=== PATIENT | female | born 1975 | race Caucasian/White ===

== ENCOUNTER 2018-06-23 16:36 | Outpatient (REF) | payer MEDICAID, SELFPAY ==
[2018-06-23 19:35] LABS: *AMPHETAMINES SCREEN URINE Negative (Negative); *BARBITURATES SCREEN URINE Negative (Negative); *BENZODIAZEPINES SCREEN URINE Negative (Negative); Cannabinoids THC Negative (Negative); Cocaine Screen,Urine Negative (Negative); METHADONE URINE SCREEN Negative (Negative); OPIATES URINE SCREEN Negative (Negative)
[2018-06-23 19:59] LABS: Tricyclic Antidepressants Negative (Negative)
[2018-06-28 19:13] LABS: Buprenorphine 529.3 ng/mL; Norbuprenorphine 2528.6 ng/mL
== END 2018-06-23 16:56 ==
LOC: LBN 16:36
PROVIDERS: PCP Family Medicine; Visit Provider Nurse Practitioner
DX: Z34.91 Encounter for supervision of normal pregnancy, unspecified, first trimester (principal)
CPT/HCPCS: 80307; 87086

== ENCOUNTER 2018-07-12 08:44 | Outpatient (CLI) | payer MEDICAID, SELFPAY ==
--- NOTE | 2018-07-12 09:14 | DI.US_ITS ---
SYMPTOMS/DIAGNOSIS: 18-WEEK SCAN, Z34.90 OB ULTRASOUND: Many abnormalities cannot be diagnosed. A normal exam does not exclude a congenital anomaly. Radiology No. [id number] LMP: Exam Date: 07/12/18 [facility] 17 wks days on 06/06/18 EDC ([facility]) 11/14/18 Confirmed: HISTORY: ---- PREDICTED GESTATIONAL AGE NUMBER 22+1 weeks with a range of 21+1 weeks to 23+1 weeks. 1 Determined by_X__1ST US___LMP___HISTORY PLACENTA PRESENTATION Grade I Cephalic___ Anterior___Posterior_X__ Breech____ Right Left Transverse(head right___ Fundal___Low-lying___Previa___ Transverse(head left___ Varying__X____ BIOMETRY AMNIOTIC FLUID BPD: 51 mm 21+4 weeks Normal HC: 199 mm 22 weeks AC: 167 mm 21+5 weeks FL: 39 mm 22+5 weeks AMNIOTIC FLUID INDEX >26 WK CRL: mm weeks Cisterna Magna: 5 mm CI: 0.75 RUQ: LUQ Cerebellum: 2.3 cm EFW: 475 grams Percentile RLQ: LLQ Total: cms Composite AGE= 22 wks EDC by US: 11/15/18 BIOPHYSICAL PROFILE ANATOMY IDENTIFIED SCORE 0/2 Heart: 4-Chamber_X__Rate:BPM 155 LVOT:____X RVOT:__X Amniotic Fluid(>2cms)____ Stomach:___X____ Kidneys:__X Respirations (>30 secs) Bladder:____X____ Post. Fossa:__X Body Flex/Extension 3-vessel cord:__X Ventricles:___X Cord insertion:__X___ Lips:_X___ Extremity Flex/Extension Spinal morphology:__X Nose:_X___ Total Score= Palate:__X NS=not seen COMMENTS: OB ultrasound was performed utilizing limited protocol. The patient reportedly had recent incomplete anomaly screen at another institution. biometry today is estimated at 22 weeks with an EDC of 11/15/18. Placenta is posterior with no evidence of placenta previa. anomaly screen is within normal limits as per the attached checklist. There is a normal quantity of amniotic fluid.
[2018-07-12 11:13] LABS: Abs Immature Grans 0.04 k/cumm (0.0-0.09); Absolute Basophil Count 0.02 k/cumm (0.0-0.2); Absolute Monocyte Count 0.75 k/cumm (0.11-0.7); Absolute Neutrophil Count 6.41 k/cumm (1.2-6.7); Basophils % 0.2; HCT 32.6 % (36.0-46.0); HGB 10.7 g/dL (12.0-15.5); Immature Grans % 0.4; Lymphocytes % 25.5; Mean Corp. HGB Concentration 32.8 g/dL (32.0-36.0); Mean Corpuscular Hemoglobin 30.1 pg (27.0-33.0); Mean Corpuscular Volume 91.6 fL (80-95); Mean Platelet Volume 9.2 fL (8.0-11.0); Monocytes % 7.6; Neutrophils % 65.3; Platelet Count 299 x1000/uL (130-400); RBC 3.56 m/cumm (4.00-5.20); RBC Distribution Width 14.9 % (11.7-14.6); White Blood Cell Count 9.82 k/cumm (4.4-10.8)
[2018-07-13 10:31] LABS: HIV-1/2 Ag & Ab Screen Negative (NEGAT)
[2018-07-13 12:12] LABS: Hepatitis C Ab w Rflx HCV PCR Negative (NEGAT)
[2018-07-14 09:56] LABS: Hepatitis B Surface Ag Negative (NEGAT)
[2018-07-14 11:28] LABS: Rubella IgG Ab (UVM) Positive; Syphilis Serology (RPR) Negative (Negative); Varicella IgG Antibody Positive
== END 2018-07-12 09:04 ==
PROVIDERS: PCP Internal Medicine; Visit Provider Nurse Practitioner
DX: Z34.92 Encounter for supervision of normal pregnancy, unspecified, second trimester (principal); Z11.59 Encounter for screening for other viral diseases; Z11.4 Encounter for screening for human immunodeficiency virus [HIV]; Z01.84 Encounter for antibody response examination
CPT/HCPCS: 36415; 80055; 86787; 86803; 86850; 86900; 86901; 87340; 87389; 76805; 86592; 86762

== ENCOUNTER 2018-09-28 15:31 | Outpatient (REF) | payer MEDICAID, SELFPAY ==
[2018-09-28 17:01] LABS: *AMPHETAMINES SCREEN URINE Negative (Negative); *BARBITURATES SCREEN URINE Negative (Negative); *BENZODIAZEPINES SCREEN URINE Negative (Negative); Cannabinoids THC Negative (Negative); Cocaine Screen,Urine Negative (Negative); METHADONE URINE SCREEN Negative (Negative); OPIATES URINE SCREEN Negative (Negative)
[2018-09-28 17:07] LABS: Tricyclic Antidepressants Negative (Negative)
--- NOTE | 2018-09-29 07:56 | PDOC.ANES ---
Date of service: 09/28/18 Anesthesia Note Report Anesthesia Note: Consulted by OB for evaluation of patient for TOLAC with history of heroin/fentanyl abuse, and difficult IV access (IV remicade infusions in the past). Pt is very pleasant 43 yo with previous . She has been on buprenorphine since April and states she has been doing well. From an IV access standpoint she appears to have very good veins, however she states that she has lot of valves and people have had much difficulty in the past. Discussed pain control if she did go to section. Discussed epidural, TAPs blocks, EULOGIO blocks, etc. to aid in pain relief along with acetaminophen and ibuprophen. Discussed that additional conversations and a final plan would be preformed with whomever is on the day that she presents.
[2018-10-02 14:05] LABS: Chlamydia Result Negative; GC Result Negative; Specimen Description URINE
== END 2018-09-28 15:51 ==
LOC: LBN 15:31
PROVIDERS: Advanced Practice Midwife; PCP Internal Medicine; Visit Provider Advanced Practice Midwife
DX: Z34.93 Encounter for supervision of normal pregnancy, unspecified, third trimester (principal)
CPT/HCPCS: 80307; 87491; 87591

== ENCOUNTER 2018-10-12 00:18 | Outpatient (CLI) | payer MEDICAID, SELFPAY ==
--- NOTE | 2018-10-12 10:04 | DI.US_ITS ---
SYMPTOMS/DIAGNOSIS: MEDICATION EXPOSURE, SUPERVISION OF NORMAL -Z34.90 OBSTETRICAL ULTRASOUND: Many abnormalities cannot be diagnosed. A normal exam does not exclude a congenital anomaly. Radiology No. [id number] LMP: 02/08/18 Exam Date: 10/12/18 [facility] wks days on EDC ([facility]) Confirmed: HISTORY: PREDICTED GESTATIONAL AGE NUMBER 35+1 weeks with a range of 34+0 weeks to 36+1 weeks. 1 Determined by___1STUS___LMP___HISTORY PLACENTA PRESENTATION Grade II Cephalic_X__ Anterior___Posterior_X__ Breech____ Right Left Transverse(head right___ Fundal___Low-lying___Previa___ Transverse(head left___ Varying BIOMETRY AMNIOTIC FLUID BPD: 84 mm 33+5 weeks Normal HC: 313 mm 35 weeks AC: 313 mm 35+2 weeks FL: 66 mm 34+1 weeks AMNIOTIC FLUID INDEX >26 WK CRL: mm weeks Cisterna Magna: mm CI: 80 RUQ: 2.4 LUQ: 1.6 Cerebellum: cm EFW: 2509 grams Percentile: 37th RLQ: 2.4 LLQ: 1.2 Total: 7.6 cm Composite AGE= 34+4 wks EDC by US BIOPHYSICAL PROFILE ANATOMY IDENTIFIED SCORE 0/2 Heart: 4-Chamber___Rate:BPM 133 LVOT: RVOT: Amniotic Fluid(>2cms)____ Stomach: Kidneys: Respirations (>30 secs) Bladder: Post. Fossa: Body Flex/Extension 3 vessel cord: Ventricles: cord insertion: Lips:____ Extremity Flex/Extension spinal morphology: Nose: Total Score= Palate: NS=not seen COMMENTS: There is a single living intrauterine gestation. Estimated sonographic age is 34 weeks 4 days. The fetus is in the cephalic presentation. heart rate is 133 beats per minute. Estimated weight is 2509 g, which is the 37th percentile. Amniotic fluid index is 7.6 cm. Visually, amniotic fluid appears within normal limits. The placenta is posterior without evidence of previa. IMPRESSION: Single living intrauterine gestation. Estimated sonographic age is 34 weeks 4 days.
== END 2018-10-12 00:38 ==
PROVIDERS: PCP Internal Medicine; Visit Provider Advanced Practice Midwife
DX: Z34.93 Encounter for supervision of normal pregnancy, unspecified, third trimester (principal); O99.323 Drug use complicating pregnancy, third trimester
CPT/HCPCS: 76816

== ENCOUNTER 2018-11-08 16:18 | Outpatient (CLI) | payer MEDICAID, SELFPAY ==
[2018-11-08 16:56] LABS: HCT 33.8 % (36.0-46.0); HGB 11.4 g/dL (12.0-15.5); Mean Corp. HGB Concentration 33.7 g/dL (32.0-36.0); Mean Corpuscular Hemoglobin 31.2 pg (27.0-33.0); Mean Corpuscular Volume 92.6 fL (80-95); Mean Platelet Volume 10.1 fL (8.0-11.0); Platelet Count 213 x1000/uL (130-400); RBC 3.65 m/cumm (4.00-5.20); RBC Distribution Width 13.7 % (11.7-14.6); White Blood Cell Count 15.07 k/cumm (4.4-10.8)
== END 2018-11-08 16:38 ==
PROVIDERS: PCP Internal Medicine; Visit Provider Obstetrics & Gynecology Gynecology
DX: O34.219 Maternal care for unspecified type scar from previous cesarean delivery (principal); Z01.818 Encounter for other preprocedural examination
CPT/HCPCS: 36415; 85027; 86850; 86900; 86901

== ENCOUNTER 2018-11-09 09:00 | Inpatient (IN) | payer MEDICAID, SELFPAY ==
[2018-11-09 06:27] VITALS: BP 122/88; PULSE 90; RESP 16; TEMP 36.8; O2SAT 97
[2018-11-09 06:32] VITALS: BP 122/88; PULSE 90; RESP 16; TEMP 36.8; O2SAT 97
[2018-11-09] MEDS: Lactated Ringers 1,000 ML 125 ML IV ×2 (06:45→08:03)
[2018-11-09] MEDS: Sodium Citrate 30 ML CUP PO (07:31)
[2018-11-09] MEDS: Acetaminophen 325 MG TAB 650 MG PO ×2 (10:41→18:47)
--- NOTE | 2018-11-09 11:41 | PDOC.ANES ---
Date of service: 11/09/18 Time of Service: 11:41 Anesthesia Note Report Anesthesia Note: Called to see patient post for abdominal pain. Pt. did receive intrathecal narcotics in her spinal for procedure and tolerated procedure well. She is now posteroperatively crying, complaining of abdominal pain 10/10 and states she is unable to hold her baby due to pain. Upon exam, she states she is having both skin and visceral pain. She was offered bilateral TAP blocks for cutaneous discomfort but after being informed on the procedure, she declined this procedure. Although she has had intrathecal narcotics, she can receive additional analgesia at the discretion of her OB Provider who the RN is notifying.
[2018-11-09] MEDS: HYDROmorphone 2 MG/ML VIAL 1 MG IVP ×3 (12:02→19:49)
[2018-11-09] MEDS: Normal Saline Flush 10 ML SYR IV ×4 (12:04→19:49)
[2018-11-09] MEDS: Ketorolac 30 MG/ML VIAL IVP ×2 (14:20→19:48)
[2018-11-09] MEDS: Lactated Ringers 1,000 ML 120 ML IV (21:05)
[2018-11-10] MEDS: HYDROmorphone 2 MG/ML VIAL 1 MG IVP ×2 (00:17→04:11)
[2018-11-10] MEDS: Acetaminophen 325 MG TAB 650 MG PO ×5 (00:18→21:56)
[2018-11-10] MEDS: Ketorolac 30 MG/ML VIAL IVP (02:00)
[2018-11-10 07:04] LABS: HCT 29.5 % (36.0-46.0); HGB 9.8 g/dL (12.0-15.5); Mean Corp. HGB Concentration 33.2 g/dL (32.0-36.0); Mean Corpuscular Hemoglobin 31.5 pg (27.0-33.0); Mean Corpuscular Volume 94.9 fL (80-95); Mean Platelet Volume 9.8 fL (8.0-11.0); Platelet Count 193 x1000/uL (130-400); RBC 3.11 m/cumm (4.00-5.20); RBC Distribution Width 13.7 % (11.7-14.6); White Blood Cell Count 16.17 k/cumm (4.4-10.8)
[2018-11-10] MEDS: Ibuprofen 600 MG TAB PO ×3 (07:56→19:58)
[2018-11-10] MEDS: Normal Saline Flush 10 ML SYR IV (07:59)
[2018-11-10] MEDS: HYDROmorphone 2 MG TAB PO ×4 (09:32→21:56)
[2018-11-11] MEDS: HYDROmorphone 2 MG TAB PO ×6 (02:00→23:40)
[2018-11-11] MEDS: Acetaminophen 325 MG TAB 650 MG PO ×6 (02:00→23:40)
[2018-11-11] MEDS: Ibuprofen 600 MG TAB PO ×3 (06:10→18:27)
[2018-11-12] MEDS: Ibuprofen 600 MG TAB PO ×3 (01:55→16:58)
[2018-11-12] MEDS: HYDROmorphone 2 MG TAB PO ×5 (03:45→20:35)
[2018-11-12] MEDS: Acetaminophen 325 MG TAB 650 MG PO ×5 (03:45→20:35)
--- NOTE | 2018-11-12 11:34 | W.PM.OP ---
Date of service: 11/12/18 Time of Service: 11:34 Operative Note DATE OF PROCEDURE: 11/09/18 PRE-OP DIAGNOSIS: Scheduled for elective repeat delivery at term PROCEDURE: Low transverse repeat delivery SURGEON: Tatiana Avilez ANESTHESIA: spinal ESTIMATED BLOOD LOSS: 500 PATHOLOGY: none sent COMPLICATIONS: None Patient was transported to: floor Patient's condition: stable Indications: 23-year-old female who was counseled during her regarding trial labor and declined a attempt. She requested a repeat delivery and declined a tubal sterilization. Her initial delivery was for twins. Findings: Viable female in the vertex position weighing 6 pounds 14 ounces Apgars 8 at 1 minute 9 at 5 minutes light meconium staining of the amniotic fluid noted upon entry into the uterine cavity. Normal tubes ovaries and uterus. Her parents have named her Lincoln. Procedure Description: Patient was brought to the operating room and placed in the sitting position spinal anesthesia was administered without difficulty she was then placed in the dorsal supine position with a leftward tilt Lamar catheter was inserted to gravity drainage and she was prepped and draped in the usual sterile fashion. A timeout was performed antibiotic dosage of Ancef 2 g at the time of entry into the operating room was confirmed SCDs were in place. Pfannenstiel skin incision was made along the previous scar using a scalpel the underlying subcutaneous tissue was dissected using a Bovie electrocautery to the level of the rectus fascia. Rectus fascia was then nicked in the midline with a scalpel and the incision was extended laterally with curved Bond scissors. 2 koffi clamps were applied to the superior aspect of this incision and the rectus muscles were dissected off of the overlying rectus fascia using blunt technique and Bovie electrocautery. A similar technique was carried out on the inferior aspect of all the rectus fascia incision. Rectus muscles were in the midline and the peritoneum was entered bluntly and the peritoneal incision was then extended manually. A bladder blade was placed into the incision to retract the bladder away from the operative field. The bladder flap was created with Metzenbaum scissors and digital separation of the vesicouterine peritoneum. Bladder blade was then reinserted to retract the bladder away from the operative field. A scalpel was used to incise the lower uterine segment in a transverse fashion. Upon entry into the uterine cavity the was extended bluntly. The amniotic sac was broken with the above-noted findings and the head was grasped delivered through the incision followed by shoulders trunk and extremities with the assistance of fundal pressure. Infant's cord was doubly clamped and cut and she was he handed off to waiting pediatric team. The placenta was delivered intact with a combination of gentle cord traction and fundal massage. The uterus was then exteriorized cleared of all clots and debris and the uterine incision was reapproximated with a running locked suture of 0 Vicryl. A second imbricating suture of 0 Vicryl was used to achieve excellent hemostasis. The uterine incision was inspected and noted be hemostatic. The uterus was returned to the abdomen and the uterine incision once again reinspected and noted be hemostatic. The paracolic gutters were cleared of all clots and debris and the bladder flap and anterior abdominal wall were inspected and noted to be hemostatic. The peritoneum was closed with a running suture of 2-0 Vicryl. The rectus fascia was closed using 0 Vicryl extending from the lateral margins and overlapping in the midline subcutaneous tissue was reapproximated using a running suture of 2-0 Vicryl subcuticular closure of the skin incision was performed with 4-0 Vicryl. The skin was sealed with skin glue. The uterus was massaged for any remaining clots and debris's patient was transferred to the waiting hospital bed and transported to recovery area in stable condition all sponge lap needle counts correct x2.
[2018-11-13] MEDS: Acetaminophen 325 MG TAB 650 MG PO ×2 (02:15→06:25)
[2018-11-13] MEDS: HYDROmorphone 2 MG TAB PO ×2 (02:15→06:25)
[2018-11-13] MEDS: Ibuprofen 600 MG TAB PO (06:30)
--- NOTE | 2018-11-13 08:03 | W.PM.DS.N ---
Date of service: 11/13/18 Time of Service: 08:03 DS: Diagnosis Discharge Diagnosis (1) delivery delivered: Start date: 11/09/18 Status: Inactive Asessment and Plan: Patient declined bilateral tubal sterilization at the time of her delivery (2) Opiate dependence, continuous: Status: Chronic Asessment and Plan: Subutex administered 16 mg daily during her hospital stay (3) Depression: Status: Chronic Asessment and Plan: Stable. Discharge Plan Disposition Condition: Good Discharge Details Reason For Visit: REPEAT SECTION Admit Date/Time: 11/09/18 09:00 Admit Provider: Tatiana Avilez Attending Provider: Tatiana Avilez Primary Care Provider: Nas Kim Hospital Course Hospital Course: Patient was admitted the morning of surgery and underwent a elective repeat delivery without complications. Her daughter will call weight 6 pounds 14 ounces inspection of the abdomen and pelvis revealed normal anatomy. Time of discharge incision is clean dry and intact bilateral lower extremity edema treated with LUZ hose and extremity elevation and normal vital signs. She was successfully breast-feeding at the time of discharge she was discharged to banner status since her daughter remain for BETTY scoring until Tuesday. Recommended the patient remain inpatient until this morning to assist with pain control breast-feeding and care of the infant. She was discharged with prescription for Dilaudid 2 mg 1 every 6 hours for total of 10 tablets with no refills prescription for ibuprofen 600 mg every 6 hours. Patient will follow-up in approximately 1 week for inspection of the incision and to assess pain control and mood. Home Meds and New Rx's Prescriptions: No Action buprenorphine HCl 8 mg tablet, sublingual 16 mg SL DAILY RF: 0 Unisom (doxylamine) 25 mg tablet 25 mg PO HS RF: 0 ondansetron HCl [Zofran] 4 mg tablet 4 mg PO ONCE PRNRF: 0 prenat.vits,bibi,beb-ktsi-enkyb tablet 1 tab PO DAILY RF: 0 ferrous sulfate [Feosol] 325 mg (65 mg iron) tablet 325 mg PO DAILY RF: 0 ondansetron HCl [Zofran] 4 mg tablet 4 mg PO QID PRN (Reason: nausea and vomiting) Qty: 30 RF: 1 hydromorphone [Dilaudid] 2 mg tablet 2 mg PO Q6H MDD 4 PRN (Reason: pain) Qty: 10 RF: 0 calcium carbonate [Tums] 200 mg calcium (500 mg) Tablet,Chewable 200 mg PO BID PRNRF: 0 acetaminophen [Tylenol Extra Strength] 500 mg Tablet RF: 0 Discharge Instructions Stand Alone Forms: BC Instructions, BC Discharge Instruc Activity:: Activity as Tolerated Activity:: Activity as Tolerated Equipment/Supplies:: No Equipment Needed Diet:: As Tolerated Exam Const General: no acute distress Nutritional Appearance: average body habitus Orientation: alert, awake and oriented x3 Chest Breast inspection: normal inspection of the breasts (Rayray exam consistent with normal breast-feeding exam) Resp Effort & Inspection: normal respiratory effort Auscultation: clear to auscultation bilaterally Cardio Palpation: normal PMI Rate: regular rate Rhythm: regular rhythm Heart Sounds: S1 normal and S2 normal General: deferred Other: Pfannenstiel skin incisions clean dry intact skin glue present. Uterus 1 fingerbreadth below the umbilicus, firm, mobile, slightly tender Skin General skin exam: no rashes or lesions noted Extrem General: pedal edema bilaterally (Nonpitting-no knots or cords) Psych Mental Status: mental status grossly normal Speech and Movement: speech and movement normal Mood: congruent mood Affect: normal affect Attitude: cooperative Thought Process: normal Thought Content: normal Insight: insight good Judgment: judgment good Other: Bodies appropriate with incident. She expresses fatigue because of the resting demands cleansing of the infant removed from the room for patient to sleep. DS: Data Vitals/I&O Vitals and I&O: Vital Signs Temperature 98.2 F 11/09/18 06:32 Pulse 90 11/09/18 06:32 Pulse Rhythm Regular 11/09/18 06:32 Respiratory Rate 16 11/09/18 06:32 Blood Pressure 122/88 11/09/18 06:32 Pulse Oximetry 97 11/09/18 06:32 Oxygen Delivery Method Room Air 11/09/18 06:32 Oxygen Flow Rate 0 11/09/18 06:32 Pain Level 8 11/13/18 06:30 PFSH Medical History (Acute) History of tobacco abuse (Acute) Hx of herpes genitalis (Chronic) Arthralgia (Chronic ~08/1996) Crohn disease (Chronic) Depression (Chronic) Opiate dependence, continuous (Chronic) Rheumatoid arthritis (Chronic) delivery delivered (Resolved) Surgical History delivery delivered (Inactive) Family History Brother Crohn's colitis Social History Smoking/Tobacco Use Status: Former Tobacco Use Quit Date: 04/27/18 Alcohol Intake: never Substance use type: former substance user, heroin and painkillers Adopted: No Foster care: No Household members: significant other Number of Children: 3 Seatbelt use: always Helmet use: Yes 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 Together 7 years History History 2 Para 1 Hx # Term Pregnancies 1 Multiple births 1 Hx # Pregnancies 0 Ectopic pregnancies 0 AB induced 0 Hx Number of Living Children 2 AB spontaneous 0 Past Pregnancies Del. Date GA/Weeks # Outcome Route Wgt Sex Labor Lgth Anesthesia Location Prov Complic 08/22/96 Yes Successful 6 lb 5 oz other 08/22/96 Yes Successful 4 lb 5 oz Female 11/09/18 39 No Successful Female Tatiana Avilez Delivery Date: 11/09/18 On 11/13/18 @ 08:12 Tatiana Avilez Elective repeat delivery named [place] Delivery Date: 08/22/96 No notes to display Delivery Date: 08/22/96 No notes to display
== END 2018-11-13 10:28 | disposition home or self-care (01) | DRG 784 ==
LOC: PDS 09:11 → OBS 10:34
PROVIDERS: Admitting Provider Obstetrics & Gynecology Gynecology; PCP Internal Medicine; Visit Provider Obstetrics & Gynecology Gynecology
PROC: 10D00Z1 Extraction of Products of Conception, Low, Open Approach (ICD-10-PCS; CPT 59514; principal; 2018-11-09 07:30)
DX: O34.211 Maternal care for low transverse scar from previous cesarean delivery (principal); F11.20 Opioid dependence, uncomplicated; O99.324 Drug use complicating childbirth; O98.32 Other infections with a predominantly sexual mode of transmission complicating childbirth; Z37.0 Single live birth; O77.0 Labor and delivery complicated by meconium in amniotic fluid; Z3A.39 39 weeks gestation of pregnancy; A60.00 Herpesviral infection of urogenital system, unspecified; O75.89 Other specified complications of labor and delivery; R11.0 Nausea
CPT/HCPCS: 59514; 58720; 36415; 85027; NC; J0690; J1100; J1885; J2370; J2405; J3010; J3490

== ENCOUNTER 2022-07-05 16:52 | Outpatient (REF) | payer MEDICAID, SELFPAY ==
[2022-07-05 22:16] LABS: Abs Immature Grans 0.03 10^3/uL (0.0-0.06); Absolute Basophil Count 0.06 10^3/uL (0.0-0.2); Absolute Eosinophil Count 0.23 10^3/uL (0.0-0.7); Absolute Monocyte Count 0.56 10^3/uL (0.1-0.8); Basophils % 0.6; Eosinophils % 2.5; HCT 39.1 % (36.0-46.0); HGB 12.8 g/dL (11.2-15.7); Immature Grans % 0.3; Lymphocytes % 37.3; MCH 29.6 pg (27.0-33.0); MCHC 32.7 % (32.0-36.0); MCV 91 fL (80-95); Neutrophils % 53.3; Platelet Count 293 10^3/uL (130-400); RBC 4.32 10^6/uL (3.93-5.22); RDW 13.2 % (11.7-14.6); WBC 9.38 10^3/uL (4.4-10.8)
[2022-07-05 22:35] LABS: Hemoglobin A1C 5.5 % (<5.7)
[2022-07-05 22:45] LABS: ALT 34 U/L (14-59); AST 18 U/L (15-37); Albumin 3.7 g/dL (3.4-5.0); Alkaline Phosphatase 116 U/L (46-116); Anion Gap 5.9 mmol/L (3-11); BUN 12 mg/dL (7-18); Bilirubin, Total 0.2 mg/dL (0.2-1.0); CO2 29.1 mmol/L (21.0-32.0); CREATININE 0.9 mg/dL (0.55-1.02); Calcium 8.9 mg/dL (8.5-10.1); Calculated LDL 148 mg/dL (<100); Chloride 102 mmol/L (98-107); Cholesterol 247 mg/dL (<200); Estimated GFR 80.34 (mL/min/1.73m2); Glucose 85 mg/dL (74-106); HDL Cholesterol 28 mg/dL (40-60); Potassium 4.3 mmol/L (3.5-5.1); Sodium 137 mmol/L (136-145); TSH (W/Ref FT4) 2.55 uIU/mL (0.36-3.74); Total Protein 7.8 g/dL (6.4-8.2); Triglyceride 356 mg/dL (<150)
== END 2022-07-05 16:53 | disposition home or self-care (01) ==
LOC: NCHCN 16:52
PROVIDERS: PCP Internal Medicine; Visit Provider Nurse Practitioner Family
DX: E78.5 Hyperlipidemia, unspecified (principal); R79.89 Other specified abnormal findings of blood chemistry; Z00.00 Encounter for general adult medical examination without abnormal findings; Z13.228 Encounter for screening for other metabolic disorders
CPT/HCPCS: 80053; 80061; 83036; 84443; 85025

== ENCOUNTER 2022-10-26 11:03 | Outpatient (REF) | payer MEDICAID, SELFPAY ==
[2022-11-01 06:37] LABS: 2-OH-Ethyl-Flurazepam Negative ng/mL (Cutoff: 10); 7-NH-Clonazepam Negative ng/mL (Cutoff: 10); 7-NH-Flunitrazepam Negative ng/mL (Cutoff: 10); Alpha OH-Alprazolam Negative ng/mL (Cutoff: 10); Alpha-OH Midazolam Negative ng/mL (Cutoff: 10); Alpha-OH-Triazolam Negative ng/mL (Cutoff: 10); Alprazolam Negative ng/mL (Cutoff: 10); Benzodiazepines Interpretation Negative.; Chlordiazepoxide Negative ng/mL (Cutoff: 10); Clobazam Negative ng/mL (Cutoff: 10); Clonazepam Negative ng/mL (Cutoff: 10); Diazepam Negative ng/mL (Cutoff: 10); Flurazepam Negative ng/mL (Cutoff: 10); Lorazepam Negative ng/mL (Cutoff: 10); Midazolam Negative ng/mL (Cutoff: 10); N-Desmethylclobazam Negative ng/mL (Cutoff: 10); Prazepam Negative ng/mL (Cutoff: 10); Temazepam Negative ng/mL (Cutoff: 10); Triazolam Negative ng/mL (Cutoff: 10); Zolpidem Carboxylic acid Negative ng/mL (Cutoff: 10)
== END 2022-10-26 11:04 | disposition home or self-care (01) ==
LOC: NCHCN 11:03
PROVIDERS: PCP Internal Medicine; Visit Provider Nurse Practitioner Psychiatric/Mental Health
DX: F19.21 Other psychoactive substance dependence, in remission
CPT/HCPCS: 80346

== ENCOUNTER 2023-02-21 11:30 | Emergency (ER) | payer MEDICAID, SELFPAY ==
[2023-02-21 11:34] VITALS: BP 151/89; PULSE 126; RESP 12; TEMP 36.8; O2SAT 97
--- NOTE | 2023-02-21 12:21 | ED.GENADUL_ITS ---
Discharge Plan Disposition Patient Disposition: Home Condition: Stable Discharge Details Clinical Impression: Nausea vomiting and diarrhea, Hematuria Primary Care Provider: Nas Kim ED Provider: Lubna Chadwick Home Meds and New Rx's Prescriptions: New ondansetron 4 mg tablet,disintegrating 4 mg PO Q6H PRN (Reason: nausea and vomiting) Qty: 10 0RF Continued buprenorphine HCl 8 mg tablet, sublingual 16 mg SL DAILY Patient Comments: no longer taking 02/21/23 CT Unisom (doxylamine) 25 mg tablet 25 mg PO HS Patient Comments: no longer taking 02/21/23 CT prenat.vits,bibi,jnj-snxw-rxuql tablet 1 tab PO DAILY Patient Comments: no longer taking 02/21/23 CT ferrous sulfate [Feosol] 325 mg (65 mg iron) tablet 325 mg PO DAILY Patient Comments: no longer taking 02/21/23 CT ondansetron HCl [Zofran] 4 mg tablet 4 mg PO QID PRN (Reason: nausea and vomiting) Qty: 30 1RF Patient Comments: no longer taking 02/21/23 CT ibuprofen 600 mg tablet 600 mg PO QID PRN (Reason: pain) Qty: 60 1RF Patient Comments: no longer taking 02/21/23 CT misoprostol 100 mcg tablet 100 mcg PO QPCHS Qty: 24 0RF Patient Comments: no longer taking 02/21/23 CT Rx Instructions: place 8 tablets in the vagina every 12 hours for 3 doses. norethindrone (contraceptive) [Deblitane] 0.35 mg tablet 0.35 mg PO DAILY Qty: 84 5RF Patient Comments: no longer taking 02/21/23 CT Rx Instructions: Begin immediately nitrofurantoin macrocrystal 25 mg capsule 50 mg PO .COMPLEX Qty: 30 1RF Patient Comments: no longer taking 02/21/23 CT Rx Instructions: 50 mg orally after intercourse; must administer with a meal/food calcium carbonate [Tums] 200 mg calcium (500 mg) Tablet,Chewable 200 mg PO BID PRN Patient Comments: no longer taking 02/21/23 CT acetaminophen [Tylenol Extra Strength] 500 mg Tablet Patient Comments: no longer taking 02/21/23 CT clonazepam 1 mg Tablet 1 mg PO DAILY prazosin 5 mg Capsule 5 mg PO QHS mirtazapine [Remeron] 30 mg Tablet 50 mg PO DAILY methadone 5 mg/5 mL Syringe 215 mg PO DAILY vilazodone [Viibryd] 10 mg Tablet 10 mg PO DAILY Discharge Instructions Instructions: Acute Nausea and Vomiting (ED), Hematuria (ED) Additional Instructions: Your labs are reassuring here today. This may be a viral GI illness and should resolve in the next few days. Please continue to encourage hydration with frequent sips of fluids. Please avoid red liquids as this may be misconstrued for blood. You may advance diet as tolerated but please stick with easy to digest foods such as bananas, rice, applesauce, toast. Please follow-up with your primary care in 1 week for reevaluation. If you develop fever/chills, increased pain, inability to hydrate or other new/worsening symptom please seek care urgently once again. Medicine for your nausea has been sent to your pharmacy and may be used as directed if symptoms recur. It appears that your urinary tract infection has resolved. However, you did have some blood in your urine which may be residual from your infection in your recent menstrual cycle. Please follow-up with primary care. Referrals: Nas Kim [Primary Care Provider] - Medical Decision Making Patient is a pleasant 47-year-old female, brought in by her mom, with chief complaint of abdominal pain, nausea, vomiting and diarrhea. She reports that nausea and vomiting woke her around midnight. Had been feeling well yesterday. Denies any fevers or chills. States that she had 1 episode of diarrhea this morning. Estimates that she has vomited, all nonbloody, at least 20 times. No known sick contacts. Endorses some epigastric discomfort. No pain rating into the back. Patient was seen by primary care last week and treated for urinary tract infection with Bactrim. Is not currently endorsing any dysuria, increased frequency or urgency. no flank pain. patient denies status, states that she is not sexually active. Denies vaginal discharge. On exam, patient appears nontoxic. Resting comfortably. Is holding an emesis bag. We will treat her nausea. She is on methadone at a dose this morning so we will give Compazine and Benadryl until we know QT and then would consider Zofran. Abdomen is benign at this time but she indicates the upper abdomen particular the left side and epigastrium as area of increased discomfort. No CVA tenderness. Lungs are clear, normal cardiac exam. ECG has QTc 375, able to use zofran for continued nausea if needed. Primary concern at this time for viral gastroenteritis. Patient does have history of Crohn's but states that its been over 10 years since her last flair, does not feel like this is the same. Consider pancreatitis with patient denies any alcohol intake. No pain with palpation. Also considered gallbladder disorder but again, no pain at this time and this has not been linked to p.o. intake at all. She not having any CVA tenderness to suggest a pyelonephritis. Pain is fairly vague across the epigastric region so I do not see evidence to suggest nephrolithiasis at this time. She is not having consistent symptoms such as diverticulitis or appendicitis. Plan to obtain baseline labs and continue to reevaluate. Patient feeling significantly improved after antiemetics. Labs reviewed. Patient has no significant abnormalities on CBC, CMP. Alk phos is slightly elevated but this is been elevated for her in the past. Lipase within normal limits. Urine has moderate mount of blood but patient does state that she just finished her menses. Again, no CVA tenderness to suggest renal pathology. Negative for bacteria so believe that her UTI was successfully treated with the Bactrim she was prescribed by her primary care. She and I did discuss imaging and she would prefer to hold off at this time which I do feel is appropriate as I am not seeing evidence to suggest surgical pathology at this time. We will allow her to continue with her hydration and discharged home with mom. QTc 375, will give Zofran for the ODT option. All of her questions and cocnerns were addressed, she is in agreement with this plan. [facility] General Date/Time Provider Initiated Documentation: 02/21/23 12:21 . Limitations to Documentation: no limitations . Information obtained by: patient, family and RN notes reviewed . History of Present Illness 47 year old F presents to the emergency department with the chief complaint of nausea, vomiting, diarrhea, abdominal discomfort, described as severe (estimates 20 episodes of emesis today, no pain currently), Quality is described as aching, and is localized to the abdomen. Patient reports no radiation. Patient started experiencing this hour(s) (woke her at midnight) and it has been constant. No relieving factors improve symptom(s), No exacerbating factors reported . Patient notes no other symptoms.. Patient did receive the following treatments prior to arrival, none Related Data Home Medications Medication Instructions Recorded Confirmed doxylamine succinate 25 mg tablet 25 mg PO HS 06/23/18 11/22/18 (Unisom (doxylamine)) prenat.vits,bibi,dod-lsol-qvbxo 1 tab PO DAILY 06/23/18 11/22/18 buprenorphine HCl 8 mg sublingual 16 mg sublingual DAILY 08/07/18 11/22/18 tablet ferrous sulfate 325 mg (65 mg 325 mg PO DAILY 10/13/18 11/22/18 iron) tablet (Feosol) ondansetron HCl 4 mg tablet 4 mg PO QID PRN nausea and 10/26/18 11/22/18 (Zofran) vomiting #30 tabs calcium carbonate 200 mg calcium 200 mg PO BID PRN 11/06/18 11/22/18 (500 mg) chewable tablet (Tums) acetaminophen 500 mg tablet 11/09/18 11/22/18 (Tylenol Extra Strength) ibuprofen 600 mg tablet 600 mg PO QID PRN pain #60 tabs 11/13/18 11/22/18 misoprostol 100 mcg tablet 100 mcg PO QPCHS #24 tabs 03/07/20 norethindrone (contraceptive) 0.35 0.35 mg PO DAILY #84 tabs 08/26/20 mg tablet (Deblitane) nitrofurantoin macrocrystal 25 mg 50 mg PO .COMPLEX #30 caps 02/17/23 capsule clonazepam 1 mg tablet 1 mg PO DAILY 02/21/23 02/21/23 methadone 5 mg/5 mL oral syringe 215 mg PO DAILY 02/21/23 02/21/23 (FOR ORAL USE ONLY) mirtazapine 30 mg tablet (Remeron) 50 mg PO DAILY 02/21/23 02/21/23 ondansetron 4 mg disintegrating 4 mg PO Q6H PRN nausea and 02/21/23 tablet vomiting #10 tabs prazosin 5 mg capsule 5 mg PO QHS 02/21/23 02/21/23 vilazodone 10 mg tablet (Viibryd) 10 mg PO DAILY 02/21/23 02/21/23 Previous Rx's Medication Instructions Recorded ondansetron HCl 4 mg tablet 4 mg PO QID PRN nausea and 10/26/18 (Zofran) vomiting #30 tabs ibuprofen 600 mg tablet 600 mg PO QID PRN pain #60 tabs 11/13/18 misoprostol 100 mcg tablet 100 mcg PO QPCHS #24 tabs 03/07/20 norethindrone (contraceptive) 0.35 0.35 mg PO DAILY #84 tabs 08/26/20 mg tablet (Deblitane) nitrofurantoin macrocrystal 25 mg 50 mg PO .COMPLEX #30 caps 02/17/23 capsule ondansetron 4 mg disintegrating 4 mg PO Q6H PRN nausea and 02/21/23 tablet vomiting #10 tabs Allergies Allergy/AdvReac Type Severity Reaction Status Date / Time No Known Allergies Allergy Verified 02/21/23 11:42 General Stated Complaint: Abd Prob MEGHA: 3 Review of Systems Constitutional Constitutional: Reports as per HPI, Denies chills, Denies fever(s) and Denies headache(s) ENT Ears, Nose, Mouth, and Throat: Denies headache(s) Cardiovascular Cardiovascular: Reports as per HPI, Denies chest pain and Denies dyspnea Respiratory Respiratory: Reports as per HPI, Denies cough and Denies dyspnea Gastrointestinal Gastrointestinal: Reports as per HPI Genitourinary Genitourinary: Denies abnormal menses and Denies vaginal discharge Musculoskeletal Musculoskeletal: Reports as per HPI and Denies back pain Integumentary/Breasts Skin/Breast: Reports as per HPI and Denies rash Neurologic Neurologic: Reports as per HPI and Denies headache(s) PFSH All Active Problems (Updated 02/21/23 @ 13:26 by BRANDON Aguilar) Nausea vomiting and diarrhea (Acute) Hematuria (Acute) Postcoital urinary tract infection (Acute) Contraception (Acute) 08/2020. Declined LARC. Smokes tobacco. Rx for norethindrone 0.35 mg daily. History of tobacco abuse (Acute) Hx of herpes genitalis (Chronic) c/s report makes mention of vulvar herpes outbreak as being the cause of pt's c/s. Arthralgia (Chronic ~08/1996) related to remicaid treatment and crohn's Crohn disease (Chronic) Depression (Chronic) Opiate dependence, continuous (Chronic) Medical History (Updated 02/21/23 @ 13:26 by BRANDON Aguilar) delivery delivered Rheumatoid arthritis Family History (Updated 09/28/18 @ 10:13 by Katie Broussard CNM) Brother Crohn's colitis Social History (Updated 11/13/18 @ 08:11 by Tatiana Jarrell MD) Smoking/Tobacco Use Status: Former Tobacco Use Quit Date: 04/27/18 Smoking risk assessment performed?: Yes Alcohol Intake: never Substance use type: former substance user, heroin and painkillers Adopted: No Foster care: No Household members: significant other Number of Children: 3 Seatbelt use: always Helmet use: Yes 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 Together 7 years History History 2 Para 1 Hx # Term Pregnancies 1 Multiple births 1 Hx # Pregnancies 0 Ectopic pregnancies 0 AB induced 0 Hx Number of Living Children 2 AB spontaneous 0 Past Pregnancies Del. Date GA/Weeks # Preg Succ Route Wgt Sex Labor Lgth Anesth esia Location Prov [facility] 08/22/96 Yes 2863.302 g other 08/22/96 Yes 1956.117 g Female 11/09/18 39 No Female Tatiana Carrera 11/09/18 No 3118.448 g Female [facility] Tatiana Jarrell Delivery Date: 11/09/18 Last Updated by: Tatiana Jarrell M.D. Elective repeat delivery named [place] Exam Const General: cooperative, healthy appearing, comfortable, no acute distress and well developed Nutritional Appearance: average body habitus and well nourished Orientation: alert and awake [facility] Head: normal to inspection Mouth: moist mucous membranes Resp Effort & Inspection: normal respiratory effort, able to speak in complete sentences and no respiratory distress Auscultation: clear to auscultation bilaterally, no rales, no rhonchi and no wheezes Cardio Rate: tachycardic Rhythm: regular rhythm Heart Sounds: S1 normal and S2 normal GI Inspection: normal to inspection Palpation: soft, no hepatosplenomegaly, not firm, no guarding, no masses, not rigid and nontender Percussion: normal to percussion Auscultation: normal bowel sounds Back/Spine/Pelvis Back: no CVA tenderness Skin General skin exam: no rashes or lesions noted Trauma: no lacerations or abrasions Neuro General: patient alert and patient awake Cognition: normal cognition Speech: speech normal Gait: normal gait Psych Appearance: grossly normal and well kempt Mental Status: mental status grossly normal Speech and Movement: speech and movement normal Course Vital Signs Vital signs: Vital Signs Temperature 36.8 C 02/21/23 11:34 Pulse 126 H 02/21/23 11:34 Respiratory Rate 12 02/21/23 11:34 Blood Pressure 151/89 H 02/21/23 11:34 Pulse Oximetry 97 02/21/23 11:34 Temperature 36.8 C 02/21/23 11:34 Temperature Source Oral 02/21/23 11:34 Pulse 126 H 02/21/23 11:34 Respiratory Rate 12 02/21/23 11:34 Respiratory Effort Normal 02/21/23 11:38 Blood Pressure 151/89 H 02/21/23 11:34 Blood Pressure Position Sitting 02/21/23 11:34 Pulse Oximetry 97 02/21/23 11:34 Oxygen Delivery Method Room Air 02/21/23 11:34 Oxygen Flow Rate 0 02/21/23 11:34 Pain Level 3 02/21/23 11:34
--- NOTE | 2023-02-21 12:30 | RT.EKG_ITS ---
APPROVED REPORT Exam: Resting ECG Reason for Exam: methadone Patient Location: E HR:93 bpm ECG Measurements Heart Rate 93 AXIS IA 147 P 75 QRSd 87 QRS 45 QT 302 T 32 QTc 375 Conclusion Sinus rhythm...normal P axis, V-rate 60- 99
[2023-02-21 12:33] LABS: Abs Immature Grans 0.05 10^3/uL (0.0-0.06); Absolute Basophil Count 0.03 10^3/uL (0.0-0.2); Absolute Eosinophil Count 0.01 10^3/uL (0.0-0.7); Absolute Lymphocyte Count 1.57 10^3/uL (1.2-3.4); Absolute Monocyte Count 0.24 10^3/uL (0.1-0.8); Basophils % 0.3; Eosinophils % 0.1; HCT 38.8 % (36.0-46.0); HGB 13.1 g/dL (11.2-15.7); Immature Grans % 0.5; Lymphocytes % 14.3; MCH 28.9 pg (27.0-33.0); MCHC 33.8 % (32.0-36.0); MCV 86 fL (80-95); MPV 9.1 fL (8.0-11.0); Monocytes % 2.2; Neutrophils % 82.6; Platelet Count 344 10^3/uL (130-400); RBC 4.54 10^6/uL (3.93-5.22); RDW 13.4 % (11.7-14.6); RDW-SD 41.6 fL; WBC 10.95 10^3/uL (4.4-10.8)
[2023-02-21 12:34] LABS: Absolute Neutrophil Count 9.04 10^3/uL (1.2-6.7)
[2023-02-21] MEDS: Lactated Ringers 1,000 ML 1000 ML IV (12:46)
[2023-02-21] MEDS: diphenhydrAMINE 50 MG/ML VIAL 25 MG IVP (12:46)
[2023-02-21] MEDS: Prochlorperazine 10 MG/2 ML VIAL IVP (12:46)
[2023-02-21 12:49] LABS: ALT 45 U/L (14-59); AST 25 U/L (15-37); Albumin 4.4 g/dL (3.4-5.0); Alkaline Phosphatase 126 U/L (46-116); Anion Gap 12.2 mmol/L (3-11); BUN 16 mg/dL (7-18); Bilirubin, Total 0.3 mg/dL (0.2-1.0); CO2 22.8 mmol/L (21.0-32.0); Calcium 9.4 mg/dL (8.5-10.1); Chloride 102 mmol/L (98-107); Estimated GFR 70.36 (mL/min/1.73m2); Glucose 144 mg/dL (74-106); Lipase 23 U/L (16-77); Magnesium 1.8 mg/dL (1.8-2.4); Potassium 3.7 mmol/L (3.5-5.1); Sodium 137 mmol/L (136-145); Total Protein 8.9 g/dL (6.4-8.2)
[2023-02-21 12:55] LABS: Bilirubin Small (Negative); Blood Moderate (Negative); Clarity Clear (Clear); Glucose Negative (Negative); Ketones Negative (Negative); Leukocyte Esterase Negative (Negative); Nitrite Negative (Negative); Urobilinogen 0.2 mg/dL (Up to 0.2)
[2023-02-21 13:05] LABS: Bacteria Negative HPF (Negative); C & S Indicated? No; Crystals Negative HPF (Negative); Epithelial Cells Moderate HPF (Negative); Mucus Negative (Negative); RBC >50 HPF (0-2); WBC 0-2 HPF (0-5)
[2023-02-21 13:58] VITALS: PULSE 84
== END 2023-02-21 13:41 | disposition home or self-care (01) ==
PROVIDERS: Emergency Provider Physician Assistant; PCP Internal Medicine
DX: R10.11 Right upper quadrant pain; R10.12 Left upper quadrant pain; R11.10 Vomiting, unspecified; R51.9 Headache, unspecified; Z87.891 Personal history of nicotine dependence; Z79.891 Long term (current) use of opiate analgesic
CPT/HCPCS: 80053; 81025; 83690; 93005; 96365; 96375; 99284; 81003; 81015; 83735; 85025; 93010; J0780; J1200

== ENCOUNTER 2023-08-16 07:11 | Emergency (ER) | payer MEDICAID, SELFPAY ==
[2023-08-16] VITALS (11 sets, daily range): BP systolic 151; BP diastolic 94; PULSE 67–85; RESP 11–24; TEMP 36.7
--- NOTE | 2023-08-16 07:29 | ED.GENADUL_ITS ---
Discharge Plan Disposition Patient Disposition: Home Condition: Stable Discharge Details Clinical Impression: Acute dehydration, Vomiting, Hypokalemia Primary Care Provider: Unknown,Unknown ED Provider: Thomas Gutierrez Home Meds and New Rx's Prescriptions: New ondansetron 4 mg tablet,disintegrating 4 mg PO Q6H PRN (Reason: nausea and vomiting) Qty: 30 0RF No Action clonazepam 1 mg Tablet 1 mg PO DAILY prazosin 5 mg Capsule 5 mg PO QHS methadone 5 mg/5 mL Syringe 215 mg PO DAILY vilazodone [Viibryd] 10 mg Tablet 10 mg PO DAILY lamotrigine 25 mg tablet 25 mg PO DAILY zolpidem 5 mg tablet 5 mg PO HS Patient Comments: TAKE ONE TABLET BY MOUTH AT BEDTIME NEEDED Discharge Instructions Instructions: Dehydration (ED) Additional Instructions: Increase fluid intake. Try to drink liquids with electrolytes like Pedialyte or Gatorade return to the emergency department if you are not tolerating anything by mouth. Medical Decision Making Emergent evaluation of fatigue, vomiting. On examination, patient does have signs of clinical dehydration. Abdominal exam is benign. I doubt that this is a Crohn's flare. Initial differential includes dehydration, viral illness. Also consider withdrawal symptoms. Patient is on methadone and prescribed Ambien and clonazepam. She had recently filled both of these. Reported compliance with methadone treatment. Initial plan for fluid resuscitation, lab work. At this time I do not feel that imaging would be beneficial. Lab work reviewed. CBC without leukocytosis or anemia. Mild hypokalemia noted, repleted with IV medication. Patient resuscitated with 2 L of IV fluids. She was given an oral challenge in the emergency department which she tolerated. She has no signs of urine infection on urinalysis. I do not suspect pancreatitis or other acute intra-abdominal process. She is feeling better after fluids. At this time I feel she is stable for discharge home. I will send a prescription for Zofran for her to take. Guidance provided on oral hydration strategies. Return precautions advised. Medical Records Medical records reviewed: Yes I reviewed the patient's medical records. Lab Data Lab results reviewed: Yes I reviewed the patient's lab results. HPI General Date/Time Provider Initiated Documentation: 08/16/23 07:20 . Limitations to Documentation: no limitations . Information obtained by: patient . HPI Narrative: 48-year-old female with past medical history of Crohn's disease presents for evaluation of 2 weeks of not feeling well. Reports nausea, fatigue. She reports decreased oral intake and vomiting. She reports that the vomiting is increasing. No abdominal pain or diarrhea. Reports for the last 2 days she has been having urinary urgency and burning. No back pain. No fever. Reports that her 5-year-old daughter's been having some URI symptoms, but otherwise no sick contacts. Reports that she had been previously treated with Remicade for her Crohn's disease, but does not take medication currently. Never had abdominal surgery. Related Data Home Medications Medication Instructions Recorded Confirmed clonazepam 1 mg tablet 1 mg PO DAILY 02/21/23 08/16/23 methadone 5 mg/5 mL oral syringe 215 mg PO DAILY 02/21/23 08/16/23 (FOR ORAL USE ONLY) prazosin 5 mg capsule 5 mg PO QHS 02/21/23 08/16/23 vilazodone 10 mg tablet (Viibryd) 10 mg PO DAILY 02/21/23 08/16/23 lamotrigine 25 mg tablet 25 mg PO DAILY 08/16/23 08/16/23 ondansetron 4 mg disintegrating 4 mg PO Q6H PRN nausea and 08/16/23 tablet vomiting #30 tabs zolpidem 5 mg tablet 5 mg PO HS 08/16/23 08/16/23 Previous Rx's Medication Instructions Recorded ondansetron 4 mg disintegrating 4 mg PO Q6H PRN nausea and 08/16/23 tablet vomiting #30 tabs Allergies Allergy/AdvReac Type Severity Reaction Status Date / Time No Known Allergies Allergy Verified 08/16/23 07:18 General Stated Complaint: Nausea/Vomit/Diar MEGHA: 3 PFSH All Active Problems (Updated 08/16/23 @ 10:21 by Thomas Gutierrez MD) Hypokalemia (Acute) Vomiting (Acute) Acute dehydration (Acute) Postcoital urinary tract infection (Acute) Contraception (Acute) 08/2020. Declined LARC. Smokes tobacco. Rx for norethindrone 0.35 mg daily. History of tobacco abuse (Acute) Hx of herpes genitalis (Chronic) c/s report makes mention of vulvar herpes outbreak as being the cause of pt's c/s. Arthralgia (Chronic ~08/1996) related to remicaid treatment and crohn's Crohn disease (Chronic) Depression (Chronic) Opiate dependence, continuous (Chronic) Medical History Rheumatoid arthritis delivery delivered Family History Brother Crohn's colitis Social History Smoking/Tobacco Use Status: Former Tobacco Use Quit Date: 04/27/18 Smoking risk assessment performed?: Yes Alcohol Intake: never Substance use type: former substance user, heroin and painkillers Adopted: No Foster care: No Household members: significant other Housing: house Number of Children: 3 Seatbelt use: always Helmet use: Yes 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 Together 7 years History History 2 Para 1 Hx # Term Pregnancies 1 Multiple births 1 Hx # Pregnancies 0 Ectopic pregnancies 0 AB induced 0 Hx Number of Living Children 2 AB spontaneous 0 Past Pregnancies Del. Date GA/Weeks # Preg Succ Route Wgt Sex Labor Lgth Anesth esia Location Prov [facility] 08/22/96 Yes 2863.302 g other 08/22/96 Yes 1956.117 g Female 11/09/18 39 No Female Tatiana Carrera 11/09/[address] [facility] Tatiana Jarrell Delivery Date: 11/09/18 Last Updated by: Tatiana Jarrell M.D. Elective repeat delivery named [place] Exam Narrative Exam Narrative: Review of Systems: All systems reviewed & are unremarkable except as noted in HPI and below: CONSTITUTIONAL: Alert and oriented Well-developed, no acute distress HEENT: NCAT EYES: PERRL, no conjunctival injection MOUTH dry MM NECK: Symmetric, trachea midline, No thyromegaly CVS: RRR, No murmurs or gallops. Peripheral pulses 2+ and equal in all extremities Brisk capillary refill in all extremities. No peripheral edema RESP: Unlabored respiratory effort, Clear to auscultation bilaterally No wheezes rales or rhonchi GI: Soft, Nontender, Nondistended, No organomegaly, no CVAT MSK: Extremities with full range of motion, no deformity or TTP SKIN: Warm, Dry. No rashes or lesions. NEURO: No focal neurologic deficits. review assistant II-XII grossly intact Sensation grossly intact Normal strength throughout PSYCH: Appropriate mood and affect Course Vital Signs Vital signs: Vital Signs Temperature 36.7 C 08/16/23 07:14 Pulse 85 08/16/23 07:14 Respiratory Rate 16 08/16/23 07:14 Blood Pressure 151/94 H 08/16/23 07:14 Temperature 36.7 C 08/16/23 07:14 Temperature Source Temporal Artery Scan 08/16/23 07:14 Pulse 85 08/16/23 07:14 Respiratory Rate 16 08/16/23 07:14 Respiratory Effort Normal 08/16/23 07:18 Blood Pressure 151/94 H 08/16/23 07:14 Blood Pressure Position Sitting 08/16/23 07:14 Oxygen Delivery Method Room Air 08/16/23 07:14 Oxygen Flow Rate 0 08/16/23 07:14 Pain Level 0 08/16/23 07:14
[2023-08-16 07:41] LABS: Bilirubin Negative (Negative); Blood Small (Negative); Clarity Clear (Clear); Glucose Negative (Negative); Ketones 15 mg/dL (Negative); Leukocyte Esterase Negative (Negative); Nitrite Negative (Negative); Specific Gravity 1.015 (1.005-1.025); Urobilinogen 0.2 mg/dL (Up to 0.2)
[2023-08-16] MEDS: Normal Saline 1,000 ML 1000 ML IV ×2 (07:44→08:29)
[2023-08-16] MEDS: Ondansetron 4 MG/2 ML VIAL IVP (07:45)
[2023-08-16 07:49] LABS: Bacteria Rare HPF (Negative); Epithelial Cells Moderate HPF (Negative)
[2023-08-16 07:50] LABS: C & S Indicated? No/Sq. Contamination; Casts Negative LPF (Negative); Crystals Negative HPF (Negative); Mucus Negative (Negative)
[2023-08-16 07:53] LABS: Abs Immature Grans 0.02 10^3/uL (0.0-0.06); Absolute Basophil Count 0.03 10^3/uL (0.0-0.2); Absolute Eosinophil Count 0.03 10^3/uL (0.0-0.7); Absolute Monocyte Count 0.38 10^3/uL (0.1-0.8); Absolute Neutrophil Count 6.51 10^3/uL (1.2-6.7); Basophils % 0.3; Eosinophils % 0.3; HCT 35.4 % (36.0-46.0); Immature Grans % 0.2; Lymphocytes % 22.3; MCH 29.8 pg (27.0-33.0); MCHC 33.9 % (32.0-36.0); MCV 88 fL (80-95); MPV 8.6 fL (8.0-11.0); Monocytes % 4.2; Neutrophils % 72.7; Platelet Count 347 10^3/uL (130-400); RBC 4.03 10^6/uL (3.93-5.22); RDW 12.3 % (11.7-14.6); RDW-SD 39.8 fL; WBC 8.97 10^3/uL (4.4-10.8)
[2023-08-16 08:05] LABS: Lipase 14 U/L (16-77)
[2023-08-16 08:10] LABS: ALT 20 U/L (14-59); AST 11 U/L (15-37); Albumin 4.2 g/dL (3.4-5.0); Alkaline Phosphatase 96 U/L (46-116); BUN 8 mg/dL (7-18); Bilirubin, Total 0.3 mg/dL (0.2-1.0); CREATININE 1.1 mg/dL (0.55-1.02); Calcium 9.4 mg/dL (8.5-10.1); Chloride 99 mmol/L (98-107); Estimated GFR 62.37 (mL/min/1.73m2); Glucose 131 mg/dL (74-106); Sodium 137 mmol/L (136-145); Total Protein 8.5 g/dL (6.4-8.2)
[2023-08-16 08:12] LABS: Potassium 2.9 mmol/L (3.5-5.1)
[2023-08-16 08:14] LABS: COVID-19 PCR Negative (Negative); Influenza A PCR Negative (Negative); Influenza B PCR Negative (Negative); RSV PCR Negative (Negative)
[2023-08-16 08:15] LABS: Source Nasopharynx
[2023-08-16] MEDS: POTASSIUM CHLORIDE 10 MEQ/100 ML BAG 100 MEQ IVPB (08:29)
== END 2023-08-16 10:24 | disposition home or self-care (01) ==
PROVIDERS: Emergency Provider Emergency Medicine
DX: R11.10 Vomiting, unspecified (principal); R11.0 Nausea; E87.6 Hypokalemia; E86.0 Dehydration; K50.90 Crohn's disease, unspecified, without complications
CPT/HCPCS: 36415; 80053; 83690; 87637; 96361; 96365; 96366; 96375; 99284; 81003; 81015; 85025; 99283; J2405; J3480

== ENCOUNTER 2024-06-28 11:50 | Outpatient (CLI) | payer MEDICAID, SELFPAY ==
--- NOTE | 2024-06-28 | DI.RAD_ITS ---
Exam(s) XR CHEST 2V PA LATERAL EXAM: XR CHEST 2V PA LATERAL CLINICAL HISTORY: R05.3 Chronic cough TECHNIQUE: 2D digital imaging was performed of the chest. Two images were obtained. PA and lateral views were obtained. COMPARISON: No exams were available for comparison FINDINGS: MEDIASTINUM: Normal. HEART: Normal. PULMONARY VASCULATURE: Normal. LUNGS: There opacity seen in the right middle lobe left lower lobe and left lingula suspicious for pn eumonia. PLEURAL SPACE: No pleural effusion or pneumothorax. BONE:Within normal limits for the patient's age. OTHER FINDINGS:Normal. IMPRESSION: Findings suspicious for multifocal pneumonia. A follow-up examination to document resolution is keron mmended. DATA REPOSITORY: RADIATION DOSE DELIVERED:
== END 2024-06-28 12:10 ==
LOC: DI 11:50
PROVIDERS: Visit Provider Physician Assistant Medical
DX: R05.3 Chronic cough (principal); R91.8 Other nonspecific abnormal finding of lung field
CPT/HCPCS: 71046

== ENCOUNTER 2024-07-03 12:42 | Emergency (ER) | payer MEDICAID, SELFPAY ==
[2024-07-03 12:43] VITALS: BP 130/85; PULSE 83; RESP 18; TEMP 36.7; O2SAT 97
--- NOTE | 2024-07-03 13:10 | ED.GENADUL_ITS ---
Discharge Plan Disposition Patient Disposition: Home Condition: Stable Discharge Details Clinical Impression: CAP (community acquired pneumonia) Primary Care Provider: Unknown,Unknown ED Provider: Scott Albrecht Home Meds and New Rx's Prescriptions: New doxycycline hyclate 100 mg tablet 100 mg PO BID Qty: 14 0RF amoxicillin-pot clavulanate 875-125 mg tablet 1 tab PO BID Qty: 14 0RF prednisone 20 mg tablet 60 mg PO DAILY 4 Days Qty: 12 0RF Continued clonazepam 1 mg Tablet 1 mg PO DAILY methadone 5 mg/5 mL Syringe 215 mg PO DAILY vilazodone [Viibryd] 10 mg Tablet 10 mg PO DAILY lamotrigine 25 mg tablet 25 mg PO DAILY zolpidem 5 mg tablet 5 mg PO HS Patient Comments: TAKE ONE TABLET BY MOUTH AT BEDTIME NEEDED Discontinued prazosin 5 mg Capsule 5 mg PO QHS Discharge Instructions Additional Instructions: I am putting you on a stronger course of antibiotics. I am also placing you on prednisone which should help as well Follow-up with your primary care provider especially if you are not better within a week If you feel more ill, have worsening shortness of breath or new symptoms such as persistent vomiting return to the emergency department for reevaluation. HPI General Mode of arrival: ambulatory . Date/Time Provider Initiated Documentation: 07/03/24 12:47 . Limitations to Documentation: no limitations . Information obtained by: patient . History of Present Illness 48 year old F presents to the emergency department with the chief complaint of cough, dyspnea, described as moderate, Patient started experiencing this day(s) (7) and it has been constant. No relieving factors improve symptom(s), No exacerbating factors reported . Patient notes fever/chills and shortness of breath; denies chest pain. Related Data Home Medications ?Medication ?Instructions ?Recorded ?Confirmed clonazepam 1 mg tablet 1 mg PO DAILY 02/21/23 07/03/24 methadone 5 mg/5 mL oral syringe 215 mg PO DAILY 02/21/23 07/03/24 (FOR ORAL USE ONLY) vilazodone 10 mg tablet (Viibryd) 10 mg PO DAILY 02/21/23 07/03/24 lamotrigine 25 mg tablet 25 mg PO DAILY 08/16/23 07/03/24 zolpidem 5 mg tablet 5 mg PO HS 12/26/23 11/12/24 amoxicillin 875 mg-potassium 1 tab PO BID #14 tabs 07/03/24 clavulanate 125 mg tablet doxycycline hyclate 100 mg tablet 100 mg PO BID #14 tabs 07/03/24 prednisone 20 mg tablet 60 mg (3 x 20 mg) PO DAILY 4 days 07/03/24 #12 tabs Previous Rx's ?Medication ?Instructions ?Recorded amoxicillin 875 mg-potassium 1 tab PO BID #14 tabs 07/03/24 clavulanate 125 mg tablet doxycycline hyclate 100 mg tablet 100 mg PO BID #14 tabs 07/03/24 prednisone 20 mg tablet 60 mg (3 x 20 mg) PO DAILY 4 days 07/03/24 #12 tabs Allergies Allergy/AdvReac Type Severity Reaction Status Date / Time No Known Allergies Allergy Verified 07/03/24 12:50 General Stated Complaint: RespSymp MEGHA: 3 Review of Systems All systems reviewed & are unremarkable except as noted in HPI and below Constitutional Constitutional: Reports chills, Reports fever(s) and Denies weakness Eyes Eyes: Denies loss of vision ENT Ears, Nose, Mouth, and Throat: Denies change in voice Cardiovascular Cardiovascular: Denies chest pain and Denies dyspnea Respiratory Respiratory: Reports cough and Denies dyspnea Gastrointestinal Gastrointestinal: Denies abdominal pain, Denies nausea and Denies vomiting Musculoskeletal Musculoskeletal: Denies joint swelling Neurologic Neurologic: Denies loss of vision and Denies weakness Exam Const General: no acute distress Orientation: alert [facility] Head: normal to inspection Ears: external ears normal General nose exam: external nose normal Mouth: moist mucous membranes Eyes General: appearance normal, both eyes and all related structures Neck Neck: normal visual inspection Resp Auscultation: rhonchi Cardio Jugular venous pressure: no JVD Rate: regular rate Heart Sounds: no murmurs Skin General skin exam: no rashes or lesions noted Neuro General: patient alert and patient oriented x3 Extrem General: normal to inspection Psych Mental Status: mental status grossly normal Course Vital Signs Vital signs: Vital Signs Temperature 36.7 C 07/03/24 12:43 Pulse 83 07/03/24 12:43 Respiratory Rate 18 07/03/24 12:43 Blood Pressure 130/85 07/03/24 12:43 Pulse Oximetry 97 07/03/24 12:43 Temperature 36.7 C 07/03/24 12:43 Pulse 83 07/03/24 12:43 Respiratory Rate 18 07/03/24 12:43 Respiratory Effort Normal, Non-Labored 07/03/24 12:49 Blood Pressure 130/85 07/03/24 12:43 Pulse Oximetry 97 07/03/24 12:43 Oxygen Delivery Method Room Air 07/03/24 12:43 Oxygen Flow Rate 0 07/03/24 12:43 Pain Level 5 07/03/24 12:43 Lab/Test Results Lab/Test Results: 07/03/24 12:53 Blood Blood Culture - Pending 07/03/24 12:53 Blood Blood Culture - Pending Medical Decision Making 48-year-old female with a prior history of smoking, who comes in with continued shortness of breath and cough. She was put on amoxicillin last Tuesday by express care and took this for 5 days and despite this still has a cough and subjective fevers and chills so was referred here. She denies any chest pain, rashes, vomiting, IV drug use. She is speaking in full sentences, she does have wheezing at the apices bilaterally and rhonchi at the bases bilaterally. No JVD, no leg swelling, no calf tenderness. Her symptoms are consistent with a respiratory infection, if she did have community-acquired pneumonia amoxicillin is not broad enough to treat, will check CBC, CMP, procalcitonin and chest x-ray and treat her lung exam findings with DuoNeb and Solu-Medrol. Labs without significant emergent findings, x-ray shows minimal change in infiltrates bilaterally. She is feeling much better after DuoNeb and only has mild apical wheezing bilaterally now. Suspect she was undertreated with only having amoxicillin. Will start on Augmentin and doxycycline, given she is on methadone will avoid levofloxacin and azithromycin. She will follow-up with her PCP if not improving return Differential Diagnosis Differential Diagnosis: Bronchitis, COVID, pneumonia Imaging Data Radiologic Study: Attestation: I personally reviewed and interpreted this imaging study as follows: Imaging: X-Ray Radiologist's impression: minimal change in bilateral infiltrates Lab Data Lab results reviewed: Yes I reviewed the patient's lab results. Quality:SDOH Health Related Social Needs: No Data to Display PFSH All Active Problems (Updated 07/03/24 @ 14:35 by Scott Albrecht MD) CAP (community acquired pneumonia) (Acute) Postcoital urinary tract infection (Acute) Contraception (Acute) 08/2020. Declined LARC. Smokes tobacco. Rx for norethindrone 0.35 mg daily. History of tobacco abuse (Acute) Hx of herpes genitalis (Chronic) c/s report makes mention of vulvar herpes outbreak as being the cause of pt's c/s. Arthralgia (Chronic ~08/1996) related to remicaid treatment and crohn's Crohn disease (Chronic) Depression (Chronic) Opiate dependence, continuous (Chronic) Medical History Rheumatoid arthritis delivery delivered Family History Brother Crohn's colitis Social History Smoking/Tobacco Use Status: Former Tobacco Use Quit Date: 04/27/18 Smoking risk assessment performed?: Yes Alcohol Intake: never Substance use type: former substance user, heroin and painkillers Adopted: No Foster care: No Household members: significant other Housing: house Number of Children: 3 Seatbelt use: always Helmet use: Yes 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 Together 7 years History History 2 Para 1 Hx # Term Pregnancies 1 Multiple births 1 Hx # Pregnancies 0 Ectopic pregnancies 0 AB induced 0 Hx Number of Living Children 2 AB spontaneous 0 Past Pregnancies Del. Date GA/Weeks # Preg Succ Route Wgt Sex Labor Lgth Anesth esia Location [facility] 08/22/96 Yes 2863.302 g other 08/22/96 Yes 1956.117 g Female 11/09/18 39 No Female Tatiana Carrera 11/09/18 No 3118.448 g Female [facility] Tatiana Jarrell Delivery Date: 11/09/18 Last Updated by: Tatiana Jarrell M.D. Elective repeat delivery named Latanya
[2024-07-03 13:23] LABS: BE (Venous) 10 mmol/L (-2-3); HCO3 (Venous) 35 mmol/L (23-28); O2 Sat (Venous) 50 %; TCO2 (Venous) 33 mmol/L (24-29); pCO2 (Venous) 58 mmHg (41-51); pH (Venous) 7.39 (7.31-7.41); pO2 (Venous) 29 mmHg
--- NOTE | 2024-07-03 13:25 | DI.RAD_ITS ---
Exam(s) XR PORTABLE CHEST AP EXAM: XR PORTABLE CHEST AP CLINICAL HISTORY: cough TECHNIQUE: 2D digital imaging was performed. COMPARISON: CR XR CHEST 2V PA LATERAL from 06/28/2024 FINDINGS: LUNGS: Some improvement in previously noted infiltrates noted in the right middle lobe, left lower lo be and lingula. No new findings. No pleural abnormality seen. HEART: Normal size. AORTA: Normal diameter. BONES: Unremarkable for age. Soft tissues: Unremarkable. IMPRESSION: Mild interval improvement in bilateral pneumonia. DATA REPOSITORY: RADIATION DOSE DELIVERED:
[2024-07-03 13:39] LABS: HCT 36.2 % (36.0-46.0); HGB 11.6 g/dL (11.2-15.7); MCV 87 fL (80-95); MPV 8.1 fL (8.0-11.0); Platelet Count 408 10^3/uL (130-400); RBC 4.14 10^6/uL (3.93-5.22); RDW 13.3 % (11.7-14.6); RDW-SD 42.9 fL; WBC 8.81 10^3/uL (4.4-10.8)
[2024-07-03 13:46] LABS: ALT 53 U/L (14-59); AST 31 U/L (15-37); Albumin 2.9 g/dL (3.4-5.0); Alkaline Phosphatase 255 U/L (46-116); BUN 14 mg/dL (7-18); CREATININE 1.1 mg/dL (0.55-1.02); Calcium 9.7 mg/dL (8.5-10.1); Chloride 98 mmol/L (98-107); Estimated GFR 62.37 (mL/min/1.73m2); Glucose 102 mg/dL (74-106); Magnesium 1.9 mg/dL (1.8-2.4); Potassium 4.6 mmol/L (3.5-5.1); Sodium 139 mmol/L (136-145); Total Protein 8.3 g/dL (6.4-8.2)
[2024-07-03] MEDS: Albuterol/Ipratropium 3 ML UPD VIAL UPD (13:46)
[2024-07-03] MEDS: methylPREDNISolone SUCC 125 MG VIAL IVP (13:46)
[2024-07-03 13:56] VITALS: BP 130/85; PULSE 83; RESP 18; TEMP 36.7; O2SAT 97
[2024-07-03 14:01] LABS: COVID-19 PCR Negative (Negative); Influenza A PCR Negative (Negative); Influenza B PCR Negative (Negative); RSV PCR Negative (Negative); Source Nasopharynx
[2024-07-03 14:03] LABS: Procalcitonin < 0.10 ng/mL
[2024-07-03 14:14] LABS: Absolute Eosinophil Count 0.53 10^3/uL (0.0-0.7); Absolute Lymphocyte Count 2.47 10^3/uL (1.2-3.4); Absolute Monocyte Count 0.53 10^3/uL (0.1-0.8); Absolute Neutrophil Count 5.02 10^3/uL (1.2-6.7); Atypical Lymphocytes % 2 %; Bands % 3 %; Diff Comment Manual Differential; Metamyelocytes % 3; RBC Morphology Normal
[2024-07-03] MEDS: Amoxicillin 875/Clav. 125 TAB PO (14:49)
[2024-07-03] MEDS: Doxycycline Hyclate 100 MG CAP PO (14:49)
[2024-07-03 14:50] VITALS: BP 128/72; PULSE 75; RESP 18; TEMP 36.7; O2SAT 98
== END 2024-07-03 14:49 | disposition home or self-care (01) ==
PROVIDERS: Emergency Provider Emergency Medicine
DX: J18.9 Pneumonia, unspecified organism (principal)
CPT/HCPCS: 80053; 82805; 84145; 87040; 87637; 96374; 99284; 71045; 83735; 85025; J2919; J7620

== ENCOUNTER 2024-09-10 09:30 | Outpatient (CLI) | payer MEDICAID, SELFPAY ==
--- NOTE | 2024-09-10 09:30 | RT.EKG_ITS ---
APPROVED REPORT Exam: Resting ECG Reason for Exam: HIGH RISK MEDICATION Patient Location: O HR:95 bpm ECG Measurements Heart Rate 95 AXIS [place] 143 P 60 QRSd 84 QRS 49 QT 347 T 36 QTc 436 Conclusion Sinus rhythm...normal P axis, V-rate 50- 99 Baseline wander in lead(s) V5 Normal Electrocardiogram
== END 2024-09-10 09:31 | disposition home or self-care (01) ==
PROVIDERS: Visit Provider Family Medicine
DX: Z79.899 Other long term (current) drug therapy (principal)
CPT/HCPCS: 93005; 93010

== ENCOUNTER 2024-09-16 14:57 | Emergency (ER) | payer MEDICAID, SELFPAY ==
[2024-09-16 15:10] VITALS: BP 105/66; PULSE 68; RESP 20; TEMP 36.4; O2SAT 99
--- NOTE | 2024-09-16 15:30 | DI.CT_ITS ---
Exam(s) CT ABDOMEN PELVIS W EXAM: CT ABDOMEN PELVIS W CLINICAL HISTORY: abd pain, v.d. TECHNIQUE: Imaging Protocol: Axial computed tomography images with coronal and sagittal reformatted images were created and reviewed CONTRAST MATERIAL: Intravenous: Omnipaque-350 100cc Oral: None COMPARISON: No exams were available for comparison FINDINGS: VISUALIZED LUNG BASES: There is atelectasis in the lingular segment of the left lung base. No pleura l effusions evident. There are multiple partially included right-sided rib fractures. There is a E fracture of the lateral aspect of the right 9th rib. There are healing fractures of the 7th and 8th ribs partially included in the field of view. No left-sided rib fractures identified within the fiel d of view. ABDOMEN: There is no ascites. LIVER: There are no focal hepatic lesions evident. No liver laceration evident. No dilated intrahep atic ducts. GALLBLADDER/BILIARY: Mildly distended but no obvious acute gallbladder pathology. No obvious calculi . CBD is not dilated. PANCREAS: No evidence of pancreatic mass nor dilatation of the pancreatic duct. SPLEEN: Spleen is not enlarged. No obvious intrasplenic lesions. Splenic and portal veins are paten t. ADRENALS: There are no significant adrenal masses. KIDNEYS:No cysts evident. No solid renal masses. No calculi nor hydronephrosis.. No renal lacerati ons. ABDOMINAL AORTA: Abdominal aorta is not enlarged. LYMPH NODES:There is no retroperitoneal nor paraaortic adenopathy. ABDOMINAL WALL: There is a small fat only containing left paraumbilical hernia. No inguinal hernias evident. GI: There is no evidence of bowel obstruction, free air, nor abscess. PELVIS: GI: No evidence of appendicitis.No evidence of sigmoid diverticulitis. LYMPH NODES: There is no intrapelvic nor inguinal adenopathy. REPRODUCTIVE: Uterus is retroverted. No abnormal adnexal masses. No free fluid in the pelvis. URINARY BLADDER: No calculi nor obvious masses evident OSSEOUS: Right-sided rib fractures as described above. No vertebral fractures. Advanced disc space narrowing at L4-5 level noted. IMPRESSION: 1. There are partially included fractures of the right 7th, 8th, 9th ribs within the field of view of this abdominal study. Subacute appearing. No pleural effusions. No pneumothorax seen. 2. No acute findings in the abdomen and pelvis. Report discussed by phone with ER physician 09/16/2024 at 4:50 p.m. RADIATION DOSE DELIVERED: 328.24mGy.cm Total DLP DATA REPOSITORY: All CT scans at this facility are submitted to the National Radiology Data Registry (NRDR) Dose Index Registry (DIR) with the [employer] (ACR). RADIATION OPTIMIZATION: All CT scans at this facility use at least one of these dose optimization te chniques: automated exposure control; mA and/or kV adjustment per patient size (includes targeted exa ms where dose is matched to clinical indication); or iterative reconstruction.
[2024-09-16] MEDS: Ondansetron 4 MG/2 ML VIAL IVP (15:59)
[2024-09-16] MEDS: MORPHine 10 MG/ML VIAL 4 MG IVP (16:00)
[2024-09-16] MEDS: Lactated Ringers 1,000 ML 1000 ML IV (16:05)
[2024-09-16] MEDS: Omnipaque 350 MG/ML 100 ML BTL IJ (16:09)
[2024-09-16] MEDS: Normal Saline - Diluent 50 ML VIAL IJ (16:10)
[2024-09-16 16:11] LABS: Abs Immature Grans 0.06 10^3/uL (0.0-0.06); Absolute Basophil Count 0.05 10^3/uL (0.0-0.2); Absolute Eosinophil Count 0.03 10^3/uL (0.0-0.7); Absolute Lymphocyte Count 1.33 10^3/uL (1.2-3.4); Absolute Monocyte Count 0.37 10^3/uL (0.1-0.8); Basophils % 0.4 %; Eosinophils % 0.2 %; HCT 35.7 % (36.0-46.0); HGB 11.7 g/dL (11.2-15.7); Immature Grans % 0.5 %; Lymphocytes % 10.1 %; MCH 28.3 pg (27.0-33.0); MCHC 32.8 % (32.0-36.0); MCV 86 fL (80-95); MPV 8.7 fL (8.0-11.0); Monocytes % 2.8 %; Platelet Count 289 10^3/uL (130-400); RBC 4.14 10^6/uL (3.93-5.22); RDW 13.1 % (11.7-14.6); RDW-SD 40.7 fL; WBC 13.19 10^3/uL (4.4-10.8)
[2024-09-16 16:13] LABS: Absolute Neutrophil Count 11.34 10^3/uL (1.2-6.7)
[2024-09-16 16:27] LABS: ALT 30 U/L (14-59); AST 14 U/L (15-37); Albumin 3.8 g/dL (3.4-5.0); Alkaline Phosphatase 109 U/L (46-116); Anion Gap 5.3 mmol/L (3-11); BUN 9 mg/dL (7-18); Bilirubin, Total 0.29 mg/dL (0.2-1.0); CO2 30.7 mmol/L (21.0-32.0); Chloride 104 mmol/L (98-107); Estimated GFR 69.49 (mL/min/1.73m2); Glucose 118 mg/dL (74-106); Lipase 22 U/L (<78); Potassium 3.6 mmol/L (3.5-5.1); Sodium 140 mmol/L (136-145); Total Protein 7.7 g/dL (6.4-8.2)
[2024-09-16 16:37] LABS: Calcium 9.5 mg/dL (8.5-10.1)
[2024-09-16] MEDS: Droperidol 5 MG/2 ML VIAL IVP (16:45)
--- NOTE | 2024-09-16 17:24 | ED.GENADUL_ITS ---
Discharge Plan Disposition Patient Disposition: Home Discharge Details Clinical Impression: Abdominal pain, Vomiting and diarrhea Primary Care Provider: Unknown,Unknown ED Provider: Thomas Gutierrez Home Meds and New Rx's Prescriptions: No Action clonazepam 1 mg Tablet 1 mg PO DAILY methadone 5 mg/5 mL Syringe 215 mg PO DAILY vilazodone [Viibryd] 10 mg Tablet 10 mg PO DAILY lamotrigine 25 mg tablet 25 mg PO DAILY zolpidem 5 mg tablet 5 mg PO HS Patient Comments: TAKE ONE TABLET BY MOUTH AT BEDTIME NEEDED Discharge Instructions Instructions: Diarrhea, Adult ED, Nausea and Vomiting, Adult ED Additional Instructions: Your lab work and CT imaging do not reveal any acute abnormality. Your symptoms are likely secondary to a viral illness. You have been provided with nausea medication to take if symptoms persist. Otherwise maintain clear liquid diet and advance slowly as tolerated. Return to the emergency department if you are not tolerating anything by mouth HPI General Date/Time Provider Initiated Documentation: 09/16/24 15:20 . Limitations to Documentation: physical limitation . Information obtained by: patient . HPI Narrative: 49-year-old female with past medical history of Crohn's disease, opiate dependence on methadone presents for evaluation of acute onset abdominal pain, vomiting and diarrhea. She reports that symptoms have been ongoing all day. She reports multiple episodes of vomiting. She states that she is also having diarrhea. She reports generalized abdominal pain. No medications were attempted prior to arrival she has not been able to tolerate anything by mouth all day. No known sick contacts. Denies any fever. Related Data Home Medications ?Medication ?Instructions ?Recorded ?Confirmed clonazepam 1 mg tablet 1 mg PO DAILY 02/21/23 09/16/24 methadone 5 mg/5 mL oral syringe 215 mg PO DAILY 02/21/23 09/16/24 (FOR ORAL USE ONLY) vilazodone 10 mg tablet (Viibryd) 10 mg PO DAILY 02/21/23 09/16/24 lamotrigine 25 mg tablet 25 mg PO DAILY 08/16/23 09/16/24 zolpidem 5 mg tablet 5 mg PO HS 08/16/23 09/16/24 Allergies Allergy/AdvReac Type Severity Reaction Status Date / Time No Known Allergies Allergy Verified 09/16/24 15:08 General Stated Complaint: Abd Prob MEGHA: 3 Exam Narrative Exam Narrative: Review of Systems: All systems reviewed & are unremarkable except as noted in HPI and below Well-developed, appears uncomfortable Afebrile NCAT Dry mucous membranes unlabored respiratory effort, ctab Nondistended abdomen, generalized tenderness, no gaurding Course Vital Signs Vital signs: Vital Signs Temperature 36.4 C L 09/16/24 15:10 Pulse 68 09/16/24 15:10 Respiratory Rate 20 09/16/24 15:10 Blood Pressure 105/66 09/16/24 15:10 Pulse Oximetry 99 09/16/24 15:10 Temperature 36.4 C L 09/16/24 15:10 Temperature Source Oral 09/16/24 15:10 Pulse 68 09/16/24 15:10 Respiratory Rate 20 09/16/24 15:10 Blood Pressure 105/66 09/16/24 15:10 Pulse Oximetry 99 09/16/24 15:10 Pain Level 10 09/16/24 16:00 Lab/Test Results Lab/Test Results: Laboratory Tests Range/Units 09/16/24 16:00 WBC (4.4-10.8) 10^3/uL 13.19 H RBC (3.93-5.22) 10^6/uL 4.14 Hgb (11.2-15.7) g/dL 11.7 Hct (36.0-46.0) % 35.7 L MCV (80-95) fL 86 MCH (27.0-33.0) pg 28.3 MCHC (32.0-36.0) % 32.8 RDW (11.7-14.6) % 13.1 Plt Count (130-400) 10^3/uL 289 MPV (8.0-11.0) fL 8.7 Immature Gran % % 0.5 Neutrophils % % 86.0 Lymphocytes % % 10.1 Monocytes % % 2.8 Eosinophils % % 0.2 Basophils % % 0.4 Nucleated RBC % (0.0-0.3) % 0.0 Absolute Neutrophils (1.2-6.7) 10^3/uL 11.34 H Absolute Lymphocytes (1.2-3.4) 10^3/uL 1.33 Absolute Monocytes (0.1-0.8) 10^3/uL 0.37 Absolute Eosinophils (0.0-0.7) 10^3/uL 0.03 Absolute Basophils (0.0-0.2) 10^3/uL 0.05 Sodium (136-145) mmol/L 140 Potassium (3.5-5.1) mmol/L 3.6 Chloride (98-107) mmol/L 104 Carbon Dioxide (21.0-32.0) mmol/L 30.7 Anion Gap (3-11) mmol/L 5.3 BUN (7-18) mg/dL 9 Creatinine (0.55-1.02) mg/dL 1.0 Est GFR (CKD-EPI 2020) (mL/min/1.73m2) 69.49 Glucose (74-106) mg/dL 118 H Calcium (8.5-10.1) mg/dL 9.5 Total Bilirubin (0.2-1.0) mg/dL 0.29 AST (15-37) U/L 14 L ALT (14-59) U/L 30 Alkaline Phosphatase (46-116) U/L 109 Total Protein (6.4-8.2) g/dL 7.7 Albumin (3.4-5.0) g/dL 3.8 Lipase (<78) U/L 22 Medical Decision Making Emergent evaluation of acute abdominal tenderness associated with vomiting and diarrhea. Initial differential includes viral GI illness, electrolyte derangement, dehydration. Low suspicion for acute intra-abdominal infection or bowel obstruction, but given the severity of her symptoms, will get CT imaging to evaluate for these processes. Patient is demonstrating signs of clinical dehydration on examination and has had severe vomiting all day, I will give IV fluids, antiemetics and pain control. Lab work reviewed there is mild leukocytosis at 13, no electrolyte derangement. Liver and renal function within normal limits. I discussed the CT imaging with the radiologist reveals that there are some subacute rib fractures, but does not see any acute intra-abdominal etiology. Reports persistent pain, droperidol given. Symptoms improved and now patient is sitting up, drinking and tolerating p.o. Discharged with Phenergan and Zofran. return precautions advised. Quality:[facility] Health Related Social Needs: No Data to Display [facility] All Active Problems (Updated 09/16/24 @ 18:15 by Thomas Gutierrez MD) Vomiting and diarrhea (Acute) Abdominal pain (Acute) Postcoital urinary tract infection (Acute) Contraception (Acute) 08/2020. Declined LARC. Smokes tobacco. Rx for norethindrone 0.35 mg daily. History of tobacco abuse (Acute) Hx of herpes genitalis (Chronic) c/s report makes mention of vulvar herpes outbreak as being the cause of pt's c/s. Arthralgia (Chronic ~08/1996) related to remicaid treatment and crohn's Crohn disease (Chronic) Depression (Chronic) Opiate dependence, continuous (Chronic) Medical History Rheumatoid arthritis delivery delivered Family History Brother Crohn's colitis Social History Smoking/Tobacco Use Status: Former Tobacco Use Quit Date: 04/27/18 Smoking risk assessment performed?: Yes Alcohol Intake: never Substance use type: former substance user, heroin and painkillers Adopted: No Foster care: No Household members: significant other Housing: house Number of Children: 3 Seatbelt use: always Helmet use: Yes 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 Together 7 years History History 2 Para 1 Hx # Term Pregnancies 1 Multiple births 1 Hx # Pregnancies 0 Ectopic pregnancies 0 AB induced 0 Hx Number of Living Children 2 AB spontaneous 0 Past Pregnancies Del. Date GA/Weeks # Preg Succ Route Wgt Sex Labor Lgth Anesth esia Location [facility] 08/22/96 Yes 2863.302 g other 08/22/96 Yes 1956.117 g Female 11/09/18 39 No Female Tatiana Carrera 11/09/18 No 3118.448 g Female [facility] Tatiana Jarrell Delivery Date: 11/09/18 Last Updated by: Tatiana Jarrell M.D. Elective repeat delivery named Latanya
[2024-09-16] MEDS: Promethazine 25 MG TAB PO (18:14)
[2024-09-16] MEDS: Ondansetron O.D.T. 4 MG TABEF, 3 TABS/BTL PO (18:30)
== END 2024-09-16 18:31 | disposition home or self-care (01) ==
PROVIDERS: Emergency Provider Emergency Medicine
DX: R10.9 Unspecified abdominal pain (principal); R11.10 Vomiting, unspecified; R19.7 Diarrhea, unspecified; Z87.19 Personal history of other diseases of the digestive system
CPT/HCPCS: 36415; 80053; 83690; 96361; 96374; 96375; 99285; 74177; 85025; 99284; J1790; J2270; J2405; J3490

== ENCOUNTER 2025-02-03 07:36 | Observation (INO) | payer MEDICAID, SELFPAY ==
[2025-02-03] VITALS (44 sets, daily range): BP systolic 109–165; BP diastolic 51–105; PULSE 75–166; RESP 5–41; TEMP 36.8–37.1; O2SAT 92–100
--- NOTE | 2025-02-03 | DI.CT_ITS ---
Exam(s) CT ABDOMEN PELVIS WO/W EXAM: CT ABDOMEN PELVIS WO/W CLINICAL HISTORY: weight loss. TECHNIQUE: Imaging Protocol: Axial computed tomography images with coronal and sagittal reformatted images were created and reviewed CONTRAST MATERIAL: Intravenous: Omnipaque-350 100cc Oral: None COMPARISON: CT CT ABDOMEN PELVIS W from 09/16/2024 FINDINGS: VISUALIZED LUNG BASES: No nodules nor pleural effusions evident. Minimally increased subpleural markings both lung bases noted. The previously described multiple right-sided rib fractures involving the right 6th through 9th ribs, inclusive, have undergone healing. The entire right rib cage is not included in the field of view of this abdomen study. No left rib fractures identified. ABDOMEN: There is no ascites. LIVER: There are no focal hepatic lesions nor dilatation of intrahepatic ducts. Mild steatosis noted. GALLBLADDER/BILIARY: Gallbladder is moderately distended. There is no gallbladder wall edema. No gallstones seen in the gallbladder lumen. No pericholecystic fluid. The CBD diameter measures 10 mm. There are no radiopaque calculi evident in the lower CBD. No obvious mass in this region. PANCREAS: No evidence of obvious pancreatic mass nor dilatation of the pancreatic duct. No pancreatic calcifications. SPLEEN: Spleen is not enlarged. No obvious intrasplenic lesions. Splenic and portal veins are patent. ADRENALS: There are no significant adrenal masses. KIDNEYS:No cysts evident. No solid renal masses. No calculi nor hydronephrosis.. ABDOMINAL AORTA: Abdominal aorta is not enlarged. LYMPH NODES:There is no retroperitoneal nor paraaortic adenopathy. ABDOMINAL WALL: No evidence of significant anterior abdominal wall nor inguinal hernia. GI: There is no evidence of bowel obstruction, free air, nor abscess. PELVIS: GI: No evidence of appendicitis.There is no significant sigmoid diverticular disease. There is abundant fecal material in the rectum and rectosigmoid. The diameter of the rectum measures up to 7 cm. No obvious mass nor perirectal streaking nor adjacent lymphadenopathy. LYMPH NODES: There is no intrapelvic nor inguinal adenopathy. REPRODUCTIVE: Age-appropriate URINARY BLADDER: No calculi nor obvious masses evident OSSEOUS: No fractures and no significant osseous lesions. Chronic disc space narrowing at L4-5 level. No listhesis. IMPRESSION: 1. There is mild gallbladder distension and the CBD diameter measures 9-10 mm. There are no radiopaque calculi seen in the gallbladder nor within the CBD and there is no obvious mass nor lymphadenopathy in this region. Correlation with clinical history and blood work recommended. 2. Abundant fecal material in the rectum in the rectum is this stent the 7 cm consistent with element of fecal impaction. There is, however, no evidence of bowel obstruction. There is no significant diverticular disease. No evidence of appendicitis. 3. Almost completely healed right 6th through 9th rib fractures. These fractures were acute appearing on the CT scan of 09/16/2024. RADIATION DOSE DELIVERED: 848.4mGy.cm Total DLP DATA REPOSITORY: All CT scans at this facility are submitted to the National Radiology Data Registry (NRDR) Dose Index Registry (DIR) with the [employer] (ACR). RADIATION OPTIMIZATION: All CT scans at this facility use at least one of these dose optimization techniques: automated exposure control; mA and/or kV adjustment per patient size (includes targeted exams where dose is matched to clinical indication); or iterative reconstruction.
--- NOTE | 2025-02-03 07:30 | RT.EKG_ITS ---
APPROVED REPORT Exam: Resting ECG Reason for Exam: Chest Pain Patient Location: E HR:139 bpm ECG Measurements Heart Rate 139 AXIS [place] 127 P 88 QRSd 84 QRS 76 QT 277 T 49 QTc 421 Conclusion Sinus tachycardia...rate> 99 No Occlusion NC
--- NOTE | 2025-02-03 07:40 | W.ED.GENAD ---
Discharge Plan Disposition Patient Disposition: Admit to [facility] Discharge Details Clinical Impression: Myocardial injury, Hypomagnesemia, Acute hypokalemia, Acute lactic acidosis Admit Date/Time: 02/03/25 11:34 Admit Provider: Dannie Woodruff Attending Provider: Dannie Woodruff Primary Care Provider: Unknown,Unknown ED Provider: Joo Quintanilla General Date/Time Provider Initiated Documentation: 02/03/25 07:40. HPI Narrative: MDM This is an overall well-appearing tachycardic but normothermic 49-year-old female with nausea and vomiting for which patient will undergo laboratory assessment and treatment for nausea using droperidol. No pain out of proportion to suggest necrotizing soft tissue infection. Given nausea and female sex will send troponin to assess for myocardial injury. No right lower quadrant tenderness to suggest appendicitis. No diarrhea nor left lower quadrant tenderness diverticulitis. Patient did have a bowel movement yesterday so my suspicion is low for small bowel obstruction. Will obtain urinalysis to assess for UTI. No flank pain to suggest ureterolithiasis. Patient is not an alcoholic to suggest increased risk for withdrawal. She is neurologically intact so I am not suspicious for CVA. She is no longer on methadone and denies opiate use so I am not suspicious for withdrawal. 8:36 AM Elevated troponin. Patient lacks chest pain. Will treat with aspirin. Comprehensive metabolic panel showing no ALFREDO. No significant LFT elevation. Mild hyperglycemia mild anion gap normal bicarbonate??not consistent with DKA. Patient does appear to be dehydrated with mild hypernatremia and hypomagnesemic with serum magnesium of 1.5. Will send D-dimer to assess for PE. I was called into the patient's room. Her heart rate was in the 170s. It was narrow complex. She was breathing rapidly with her eyes clenched. She remained neurologically intact. Her heart rate subsequently down trended into the 120s. 9:24 AM I was concerned the patient may have been having a dystonic reaction to the droperidol so I treated her with 2 mg of midazolam. Tachycardia improved and her rates are now down into the 140s. She continues to be alert oriented. No headache to suggest meningitis. No tonic-clonic activity to suggest seizure. Given tachycardia and leukocytosis with 2 sets of cultures and treated empirically with ceftriaxone and vancomycin. In the event that patient had a tick bite I added doxycycline. She continues to be tremulous. Differential for new onset restlessness: Organic causes disorders, thyroid, PE. Dimer negative. Will add on TSH. My suspicion is low for [employer] infection given no fevers. Patient is not febrile to suggest NMS. Medication side effects. Could certainly have had extra paramedical side effects from droperidol. She reports that she has not taken her by vilazodone in several months making my suspicion low for serotonin syndrome. Medication withdrawal: She reports she has not taken her clonazepam in several months making my suspicion low for withdrawal. I ordered amatory markers which were reassuring against Crohn's disease flare and rheumatoid arthritis flareup. 10:30 AM Patient's heart rate improving down into the 120s. Her free T4 is slightly elevated at 158. CK pending. She is drinking some water. 11:07 AM Repeat basic metabolic panel with closing anion gap acidosis. Patient is tolerating p.o. fluids well before her IV fluids. Improving potassium. Normal reassuring CK. Repeat reassuring lactate. Urinalysis still pending. Patient was bladder scanned and had 195 cc according to patient's nurse Lali. Given that she is tolerating p.o. will defer further IV fluids. 11:26 AM I signed patient out to Dr. Woodruff at bedside who graciously agreed to accept the patient for hospitalization. Lactic acidosis resolved. She still is pending a urinalysis. HPI The patient presents to the emergency room for evaluation of vomiting, lightheadedness, numbness in hands, and back pain. She has been experiencing persistent vomiting for several weeks, accompanied by lightheadedness upon standing, visual disturbances such as seeing spots, and a sensation daniel to an electrical shock. These symptoms are new to her. She also reports numbness in her hands, severe skin itching, and an inability to retain food, leading to a prolonged period of not eating. Despite these symptoms, she has not experienced any fevers, dysuria, respiratory distress, or chest pain. She is not on any regular medications and does not consume alcohol or tobacco daily. She uses a nicotine vape and discontinued methadone use 2 months ago. She has abstained from opiates since then. She has a history of Crohn's disease but reports no recent diarrhea. Her last bowel movement was yesterday. She admits to being dehydrated and experiencing significant nausea. She has a past surgical history of 2 sections. She has had pains in her back and down her arms, which made her think she was having a heart attack. She almost called the ambulance last night. Exam General: Well-appearing in no acute distress speaking in complete sentences. Wearing sunglasses. Head: Normocephalic, atraumatic. Eye: Mildly dilated reactive pupils 4 to 3 mm. Extraocular eye movements intact. No conjunctival injection. No scleral icterus. Ear, nose, mouth, throat: Grossly normal inspection. Normal voice, handling secretions normally. Neck: Trachea midline. Cardiovascular: Well-perfused distal extremities. Regular rate and rhythm. Respiratory: Nonlabored respiration. Clear lungs bilaterally. Gastrointestinal: Nondistended abdomen. Soft. Nontender. Musculoskeletal: No edema. Moving all 4 extremities spontaneously. Skin: Normal for age and race, grossly normal temperature and turgor. No acute rash. Neurologic: Alert and appropriate, no apparent acute deficits. GCS 15. Cranial nerves II through XII intact grossly. Symmetrical. No dysdiadochokinesia. Patient does have bilateral lower extremity intermittent rhythmic twitching. No clonus. Related Data Home Medications ?Medication ?Instructions ?Recorded ?Confirmed Unknown [No Known Home Meds] 02/03/25 02/03/25 Allergies Allergy/AdvReac Type Severity Reaction Status Date / Time No Known Allergies Allergy Verified 02/03/25 07:44 General MEGHA: 3 Critical Care Time Critical Care Time Critical Care Time: Yes Total Critical Care Time: 45 Attestation: Tachycardia acute electrolyte abnormalities PFSH All Active Problems (Updated 02/03/25 @ 12:20 by DEV DOMINIQUE) Acute lactic acidosis (Acute) Acute hypokalemia (Acute) Hypomagnesemia (Acute) Myocardial injury (Acute) Postcoital urinary tract infection (Acute) Contraception (Acute) 08/2020. Declined LARC. Smokes tobacco. Rx for norethindrone 0.35 mg daily. History of tobacco abuse (Acute) Hx of herpes genitalis (Chronic) c/s report makes mention of vulvar herpes outbreak as being the cause of pt's c/s. Arthralgia (Chronic ~08/1996) related to remicaid treatment and crohn's Crohn disease (Chronic) Depression (Chronic) Opiate dependence, continuous (Chronic) Medical History Rheumatoid arthritis delivery delivered Family History Brother Crohn's colitis Social History Smoking/Tobacco Use Status: Former Tobacco Use Quit Date: 04/27/18 Smoking risk assessment performed?: Yes Alcohol Intake: never Drug use: Daily Substance use type: former substance user, marijuana, heroin and painkillers Adopted: No Foster care: No Household members: significant other Housing: house Number of Children: 3 Seatbelt use: always Helmet use: Yes Drive intox or ride w/intox locomotive driver: No Do you feel safe at home: Yes Do you feel safe in your relationship?: Yes Additional Social history: H-Dane. Together 7 years History History 2 Para 1 Hx # Term Pregnancies 1 Multiple births 1 Hx # Pregnancies 0 Ectopic pregnancies 0 AB induced 0 Hx Number of Living Children 2 AB spontaneous 0 Past Pregnancies Del. Date GA/Weeks # Preg Succ Route Wgt Sex Labor Lgth Anesthesia Location [facility] 08/22/96 Yes 2863.302 g other 08/22/96 Yes 1956.117 g Female 11/09/18 39 No Female Tatiana Jarrell 11/09/[address] [facility] Tatiana Jarrell Delivery Date: 11/09/18 Last Updated by: Tatiana Jarrell M.D. Elective repeat delivery named Latanya POCUS Exam (ED) Limited Cardiac Exam DATE OF EXAM: 02/03/25 TIME OF EXAM: 09:10 PROVIDER THAT PERFORMED THE STUDY: Joo Quintanilla IS THIS A REPEAT EXAM DURING THIS ENCOUNTER: no REASON FOR EXAM: ID VISUALIZED STRUCTURES: Four Chambers, Left ventricle and LVOT VIEW OBTAINED: Apical 4-Chamber, Parasternal long-axis and Subxiphoid PERTINENT FINDINGS/IMPRESSION: No pericardial effusion and No RV dilation DIFFERENTIAL DIAGNOSES: Aortic outflow track less than 4 cm, RV less than LV, no significant pericardial effusion. Difficult to assess LV function given tachycardia. Exam complete
[2025-02-03 08:07] LABS: Abs Immature Grans 0.05 10^3/uL (0.0-0.06); Absolute Neutrophil Count 11.52 10^3/uL (1.2-6.7); Basophils % 0.1 %; HCT 36.7 % (36.0-46.0); Immature Grans % 0.3 %; Lymphocytes % 16.3 %; MCH 27.2 pg (27.0-33.0); MCHC 32.7 % (32.0-36.0); MCV 83 fL (80-95); MPV 9.2 fL (8.0-11.0); Monocytes % 3.3 %; Platelet Count 529 10^3/uL (130-400); RBC 4.41 10^6/uL (3.93-5.22); RDW-SD 39.1 fL
[2025-02-03 08:08] LABS: Absolute Basophil Count 0.01 10^3/uL (0.0-0.2); Absolute Lymphocyte Count 2.35 10^3/uL (1.2-3.4); Absolute Monocyte Count 0.48 10^3/uL (0.1-0.8)
[2025-02-03] MEDS: Droperidol 5 MG/2 ML VIAL 1.25 MG IVP (08:10)
[2025-02-03] MEDS: Normal Saline 1,000 ML 1000 ML IV ×2 (08:10→09:12)
[2025-02-03 08:26] LABS: ALT 50 U/L (14-59); AST 18 U/L (15-37); Albumin 3.9 g/dL (3.4-5.0); Alkaline Phosphatase 168 U/L (46-116); Anion Gap 16.6 mmol/L (3-11); BUN 14 mg/dL (7-18); Bilirubin, Total 0.4 mg/dL (0.2-1.0); CO2 27.4 mmol/L (21.0-32.0); CREATININE 1.3 mg/dL (0.55-1.02); Calcium 9.8 mg/dL (8.5-10.1); Chloride 103 mmol/L (98-107); Estimated GFR 50.72 (mL/min/1.73m2); Glucose 140 mg/dL (74-106); HCG Qual (Serum) Negative; Magnesium 1.5 mg/dL (1.8-2.4); Potassium 3.1 mmol/L (3.5-5.1); Sodium 147 mmol/L (136-145); Total Protein 8.5 g/dL (6.4-8.2)
[2025-02-03 08:30] LABS: Troponin I 89 ng/L (<or=51)
--- NOTE | 2025-02-03 08:45 | RT.EKG_ITS ---
APPROVED REPORT Exam: Resting ECG Reason for Exam: tachy Patient Location: E HR:171 bpm ECG Measurements Heart Rate 171 AXIS OR 113 P 65 QRSd 95 QRS -9 QT 352 T 72 QTc 593 Conclusion Sinus tachycardia...rate> 99 Prolonged QT interval...QTc >510mS No Occlusion [place]
[2025-02-03] MEDS: Aspirin 81 MG CHEW 324 MG CH (08:48)
[2025-02-03] MEDS: MAGNESIUM SULFATE 2 GM/50 ML BAG IVINF (08:48)
[2025-02-03] MEDS: POTASSIUM CHLORIDE 10 MEQ/100 ML BAG 100 MEQ IV_INF (08:48)
--- NOTE | 2025-02-03 09:00 | DI.RAD_ITS ---
Exam(s) XR PORTABLE CHEST AP EXAM: XR PORTABLE CHEST AP CLINICAL HISTORY: Tachycardia. TECHNIQUE: 2D digital imaging was performed. COMPARISON: CR XR PORTABLE CHEST AP from 07/03/2024 FINDINGS: Single AP portable view. Heart size is upper normal. The mediastinum is not widened. Lungs are clear. No infiltrates nor obvious pleural effusions. Previously present left lower lobe infiltrate which was evident on chest x-ray of June 2024 is no longer seen. IMPRESSION: No acute pulmonary findings on this single AP portable view of the chest. DATA REPOSITORY: RADIATION DOSE DELIVERED:
[2025-02-03] MEDS: Midazolam 2 MG/2 ML VIAL IVP (09:04)
[2025-02-03 09:09] LABS: D-Dimer 318 ng/mlFEU (<500)
[2025-02-03 09:12] LABS: Troponin I 80 ng/L (<or=51)
[2025-02-03 09:14] LABS: BE (Venous) -1 mmol/L (-2-3); HCO3 (Venous) 23 mmol/L (23-28); O2 Sat (Venous) 96 %; TCO2 (Venous) 21 mmol/L (24-29); pCO2 (Venous) 33 mmHg (41-51); pH (Venous) 7.46 (7.31-7.41); pO2 (Venous) 76 mmHg
[2025-02-03 09:17] LABS: Lactate 3.8 mmol/L (<or=2.0)
[2025-02-03] MEDS: Doxycycline Hyclate 100 MG CAP PO (09:24)
--- NOTE | 2025-02-03 09:27 | DI.VRAD_ITS ---
PROCEDURE INFORMATION: Exam: XR Chest Exam date and time: 02/03/2025 9:24 AM Age: 49 years old Clinical indication: Other: Tachycardia TECHNIQUE: Imaging protocol: Radiologic exam of the chest. Views: 1 view. COMPARISON: CR XR PORTABLE CHEST AP 07/03/2024 1:24 PM FINDINGS: Lungs: Unremarkable. No consolidation. Pleural spaces: Unremarkable. No pleural effusion. No pneumothorax. Heart/Mediastinum: Unremarkable. No cardiomegaly. Bones/joints: Unremarkable. IMPRESSION: No acute findings. Dictated and Authenticated by: Ger Guadalupe MD. Orderin Dwight Ge MD
[2025-02-03] MEDS: cefTRIAXone 2 GM/50 ML BAG IVPB (09:28)
[2025-02-03] MEDS: VANCOMYCIN/WATER (PEG) 1.25 GM/250 ML BAG IV (09:28)
[2025-02-03] MEDS: Midazolam 2 MG/2 ML VIAL 1 MG IVP (09:41)
[2025-02-03 09:42] LABS: Lab Add On Test DONE
[2025-02-03 09:42] LABS: Lab Add On Test DONE
[2025-02-03 09:45] LABS: Lab Add On Test DONE
[2025-02-03 09:45] LABS: Lab Add On Test DONE
[2025-02-03 09:50] LABS: ESR 17 mm/hr (0-20)
[2025-02-03 09:59] LABS: C-Reactive Protein 0.64 mg/dL (<or=0.5)
[2025-02-03 10:01] LABS: PHOSPHORUS 3.3 mg/dL (2.6-4.7)
[2025-02-03 10:02] LABS: COVID-19 PCR Negative (Negative); Influenza A PCR Negative (Negative); Influenza B PCR Negative (Negative); RSV PCR Negative (Negative)
[2025-02-03] MEDS: Midazolam 2 MG/2 ML VIAL 3 MG IVP (10:02)
[2025-02-03 10:11] LABS: TSH (W/Ref FT4) 0.23 uIU/mL (0.36-3.74)
[2025-02-03 10:25] LABS: Lab Add On Test DONE
[2025-02-03 10:27] LABS: Source Nasopharynx
[2025-02-03 10:27] LABS: FREE T4 1.58 ng/dL (0.76-1.46)
[2025-02-03 10:38] LABS: Creatine Kinase 96 U/L (26-192)
[2025-02-03 10:56] LABS: Lactate 1.7 mmol/L (<or=2.0)
[2025-02-03 10:59] LABS: Anion Gap 11.8 mmol/L (3-11); BUN 13 mg/dL (7-18); CO2 25.2 mmol/L (21.0-32.0); CREATININE 1.1 mg/dL (0.55-1.02); Calcium 8.2 mg/dL (8.5-10.1); Chloride 109 mmol/L (98-107); Estimated GFR 61.98 (mL/min/1.73m2); Glucose 131 mg/dL (74-106); Potassium 3.4 mmol/L (3.5-5.1); Sodium 146 mmol/L (136-145)
[2025-02-03 11:10] LABS: Troponin I 112 ng/L (<or=51)
[2025-02-03] MEDS: Normal Saline - Diluent 50 ML VIAL IJ (11:58)
[2025-02-03] MEDS: Omnipaque 350 MG/ML 100 ML BTL IJ (11:59)
--- NOTE | 2025-02-03 12:07 | DI.VRAD_ITS ---
PROCEDURE INFORMATION: Exam: CT Abdomen And Pelvis Without And With Contrast Exam date and time: 02/03/2025 11:44 AM Age: 49 years old Clinical indication: Other: Weight loss TECHNIQUE: Imaging protocol: Computed tomography of the abdomen and pelvis without and with contrast. Radiation optimization: All CT scans at this facility use at least one of these dose optimization techniques: automated exposure control; mA and/or kV adjustment per patient size (includes targeted exams where dose is matched to clinical indication); or iterative reconstruction. Contrast material: OMNI 350; Contrast volume: 100 ml; Contrast route: INTRAVENOUS (IV); COMPARISON: CT ABDOMEN PELVIS W 09/16/2024 4:10 PM FINDINGS: Liver: Normal. No mass. Gallbladder and biliary ducts: Gallbladder is unremarkable. The common duct is prominent. It measures 14 millimeters. If biliary obstruction is suspected clinically, recommend further evaluation.. Pancreas: Normal. No ductal dilation. Spleen: Normal. No splenomegaly. Adrenal glands: Normal. No mass. Kidneys and ureters: Normal. No hydronephrosis. Stomach and bowel: The rectum is distended 6 cm with fecal material consistent with fecal impaction . No obstruction. No mucosal thickening Appendix: Normal appendix Intraperitoneal space: Unremarkable. No free air. No significant fluid collection. Vasculature: Unremarkable. No abdominal aortic aneurysm. Lymph nodes: Unremarkable. No enlarged lymph nodes. Urinary bladder: Unremarkable as visualized. Reproductive: Unremarkable as visualized. Bones/joints: Unremarkable. No acute fracture. Soft tissues: Unremarkable. IMPRESSION: The common duct is prominent. It measures 14 millimeters. If biliary obstruction is suspected clinically, recommend further evaluation.. Dictated and Authenticated by: Ger Guadalupe MD. Orderin Ranjan Pandey MD
--- NOTE | 2025-02-03 12:16 | W.PC.ACHO ---
Registration Status: REG ER Primary Language: Preferred Language: Slovenian ED Information & Data Chief Complaint GenMedical 02/03/25 07:50 Chief Complaint GenMedical 02/03/25 07:39 Triage Note Patient complaining of 02/03/25 07:39 vomiting, can't feel her hands, heart going fast then slow, and eyes are flashing Medical / Surgical History (Last Reviewed 09/16/24 @ 17:25 by Thomas Gutierrez MD) Rheumatoid arthritis delivery delivered Most Recent Vital Signs Temperature 37.1 C 02/03/25 07:44 Temperature Source Oral 02/03/25 07:44 Pulse 108 H 02/03/25 12:10 Pulse 108 H 02/03/25 12:10 Respiratory Rate 16 02/03/25 12:10 Respiratory Effort Normal, Non-Labored 02/03/25 07:47 Respiratory Depth Normal 02/03/25 07:47 Respiratory Pattern Normal 02/03/25 07:47 Blood Pressure 129/51 L 02/03/25 12:09 Blood Pressure Mean 76 02/03/25 12:09 Blood Pressure Position Supine 02/03/25 07:44 Pulse Oximetry 95 02/03/25 12:10 Oxygen Delivery Method Room Air 02/03/25 07:44 Oxygen Flow Rate 0 02/03/25 07:44 Allergies No Known Allergies Allergy (Verified 02/03/25 07:44) Precautions Isolation Standard precaution 02/03/25 07:50 Active Medications Generic Name Dose Route Start Last Admin Trade Name Freq PRN Reason Stop Dose Admin Iohexol 100 ml 02/03/25 12:00 02/03/25 11:59 Omnipaque 350 Mg/Ml 100 Ml Btl IJ 03/05/25 23:59 100 ml DIRECTED DEVON Administration Sodium Chloride 50 ml 02/03/25 12:00 02/03/25 11:58 Normal Saline - Diluent 50 Ml Vial IJ 50 ml .FOR DI USE DEVON Administration IV IV Catheter Type [Left Peripheral IV Antecubital] IV Catheter Type [Right Saline Lock Antecubital] IV Catheter Gauge [Left 20 Antecubital] IV Catheter Gauge [Right 18 Antecubital] Diet Orders Category Date Time Status Regular/Normal [DIET] Nutrition 02/03/25 Lunch Active Diagnostics 02/03/25 02/03/25 02/03/25 Range/Units 10:52 10:43 10:10 WBC (4.4-10.8) 10^3/uL RBC (3.93-5.22) 10^6/uL Hgb (11.2-15.7) g/dL Hct (36.0-46.0) % MCV (80-95) fL MCH (27.0-33.0) pg MCHC (32.0-36.0) % RDW (11.7-14.6) % Plt Count (130-400) 10^3/uL MPV (8.0-11.0) fL Immature Gran % % Neutrophils % % Lymphocytes % % Monocytes % % Eosinophils % % Basophils % % Nucleated RBC % (0.0-0.3) % Absolute Neutrophils (1.2-6.7) 10^3/uL Absolute Lymphocytes (1.2-3.4) 10^3/uL Absolute Monocytes (0.1-0.8) 10^3/uL Absolute Eosinophils (0.0-0.7) 10^3/uL Absolute Basophils (0.0-0.2) 10^3/uL ESR (0-20) mm/hr D-Dimer (<500) ng/mlFEU VBG pH (7.31-7.41) VBG pCO2 (41-51) mmHg VBG pO2 mmHg VBG HCO3 (23-28) mmol/L VBG Total CO2 (24-29) mmol/L VBG O2 Saturation % VBG Base Excess (-2-3) mmol/L VBG Lactate 1.7 (<or=2.0) mmol/L Sodium 146 H (136-145) mmol/L Potassium 3.4 L (3.5-5.1) mmol/L Chloride 109 H (98-107) mmol/L Carbon Dioxide 25.2 (21.0-32.0) mmol/L Anion Gap 11.8 H (3-11) mmol/L BUN 13 (7-18) mg/dL Creatinine 1.1 H (0.55-1.02) mg/dL Est GFR (CKD-EPI 2020) 61.98 (mL/min/1.73m2) Glucose 131 H (74-106) mg/dL Calcium 8.2 L (8.5-10.1) mg/dL Phosphorus (2.6-4.7) mg/dL Magnesium (1.8-2.4) mg/dL Total Bilirubin (0.2-1.0) mg/dL AST (15-37) U/L ALT (14-59) U/L Alkaline Phosphatase (46-116) U/L Creatine Kinase (26-192) U/L Troponin I 112 H* (<or=51) ng/L C-Reactive Protein (<or=0.5) mg/dL Total Protein (6.4-8.2) g/dL Albumin (3.4-5.0) g/dL TSH (0.36-3.74) uIU/mL Free T4 (0.76-1.46) ng/dL Serum HCG, Qual B. divergens/MO-1 PCR Babesia duncani (PCR) Babesia microti DNA PCR Lyme Disease Antibody COVID-19 Source SARS-CoV-2 (PCR) (Negative) E.chaffeensis DNA (PCR) E.ewingii/canis DNA PCR E.muris eauclairensis (PCR) Influenza Type A (PCR) (Negative) Influenza Type B (PCR) (Negative) RSV (PCR) (Negative) A. phagocytophilum (PCR) Blood B. miyamotoi (PCR) Add-On Test Request DONE 02/03/25 02/03/25 02/03/25 Range/Units 09:30 09:21 09:20 WBC (4.4-10.8) 10^3/uL RBC (3.93-5.22) 10^6/uL Hgb (11.2-15.7) g/dL Hct (36.0-46.0) % MCV (80-95) fL MCH (27.0-33.0) pg MCHC (32.0-36.0) % RDW (11.7-14.6) % Plt Count (130-400) 10^3/uL MPV (8.0-11.0) fL Immature Gran % % Neutrophils % % Lymphocytes % % Monocytes % % Eosinophils % % Basophils % % Nucleated RBC % (0.0-0.3) % Absolute Neutrophils (1.2-6.7) 10^3/uL Absolute Lymphocytes (1.2-3.4) 10^3/uL Absolute Monocytes (0.1-0.8) 10^3/uL Absolute Eosinophils (0.0-0.7) 10^3/uL Absolute Basophils (0.0-0.2) 10^3/uL ESR (0-20) mm/hr D-Dimer (<500) ng/mlFEU VBG pH (7.31-7.41) VBG pCO2 (41-51) mmHg VBG pO2 mmHg VBG HCO3 (23-28) mmol/L VBG Total CO2 (24-29) mmol/L VBG O2 Saturation % VBG Base Excess (-2-3) mmol/L VBG Lactate (<or=2.0) mmol/L Sodium (136-145) mmol/L Potassium (3.5-5.1) mmol/L Chloride (98-107) mmol/L Carbon Dioxide (21.0-32.0) mmol/L Anion Gap (3-11) mmol/L BUN (7-18) mg/dL Creatinine (0.55-1.02) mg/dL Est GFR (CKD-EPI 2020) (mL/min/1.73m2) Glucose (74-106) mg/dL Calcium (8.5-10.1) mg/dL Phosphorus (2.6-4.7) mg/dL Magnesium (1.8-2.4) mg/dL Total Bilirubin (0.2-1.0) mg/dL AST (15-37) U/L ALT (14-59) U/L Alkaline Phosphatase (46-116) U/L Creatine Kinase (26-192) U/L Troponin I (<or=51) ng/L C-Reactive Protein (<or=0.5) mg/dL Total Protein (6.4-8.2) g/dL Albumin (3.4-5.0) g/dL TSH (0.36-3.74) uIU/mL Free T4 (0.76-1.46) ng/dL Serum HCG, Qual B. divergens/MO-1 PCR Babesia duncani (PCR) Babesia microti DNA PCR Lyme Disease Antibody COVID-19 Source Nasopharynx SARS-CoV-2 (PCR) Negative (Negative) E.chaffeensis DNA (PCR) E.ewingii/canis DNA PCR E.muris eauclairensis (PCR) Influenza Type A (PCR) Negative (Negative) Influenza Type B (PCR) Negative (Negative) RSV (PCR) Negative (Negative) A. phagocytophilum (PCR) Blood B. miyamotoi (PCR) Add-On Test Request DONE DONE 02/03/25 02/03/25 02/03/25 Range/Units 09:13 09:08 08:47 WBC (4.4-10.8) 10^3/uL RBC (3.93-5.22) 10^6/uL Hgb (11.2-15.7) g/dL Hct (36.0-46.0) % MCV (80-95) fL MCH (27.0-33.0) pg MCHC (32.0-36.0) % RDW (11.7-14.6) % Plt Count (130-400) 10^3/uL MPV (8.0-11.0) fL Immature Gran % % Neutrophils % % Lymphocytes % % Monocytes % % Eosinophils % % Basophils % % Nucleated RBC % (0.0-0.3) % Absolute Neutrophils (1.2-6.7) 10^3/uL Absolute Lymphocytes (1.2-3.4) 10^3/uL Absolute Monocytes (0.1-0.8) 10^3/uL Absolute Eosinophils (0.0-0.7) 10^3/uL Absolute Basophils (0.0-0.2) 10^3/uL ESR (0-20) mm/hr D-Dimer (<500) ng/mlFEU VBG pH 7.46 H (7.31-7.41) VBG pCO2 33 L (41-51) mmHg VBG pO2 76 mmHg VBG HCO3 23 (23-28) mmol/L VBG Total CO2 21 L (24-29) mmol/L VBG O2 Saturation 96 % VBG Base Excess -1 (-2-3) mmol/L VBG Lactate 3.8 H* (<or=2.0) mmol/L Sodium (136-145) mmol/L Potassium (3.5-5.1) mmol/L Chloride (98-107) mmol/L Carbon Dioxide (21.0-32.0) mmol/L Anion Gap (3-11) mmol/L BUN (7-18) mg/dL Creatinine (0.55-1.02) mg/dL Est GFR (CKD-EPI 2020) (mL/min/1.73m2) Glucose (74-106) mg/dL Calcium (8.5-10.1) mg/dL Phosphorus 3.3 (2.6-4.7) mg/dL Magnesium (1.8-2.4) mg/dL Total Bilirubin (0.2-1.0) mg/dL AST (15-37) U/L ALT (14-59) U/L Alkaline Phosphatase (46-116) U/L Creatine Kinase 96 (26-192) U/L Troponin I (<or=51) ng/L C-Reactive Protein (<or=0.5) mg/dL Total Protein (6.4-8.2) g/dL Albumin (3.4-5.0) g/dL TSH (0.36-3.74) uIU/mL Free T4 (0.76-1.46) ng/dL Serum HCG, Qual B. divergens/MO-1 PCR Babesia duncani (PCR) Babesia microti DNA PCR Lyme Disease Antibody COVID-19 Source SARS-CoV-2 (PCR) (Negative) E.chaffeensis DNA (PCR) E.ewingii/canis DNA PCR E.muris eauclairensis (PCR) Influenza Type A (PCR) (Negative) Influenza Type B (PCR) (Negative) RSV (PCR) (Negative) A. phagocytophilum (PCR) Blood B. miyamotoi (PCR) Add-On Test Request DONE 02/03/25 02/03/25 Range/Units 08:42 07:42 WBC 14.40 H (4.4-10.8) 10^3/uL RBC 4.41 (3.93-5.22) 10^6/uL Hgb 12.0 (11.2-15.7) g/dL Hct 36.7 (36.0-46.0) % MCV 83 (80-95) fL MCH 27.2 (27.0-33.0) pg MCHC 32.7 (32.0-36.0) % RDW 13.0 (11.7-14.6) % Plt Count 529 H (130-400) 10^3/uL MPV 9.2 (8.0-11.0) fL Immature Gran % 0.3 % Neutrophils % 80.0 % Lymphocytes % 16.3 % Monocytes % 3.3 % Eosinophils % 0.0 % Basophils % 0.1 % Nucleated RBC % 0.0 (0.0-0.3) % Absolute Neutrophils 11.52 H (1.2-6.7) 10^3/uL Absolute Lymphocytes 2.35 (1.2-3.4) 10^3/uL Absolute Monocytes 0.48 (0.1-0.8) 10^3/uL Absolute Eosinophils 0.00 (0.0-0.7) 10^3/uL Absolute Basophils 0.01 (0.0-0.2) 10^3/uL ESR 17 (0-20) mm/hr D-Dimer 318 (<500) ng/mlFEU VBG pH (7.31-7.41) VBG pCO2 (41-51) mmHg VBG pO2 mmHg VBG HCO3 (23-28) mmol/L VBG Total CO2 (24-29) mmol/L VBG O2 Saturation % VBG Base Excess (-2-3) mmol/L VBG Lactate (<or=2.0) mmol/L Sodium 147 H (136-145) mmol/L Potassium 3.1 L (3.5-5.1) mmol/L Chloride 103 (98-107) mmol/L Carbon Dioxide 27.4 (21.0-32.0) mmol/L Anion Gap 16.6 H (3-11) mmol/L BUN 14 (7-18) mg/dL Creatinine 1.3 H (0.55-1.02) mg/dL Est GFR (CKD-EPI 2020) 50.72 (mL/min/1.73m2) Glucose 140 H (74-106) mg/dL Calcium 9.8 (8.5-10.1) mg/dL Phosphorus (2.6-4.7) mg/dL Magnesium 1.5 L (1.8-2.4) mg/dL Total Bilirubin 0.4 (0.2-1.0) mg/dL AST 18 (15-37) U/L ALT 50 (14-59) U/L Alkaline Phosphatase 168 H (46-116) U/L Creatine Kinase (26-192) U/L Troponin I 80 H* 89 H* (<or=51) ng/L C-Reactive Protein 0.64 H (<or=0.5) mg/dL Total Protein 8.5 H (6.4-8.2) g/dL Albumin 3.9 (3.4-5.0) g/dL TSH 0.23 L (0.36-3.74) uIU/mL Free T4 1.58 H (0.76-1.46) ng/dL Serum HCG, Qual Negative B. divergens/MO-1 PCR Pending Babesia duncani (PCR) Pending Babesia microti DNA PCR Pending Lyme Disease Antibody Pending COVID-19 Source SARS-CoV-2 (PCR) (Negative) E.chaffeensis DNA (PCR) Pending E.ewingii/canis DNA PCR Pending E.muris eauclairensis (PCR) Pending Influenza Type A (PCR) (Negative) Influenza Type B (PCR) (Negative) RSV (PCR) (Negative) A. phagocytophilum (PCR) Pending Blood B. miyamotoi (PCR) Pending Add-On Test Request DONE 02/03/25 09:25 Blood Culture - Pending Blood 02/03/25 09:25 Blood Culture - Pending Blood Intake and Output - 24 Hour Total 02/03/25 07:36 thru 02/03/25 11:15 Intake Total 2460 Balance 2460 Weight 67 kg Intake: IV 2460 Falls Risk Assessment History of Falls No History 02/03/25 07:52 Contributing Factors No Factors 02/03/25 07:52 Ambulatory Aids Independent 02/03/25 07:52 Tubes/Lines None 02/03/25 07:52 Gait Evaluation No gait disturbance 02/03/25 07:52 Cognition No cognitive impairment 02/03/25 07:52 Fall Total Score 0 02/03/25 07:52 Level of Risk Standard/Low Risk 02/03/25 07:52 Problems (Last Reviewed 09/16/24 @ 17:25 by Thomas Gutierrez MD) Acute lactic acidosis (Acute) Acute hypokalemia (Acute) Hypomagnesemia (Acute) Myocardial injury (Acute) v v v v v v v v v Sending and/or Receiving Nurses: Please use comment section below to note any information pertinent to the patient hand-off not included above. Information / Comments: report recieved pt going to room 212. Report received from: MARKELL Lyn @ [phone]
[2025-02-03] MEDS: Enoxaparin 40 MG/0.4 ML SYR SC (12:46)
[2025-02-03] MEDS: Normal Saline 1,000 ML 100 ML IV ×2 (12:47→22:16)
[2025-02-03] MEDS: Normal Saline Flush 10 ML SYR ×2 (12:55→19:42)
--- NOTE | 2025-02-03 14:18 | W.PM.HP.N ---
Date of service: 02/03/25 Time of Service: 14:18 Assessment and Plan Assessment and plan (1) Myocardial injury: Status: Acute Assessment and plan: troponin at 89/80/112. No chest pain. Will order ekg as I do not see one (2) Hypomagnesemia: Status: Acute Assessment and plan: resolved (3) Acute hypokalemia: Status: Acute Assessment and plan: resolved (4) Acute lactic acidosis: Status: Acute Assessment and plan: was at 3.8, now at 1.7 without intervention besides ifv (5) Nausea & vomiting: Status: Acute Assessment and plan: cw antiemetic (6) Weight loss: Status: Acute Assessment and plan: In reviewing old data, her weight seems fairly stable 02/03/25 67 09/16/24 68 07/03/25 72 08/16/25 63 02/21/25 75 Regardless, the pt does compain of weight loss/nausea/vomiting/night sweats/anorexia. Will order tumor markers and ct abd/pelvis. It is imperative that the pt follows up with recommended age appropriate screening exams History of Present Illness History of Present Illness Chief Complaint: n/v Narrative: This is a 49-year-old female complains of 3 weeks of worsening nausea and vomiting came into the ED for further evaluation and treatment. Patient was treated with droperidol for her nausea and after the initiation of this medication patient did have some possible dystonic reaction with elevations in her heart rate as well as respiratory rate as well as some fasciculations. Considering the patient's reaction as well as her nausea and vomiting we are asked admit her for further evaluation and treatment. Upon my discussion with the patient, she states that she has had 3 weeks of worsening appetite as well as a 20 pound weight loss and night sweats. Patient is not up-to-date in regards to her breast cancer screening or Pap smears. Patient does have Crohn's disease and does get regular colonoscopies. Patient states that she no longer takes any of her home medications. Review of Systems All systems reviewed & are unremarkable except as noted in HPI and below PFSH All Active Problems (Updated 02/03/25 @ 14:26 by Dannie Woodruff MD) Weight loss (Acute) Nausea & vomiting (Acute) Acute lactic acidosis (Acute) Acute hypokalemia (Acute) Hypomagnesemia (Acute) Myocardial injury (Acute) Postcoital urinary tract infection (Acute) Contraception (Acute) 08/2020. Declined LARC. Smokes tobacco. Rx for norethindrone 0.35 mg daily. History of tobacco abuse (Acute) Hx of herpes genitalis (Chronic) c/s report makes mention of vulvar herpes outbreak as being the cause of pt's c/s. Arthralgia (Chronic ~08/1996) related to remicaid treatment and crohn's Crohn disease (Chronic) Depression (Chronic) Opiate dependence, continuous (Chronic) Medical History Rheumatoid arthritis delivery delivered Family History Brother Crohn's colitis Social History Smoking/Tobacco Use Status: Former Tobacco Use Quit Date: 04/27/18 Smoking risk assessment performed?: Yes Alcohol Intake: never Drug use: Daily Substance use type: former substance user, marijuana, heroin and painkillers Adopted: No Foster care: No Household members: significant other Housing: house Number of Children: 3 Seatbelt use: always Helmet use: Yes Drive intox or ride w/intox industrial truck driver: No Do you feel safe at home: Yes Do you feel safe in your relationship?: Yes Additional Social history: H-Dane. Together 7 years History History 2 Para 1 Hx # Term Pregnancies 1 Multiple births 1 Hx # Pregnancies 0 Ectopic pregnancies 0 AB induced 0 Hx Number of Living Children 2 AB spontaneous 0 Past Pregnancies Del. Date GA/Weeks # Preg Succ Route Wgt Sex Labor Lgth Anesthesia Location [facility] 08/22/96 Yes 2863.302 g other 08/22/96 Yes 1956.117 g Female 11/09/18 39 No Female Tatiana Jarrell 11/09/18 No 3118.448 g Female [facility] Taitana Jarrell Delivery Date: 11/09/18 Last Updated by: Tatiana Jarrell M.D. Elective repeat delivery named [place] Meds Allergies and Home Medications Allergies Allergy/AdvReac Type Severity Reaction Status Date / Time No Known Allergies Allergy Verified 02/03/25 07:44 Home Medications ?Medication ?Instructions ?Recorded ?Confirmed ?Type Unknown [No Known Home Meds] 02/03/25 02/03/25 History Exam Narrative Exam Narrative: heent-ncat mmm eomi perrla neck-no lad no jvd cv-rrr no mrg lungs-ctab abd-sntndbsa no hepato or splenomegaly ext-no cce bilat [id number] intact as tested psych-aaox3 nad Results Labs 02/03/25 07:42 02/03/25 10:43 Labs: Laboratory Results - last 24 hr 02/03/25 02/03/25 02/03/25 07:42 08:42 08:47 WBC 14.40 H RBC 4.41 Hgb 12.0 Hct 36.7 MCV 83 MCH 27.2 MCHC 32.7 RDW 13.0 Plt Count 529 H MPV 9.2 Immature Gran % 0.3 Neutrophils % 80.0 Lymphocytes % 16.3 Monocytes % 3.3 Eosinophils % 0.0 Basophils % 0.1 Nucleated RBC % 0.0 Absolute Neutrophils 11.52 H Absolute Lymphocytes 2.35 Absolute Monocytes 0.48 Absolute Eosinophils 0.00 Absolute Basophils 0.01 ESR 17 D-Dimer 318 VBG pH VBG pCO2 VBG pO2 VBG HCO3 VBG Total CO2 VBG O2 Saturation VBG Base Excess VBG Lactate Sodium 147 H Potassium 3.1 L Chloride 103 Carbon Dioxide 27.4 Anion Gap 16.6 H BUN 14 Creatinine 1.3 H Est GFR (CKD-EPI 2020) 50.72 Glucose 140 H Calcium 9.8 Phosphorus Magnesium 1.5 L Total Bilirubin 0.4 AST 18 ALT 50 Alkaline Phosphatase 168 H Creatine Kinase 96 Troponin I 89 H* 80 H* C-Reactive Protein 0.64 H Total Protein 8.5 H Albumin 3.9 TSH 0.23 L Free T4 1.58 H Serum HCG, Qual Negative COVID-19 Source SARS-CoV-2 (PCR) Influenza Type A (PCR) Influenza Type B (PCR) RSV (PCR) Add-On Test Request DONE 02/03/25 02/03/25 02/03/25 09:08 09:13 09:20 WBC RBC Hgb Hct MCV MCH MCHC RDW Plt Count MPV Immature Gran % Neutrophils % Lymphocytes % Monocytes % Eosinophils % Basophils % Nucleated RBC % Absolute Neutrophils Absolute Lymphocytes Absolute Monocytes Absolute Eosinophils Absolute Basophils ESR D-Dimer VBG pH 7.46 H VBG pCO2 33 L VBG pO2 76 VBG HCO3 23 VBG Total CO2 21 L VBG O2 Saturation 96 VBG Base Excess -1 VBG Lactate 3.8 H* Sodium Potassium Chloride Carbon Dioxide Anion Gap BUN Creatinine Est GFR (CKD-EPI 2020) Glucose Calcium Phosphorus 3.3 Magnesium Total Bilirubin AST ALT Alkaline Phosphatase Creatine Kinase Troponin I C-Reactive Protein Total Protein Albumin TSH Free T4 Serum HCG, Qual COVID-19 Source SARS-CoV-2 (PCR) Influenza Type A (PCR) Influenza Type B (PCR) RSV (PCR) Add-On Test Request DONE DONE 02/03/25 02/03/25 02/03/25 09:21 09:30 10:10 WBC RBC Hgb Hct MCV MCH MCHC RDW Plt Count MPV Immature Gran % Neutrophils % Lymphocytes % Monocytes % Eosinophils % Basophils % Nucleated RBC % Absolute Neutrophils Absolute Lymphocytes Absolute Monocytes Absolute Eosinophils Absolute Basophils ESR D-Dimer VBG pH VBG pCO2 VBG pO2 VBG HCO3 VBG Total CO2 VBG O2 Saturation VBG Base Excess VBG Lactate Sodium Potassium Chloride Carbon Dioxide Anion Gap BUN Creatinine Est GFR (CKD-EPI 2020) Glucose Calcium Phosphorus Magnesium Total Bilirubin AST ALT Alkaline Phosphatase Creatine Kinase Troponin I C-Reactive Protein Total Protein Albumin TSH Free T4 Serum HCG, Qual COVID-19 Source Nasopharynx SARS-CoV-2 (PCR) Negative Influenza Type A (PCR) Negative Influenza Type B (PCR) Negative RSV (PCR) Negative Add-On Test Request DONE DONE 02/03/25 02/03/25 10:43 10:52 WBC RBC Hgb Hct MCV MCH MCHC RDW Plt Count MPV Immature Gran % Neutrophils % Lymphocytes % Monocytes % Eosinophils % Basophils % Nucleated RBC % Absolute Neutrophils Absolute Lymphocytes Absolute Monocytes Absolute Eosinophils Absolute Basophils ESR D-Dimer VBG pH VBG pCO2 VBG pO2 VBG HCO3 VBG Total CO2 VBG O2 Saturation VBG Base Excess VBG Lactate 1.7 Sodium 146 H Potassium 3.4 L Chloride 109 H Carbon Dioxide 25.2 Anion Gap 11.8 H BUN 13 Creatinine 1.1 H Est GFR (CKD-EPI 2020) 61.98 Glucose 131 H Calcium 8.2 L Phosphorus Magnesium Total Bilirubin AST ALT Alkaline Phosphatase Creatine Kinase Troponin I 112 H* C-Reactive Protein Total Protein Albumin TSH Free T4 Serum HCG, Qual COVID-19 Source SARS-CoV-2 (PCR) Influenza Type A (PCR) Influenza Type B (PCR) RSV (PCR) Add-On Test Request Last Vital Signs Temp 36.9 C 02/03/25 12:27 Pulse 97 H 02/03/25 12:27 Resp 14 02/03/25 12:27 BP 114/72 02/03/25 12:27 Pulse Ox 98 02/03/25 12:27 Time Spent Time spent with Patient: <40 minutes Time was spent: preparing to see the patient(eg.review tests), obtaining and/or reviewing separately otained hiistory, ordering medications,tests, procedures, referring, communicating with other health foster care social worker, indepentently interpreting results, counseling the patient and care coordination
[2025-02-03 17:05] LABS: Bilirubin Negative (Negative); Blood Moderate (Negative); Clarity Clear (Clear); Glucose Negative (Negative); Ketones 40 mg/dL (Negative); Leukocyte Esterase Negative (Negative); Nitrite Negative (Negative); Urobilinogen 0.2 mg/dL (Up to 0.2)
[2025-02-03 17:07] LABS: Bacteria Negative HPF (Negative); C & S Indicated? No; Casts Negative LPF (Negative); Crystals Negative HPF (Negative); Epithelial Cells Negative HPF (Negative); Mucus Negative (Negative); WBC Negative HPF (0-5)
[2025-02-03 17:14] LABS: *AMPHETAMINES SCREEN URINE Negative (Negative); *BARBITURATES SCREEN URINE Negative (Negative); *BENZODIAZEPINES SCREEN URINE Positive (Negative); Cannabinoids THC Positive (Negative); Cocaine Screen,Urine Negative (Negative); METHADONE URINE SCREEN Positive (Negative); OPIATES URINE SCREEN Negative (Negative)
[2025-02-03 17:17] LABS: Tricyclic Antidepressants Negative (Negative)
[2025-02-03] MEDS: Ondansetron 4 MG/2 ML VIAL IVP (19:41)
[2025-02-03] MEDS: Mylanta Suspension 30 ML CUP PO (20:36)
[2025-02-03] MEDS: LORazepam 20 MG/10 ML VIAL IVP (20:53)
[2025-02-03] MEDS: Prochlorperazine 10 MG/2 ML VIAL IVP (22:16)
[2025-02-03] MEDS: Normal Saline Flush 10 ML SYR IVP (22:17)
[2025-02-04] VITALS (7 sets, daily range): BP systolic 125–158; BP diastolic 62–108; PULSE 83–111; RESP 16–19; TEMP 36.5–37.4; O2SAT 93–100
--- NOTE | 2025-02-04 | DI.US_ITS ---
Exam(s) US ABDOMEN EXAM: US ABDOMEN CLINICAL HISTORY: enlarged CBD TECHNIQUE: Ultrasound abdomen performed using standard protocol. COMPARISON: CT CT ABDOMEN PELVIS W from 09/16/[address] ABDOMEN PELVIS WO/W from 02/03/2025 FINDINGS: LIVER: Normal size and echogenicity. No focal liver lesions are seen. GALLBLADDER: Gallbladder sludge is present. No evidence of cholelithiasis. No evidence of wall thickening. No pericholecystic fluid identified. CAO'S SIGN: Negative. BILIARY SYSTEM: Common bile duct measures 11 millimeters, dilated. No common duct stone is visible. No intrahepatic biliary ductal dilation. KIDNEYS: Kidneys are symmetric in size. No evidence of renal calculi. No evidence of hydronephrosis. No renal mass or cyst identified. PANCREAS: Normal where visualized. Body and tail not well visualized due to overlying bowel SPLEEN: Not enlarged. ABDOMINAL AORTA AND IVC: Visualized portions normal caliber. Limited visualization. ASCITES: None seen. IMPRESSION: Gallbladder sludge. No evidence of gallbladder wall thickening. Dilated common bile duct to 11 millimeters. No common duct stone is visible. DATA REPOSITORY:
[2025-02-04] MEDS: Normal Saline Flush 10 ML SYR IVP ×5 (03:47→13:42)
[2025-02-04] MEDS: Prochlorperazine 10 MG/2 ML VIAL IVP ×3 (03:47→13:42)
[2025-02-04] MEDS: Ondansetron 4 MG/2 ML VIAL IVP (05:28)
--- NOTE | 2025-02-04 08:15 | RT.EKG_ITS ---
APPROVED REPORT Exam: Resting ECG Reason for Exam: elevated troponins Patient Location: I HR:112 bpm ECG Measurements Heart Rate 112 AXIS SD 159 P 70 QRSd 108 QRS 25 QT 329 T 9 QTc 449 Conclusion Sinus tachycardia...rate> 99 Normal Electrocardiogram
[2025-02-04] MEDS: LORazepam 20 MG/10 ML VIAL IVP ×2 (08:22→22:15)
[2025-02-04] MEDS: Normal Saline 1,000 ML 100 ML IV ×2 (08:43→22:16)
--- NOTE | 2025-02-04 09:36 | PDOC.CMIN ---
Date of service: 02/04/25 Time of Service: 14:30 Care Management Initial Assmt Initial Assessment Reason for Hospitalization: Weight Loss Functional Status/Living Situation Patient Presentation: Shania was reclined in the chair, when CM arrived. She presented to the ED with nausea and vomiting. Patient appeared drowsy during the interactions, with intermittent eye fluttering and difficulty to maintain eye contact. This typewriter repairer had to repeat the patient's name to awaken/prompt engagement. Per RN, Shania is not forthcoming with information. RN states, the patient denies substance abuse, however, a urine drug screen was preformed and indicated otherwise by showing positive for Methadone, Benzodiazepines, and TCH. Pt denies having any prescribed home medications, to this typewriter repairer. Shania states, she is living in a single family home on [address], with her 6 yr old daughter and the child's father. Patient denies affiliation with [employer]. Shania is independant at baseline, including driving; She states, she drove herself to the ED. CM will continue to follow and access futher. 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) Instrumental Activities of Daily Living (ADLs): Independent Medications Medication Management: No Issues/Barriers identified Physical Functioning/Mobility Assistive Device: no Advance Directives Advance Directives: Do you have an Advance Directive: N 10/16/18, 09:10 AD On File at [facility]: N 10/16/18, 09:10 Date Asked 02/03/25 02/03/25, 07:44 AD Date Reviewed COLST On File at [facility] COLST Date Scanned Code Status Resuscitation Status Full Code Portal Pt does not currently have a portal and education provided: Yes Insurance Coverage/Financial Issues Insurance: Medicaid of [place] - [id number] Care Team Visit Care Team Role Provider Type Unknown Unknown Primary Care Provider STAFF PHYSICIAN Willa James Other Providers [employer] CHECKERS AND CASHIERS SUPERVISOR Gladis Jesus Other Providers [employer] CHECK[employer] C[employer] SUPERVISOR Josephine Foss Other Providers [employer] CHECK[employer] CASHIERS SUPERVISOR Kaye Pittman RN Other Providers [employer] CHECK[employer] CASHIERS SUPERVISOR Brea Woodruff Other Providers [employer] CHECK[employer] CASHIERS SUPERVISOR Joo Quintanilla MD Emergency Provider [facility] STAFF PHYSICIAN Dannie Woodruff MD Admit Provider [facility] STAFF PHYSICIAN Attending Provider Discharge Potential Discharge Needs: PCP F/U Appt Anticipated Barriers to Discharge: Medical Status Patient/Family Education Needs: Review discharge instructions, discuss Ask Me Three Transportation: Private vehicle Plan: Anticipate, Shania will be discharged home, once medically ready. She will follow up with her community providers and discharge plan of care. Shania will transport via private vehicle by family. Social Determinants of Health Screening Social Determinants of health last assessed in clinic: 02/04/25 Will the Patient Participate in the Screening?: Yes Do you worry about having a steady place to live?: no Problems where you live: no known problems In the past 12 months, have you had to go without electric, gas, oil or water in your home?: no 1. Within the past 12 months, we worried whether our food would run out before we got money to buy more.: Never true 2. Within the past 12 months, the food we bought just didn't last and we didn't have money to get more.: Never true Has lack of transportation kept you from medical appointments or from doing things needed for daily living?: no Has anyone in your life made you feel unsafe or unsupported?: yes How often does anyone, including family and friends, physically hurt you?: Never How often does anyone, including family and friends, insult or talk down to you?: Never How often does anyone, including family and friends, threaten you with harm?: Never How often does anyone, including family and friends, scream or curse at you?: Never HRSN Safety total score: 4 How hard is it for you to pay for the very basics like food, housing, medical care, and heating? Would you say it is:: Not hard at all Do you want help finding or keeping work or a job?: I do not need or want help If for any reason you need help with day-to-day activities such as bathing, preparing meals, shopping, managing finances, etc., do you get the help you need?: I don?t need any help How often do you feel lonely or isolated from those around you?: Never Do you speak a language other than Estonian at home?: No Does the patient want assistance with any of the above?: No PFSH All Active Problems (Updated 02/03/25 @ 14:26 by Dannie Woodruff MD) Weight loss (Acute) Nausea & vomiting (Acute) Acute lactic acidosis (Acute) Acute hypokalemia (Acute) Hypomagnesemia (Acute) Myocardial injury (Acute) Postcoital urinary tract infection (Acute) Contraception (Acute) 08/2020. Declined LARC. Smokes tobacco. Rx for norethindrone 0.35 mg daily. History of tobacco abuse (Acute) Hx of herpes genitalis (Chronic) c/s report makes mention of vulvar herpes outbreak as being the cause of pt's c/s. Arthralgia (Chronic ~08/1996) related to remicaid treatment and crohn's Crohn disease (Chronic) Depression (Chronic) Opiate dependence, continuous (Chronic) Medical History Rheumatoid arthritis delivery delivered Family History Brother Crohn's colitis Social History Smoking/Tobacco Use Status: Former Tobacco Use Quit Date: 04/27/18 Smoking risk assessment performed?: Yes Alcohol Intake: never Drug use: Daily Substance use type: former substance user, marijuana, heroin and painkillers Adopted: No Foster care: No Household members: significant other Housing: house Number of Children: 3 Seatbelt use: always Helmet use: Yes Drive intox or ride w/intox log truck driver: No Do you feel safe at home: Yes Do you feel safe in your relationship?: Yes Additional Social history: H-Dane. Together 7 years History History 2 Para 1 Hx # Term Pregnancies 1 Multiple births 1 Hx # Pregnancies 0 Ectopic pregnancies 0 AB induced 0 Hx Number of Living Children 2 AB spontaneous 0 Past Pregnancies Del. Date GA/Weeks # Preg Succ Route Wgt Sex Labor Lgth Anesthesia Location Prov Complic 08/22/96 Yes 2863.302 g other 08/22/96 Yes 1956.117 g Female 11/09/18 39 No Female Tatiana Jarrell 11/09/18 No 3118.448 g Female [facility] Tatiana Jarrell Delivery Date: 11/09/18 Last Updated by: Tatiana Jarrell M.D. Elective repeat delivery named [place] Readmission Within the Past 30 Days Yes or No: No
--- NOTE | 2025-02-04 11:21 | W.NUTRFU ---
Date of service: 02/04/25 Nutrition Note NOTE: 49yo female being treated for low mag/potassium, lactic acidosis, nausea/vomiting weight history shows about 7kg wt loss since 2019 but relatively stable over the last 6 months. Current BMI 23.0 is wnl. Does have a hx of Crohn's. Total protein lab high yesterday (8.5) and albumin wnl (3.9) - could be more dehydration than low protein status - recommend prealbumin and transferrin labs for better indicator protein status.
[2025-02-04] MEDS: Enoxaparin 40 MG/0.4 ML SYR SC (12:14)
--- NOTE | 2025-02-04 12:44 | PGE_ITS ---
Date of Service Date of service: 02/04/25 Time of Service: 12:45 Assessment and Plan Assessment and plan (1) Myocardial injury: Status: Acute Assessment and plan: troponin at 89/80/112. No chest pain. Will order ekg as I do not see one 02/04/25 asymptomatic, will recheck in am (2) Hypomagnesemia: Status: Acute Assessment and plan: resolved (3) Acute hypokalemia: Status: Acute Assessment and plan: resolved (4) Acute lactic acidosis: Status: Acute Assessment and plan: was at 3.8, now at 1.7 without intervention besides ifv (5) Nausea & vomiting: Status: Acute Assessment and plan: cw antiemetic (6) Weight loss: Status: Acute Assessment and plan: In reviewing old data, her weight seems fairly stable 02/03/25 67 09/16/24 68 07/03/25 72 08/16/25 63 02/21/25 75 Regardless, the pt does compain of weight loss/nausea/vomiting/night sweats/anorexia. Will order tumor markers and ct abd/pelvis. It is imperative that the pt follows up with recommended age appropriate screening exams Subjective Subjective Interval history since last seen: Pt seen and examined in her room this am. POC d/w pt as well as with bedside nu rse during MDR. Pt does complain of insomnia Exam Narrative Exam Narrative: heent-ncat mmm eomi perrla (enlarged pupils bilat) neck-no lad no jvd cv-rrr no mrg lungs-ctab abd-sntndbsa no hepato or splenomegaly ext-no cce bilat [id number] intact as tested psych-aaox3 nad Objective Last Vital Signs Temp 36.5 C 02/04/25 11:26 Pulse 111 H 02/04/25 11:26 Resp 17 02/04/25 11:26 BP 137/82 02/04/25 11:26 Pulse Ox 95 02/04/25 11:26 Laboratory Results - last 24 hr 02/03/25 16:42 Urine Color Yellow Urine Clarity Clear Urine pH 6.0 Ur Specific [place] 1.010 Urine Protein 30 H Urine Ketones 40 H Urine Blood Moderate H Urine Nitrite Negative Urine Bilirubin Negative Urine Urobilinogen 0.2 Ur Leukocyte Esterase Negative Urine RBC 10-20 H Urine WBC Negative Ur Epithelial Cells Negative Urine Crystals Negative Urine Bacteria Negative Urine Casts Negative Urine Mucus Negative Ur Culture Indicated? No Urine Glucose Negative Urine Opiates Screen Negative Urine Methadone Screen Positive A Ur Barbiturates Screen Negative Ur Tricyclics Screen Negative Ur Amphetamines Screen Negative U Benzodiazepines Scrn Positive A Urine Cocaine Screen Negative Ur THC Screen Positive A Time Spent with Patient Time Spent with Patient: 25-34 minutes Time was spent: preparing to see the patient(eg.review tests), obtaining and/or reviewing separately otained hiistory, ordering medications,tests, procedures, referring, communicating with other health wound care physician, indepentently interpreting results, counseling the patient and care coordination
[2025-02-04] MEDS: Docusate Sodium 100 MG CAP PO (16:19)
[2025-02-04] MEDS: diphenhydrAMINE 25 MG CAP PO (17:02)
[2025-02-04 18:23] LABS: AFP Tumor Marker 7.9 ng/mL (<8.1)
[2025-02-04 18:51] LABS: CA 19-9 5 U/mL (<35)
[2025-02-05] MEDS: Prochlorperazine 10 MG/2 ML VIAL IVP (01:43)
[2025-02-05] MEDS: Normal Saline Flush 10 ML SYR IVP (01:43)
[2025-02-05 03:10] VITALS: BP 125/65; PULSE 116; RESP 24; TEMP 38.4; O2SAT 97
[2025-02-05 03:23] VITALS: TEMP 38
[2025-02-05] MEDS: Acetaminophen 325 MG TAB PO (03:23)
[2025-02-05 05:51] VITALS: TEMP 37.2
[2025-02-05 07:16] VITALS: BP 129/88; PULSE 84; RESP 12; TEMP 36.4; O2SAT 95
[2025-02-05] MEDS: Normal Saline 1,000 ML 100 ML IV (08:41)
[2025-02-05] MEDS: LORazepam 20 MG/10 ML VIAL IVP (08:42)
[2025-02-05] MEDS: Ondansetron 4 MG/2 ML VIAL IVP (08:42)
[2025-02-05 10:29] LABS: Lyme Ab w Rflx to Lyme Confirm Negative (Negative)
--- NOTE | 2025-02-05 12:16 | DSE_ITS ---
Date of service: 02/05/25 Time of Service: 12:17 DS: Diagnosis Discharge Diagnosis (1) Myocardial injury: Status: Acute (2) Hypomagnesemia: Status: Acute (3) Acute hypokalemia: Status: Acute (4) Acute lactic acidosis: Status: Acute (5) Nausea & vomiting: Status: Acute (6) Weight loss: Status: Acute Discharge Plan Disposition Patient Disposition: Home Condition: Improving Discharge Details Reason For Visit: Weight loss Admit Date/Time: 02/03/25 11:34 Admit Provider: Dannie Woodruff Attending Provider: Dannie Woodruff Primary Care Provider: Unknown,Unknown Hospital Course Hospital Course: Patient was admitted for the below mentioned reasons. While she was here multiple tumor markers were ordered and are still pending. The reason these were ordered was because the patient endorsed significant weight loss as well as night sweats, anorexia, intermittent pain as well as nausea and vomiting. The pain was abdominal pain. On the after the patient had a CT of the abdomen and pelvis as well as an ultrasound which was fairly benign recommended discharge to which she readily agreed. I did discuss with the the patient the possibility of acalculous cholecystitis which will need to be evaluated with a HIDA scan. Patient elected going home and do this as an outpatient if needed. Patient will be discharged good condition. While she was here she did have mild elevations in her troponin but her EKG was within normal limits and she was asymptomatic. I did ask to repeat her troponins on the but she refused further lab draws. History of Present Illness History of Present Illness Chief Complaint: n/v Narrative: This is a 49-year-old female complains of 3 weeks of worsening nausea and vomiting came into the ED for further evaluation and treatment. Patient was treated with droperidol for her nausea and after the initiation of this medication patient did have some possible dystonic reaction with elevations in her heart rate as well as respiratory rate as well as some fasciculations. Considering the patient's reaction as well as her nausea and vomiting we are asked admit her for further evaluation and treatment. Upon my discussion with the patient, she states that she has had 3 weeks of worsening appetite as well as a 20 pound weight loss and night sweats. Patient is not up-to-date in regards to her breast cancer screening or Pap smears. Patient does have Crohn's disease and does get regular colonoscopies. Patient states that she no longer takes any of her home medications. Assessment and Plan Assessment and plan (1) Myocardial injury: Status: Acute Assessment and plan: troponin at 89/80/112. No chest pain. Will order ekg as I do not see one (2) Hypomagnesemia: Status: Acute Assessment and plan: resolved (3) Acute hypokalemia: Status: Acute Assessment and plan: resolved (4) Acute lactic acidosis: Status: Acute Assessment and plan: was at 3.8, now at 1.7 without intervention besides ifv (5) Nausea & vomiting: Status: Acute Assessment and plan: cw antiemetic (6) Weight loss: Status: Acute Assessment and plan: In reviewing old data, her weight seems fairly stable 02/03/25 67 09/16/24 68 07/03/25 72 08/16/25 63 02/21/25 75 Regardless, the pt does compain of weight loss/nausea/vomiting/night sweats/anorexia. Will order tumor markers and ct abd/pelvis. It is imperative that the pt follows up with recommended age appropriate screening exams CT ABD 02/03/25 IMPRESSION: 1. There is mild gallbladder distension and the CBD diameter measures 9-10 mm. There are no radiopaque calculi seen in the gallbladder nor within the CBD and there is no obvious mass nor lymphadenopathy in this region. Correlation with clinical history and blood work recommended. 2. Abundant fecal material in the rectum in the rectum is this stent the 7 cm consistent with element of fecal impaction. There is, however, no evidence of bowel obstruction. There is no significant diverticular disease. No evidence of appendicitis. 3. Almost completely healed right 6th through 9th rib fractures. These fractures were acute appearing on the CT scan of 09/16/2024. Abd USN 02/04/25 IMPRESSION: Gallbladder sludge. No evidence of gallbladder wall thickening. Dilated common bile duct to 11 millimeters. No common duct stone is visible. Recommendations for Follow Up Recommended tests to be ordered by follow up provider: follow up on multiple tumor markers (afp,ca125,ca19-9,ag15-3,tick panel, lyme ab) Home Meds and New Rx's Prescriptions: No Action No Known Home Meds Discharge Instructions Referrals: Unknown,Unknown [Primary Care Provider, Unknown] Referral Note: PLEASE ARRANGE FOR A PCP PRIOR TO DC OR GIVE PT PROPER REFERRAL INFO Activity:: Activity as Tolerated Equipment/Supplies:: No Equipment Needed Diet:: As Tolerated Discharge Orders Discharge Orders: Discharge Order (Routine); Ordered 02/05/25 Ordered By: Dannie Woodruff DS: Summary Time Spent with Patient providing and/or coordinating discharge services: Greater than 30 minutes Status at Discharge Functional status at discharge: independent ambulation Overall status at discharge: patient is progressing back to baseline Mental Status: mental status grossly normal Speech and Movement: speech and movement normal Mood: congruent mood Affect: normal affect Exam Narrative Exam Narrative: heent-ncat mmm eomi perrla (enlarged pupils bilat) neck-no lad no jvd cv-rrr no mrg lungs-ctab abd-sntndbsa no hepato or splenomegaly ext-no cce bilat [id number] intact as tested [id number] nad Psych Mental Status: mental status grossly normal Speech and Movement: speech and movement normal Mood: congruent mood Affect: normal affect DS: Data Vitals/I&O Vitals and I&O: Vital Signs Temperature 36.4 C L 02/05/25 07:16 Temperature Source Tympanic 02/05/25 07:16 Pulse 84 02/05/25 07:16 Pulse Rhythm Regular 02/03/25 12:29 Pulse 108 H 02/03/25 12:10 Respiratory Rate 12 02/05/25 07:16 Respiratory Effort Normal 02/03/25 12:29 Respiratory Depth Normal 02/03/25 12:29 Respiratory Pattern Normal 02/03/25 12:29 Blood Pressure 129/88 02/05/25 07:16 Blood Pressure Mean 101 02/05/25 07:16 Blood Pressure Position Supine 02/03/25 07:44 Pulse Oximetry 95 02/05/25 07:16 Oxygen Delivery Method Room Air 02/05/25 07:16 Oxygen Flow Rate 0 02/05/25 07:16 Pain Level 0 02/05/25 07:16 Comment pt asleep 02/03/25 23:37 Intake & Output 02/04/25 02/05/25 02/05/25 23:59 11:59 23:59 Intake Total 1300 / 7720 3000 / 3000 Output Total 1300 / 1300 Balance 1300 / 7720 1700 / 1700 Weight 68.946 kg Intake: IV 1000 / 7000 3000 / 3000 Oral 300 / 720 Output: Urine 1300 / 1300 Other: Urine Color Yellow Yellow Urine Appearance Clear Clear Urine Odor Normal Strong Comment Pt voids ind. in toilet. Data Completed and Pending Labs on day of discharge: Labs from last 24 hours 02/05/25 02/04/25 02/03/25 05:35 06:50 07:42 WBC Pending RBC Pending Hgb Pending Hct Pending MCV Pending MCH Pending MCHC Pending RDW Pending Plt Count Pending MPV Pending Immature Gran % Pending Neutrophils % Pending Lymphocytes % Pending Monocytes % Pending Eosinophils % Pending Basophils % Pending Absolute Neutrophils Pending Absolute Lymphocytes Pending Absolute Monocytes Pending Absolute Eosinophils Pending Absolute Basophils Pending Sodium Pending Potassium Pending Chloride Pending Carbon Dioxide Pending Anion Gap Pending BUN Pending Creatinine Pending Est GFR (CKD-EPI 2020) Pending Glucose Pending Calcium Pending Total Bilirubin Pending AST Pending ALT Pending Alkaline Phosphatase Pending Troponin I Pending Total Protein Pending Albumin Pending Tumor Marker AFP 7.9 CA 19-9 Antigen 5 Lyme Disease Antibody Negative Preliminary micro results at discharge 02/03/25 09:25 Blood Blood Culture - Preliminary NO GROWTH 48 HOURS 02/03/25 09:25 Blood Blood Culture - Preliminary NO GROWTH 48 HOURS PFSH All Active Problems (Updated 02/05/25 @ 11:57 by Dannie Woodruff MD) Weight loss (Acute) Nausea & vomiting (Acute) Acute lactic acidosis (Acute) Acute hypokalemia (Acute) Hypomagnesemia (Acute) Myocardial injury (Acute) Postcoital urinary tract infection (Acute) Contraception (Acute) 08/2020. Declined LARC. Smokes tobacco. Rx for norethindrone 0.35 mg daily. History of tobacco abuse (Acute) Hx of herpes genitalis (Chronic) c/s report makes mention of vulvar herpes outbreak as being the cause of pt's c/s. Arthralgia (Chronic ~08/1996) related to remicaid treatment and crohn's Crohn disease (Chronic) Depression (Chronic) Opiate dependence, continuous (Chronic) Medical History Rheumatoid arthritis delivery delivered Family History Brother Crohn's colitis Social History Smoking/Tobacco Use Status: Former Tobacco Use Quit Date: 04/27/18 Smoking risk assessment performed?: Yes Alcohol Intake: never Drug use: Daily Substance use type: former substance user, marijuana, heroin and painkillers Adopted: No Foster care: No Household members: significant other Housing: house Number of Children: 3 Seatbelt use: always Helmet use: Yes Drive intox or ride w/intox utility worker driver: No Do you feel safe at home: Yes Do you feel safe in your relationship?: Yes Additional Social history: H-Dane. Together 7 years History History 2 Para 1 Hx # Term Pregnancies 1 Multiple births 1 Hx # Pregnancies 0 Ectopic pregnancies 0 AB induced 0 Hx Number of Living Children 2 AB spontaneous 0 Past Pregnancies Del. Date GA/Weeks # Preg Succ Route Wgt Sex Labor Lgth Anesth esia Location [facility] 08/22/96 Yes 2863.302 g other 08/22/96 Yes 1956.117 g Female 11/09/18 39 No Female Tatiana Carrera 11/09/18 No 3118.448 g Female [facility] Tatiana Jarrell Delivery Date: 11/09/18 Last Updated by: Tatiana Jarrell M.D. Elective repeat delivery named [place] Time Spent with Patient Time Spent with Patient: 45-69 minutes Time was spent: preparing to see the patient(eg.review tests), obtaining and/or reviewing separately otained hiistory, ordering medications,tests, procedures, referring, communicating with other health respiratory care instructor, indepentently interpreting results, counseling the patient and care coordination
--- NOTE | 2025-02-05 15:24 | PDOC.CMPRO ---
Date of service: 02/05/25 Time of Service: 15:24 Care Management Progress Note Progress Note Text Progress Note Text: Shania presented to the ED yesterday morning with c/o n/v, night sweats, anorexia and significant weight loss. She was discharged today after having an ultrasound which was fairly benign. She refused further lab draws today. She was discharged with a referral to a new PCP - Dr. Marvin at [facility]. It is recommended that she have f/u for tumor marker labs that were drawn. Shania was discharged home prior to CM meeting with her today. Discharge Potential Discharge Needs: PCP F/U Appt (referred to [facility] (original referral was sent to [facility].)) Anticipated Barriers to Discharge: None Identified Patient/Family Education Needs: Review discharge instructions, discuss Ask Me Three Transportation: Private vehicle Plan: Shania was discharged earlier today with no new services. She was encouraged to establish with a PCP. Social Determinants of Health Screening Social Determinants of health last assessed in clinic: 02/05/25 Will the Patient Participate in the Screening?: Yes Do you worry about having a steady place to live?: no Problems where you live: no known problems In the past 12 months, have you had to go without electric, gas, oil or water in your home?: no 1. Within the past 12 months, we worried whether our food would run out before we got money to buy more.: Don't know/refused 2. Within the past 12 months, the food we bought just didn't last and we didn't have money to get more.: Don't know/refused Has lack of transportation kept you from medical appointments or from doing things needed for daily living?: no Has anyone in your life made you feel unsafe or unsupported?: yes How often does anyone, including family and friends, physically hurt you?: Never How often does anyone, including family and friends, insult or talk down to you?: Never How often does anyone, including family and friends, threaten you with harm?: Never How often does anyone, including family and friends, scream or curse at you?: Never HRSN Safety total score: 4 How hard is it for you to pay for the very basics like food, housing, medical care, and heating? Would you say it is:: Not hard at all Do you want help finding or keeping work or a job?: I do not need or want help If for any reason you need help with day-to-day activities such as bathing, preparing meals, shopping, managing finances, etc., do you get the help you need?: I don?t need any help How often do you feel lonely or isolated from those around you?: Never Do you speak a language other than [place] at home?: No Does the patient want assistance with any of the above?: No
[2025-02-05 17:45] LABS: CA 125 8 U/mL (<30)
[2025-02-05 20:37] LABS: Cancer Ag 15-3 12 U/mL (<30)
[2025-02-07 09:18] LABS: Anaplasma phagocytophilum Negative (Negative); B. miyamotoi PCR Negative (Negative); Babesia divergens/MO-1 Negative (Negative); Babesia duncani Negative (Negative); Babesia microti Negative (Negative); Ehrlichia chaffeensis Negative (Negative); Ehrlichia ewingii/canis Negative (Negative); Ehrlichia muris eauclairensis Negative (Negative)
== END 2025-02-05 12:45 | disposition home or self-care (01) ==
LOC: ER 11:27 → MS 12:19
PROVIDERS: Admitting Provider Hospitalist; Emergency Provider Emergency Medicine; Responsible Provider Hospitalist; Visit Provider Hospitalist
DX: R11.2 Nausea with vomiting, unspecified (principal); I5A Non-ischemic myocardial injury (non-traumatic); E87.6 Hypokalemia; E83.42 Hypomagnesemia; R00.0 Tachycardia, unspecified; R94.31 Abnormal electrocardiogram [ECG] [EKG]; E87.21 Acute metabolic acidosis; R63.4 Abnormal weight loss; Z68.23 Body mass index [BMI] 23.0-23.9, adult; R61 Generalized hyperhidrosis; R63.0 Anorexia; K50.90 Crohn's disease, unspecified, without complications; F11.20 Opioid dependence, uncomplicated; Z79.620 Long term (current) use of immunosuppressive biologic; G47.00 Insomnia, unspecified; R10.9 Unspecified abdominal pain
CPT/HCPCS: 00123; 36415; 80048; 80053; 80307; 82550; 82805; 85652; 86300; 86304; 87040; 87637; 87798; 93005; 93308; 96365; 96366; 96367; 96372; 96375; 96376; 99291; J1650; 71045; 74178; 76700; 81003; 81015; 82105; 83605; 83735; 84100; 84439; 84443; 84484; 84703; 85025; 85379; 86140; 86301; 86618; 93010; 99222; 99232; 99239; G0378; J0696; J0780; J1790; J2060; J2250; J2405; J3372; J3475; J3480; J3490

== ENCOUNTER 2025-03-19 17:51 | Inpatient (IN) | payer MEDICAID, SELFPAY ==
[2025-03-19] VITALS (40 sets, daily range): BP systolic 81–113; BP diastolic 35–63; PULSE 66–91; RESP 10–19; TEMP 36.2; O2SAT 61–100; BMI 22.7
--- NOTE | 2025-03-19 18:15 | RT.EKG_ITS ---
APPROVED REPORT Exam: Resting ECG Reason for Exam: Hypotension, leg swelling Patient Location: E HR:73 bpm ECG Measurements Heart Rate 73 AXIS CA 140 P 57 QRSd 91 QRS 40 QT 411 T 30 QTc 455 Conclusion Sinus rhythm...normal P axis, V-rate 60- 99 Sinus Rhythm. When compared to prior 02/04/25 decreased heart rate is noted. WD
--- NOTE | 2025-03-19 18:29 | ED.GENADUL_ITS ---
Discharge Plan Disposition Patient Disposition: Admit to [facility] Condition: Serious Discharge Details Clinical Impression: Perforated bowel, ALFREDO (acute kidney injury) Attending Provider: Robinson Ruiz Primary Care Provider: Unknown,Unknown ED Provider: Aarti Mckeon General Mode of arrival: wheelchair . Date/Time Provider Initiated Documentation: 03/19/25 17:56 . Limitations to Documentation: no limitations . Information obtained by: patient, RN notes reviewed and old records reviewed . HPI Narrative: 49-year-old female presents to the ER chief complaint of abdominal pain which is worsening since Tuesday, nausea vomiting diarrhea, peritoneal type symptoms and pallor. She is also hypotensive. Blood pressure initially was 81/47. She was recently admitted on February 04 for similar symptoms. Related Data Home Medications ?Medication ?Instructions ?Recorded ?Confirmed Unknown [No Known Home Meds] 02/03/25 0 03/19/25 Allergies Allergy/AdvReac Type Severity Reaction Status Date / Time No Known Allergies Allergy Verified 03/19/25 18:03 General Stated Complaint: Abd Prob MEGHA: 3 Review of Systems All systems reviewed & are unremarkable except as noted in HPI and below Constitutional Constitutional: Reports as per HPI, Reports excessive sweating, Reports fatigue, Reports lethargy, Reports malaise and Reports poor appetite Cardiovascular Cardiovascular: Reports leg edema Gastrointestinal Gastrointestinal: Reports abdominal pain, Reports bloating, Reports change in stool character, Reports diarrhea, Reports nausea and Reports vomiting Endocrine Endocrine: Reports excessive sweating and Reports fatigue Exam Narrative Exam Narrative: Constitutional: Alert and oriented x3. Appears stated age. Normal body habitus. Appears pale, acutely ill. Head: Normocephalic, no trauma. Eyes: Pupils PERRL, Red reflex noted, EOM's intact. Eyelids symmetrical without lesions, discharge, or swelling. ENT: Bilateral TM's WNL, External ear normal to inspection, no mastoid TTP, swelling, or erythema, Nasal turbinates WNL, no nasal discharge. Normal dentition, Posterior pharynx WNL, no exudate. Chest: RRR, Normal S1, S2, distal pulses intact. Resp: Lungs clear to auscultation bilaterally, no wheezes, rales, or rhonchi. Abdomen: Guarded, bloated, acutely tender with palpation all 4 quadrants, absent bowel sounds. Positive guarding. Musculoskeletal: Normal gait, Moves all 4 extremities without difficulty. Skin: No suspicious rashes or lesions. Capillary refill less than 2 sec. Pallor Neurologic: Cranial nerves II-XII intact. Alert and oriented x 3. Motor: No deficits noted. Sensory: Intact bilaterally all 4 extremities. Hematologic/Lymphatic: No ecchymosis, no lymphadenopathy. Course Vital Signs Vital signs: Vital Signs Temperature 36.2 C L 03/19/25 17:57 Pulse 72 03/19/25 17:57 Respiratory Rate 15 03/19/25 17:57 Blood Pressure 81/47 L 03/19/25 17:57 Pulse Oximetry 98 03/19/25 17:57 Temperature 36.2 C L 03/19/25 18:02 Temperature Source Oral 03/19/25 18:02 Pulse 72 03/19/25 18:02 Respiratory Rate 15 03/19/25 18:02 Blood Pressure 81/47 L 03/19/25 18:02 Blood Pressure Position Sitting 03/19/25 18:02 Pulse Oximetry 98 03/19/25 18:02 Oxygen Delivery Method Room Air 03/19/25 18:02 Oxygen Flow Rate 0 03/19/25 18:02 Pain Level 10 03/19/25 18:02 Lab/Test Results Lab/Test Results: 03/19/25 18:22 Blood Blood Culture - Pending 03/19/25 18:22 Blood Blood Culture - Pending Medical Decision Making 49-year-old female presents to the ER chief complaint of abdominal pain which is worsening since Tuesday, nausea vomiting diarrhea, peritoneal type symptoms and pallor. She is also hypotensive. Blood pressure initially was 81/47. Workup ordered including CBC CMP EKG serial troponins lipase lactate blood cultures x 2 L of normal saline, [address] abdomen pelvis 193: On patient reevaluation she is still hypotensive after approximately 700 cc of normal saline, she has received 4 mg of Zofran, blood pressure is 81/43, fentanyl 50 mcg IV ordered, another liter of LR, I did add on a chest CT due to some right lower leg swelling which is new. X-ray called and notified of the change. Critical lab values of BUN 96 creatinine 4.5 GFR is 11, acute kidney injury, white blood cell count 17.28 hemoglobin 9.5 hematocrit 28.2 absolute neutrophils 15.47, sodium is 130 potassium 3.4 chloride is 90, anion gap 14.7 AST elevated at 63, total bilirubin is 0.4 ALT and alk phos within normal limits, proBNP [place] 3605 lipase is 12. Albumin is 2.8. I do anticipate admission for ALFREDO. CT result pending, will contact hospitalist. Spoke with Dr. Hogue with night hospitalist who is here at bedside for patient evaluation. She recommends an additional liter of fluid, repeat BMP for ALFREDO and Lamar placement. Will consult with general surgery Dr. Robinson Ruiz. 2031: Dr. Ruiz with Gen Surg contacted via webex, BP improved to 91/47 at this time. Patient is refusing Lamar catheter at this time, she is also taking sips of water which I told her to maintain n.p.o. status until the CT result, she will try to give us a urine sample via commode or bedpan, she reports that she last urinated prior to arrival around 5 PM. 2106: Critical result discussed with [facility] radiologist there is free air in patient's left side and free fluid. Distended cecum 7 note 8 cm approximately concern for perforated colon. Discussed findings with general surgeon on-call Dr. Ruiz who will come in to evaluate patient. He recommends possible central line and Zosyn IV piggyback. Type and screen added onto patient's labs, will order a second IV and Zosyn ordered. patient informed of CT results and need for Surgery consult, stressed NPO status. Dr Hogue aware of CT results and verbalized understanding. Dr. Cao is here at bedside for patient evaluation her blood pressure has impro chari to 113/63. MAP of 79. She remains nontachycardic O2 sat 99% on room air. Respirations 14. Medical Records Medical records reviewed: Yes I reviewed the patient's medical records. Imaging Data Radiologic Study: Imaging: CT Scan Radiologist's impression: IMPRESSION: 1. Free air in the left upper quadrant and left abdomen, cause not discretely demonstrated but possibly from the left colon given the degree of u pstream colonic distention with fecal material. Clinical correlation recommended. Small amount of free fluid in the left abdomen and pelvis. 2. Prominent retained fecal material distending the cecum, ascending colon, and transverse colon with moderate retained fecal material throughout the descending colon suspicious for constipation although the downstream colon is relatively well evacuated. Apparent mural thickening through the collapsed, well evacuated segments of the distal descending and sigmoid colon probably representing an artifactual appearance created by underdistention although colitis could mimic this appearance. Clinical correlation is recommended. 3. Prominent gallbladder distention. Dilatation of the proximal common bile duct measuring 11 mm at the hepatic hilum with gradual tapering of the distal common bile duct towards the pancreatic head. Although the appearance is nonspecific, clinical correlation is recommended to exclude acute cholecystitis and/or biliary obstruction. If clinically warranted, this appearance could be best further evaluated by MRCP. No calcified gallstones are seen. Thank you for allowing us to participate in the care of your patient. Dictated and Authenticated by: Huseyin Garcia MD Lab Data Lab results reviewed: Yes I reviewed the patient's lab results. Labs: 03/19/25 18:39 Blood Blood Culture - Pending 03/19/25 19:01 Blood Blood Culture - Pending Laboratory Tests Range/Units 03/19/25 03/19/25 03/19/25 18:39 20:14 21:07 WBC (4.4-10.8) 10^3/uL 17.28 H RBC (3.93-5.22) 10^6/uL 3.40 L Hgb (11.2-15.7) g/dL 9.5 L Hct (36.0-46.0) % 28.2 L MCV (80-95) fL 83 MCH (27.0-33.0) pg 27.9 MCHC (32.0-36.0) % 33.7 RDW (11.7-14.6) % 13.9 Plt Count (130-400) 10^3/uL 212 MPV (8.0-11.0) fL 9.5 Immature Gran % % 0.5 Neutrophils % % 89.5 Lymphocytes % % 6.5 Monocytes % % 2.4 Eosinophils % % 0.8 Basophils % % 0.3 Nucleated RBC % (0.0-0.3) % 0.0 Absolute Neutrophils (1.2-6.7) 10^3/uL 15.47 H Absolute Lymphocytes (1.2-3.4) 10^3/uL 1.12 L Absolute Monocytes (0.1-0.8) 10^3/uL 0.41 Absolute Eosinophils (0.0-0.7) 10^3/uL 0.14 Absolute Basophils (0.0-0.2) 10^3/uL 0.05 PT (9.1-11.1) sec 12.5 H INR (0.9-1.1) 1.3 H APTT (20.6-30.2) sec 37.2 H VBG Lactate (<or=2.0) mmol/L 1.1 Sodium (136-145) mmol/L 130 L 130 L Potassium (3.5-5.1) mmol/L 3.4 L 3.7 Chloride (98-107) mmol/L 90 L 94 L Carbon Dioxide (21.0-32.0) mmol/L 25.3 22.5 Anion Gap (3-11) mmol/L 14.7 H 13.5 H BUN (7-18) mg/dL 96 H* 92 H* Creatinine (0.55-1.02) mg/dL 4.5 H* 3.9 H* Est GFR (CKD-EPI 2020) (mL/min/1.73m2) 11.43 13.57 Glucose (74-106) mg/dL 111 H 97 Calcium (8.5-10.1) mg/dL 8.5 7.6 L Magnesium (1.8-2.4) mg/dL 2.1 Total Bilirubin (0.2-1.0) mg/dL 0.4 AST (15-37) U/L 63 H ALT (14-59) U/L 51 Alkaline Phosphatase (46-116) U/L 80 Troponin I (<or=51) ng/L 10 9 9 NT-Pro-B Natriuret Pep (<300) pg/mL 3605 H Total Protein (6.4-8.2) g/dL 7.5 Albumin (3.4-5.0) g/dL 2.8 L Lipase (<78) U/L 12 Critical Care Time Critical Care Time Critical Care Time: Yes Total Critical Care Time: 65 Attestation: I spent greater than 35 minutes addressing this patient's acute life threatening illness. This time was spent engaged in actions directly related to the patient's care. Failure to initiate these interventions would have likely resulted in clinically significant or life threatening deterioration in the patients condition. PFSH All Active Problems (Updated 03/19/25 @ 22:12 by Aarti Mckeon NP) ALFREDO (acute kidney injury) (Acute) Perforated bowel (Acute) Peritonitis (Acute) Weight loss (Acute) Postcoital urinary tract infection (Acute) Contraception (Acute) 08/2020. Declined LARC. Smokes tobacco. Rx for norethindrone 0.35 mg daily. History of tobacco abuse (Acute) Hx of herpes genitalis (Chronic) c/s report makes mention of vulvar herpes outbreak as being the cause of pt's c/s. Arthralgia (Chronic ~08/1996) related to remicaid treatment and crohn's Crohn disease (Chronic) Depression (Chronic) Opiate dependence, continuous (Chronic) Medical History Rheumatoid arthritis delivery delivered Family History Brother Crohn's colitis Social History Smoking/Tobacco Use Status: Former Tobacco Use Quit Date: 04/27/18 Smoking risk assessment performed?: Yes Alcohol Intake: never Drug use: Daily Substance use type: former substance user, marijuana, heroin and painkillers Adopted: No Foster care: No Household members: significant other Housing: house Number of Children: 3 Seatbelt use: always Helmet use: Yes Drive intox or ride w/intox recycle driver: No Do you feel safe at home: Yes Do you feel safe in your relationship?: Yes Additional Social history: H-Dane. Together 7 years History History 2 Para 1 Hx # Term Pregnancies 1 Multiple births 1 Hx # Pregnancies 0 Ectopic pregnancies 0 AB induced 0 Hx Number of Living Children 2 AB spontaneous 0 Past Pregnancies Del. Date GA/Weeks # Preg Succ Route Wgt Sex Labor Lgth Anesth esia Location [facility] 08/22/96 Yes 2863.302 g other 08/22/96 Yes 1956.117 g Female 11/09/18 39 No Female Tatiana Carrera 11/09/18 No 3118.448 g Female [facility] Tatiana Jarrell Delivery Date: 11/09/18 Last Updated by: Tatiana Jarrell M.D. Elective repeat delivery named Latanya
[2025-03-19 18:59] LABS: Abs Immature Grans 0.09 10^3/uL (0.0-0.06); HCT 28.2 % (36.0-46.0); HGB 9.5 g/dL (11.2-15.7); Immature Grans % 0.5 %; MCH 27.9 pg (27.0-33.0); MCHC 33.7 % (32.0-36.0); MCV 83 fL (80-95); MPV 9.5 fL (8.0-11.0); Platelet Count 212 10^3/uL (130-400); RBC 3.40 10^6/uL (3.93-5.22); RDW 13.9 % (11.7-14.6); RDW-SD 42.6 fL; WBC 17.28 10^3/uL (4.4-10.8)
[2025-03-19] MEDS: Normal Saline 1,000 ML 1000 ML IV (19:31)
[2025-03-19] MEDS: Ondansetron 4 MG/2 ML VIAL IVP (19:32)
--- NOTE | 2025-03-19 19:34 | DI.CT_ITS ---
Exam(s) CT CHEST PE ABD PELVIS W EXAM: CT CHEST PE ABD PELVIS W CLINICAL HISTORY: Leg swelling, Abd pain, NVD. TECHNIQUE: Imaging Protocol: Axial computed tomography images with coronal and sagittal reformatted images were created and reviewed. Computer aided detection (CAD) was utilized. CONTRAST MATERIAL: Intravenous: Omnipaque 350 Contrast volume:75 mL Oral: no COMPARISON: CT CT ABDOMEN PELVIS W from 09/16/[address] ABDOMEN PELVIS WO/W from 02/03/2025 FINDINGS: CHEST: Pulmonary parenchyma: Expiratory dependent changes. No consolidation. No dominant measurable mass. Tracheobronchial tree: No bronchiectasis. No mucous plugging.No bronchial wall thickening. Pleura: No effusion or pneumothorax. Mediastinum: Within normal limits. Pulmonary arteries: No visible emboli. Cardiovascular: No pericardial effusion. Thoracic aorta non-dilated. Bones: Unremarkable for age. No lytic or blastic lesions. No compression fractures. Old right rib fractures. Soft tissues: Unremarkable. ABDOMEN and PELVIS: Liver: Normal density. No suspicious mass. Gallbladder and biliary tract: Gallbladder is distended however there is no wall thickening. Similar appearance to prior. No evidence of stones or wall thickening. Stable dilatation of the common bile duct. Pancreas: Normal density, no abnormal calcifications or inflammatory process. Spleen: Normal. Kidneys: Normal size, contour and axis. No radiodense stones. No obstructive uropathy. No suspicious masses seen. Adrenal glands: No masses seen. Aorta: Abdominal portion non-dilated. Lymph nodes: Within normal limits. Soft tissues: Unremarkable. Bladder: Unremarkable. Bowel: Large quantity of stool noted from the cecum through descending colon. Small amount of stool in the sigmoid and rectum. There is a question of some wall thickening of the lower descending colon. No visible diverticular disease. Peritoneal cavity: Free air is noted anteriorly in the left upper abdomen is well as near the splenic flexure of the colon. There is a small amount fluid seen anteriorly in the left lateral mesentery, lateral to the descending colon. Exact site of perforation is not identified. Small amount fluid in the low pelvis.. Bones: Severe degenerative changes at L4-5 and L5-S1. Reproductive organs: Retroflexed uterus. IMPRESSION: Free air in the left upper quadrant. There is a large quantity of fecal material from the cecum through mid descending colon. Question wall thickening of the lower descending colon versus under distension. Distended gallbladder and biliary dilatation. Not significantly changed from previous exam. The preliminary [facility] report was reviewed. RADIATION DOSE DELIVERED: 330.58mGy.cm Total DLP DATA REPOSITORY: All CT scans at this facility are submitted to the National Radiology Data Registry (NRDR) Dose Index Registry (DIR) with the [employer] (A[employer]). RADIATION OPTIMIZATION: All CT scans at this facility use at least one of these dose optimization techniques: automated exposure control; mA and/or kV adjustment per patient size (includes targeted exams where dose is matched to clinical indication); or iterative reconstruction.
[2025-03-19] MEDS: Omnipaque 350 MG/ML 100 ML BTL IJ (19:36)
[2025-03-19] MEDS: Normal Saline Flush 10 ML SYR IVP (19:37)
[2025-03-19] MEDS: Normal Saline - Diluent 50 ML VIAL IJ (19:37)
[2025-03-19 19:46] LABS: ALT 51 U/L (14-59); AST 63 U/L (15-37); Albumin 2.8 g/dL (3.4-5.0); Alkaline Phosphatase 80 U/L (46-116); Anion Gap 14.7 mmol/L (3-11); Bilirubin, Total 0.4 mg/dL (0.2-1.0); CO2 25.3 mmol/L (21.0-32.0); Calcium 8.5 mg/dL (8.5-10.1); Chloride 90 mmol/L (98-107); Estimated GFR 11.43 (mL/min/1.73m2); Glucose 111 mg/dL (74-106); Lipase 12 U/L (<78); Magnesium 2.1 mg/dL (1.8-2.4); NT-proBNP 3605 pg/mL (<300); Potassium 3.4 mmol/L (3.5-5.1); Sodium 130 mmol/L (136-145); Total Protein 7.5 g/dL (6.4-8.2); Troponin I 10 ng/L (<or=51)
[2025-03-19 19:48] LABS: BUN 96 mg/dL (7-18)
[2025-03-19] MEDS: fentaNYL 100 MCG/2 ML VIAL 50 MCG IVP (20:05)
[2025-03-19] MEDS: Lactated Ringers 1,000 ML 200 ML IV (20:05)
[2025-03-19 20:38] LABS: INR 1.3 (0.9-1.1); PTT Activated 37.2 sec (20.6-30.2); Prothrombin Time 12.5 sec (9.1-11.1)
[2025-03-19 20:47] LABS: Troponin I 9 ng/L (<or=51)
--- NOTE | 2025-03-19 21:09 | DI.[facility]_ITS ---
Addendum created by Huseyin Garcia MD on 03/19/2025 9:08:56 PM EDT: This case was discussed personally with KOKI HOUSTON at 9:08 PM EDT on 03/19/2025. Initial report created on 03/19/2025 9:07:27 PM EDT: PROCEDURE INFORMATION: Exam: CTA Chest With Contrast Exam date and time: 03/19/2025 7:39 PM Age: 49 years old Clinical indication: Nausea and vomiting; Abdominal pain; Generalized; Other: Leg swelling, abd pain; Prior surgery; Surgery date: 6+ months; Surgery type: 2 c-sections TECHNIQUE: Imaging protocol: Computed tomographic angiography of the chest with contrast. Exam focused on the arteries. 3D rendering (Not supervised by radiologist): MIP and/or 3D reconstructed images were created by the technologist. Radiation optimization: All CT scans at this facility use at least one of these dose optimization techniques: automated exposure control; mA and/or kV adjustment per patient size (includes targeted exams where dose is matched to clinical indication); or iterative reconstruction. Contrast material: OMNIPAQUE 350; Contrast volume: 75 ml; Contrast route: INTRAVENOUS (IV); COMPARISON: CR XR PORTABLE CHEST AP 02/03/2025 9:24 AM FINDINGS: Pulmonary arteries: No pulmonary embolism identified. Aorta: No thoracic aortic aneurysm or dissection. Thyroid: Thyroid gland partially excluded from view but grossly unremarkable through its visualized portion. Lungs: Mild platelike and dependent atelectasis. No pulmonary consolidation. Pleural spaces: No pleural effusion or pneumothorax. Heart: Normal-sized heart. Pericardial fluid in the superior pericardial recesses. Lymph nodes: No pathologically enlarged mediastinal or hilar lymph nodes. Bones/joints: No acute fracture seen among the bones of the chest. Old right-sided rib fractures. Soft tissues: No gross soft tissue mass or fluid collection seen in the chest wall. IMPRESSION: No active disease is seen in the chest. PROCEDURE INFORMATION: Exam: CT Abdomen And Pelvis With Contrast Exam date and time: 03/19/2025 7:39 PM Age: 49 years old Clinical indication: Nausea and vomiting; Abdominal pain; Generalized; Other: Leg swelling, abd pain; Prior surgery; Surgery date: 6+ months; Surgery type: 2 c-sections TECHNIQUE: Imaging protocol: Computed tomography of the abdomen and pelvis with contrast. Radiation optimization: All CT scans at this facility use at least one of these dose optimization techniques: automated exposure control; mA and/or kV adjustment per patient size (includes targeted exams where dose is matched to clinical indication); or iterative reconstruction. Contrast material: OMNIPAQUE 350; Contrast volume: 75 ml; Contrast route: INTRAVENOUS (IV); COMPARISON: CT ABDOMEN PELVIS WO/W 02/03/2025 11:44 AM FINDINGS: Liver: Normal appearing liver. Gallbladder and biliary ducts: Prominent gallbladder distention. No calcified gallstones. Common bile duct dilated to 11 mm near the hepatic hilum with tapered decreasing caliber progressing towards the pancreatic head. Pancreas: Normal appearing pancreas. Spleen: Normal appearing spleen. Adrenal glands: Normal appearing adrenal glands. Kidneys and ureters: Normal appearing kidneys. No hydronephrosis. Ureters obscured. Stomach and bowel: Stomach partially distended with fluid. No small bowel dilatation to suggest obstruction. Prominent retained fecal material distending the cecum, ascending colon, and transverse colon. Moderate retained fecal material in the proximal descending colon. Downstream colon relatively well evacuated. Apparent mural thickening through the collapsed portions of the distal descending and sigmoid colon. Artifact of incomplete distention suspected. Colitis not excluded. No focal acute diverticulitis. Appendix: Appendix partially obscured but normal in caliber and appearance through its visualized portion. Intraperitoneal space: Small amount of free fluid, most concentrated in the pelvis and in the left abdomen. Extraluminal gas tracking along the left anterolateral and lateral abdominal wall with scattered foci of extraluminal gas in the left abdomen and left upper quadrant, images 27-64 of series 24. Vasculature: Normal caliber abdominal aorta. Lymph nodes: No pathologically enlarged mesenteric, retroperitoneal, or pelvic sidewall lymph nodes. Urinary bladder: Urinary bladder partially collapsed but grossly unremarkable, as seen. Reproductive: Normal-sized retroverted uterus. Ovaries partially obscured but normal in size. Bones/joints: No acute fracture seen among the bones of the abdomen or pelvis. Prominent discogenic degeneration with loss of disc height, posterior osteophytic ridging, and prominent bilateral facet arthrosis with moderate narrowing of the right neural foramen, partial flattening of the right L4 nerve root, and mild narrowing of the left neural foramen. L5-S1: Vacuum disc deformity. Broad-based posterior disc bulge with posterior osteophytic ridging, severe bilateral facet arthrosis, and severe bilateral foraminal narrowing with deformity of the L5 nerve roots bilaterally. Soft tissues: Diastasis recti. No significant ventral or inguinal hernia. IMPRESSION: 1. Free air in the left upper quadrant and left abdomen, cause not discretely demonstrated but possibly from the left colon given the degree of upstream colonic distention with fecal material. Clinical correlation recommended. Small amount of free fluid in the left abdomen and pelvis. 2. Prominent retained fecal material distending the cecum, ascending colon, and transverse colon with moderate retained fecal material throughout the descending colon suspicious for constipation although the downstream colon is relatively well evacuated. Apparent mural thickening through the collapsed, well evacuated segments of the distal descending and sigmoid colon probably representing an artifactual appearance created by underdistention although colitis could mimic this appearance. Clinical correlation is recommended. 3. Prominent gallbladder distention. Dilatation of the proximal common bile duct measuring 11 mm at the hepatic hilum with gradual tapering of the distal common bile duct towards the pancreatic head. Although the appearance is nonspecific, clinical correlation is recommended to exclude acute cholecystitis and/or biliary obstruction. If clinically warranted, this appearance could be best further evaluated by MRCP. No calcified gallstones are seen. Dictated and Authenticated by: Husyein Garcia MD. Orderin Linda Broussard MD
[2025-03-19] MEDS: PIPERACILLIN/TAZO 3.375 GM in Normal Saline 50 ML IVPB (21:16)
[2025-03-19 21:31] LABS: Anion Gap 13.5 mmol/L (3-11); CO2 22.5 mmol/L (21.0-32.0); Calcium 7.6 mg/dL (8.5-10.1); Chloride 94 mmol/L (98-107); Estimated GFR 13.57 (mL/min/1.73m2); Glucose 97 mg/dL (74-106); Potassium 3.7 mmol/L (3.5-5.1); Sodium 130 mmol/L (136-145)
[2025-03-19 21:36] LABS: BUN 92 mg/dL (7-18)
[2025-03-19 21:37] LABS: Troponin I 9 ng/L (<or=51)
--- NOTE | 2025-03-19 21:50 | HPE_ITS ---
Date of service: 03/19/25 Time of Service: 21:50 Assessment and Plan Assessment and plan (1) Peritonitis: Status: Acute Assessment and plan: Shania has septic shock secondary to peritonitis from perforated viscera. Based on the CT scan I suspect the colon is perforated but certainly small intestine is possible as well. Given her exam and physiology I think lapatomyry with washout and source control is the safest option here, despite her critical condition. This will likely result in some type of bowel resection and likely colostomy or ileostomy. History of Present Illness History of Present Illness Chief Complaint: peritonitis with septic shock N arrative: Shania is 49 years old. She was diagnosed with Crohn's disease just about 10 years ago after suffering from abdominal pain. She was treated with Remicade for many years, and had remission of most of her symptoms. She lost her health insurance, and subsequently had to stop using Remicade as she could not afford it. Most recently, she has undergone no medical treatment for her Crohn's disease. Approximately 2 days ago she noticed acute onset of abdominal pain mostly in the left upper quadrant. She described it as sharp, and it started radiating towards the mid abdomen. Pain became more intense over the past 24 hours, and then was associated with nausea and vomiting so she came to the emergency department. On arrival here, she was hypotensive. She had a leukocytosis of 17,000, and underwent a CAT scan of the abdomen and pelvis that demonstrated free intraperitoneal air, mostly centralized around the splenic flexure. She has evidence of acute kidney injury with an elevated serum creatinine level and an anion gap metabolic acidosis. She has got a mild hyponatremia of 130, and elevated BNP. Review of Systems Constitutional Constitutional: Reports fatigue, Denies fever(s), Reports weakness and Reports weight loss Eyes Eyes: Reports system reviewed and no additional complaints, except as documented ENT Ears, Nose, Mouth, and Throat: Reports system reviewed and no additional complaints, except as documented Cardiovascular Cardiovascular: Denies chest pain and Denies dyspnea Respiratory Respiratory: Denies dyspnea Gastrointestinal Gastrointestinal: Reports abdominal pain, Reports nausea and Reports vomiting Genitourinary Genitourinary: Reports system reviewed and no additional complaints, except as documented Musculoskeletal Musculoskeletal: Reports back pain Neurologic Neurologic: Reports weakness Psychiatric Psychiatric: Reports anxiety Endocrine Endocrine: Reports fatigue Hematologic/Lymphatic Hematologic/Lymphatic: Denies easy bleeding and Denies easy bruising PFSH All Active Problems (Updated 03/19/25 @ 21:51 by Robinson Ruiz MD) Peritonitis (Acute) Weight loss (Acute) Postcoital urinary tract infection (Acute) Contraception (Acute) 08/2020. Declined LARC. Smokes tobacco. Rx for norethindrone 0.35 mg daily. History of tobacco abuse (Acute) Hx of herpes genitalis (Chronic) c/s report makes mention of vulvar herpes outbreak as being the cause of pt's c/s. Arthralgia (Chronic ~08/1996) related to remicaid treatment and crohn's Crohn disease (Chronic) Depression (Chronic) Opiate dependence, continuous (Chronic) Medical History Rheumatoid arthritis delivery delivered Family History Brother Crohn's colitis Social History Smoking/Tobacco Use Status: Former Tobacco Use Quit Date: 04/27/18 Smoking risk assessment performed?: Yes Alcohol Intake: never Drug use: Daily Substance use type: former substance user, marijuana, heroin and painkillers Adopted: No Foster care: No Household members: significant other Housing: house Number of Children: 3 Seatbelt use: always Helmet use: Yes Drive intox or ride w/intox otr company truck driver: No Do you feel safe at home: Yes Do you feel safe in your relationship?: Yes Additional Social history: H-Dane. Together 7 years History History 2 2 Para 1 Hx # Term Pregnancies 1 Multiple births 1 Hx # Pregnancies 0 Ectopic pregnancies 0 AB induced 0 Hx Number of Living Children 2 AB spontaneous 0 Past Pregnancies Del. Date GA/Weeks # Preg Succ Route Wgt Sex Labor Lgth Anesth esia Location Prov Complic 08/22/96 Yes 6 lb 5 oz other 08/22/96 Yes 4 lb 5 oz Female 11/09/18 39 No Female Tatiana Carrera 11/09/18 No 6 lb 14 oz Female [facility] Tatiana Jarrell Delivery Date: 11/09/18 Last Updated by: Tatiana Jarrell M.D. Elective repeat delivery named [place] Meds Allergies and Home Medications Allergies Allergy/AdvReac Type Severity Reaction Status Date / Time No Known Allergies Allergy Verified 03/19/25 18:03 Home Medications ?Medication ?Instructions ?Recorded ?Confirmed ?Type Unknown [No Known Home Meds] 02/03/25 0 03/19/25 History Exam Const General: cooperative and ill appearing Orientation: alert, awake and oriented x3 HENMT Head: normal to inspection Eyes General: appearance normal, both eyes and all related structures Neck Neck: normal visual inspection, full ROM and no lymphadenopathy Resp Auscultation: clear to auscultation bilaterally Cardio Rate: regular rate Rhythm: regular rhythm Heart Sounds: S1 normal and S2 normal GI Inspection: distended Palpation: firm, guarding, rigid and tender Other: She has peritonitis on exam Results Imaging Abdomen CT scan report/results: report reviewed and image reviewed CT scan - pelvis: report reviewed and image reviewed Labs 03/19/25 18:39 03/19/25 21:07 Labs: Laboratory Results - last 24 hr 03/19/25 03/19/25 03/19/25 18:39 20:14 21:07 WBC 17.28 H RBC 3.40 L Hgb 9.5 L Hct 28.2 L MCV 83 MCH 27.9 MCHC 33.7 RDW 13.9 Plt Count 212 MPV 9.5 Immature Gran % 0.5 Neutrophils % 89.5 Lymphocytes % 6.5 Monocytes % 2.4 Eosinophils % 0.8 Basophils % 0.3 Nucleated RBC % 0.0 Absolute Neutrophils 15.47 H Absolute Lymphocytes 1.12 L Absolute Monocytes 0.41 Absolute Eosinophils 0.14 Absolute Basophils 0.05 PT 12.5 H INR 1.3 H APTT 37.2 H VBG Lactate 1.1 Sodium 130 L 130 L Potassium 3.4 L 3.7 Chloride 90 L 94 L Carbon Dioxide 25.3 22.5 Anion Gap 14.7 H 13.5 H BUN 96 H* 92 H* Creatinine 4.5 H* 3.9 H* Est GFR (CKD-EPI 2020) 11.43 13.57 Glucose 111 H 97 Calcium 8.5 7.6 L Magnesium 2.1 Total Bilirubin 0.4 AST 63 H ALT 51 Alkaline Phosphatase 80 Troponin I 10 9 9 NT-Pro-B Natriuret Pep 3605 H Total Protein 7.5 Albumin 2.8 L Lipase 12 Last Vital Signs Temp 97.2 F L 03/19/25 18:02 Pulse 72 03/19/25 20:41 Resp 17 03/19/25 20:41 BP 95/49 L 03/19/25 20:41 Pulse Ox 100 03/19/25 20:41 Time Spent Time spent with Patient: 55-74 minutes Time was spent: preparing to see the patient(eg.review tests), obtaining and/or reviewing separately otained hiistory, referring, communicating with other health rn managed care, indepentently interpreting results, counseling the patient and care coordination
[2025-03-19] MEDS: Normal Saline 1,000 ML 30 ML IV (22:38)
--- NOTE | 2025-03-19 22:38 | ANES.PREOP_ITS ---
General Info Date of Service Date Performed: 03/19/25 Height: 5 ft 7 in Weight: 65.771 kg Body Mass Index (BMI): 22.7 Surgical Procedure: Operation Date: 03/19/25 22:00 Proposed Procedure Side Surgeon p Exploratory Laparotomy Robinson Ruiz MD Meds Allergies and Home Medications Allergies Allergy/AdvReac Type Severity Reaction Status Date / Time No Known Allergies Allergy Verified 03/19/25 18:03 Home Medication ?Medication ?Instructions ?Recorded Unknown [No Known Home Meds] 02/03/25 Current Visit Medications: Current Medications Generic Name Dose Route Start Last Admin Trade Name Freq PRN Reason Stop Dose Admin IV Miscellaneous Supplies 1 each 03/19/25 18:30 Iv Access-Emergency Dept IV DIRECTED DEVON Iohexol 100 ml 03/19/25 19:45 03/19/25 19:36 Omnipaque 350 Mg/Ml 100 Ml Btl IJ 04/18/25 23:59 75 ml DIRECTED DEVON Administration Sodium Chloride 0 ml 03/19/25 18:17 03/19/25 19:37 Normal Saline Flush 10 Ml Syr IVP 10 ml PRN PRN Administration Sodium Chloride 0 ml 03/19/25 20:00 Normal Saline Flush 10 Ml Syr IVP BID DEVON Sodium Chloride 0 ml 03/19/25 18:17 Normal Saline 10 Ml Vial IJ DIRECTED PRN Sodium Chloride 50 ml 03/19/25 19:45 03/19/25 19:37 Normal Saline - Diluent 50 Ml Vial IJ 50 ml .FOR DI USE DEVON Administration Sodium Chloride 0 ml 03/19/25 21:17 Normal Saline Flush 10 Ml Syr IVP PRN PRN PFSH Active Problems Active Problems: Problem Status Onset Code ALFREDO (acute kidney injury) Acute N17.9 Perforated bowel Acute K63.1 Peritonitis Acute K65.9 Weight loss Acute R63.4 Postcoital urinary tract infection Acute N39.0 Contraception Acute Z30.9 Resolved Z34.90 History of tobacco abuse Acute Z87.891 Hx of herpes genitalis Chronic Z86.19 Arthralgia Chronic ~08/1996 M25.50 Crohn disease Chronic K50.90 Depression Chronic F32.9 Opiate dependence, continuous Chronic F11.20 Medical History Medical History Rheumatoid arthritis delivery delivered Tobacco Smoking/Tobacco Use Status: Former Tobacco Use Alcohol Alcohol Intake: never Substance Use Substance use: Daily Substance use type: former substance user, marijuana, heroin and painkillers Prental History History 2 2 Para 1 Hx # Term Pregnancies 1 Multiple births 1 Hx # Pregnancies 0 Ectopic pregnancies 0 AB induced 0 Hx Number of Living Children 2 AB spontaneous 0 Past Pregnancies Del. Date GA/Weeks # Preg Succ Route Wgt Sex Labor Lgth Anesth esia Location Prov [facility] 08/22/96 Yes 2863.302 g other 08/22/96 Yes 1956.117 g Female 11/09/18 39 No Female Tatiana Carrera 11/09/18 No 3118.448 g Female [facility] Tatiana Jarrell Delivery Date: 11/09/18 Last Updated by: Tatiana Jarrell M.D. Elective repeat delivery named Latanya Vital Signs and Lab Results Vital Signs Most Recent Vital Signs in EMR: Most Recent Vital Signs Temp Pulse Resp BP Pulse Ox 36.2 C L 79 19 104/61 100 03/19/25 18:02 03/19/25 21:41 03/19/25 21:50 03/19/25 21:41 03/19/25 21:41 Lab Results 03/19/25 18:39 03/19/25 21:07 Blood Type / Crossmatch: 2 Antibody Screen NEGATIVE Today Complete Blood Count: 2 WBC, (4.4-10.8) 17.28 10^3/uL H Today, 18:39 RBC, (3.93-5.22) 3.40 10^6/uL L Today, 18:39 Hgb, (11.2-15.7) 9.5 g/dL L Today, 18:39 Hct, (36.0-46.0) 28.2 % L Today, 18:39 Plt Count, (130-400) 212 10^3/uL Today, 18:39 VBG Lactate, (<or=2.0) 1.1 mmol/L Today, 18:39 Complete Metabolic Panel: 2 Sodium, (136-145) 130 mmol/L L Today, 21:07 Potassium, (3.5-5.1) 3.7 mmol/L Today, 21:07 Chloride, (98-107) 94 mmol/L L Today, 21:07 Carbon Dioxide, (21.0-32.0) 22.5 mmol/L Today, 21:07 BUN, (7-18) 92 mg/dL H* Today, 21:07 Creatinine, (0.55-1.02) 3.9 mg/dL H* Today, 21:07 Est GFR (CKD-EPI 2020), (mL/min/1.73m2) 13.57 Today, 21:07 Magnesium, (1.8-2.4) 2.1 mg/dL Today, 18:39 Calcium, (8.5-10.1) 7.6 mg/dL L Today, 21:07 Albumin, (3.4-5.0) 2.8 g/dL L Today, 18:39 Glucose, (74-106) 97 mg/dL Today, 21:07 Liver Function Panel: 2 ALT, (14-59) 51 U/L Today, 18:39 AST, (15-37) 63 U/L H Today, 18:39 Coagulation Panel: 2 INR, (0.9-1.1) 1.3 H Today, 18:39 PT, (9.1-11.1) 12.5 sec H Today, 18:39 APTT, (20.6-30.2) 37.2 sec H Today, 18:39 Cardiac Panel: 2 Troponin I, (<or=51) 9 ng/L Today NT-Pro-B Natriuret Pep, (<300) 3605 pg/mL H Today Pancreas Panel: 2 Lipase, (<78) 12 U/L Today, 18:39 Imaging and Studies Imaging and Studies Study information below may be from another EMR and interpreted by another provider. Please see original notes in EMR for more complete details. EKG Summary: 03/19/25: Exam: Resting ECG Reason for Exam: Hypotension, leg swelling Patient Location: E HR:73 bpm ECG Measurements Heart Rate 73 AXIS HI 140 P 57 QRSd 91 QRS 40 QT 411 T30 QTc 455 Conclusion Sinus rhythm...normal P axis, V-rate 60- 99 Sinus Rhythm. When compared to prior 02/04/25 decreased heart rate is noted. WD Anesthesia Assessment and Plan Anesthesia History Personal History: No History of Anesthesia Complications Family History: No Family History of Anesthesia Complications Exercise Tolerance Exercise Tolerance: Metabolic Equivalents>4 Pertinent Negatives Pertinent Negatives: No Symptoms of GERD, No Major Cardiovascular Symptoms or Complaints and No Major Pulmonary Symptoms or Complaints Cardiac & Pulmonary Exam Cardiac Exam: Normal S1/S2 Heart Sounds Pulmonary Exam: Clear Bilateral Breath Sounds Implantable Cardiac Device Does patient have a Pacemaker or an ICD?: No Airway Exam Known Difficult Airway: No Mallampati Class: 2 Mouth Opening: Normal (> 3cm) Thyromental Distance: Greater than 3 cm Facial Hair: Full [place]ck Range of Motion: Full ROM Neck Circumference: Normal Teeth Condition: Normal Dentition ASA Classification ASA Score: ASA 4 Emergency Case?: Yes NPO Status NPO Status: NPO Clears >2 hours, Solids >8 hours Status Status: Negative HCG Anesthesia Plan Resuscitation Status: Full Code Anesthesia Technique: General Anesthesia Airway Planned: Endotracheal Tube (RSI) Pain Management: Epidural Monitors Used: Standard Monitors
[2025-03-19] MEDS: Bupivacaine 0.25% Pres-Free 30 ML VIAL (23:33)
[2025-03-19] MEDS: Bupivacaine LIPOSOME/PF 133 MG/10 ML VIAL IJ (23:34)
[2025-03-20] VITALS (121 sets, daily range): BP systolic 132–153; BP diastolic 53–94; PULSE 104–158; RESP 14–31; TEMP 36.7–38.2; O2SAT 89–98; BMI 22.6
--- NOTE | 2025-03-20 00:15 | BOWEL_PTH ---
PATIENT: Shania Walker LOC: ICU U#:[id number] AGE/SX: 49/F ROOM: ICU.222 RE03/20/[address]: Robinson Ruiz MD : 1975 BED: A DIS: 03/25/2025 SPEC #: [id number] RECD: 03/20/25 12:51 STATUS: SOUElo REQ #: [id number] ALESHIA: 03/20/25 00:[address]: Robinson Riuz DEPT: Surgical Specimen RECD BY: Peggy Perez ENTERED: 03/20/25 12:53 SP TYPE: Bowel OTHR DR: Junior Hogue Unknown,Unknown Tissues: 1 - BIOPSY BOWEL Procedures: IMMUNOPEROXIDASE STAIN GROSS AND MICRO LEVEL 5 Comments: [id number]
--- NOTE | 2025-03-20 00:37 | W.ANESNEU ---
Epidural/Spinal Catheter Date Performed: 03/20/25 Procedure Start: 22:46 Procedure Stop: 23:00 Requesting Provider: Robinson Ruiz Procedure Location: Operating Room Reason Performed: Postoperative Analgesia Standard Monitors Applied: ECG, Blood Pressure, SpO2 and See EMR for corresponding vital signs Patient Position: Sitting Sedation Given (Indicate Dose Given): Versed IV Dose:: 2mg and Fentanyl IV Dose:: 100mcg Patient Mental Status: Awake Sterility: Hand Hygiene, Surgical Cap, Surgical Mask, Sterile Gloves, Sterile Drape/Sheet and Chlorhexidine Procedure Location: L2-L3 Interspace Epidural Needle: Tuohy 18 Gauge Needle Length: 4 Inch Needle Approach: Midline Epidural Procedure: Skin Prepped, Sterile Drape Placed, 1% Lidocaine to skin and subcutaneous tissue with 25G needle, Tuohy Needle placed, Bone Contacted despite needle repositioning (Changed from interspace L3/L4 to L2/L3), DINAH to Saline Used, Epidural Catheter Placed, Negative Heme and Negative CSF Flow Catheter Placed?: Catheter Placed Test Dose (Indicate Dose Given): 3ml 1.5% Lidocaine with 1:200K Epinephrine Given Loss of Resistance Depth (cm): 7 Catheter depth at skin (cm): 14 Dressing: Sorbaview Dressing Placed and Dressing reinforced with Tape Epidural Provider Bolus (Indicate Dose Given): None Given (See Anesthesia Intraop Record) Additives (Indicate Dose Given ): None Infusion Medication: No Infusion Started Block Level: N/A Paresthesia: Left Paresthesia Duration: Transient Ultrasound: Not Used Number of Attempts (See previous attempts in note section): 2 Procedure Tolerated: No Complications Procedure Outcome: Successful Procedure Comment:: Will use intraop. and assess in ICU Performed By: Lisa Valdez
--- NOTE | 2025-03-20 01:39 | W.PM.OP ---
Operative Note Operative Note PRE-OP DIAGNOSIS: Septic shock with peritonitis POST-OP DIAGNOSIS: same Perforated descending colon PROCEDURE: Exploratory laparotomy, segmental colon resection with creation of end colostomy SURGEON: Robinson Ruiz BULK TANK CAR UNLOADER: Dee Dee Karimi ANESTHESIA TYPE: Local By Surgeon, General LMA/ETT and Epidural Refer to Anesthesia Record ESTIMATED BLOOD LOSS: 150 PATHOLOGY: other (Descending colon) COMPLICATIONS: None Patient was transported to: PACU Patient's condition: critical Indications: Shania is a 49-year-old woman with septic shock secondary to peritonitis. Findings: Perforated descending colon, with purulent feculent peritonitis Procedure Description: Remove Shania back into the operating room, and she was assisted onto the OR table. Next she was helped to a seated position for insertion of an epidural catheter. Once the catheter was placed, she was assisted to the supine position. Great care was taken to ensure that she was padded and supported appropriately. Next, general endotracheal anesthesia was initiated. A Lamar urinary catheter was inserted using standard aseptic technique. I then prepped and draped the anterior abdominal wall. I anesthetized the midline using local anesthetic with Exparel. I made a midline longitudinal incision, and dissected down to the subcutaneous fat. The fascia was dissected along the length of the incision, then opened along the length of the incision. The underlying peritoneum was grasped with hemostats, and sharply divided. The peritoneum was then opened along the length of the incision. The falciform ligament was divided, and I began with gentle exploration of the peritoneal cavity. In the left side, slightly lower down there was adhesions of the greater omentum up to the anterior abdominal wall. These were divided with finger fracture. This delivered to me into several pockets of pus. Specimens were obtained for Gram stain and culture. Some of the greater omentum was then mobilized along the descending colon, once this was complete, I could retracted cephalad. This exposed a hole in the descending colon just proximal to the sigmoid segment, which was thickened, and I suspect a bit strictured. Everything proximal to this was filled with hard stool, and there was a large piece of hard formed stool at the perforation site. The pathophysiology appeared most consistent with stercoral colitis. The small bowel was all gently liberated, and delivered to the right hemiabdomen. There were some interloop abscesses that were all freed up. The perforation site was gently packed off, and I turned my attention to mobilization of the splenic flexure. I was able to easily identify the midportion of the transverse colon. The greater omentum was divided off the anterior wall, and again retracted cephalad. Gastrocolic ligament was divided, and the mesentery of the transverse colon was followed towards the left upper quadrant. A LigaSure device was used to divide some adhesions and attachments. The white line of Toldt was then dissected antegrade towards the descending colon. Great care was taken to elevate the descending mesocolon from the posterior retroperitoneum. Once this dissection was complete down to the perforation site, I created a small mesenteric defect just distal to the perforation. I divided the bowel with a single fire of a REJI stapler. This left a long rectosigmoid stump. The ends were marked with Prolene sutures. The mesentery of the descending colon was then divided with sequential fires of the LigaSure device up towards the mobilized hepatic flexure. Once a sufficient portion was delivered for resection of the perforation site and maturation of the colostomy, in an effort to minimize postoperative complications from the remaining stool in the colon, I milked as much stool antegrade out the perforation site is possible. This was done in a controlled fashion, the stool was evacuated into a surgical specimen bucket. The transverse and ascending colon's are densely packed with rockhard stool. Once the majority of this was evacuated, identified a suitable portion of the remaining colon that could be matured as a colostomy. The bowel was divided at this site with another fire of the REJI stapler, and the perforation site was passed off as a pathologic specimen. This was labeled descending colon. Next, I irrigated the peritoneal cavity. Gowns and gloves were changed. Given the extensive peritoneal contamination, and Shania sepsis, I did feel implantation of a drain would be most suitable. Therefore, around surgical drain was delivered through the right lower quadrant down along the pelvis, and up to the left paracolic gutter. Again, the abdomen and pelvis were irrigated. Next I performed bilateral tap blocks with an open technique using Exparel local anesthetic. The surgical field was once again examined. There was no evidence of any bleeding from the surgical site. I then turned my attention to the anterior abdominal wall. Lateral to the rectus sheath on the left side, I made a circular incision at the skin, and dissected down to the fascia with electrocautery. The fascia was incised in a cruciate fashion with the cautery, and the muscles were gently . A Anmoore device was placed through the abdominal wall, and the surgical staple line on the descending colon was grasped. It was gently delivered through the anterior abdominal wall. Great care was taken to ensure that it was not at all twisted. It appeared well-perfused. This was left in the colostomy site, and I turned my attention back to closure of the laparotomy incision. The fascia was reapproximated with running 2-0 PDS suture. 1 was started at the top of the incision, the other at the bottom, and these were tied in the middle. The skin and subcutaneous tissues were irrigated, and the skin was closed with surgical stapler. The incision was then isolated, and I turned my attention to maturation of the colostomy. The end stump of the colon was excised with electrocautery, and this was sutured to the dermis with interrupted Vicryl stitches. The colostomy was pink, patent, and appeared well-perfused and under no tension. Teressa negative pressure wound dressing was then applied to the midline incision according to the clinical trials manager's instructions. Shania was then extubated, transferred to the recovery unit prior to moving up to the intensive care unit. Date of Procedure: 03/20/25
[2025-03-20] MEDS: DEXTROSE 5%-LACTATED RINGERS 1,000 ML 100 ML IV (02:15)
[2025-03-20] MEDS: Normal Saline 500 ML 30 ML IV (02:32)
[2025-03-20] MEDS: HYDROmorphone 2 MG/ML SYR 1 MG IVP ×2 (02:34→04:06)
[2025-03-20] MEDS: ACETAMINOPHEN 1,000 MG/100 ML BAG 400 MG IVPB ×2 (02:35→12:06)
--- NOTE | 2025-03-20 02:54 | W.PM.HP.N ---
Date of service: 03/19/25 Time of Service: 21:00 History of Present Illness History of Present Illness Chief Complaint: abdominal pain Narrative: Shania Walker is a 49 year old woman presenting March 19 with severe abdominal pain worsening over several days, along with lower leg swelling that had been painful the previous night. She had been hospitalized February 03- for abdominal pain with concern for malignancy due to B symptoms, with nonspecific imaging suggestive of possible developing cholecystitis. She was not able to see a PCP as advised for followup. She reports that her abdominal pain did not go away, but was tolerable until about a week ago. She had epigastric pain which descended with time till it was mostly suprapubic. She was nauseated and vomited with dry heaves for most of the last 2 days. She felt that she was constipated before the onset of her other symptoms. Patient later reported that she uses fentanyl for pain, multiple times per day. She has Crohn disease and was on infliximab until 7 years ago; at that time she no longer had health insurance and stopped going to the doctor. At this time she has been taking no prescription meds for years. PMH includes Crohn disease, fentanyl abuse In the ED she was hypotensive 81/47 with some improvement after IV fluids. CTA chest/abdomen/pelvis was performed out of concern for PE. Leukocytosis 17.28. Anemia with hgb 9.5. INR elevated 1.3. Creatinine elevated 4.5 against normal baseline. Hyponatremia 130, hypokalemia 3.4. High anion gap acidosis with AG 14.7. Elevated AST 63. Elevated BNP 3605. Proteinuria 100, hematuria. Urine drug screen delayed, positive for opiates and benzos. PFSH All Active Problems (Updated 03/19/25 @ 22:12 by Aarti Mckeon NP) ALFREDO (acute kidney injury) (Acute) Perforated bowel (Acute) Peritonitis (Acute) Weight loss (Acute) Postcoital urinary tract infection (Acute) Contraception (Acute) 08/2020. Declined LARC. Smokes tobacco. Rx for norethindrone 0.35 mg daily. History of tobacco abuse (Acute) Hx of herpes genitalis (Chronic) c/s report makes mention of vulvar herpes outbreak as being the cause of pt's c/s. Arthralgia (Chronic ~08/1996) related to remicaid treatment and crohn's Crohn disease (Chronic) Depression (Chronic) Opiate dependence, continuous (Chronic) Medical History Rheumatoid arthritis delivery delivered Family History Brother Crohn's colitis Social History Smoking/Tobacco Use Status: Former Tobacco Use Quit Date: 04/27/18 Smoking risk assessment performed?: Yes Alcohol Intake: never Drug use: Daily Substance use type: former substance user, marijuana, heroin and painkillers Adopted: No Foster care: No Household members: significant other Housing: house Number of Children: 3 Seatbelt use: always Helmet use: Yes Drive intox or ride w/intox lifter/driver: No Do you feel safe at home: Yes Do you feel safe in your relationship?: Yes Additional Social history: H-Dane. Together 7 years History History 2 Para 1 Hx # Term Pregnancies 1 Multiple births 1 Hx # Pregnancies 0 Ectopic pregnancies 0 AB induced 0 Hx Number of Living Children 2 AB spontaneous 0 Past Pregnancies Del. Date GA/Weeks # Preg Succ Route Wgt Sex Labor Lgth Anesthesia Location Prov Complic 08/22/96 Yes 2863.302 g other 08/22/96 Yes 1956.117 g Female 11/09/18 39 No Female Tatiana Jarrell 11/09/18 No 3118.448 g Female [facility] Tatiana Jarrell Delivery Date: 11/09/18 Last Updated by: Tatiana Jarrell M.D. Elective repeat delivery named [place] Meds Allergies and Home Medications Allergies Allergy/AdvReac Type Severity Reaction Status Date / Time No Known Allergies Allergy Verified 03/19/25 18:03 Home Medications ?Medication ?Instructions ?Recorded ?Confirmed ?Type Unknown [No Known Home Meds] 02/03/25 03/19/25 History Results Labs 03/19/25 18:39 03/20/25 04:36 Labs: Laboratory Results - last 24 hr 03/19/25 03/19/25 03/19/25 18:39 20:14 21:07 WBC 17.28 H RBC 3.40 L Hgb 9.5 L Hct 28.2 L MCV 83 MCH 27.9 MCHC 33.7 RDW 13.9 Plt Count 212 MPV 9.5 Immature Gran % 0.5 Neutrophils % 89.5 Lymphocytes % 6.5 Monocytes % 2.4 Eosinophils % 0.8 Basophils % 0.3 Nucleated RBC % 0.0 Absolute Neutrophils 15.47 H Absolute Lymphocytes 1.12 L Absolute Monocytes 0.41 Absolute Eosinophils 0.14 Absolute Basophils 0.05 PT 12.5 H INR 1.3 H APTT 37.2 H VBG Lactate 1.1 Sodium 130 L 130 L Potassium 3.4 L 3.7 Chloride 90 L 94 L Carbon Dioxide 25.3 22.5 Anion Gap 14.7 H 13.5 H BUN 96 H* 92 H* Creatinine 4.5 H* 3.9 H* Est GFR (CKD-EPI 2020) 11.43 13.57 Glucose 111 H 97 Calcium 8.5 7.6 L Magnesium 2.1 Total Bilirubin 0.4 AST 63 H ALT 51 Alkaline Phosphatase 80 Troponin I 10 9 9 NT-Pro-B Natriuret Pep 3605 H Total Protein 7.5 Albumin 2.8 L Lipase 12 ABO/Rh Antibody Screen 03/19/25 21:37 WBC RBC Hgb Hct MCV MCH MCHC RDW Plt Count MPV Immature Gran % Neutrophils % Lymphocytes % Monocytes % Eosinophils % Basophils % Nucleated RBC % Absolute Neutrophils Absolute Lymphocytes Absolute Monocytes Absolute Eosinophils Absolute Basophils PT INR APTT VBG Lactate Sodium Potassium Chloride Carbon Dioxide Anion Gap BUN Creatinine Est GFR (CKD-EPI 2020) Glucose Calcium Magnesium Total Bilirubin AST ALT Alkaline Phosphatase Troponin I NT-Pro-B Natriuret Pep Total Protein Albumin Lipase ABO/Rh O Positive Antibody Screen NEGATIVE Last Vital Signs Temp 36.7 C 03/20/25 02:31 Pulse 110 H 03/20/25 02:40 Resp 22 03/20/25 02:40 BP 137/86 03/20/25 02:31 Pulse Ox 96 03/20/25 02:40
[2025-03-20] MEDS: LORazepam 20 MG/10 ML VIAL IV (03:11)
[2025-03-20] MEDS: FentaNYL/ROPIvacaine 2 mcg/ml and 0.1% 200 ML CADD Cassette EP (03:17)
[2025-03-20] MEDS: fentaNYL 100 MCG/2 ML VIAL 50 MCG IVP ×2 (04:31→05:10)
[2025-03-20] MEDS: PIPERACILLIN/TAZO 3.375 GM in Normal Saline 50 ML IVPB ×2 (04:46→10:43)
[2025-03-20 04:52] LABS: Abs Immature Grans 0.07 10^3/uL (0.0-0.06); HCT 28.5 % (36.0-46.0); HGB 9.6 g/dL (11.2-15.7); MCH 27.7 pg (27.0-33.0); MCHC 33.7 % (32.0-36.0); MCV 82 fL (80-95); MPV 9.3 fL (8.0-11.0); Platelet Count 253 10^3/uL (130-400); RBC 3.46 10^6/uL (3.93-5.22); RDW 13.9 % (11.7-14.6); RDW-SD 41.7 fL; WBC 12.68 10^3/uL (4.4-10.8)
[2025-03-20] MEDS: Prochlorperazine 10 MG/2 ML VIAL IVP ×3 (05:09→18:30)
[2025-03-20 05:16] LABS: ALT 39 U/L (14-59); AST 42 U/L (15-37); Albumin 2.1 g/dL (3.4-5.0); Alkaline Phosphatase 68 U/L (46-116); Anion Gap 17.1 mmol/L (3-11); BUN 79 mg/dL (7-18); Bilirubin, Total 0.5 mg/dL (0.2-1.0); CO2 18.9 mmol/L (21.0-32.0); Calcium 7.6 mg/dL (8.5-10.1); Chloride 97 mmol/L (98-107); Estimated GFR 17.21 (mL/min/1.73m2); Glucose 144 mg/dL (74-106); Potassium 3.4 mmol/L (3.5-5.1); Sodium 133 mmol/L (136-145); Total Protein 6.0 g/dL (6.4-8.2)
[2025-03-20 05:21] LABS: Glucose Negative (Negative)
[2025-03-20 05:29] LABS: Cannabinoids THC Negative (Negative); METHADONE URINE SCREEN Negative (Negative)
[2025-03-20] MEDS: HYDROmorphone 2 MG/ML SYR IVP (05:33)
[2025-03-20] MEDS: LORazepam 20 MG/10 ML VIAL IVP ×4 (05:57→22:59)
[2025-03-20 06:01] LABS: C & S Indicated? No; WBC 0-2 HPF (0-5)
[2025-03-20 06:48] LABS: RBC Morphology Normal
[2025-03-20] MEDS: fentaNYL 100 MCG/2 ML VIAL IVP (07:19)
--- NOTE | 2025-03-20 07:20 | MCONE_ITS ---
Date of service: 03/19/25 Time of Service: 21:00 Assessment and Plan Assessment and plan (1) Perforated bowel: Status: Acute Assessment and plan: S/p laparotomy late March [address] Postoperative care in ICU She has epidural with hydromorphone SAILMAKER which appears to be poorly functioning Pain control with fentanyl pushes (note she is likely in fentanyl withdrawal) PRN benzodiazepines VTE chemoprophylaxis: heparin 5k q12 (2) Fentanyl dependence: Status: Acute Assessment and plan: Urine drug screen delayed due to poor urine output UDS positive benzodiazepine likely due to dosing after admission UDS positive for opiates (no fentanyl screen) (3) ALFREDO (acute kidney injury): Status: Acute Assessment and plan: Normal renal function at baseline Patient reports she urinated prior to arrival CTA scan done before BMP resulted, contrast likely a factor Creatinine 4.5 on first BMP Urine output reported in OR Creatinine improving to 3.2 on 3rd BMP Renal dosing of medications, avoid additional contrast (4) Crohn disease: Status: Chronic Assessment and plan: No treatment for approximately 7 years Outpatient followup after recovery from partial colectomy History of Present Illness History of Present Illness Chief Complaint: abdominal pain Narrative: Shania Walker is a 49 year old woman presenting March 19 with severe abdominal pain worsening over several days, along with lower leg swelling that had been painful the previous night. She had been hospitalized February 03- for abdominal pain with concern for malignancy due to B symptoms, with nonspecific imaging suggestive of possible developing cholecystitis. She was not able to see a PCP as advised for followup. She reports that her abdominal pain did not go away, but was tolerable until about a week ago. She had epigastric pain which descended with time till it was mostly suprapubic. She was nauseated and vomited with dry heaves for most of the last 2 days. She felt that she was constipated before the onset of her other symptoms. Patient later reported that she uses fentanyl for pain, multiple times per day. She has Crohn disease and was on infliximab until 7 years ago; at that time she no longer had health insurance and stopped going to the doctor. At this time she has been taking no prescription meds for years. PMH includes Crohn disease, fentanyl abuse In the ED she was hypotensive 81/47 with some improvement after IV fluids. CTA chest/abdomen/pelvis was performed out of concern for PE. Leukocytosis 17.28. Anemia with hgb 9.5. INR elevated 1.3. Creatinine elevated 4.5 against normal baseline. Hyponatremia 130, hypokalemia 3.4. High anion gap acidosis with AG 14.7. Elevated AST 63. Elevated BNP 3605. Proteinuria 100, hematuria. Urine drug screen delayed, positive for opiates and benzos. PFSH All Active Problems (Updated 03/20/25 @ 07:24 by Junior Hogue MD) Fentanyl dependence (Acute) ALFREDO (acute kidney injury) (Acute) Perforated bowel (Acute) Peritonitis (Acute) Weight loss (Acute) Postcoital urinary tract infection (Acute) Contraception (Acute) 08/2020. Declined LARC. Smokes tobacco. Rx for norethindrone 0.35 mg daily. History of tobacco abuse (Acute) Hx of herpes genitalis (Chronic) c/s report makes mention of vulvar herpes outbreak as being the cause of pt's c/s. Arthralgia (Chronic ~08/1996) related to remicaid treatment and crohn's Crohn disease (Chronic) Depression (Chronic) Opiate dependence, continuous (Chronic) Medical History Rheumatoid arthritis delivery delivered Family History Brother Crohn's colitis Social History Smoking/Tobacco Use Status: Former Tobacco Use Quit Date: 04/27/18 Smoking risk assessment performed?: Yes Alcohol Intake: never Drug use: Daily Substance use type: former substance user, marijuana, heroin and painkillers Adopted: No Foster care: No Household members: significant other Housing: house Number of Children: 3 Seatbelt use: always Helmet use: Yes Drive intox or ride w/intox milk pickup driver: No Do you feel safe at home: Yes Do you feel safe in your relationship?: Yes Additional Social history: H-Dane. Together 7 years History History 2 2 Para 1 Hx # Term Pregnancies 1 Multiple births 1 Hx # Pregnancies 0 Ectopic pregnancies 0 AB induced 0 Hx Number of Living Children 2 AB spontaneous 0 Past Pregnancies Del. Date GA/Weeks # Preg Succ Route Wgt Sex Labor Lgth Anesth esia Location [facility] 08/22/96 Yes 2863.302 g other 08/22/96 Yes 1956.117 g Female 11/09/18 39 No Female Tatiana Bettye Carrera 11/09/18 No 3118.448 g Female [facility] Tatiana Jarrell Delivery Date: 11/09/18 Last Updated by: Tataina Jarrell M.D. Elective repeat delivery named [place] Exam Narrative Exam Narrative: General: This is a pleasant woman in moderate distress due to abdominal pain HEENT: Normocephalic, atraumatic CV: RRR Resp: CTAB Abd: slightly firm, diffusely tender, severe pain RLQ MSK: 1+ pitting edema BLE Neuro: Awake, alert, no focal deficits Results Last Vital Signs Temp 38.2 C H 03/20/25 05:00 Pulse 148 H 03/20/25 05:20 Resp 20 03/20/25 05:20 BP 142/81 H 03/20/25 05:00 Pulse Ox 93 03/20/25 05:20 Labs 03/20/25 04:36 03/20/25 04:36 Labs: Laboratory Results - last 24 hr 03/19/25 03/19/25 03/19/25 18:39 20:14 21:07 WBC 17.28 H RBC 3.40 L Hgb 9.5 L Hct 28.2 L MCV 83 MCH 27.9 MCHC 33.7 RDW 13.9 Plt Count 212 MPV 9.5 Immature Gran % 0.5 Neutrophils % 89.5 Band Neutrophils % Lymphocytes % 6.5 Monocytes % 2.4 Eosinophils % 0.8 Basophils % 0.3 Nucleated RBC % 0.0 Absolute Neutrophils 15.47 H Absolute Lymphocytes 1.12 L Absolute Monocytes 0.41 Absolute Eosinophils 0.14 Absolute Basophils 0.05 RBC Morphology PT 12.5 H INR 1.3 H APTT 37.2 H VBG Lactate 1.1 Sodium 130 L 130 L Potassium 3.4 L 3.7 Chloride 90 L 94 L Carbon Dioxide 25.3 22.5 Anion Gap 14.7 H 13.5 H BUN 96 H* 92 H* Creatinine 4.5 H* 3.9 H* Est GFR (CKD-EPI 2020) 11.43 13.57 Glucose 111 H 97 Calcium 8.5 7.6 L Magnesium 2.1 Total Bilirubin 0.4 AST 63 H ALT 51 Alkaline Phosphatase 80 Troponin I 10 9 9 NT-Pro-B Natriuret Pep 3605 H Total Protein 7.5 Albumin 2.8 L Lipase 12 Urine Color Urine Clarity Urine pH Ur Specific [place] Urine Protein Urine Ketones Urine Blood Urine Nitrite Urine Bilirubin Urine Urobilinogen Ur Leukocyte Esterase Urine RBC Urine WBC Ur Epithelial Cells Urine Crystals Urine Bacteria Urine Casts Urine Mucus Ur Culture Indicated? Urine Glucose Urine Opiates Screen Urine Methadone Screen Ur Barbiturates Screen Ur Tricyclics Screen Ur Amphetamines Screen U Benzodiazepines Scrn Urine Cocaine Screen Ur THC Screen ABO/Rh Antibody Screen 03/19/25 03/20/25 03/20/25 21:37 03:45 04:36 WBC 12.68 H RBC 3.46 L Hgb 9.6 L Hct 28.5 L MCV 82 MCH 27.7 MCHC 33.7 RDW 13.9 Plt Count 253 MPV 9.3 Immature Gran % See Differential Neutrophils % 80.0 Band Neutrophils % 8 Lymphocytes % 9.0 Monocytes % 3.0 Eosinophils % 0.0 Basophils % 0.0 Nucleated RBC % 0.0 Absolute Neutrophils 11.16 H Absolute Lymphocytes 1.14 L Absolute Monocytes 0.38 Absolute Eosinophils 0.00 Absolute Basophils 0.00 RBC Morphology Normal PT INR APTT VBG Lactate Sodium 133 L Potassium 3.4 L Chloride 97 L Carbon Dioxide 18.9 L Anion Gap 17.1 H BUN 79 H Creatinine 3.2 H Est GFR (CKD-EPI 2020) 17.21 Glucose 144 H Calcium 7.6 L Magnesium Total Bilirubin 0.5 AST 42 H ALT 39 Alkaline Phosphatase 68 Troponin I NT-Pro-B Natriuret Pep Total Protein 6.0 L Albumin 2.1 L Lipase Urine Color Yellow Urine Clarity Clear Urine pH 5.5 Ur Specific [place] 1.015 Urine Protein 100 H Urine Ketones 15 H Urine Blood Large H Urine Nitrite Negative Urine Bilirubin Negative Urine Urobilinogen 0.2 Ur Leukocyte Esterase Negative Urine RBC 10-20 H Urine WBC 0-2 Ur Epithelial Cells Few Urine Crystals Negative Urine Bacteria Few Urine Casts Negative Urine Mucus Negative Ur Culture Indicated? No Urine Glucose Negative Urine Opiates Screen Positive A Urine Methadone Screen Negative Ur Barbiturates Screen Negative Ur Tricyclics Screen Negative Ur Amphetamines Screen Negative U Benzodiazepines Scrn Positive A Urine Cocaine Screen Negative Ur THC Screen Negative ABO/Rh O Positive Antibody Screen NEGATIVE
--- NOTE | 2025-03-20 08:59 | W.ANESNEU ---
Epidural/Spinal Cath. Removal Date Performed: 03/20/25 Procedure Time: 08:45 Catheter Removal Type: Epidural Catheter Procedure Location: Obstetrics Patient Position: Left Lateral Decubitus Catheter Removal Procedure: Dressing Removed, Catheter Removed without Resistance and Catheter Tip Intact Paresthesia: None Procedure Tolerated: No Complications Procedure Outcome: Successful Performed By: Scott Lancaster
[2025-03-20] MEDS: fentaNYL 1,000 MCG in Normal Saline 80 ML 4.933 MCG IV_INF (10:04)
--- NOTE | 2025-03-20 10:21 | PDOC.CMIN ---
Date of service: 03/20/25 Time of Service: 11:34 Care Management Initial Assmt Initial Assessment Reason for Hospitalization: Peritonitis Functional Status/Living Situation Patient Presentation: Shania was lying in bed and appeared uncomfortable paired with continuous moaning when CM met with her. She was accompanied by her mother Annelise. She presented to the ED with a chief complaint of abdominal pain which is worsening since Tuesday, nausea vomiting diarrhea. Per Annelise, she was brought in by her partner. Shania underwent segmental colon resection with creation of end colostomy early this morning. RN aware of Shania's level of pain; Shania is currently on Fentanyl/Ropivacaine and Ketamine for pain. Shania continues to live in a single family home on [address], with her 6 yr old daughter and the child's father. Shania is independent at baseline, including driving. Annelise requested to meet with CM, separately. Annelise states that Shania uses illicit drugs chronically. Annelise states she has concerns regarding Shania's home situation and has offered for Shania to live with her. Shania is seen by Josephine Turner Psychiatric Nurse Practitioner and has begun to establish PCP with Hali Rueda MD. CM will offer community resources to Shania when the patient is experiencing less pain. CM will continue to follow and access futher. Town of Residence: [place] Resides with: Parent (Mother) Significant Other/Family: Local (Shania has a 6 year old daughter ([place]) and 28 y/old twins - one local one in [place]) Natural Supports: Mother, Josephine Yue Employment Status: Unemployed Instrumental Activities of Daily Living (ADLs): Independent Medications Medication Management: No Issues/Barriers identified Advance Directives Advance Directives: Do you have an Advance Directive: N 10/16/18, 09:10 AD On File at [facility]: N 10/16/18, 09:10 Date Asked 03/19/25 03/19/25, 17:52 AD Date Reviewed COLST On File at [facility] COLST Date Scanned Code Status Resuscitation Status Full Code Portal Pt does not currently have a portal and education provided: Yes Insurance Coverage/Financial Issues Insurance: Medicaid of [place] - [id number] Care Team Visit Care Team Role Provider Type Joo Troncoso MD [facility] STAFF PHYSICIAN Unknown Unknown Primary Care Provider STAFF PHYSICIAN Aarti Mckeon NP Emergency Provider NURSE PRACTITIONER Robinson Ruiz MD Attending Provider [facility] STAFF PHYSICIAN Other Providers Junior Hogue MD Admit Provider [facility] STAFF PHYSICIAN Discharge Potential Discharge Needs: PCP F/U Appt and Surgical F/U Appt Anticipated Barriers to Discharge: Medical Status Patient/Family Education Needs: Review discharge instructions, discuss Ask Me Three Transportation: Private vehicle Plan: Anticipate, Shania will be discharged home, once medically ready. Shania has begun establishing care with PCP Dr. Rueda. She should follow up with this PCP, surgical team and plan of care. Shania will transport via private vehicle by family. CM will continue to follow. Social Determinants of Health Screening Will the Patient Participate in the Screening?: Declined to provide Do you worry about having a steady place to live?: no PFSH All Active Problems (Updated 03/20/25 @ 07:24 by Junior Hogue MD) Fentanyl dependence (Acute) ALFREDO (acute kidney injury) (Acute) Perforated bowel (Acute) Peritonitis (Acute) Weight loss (Acute) Postcoital urinary tract infection (Acute) Contraception (Acute) 08/2020. Declined LARC. Smokes tobacco. Rx for norethindrone 0.35 mg daily. History of tobacco abuse (Acute) Hx of herpes genitalis (Chronic) c/s report makes mention of vulvar herpes outbreak as being the cause of pt's c/s. Arthralgia (Chronic ~08/1996) related to remicaid treatment and crohn's Crohn disease (Chronic) Depression (Chronic) Opiate dependence, continuous (Chronic) Medical History Rheumatoid arthritis delivery delivered Family History Brother Crohn's colitis Social History Smoking/Tobacco Use Status: Former Tobacco Use Quit Date: 04/27/18 Smoking risk assessment performed?: Yes Alcohol Intake: never Drug use: Daily Substance use type: former substance user, marijuana, heroin and painkillers Adopted: No Foster care: No Household members: significant other Housing: house Number of Children: 3 Seatbelt use: always Helmet use: Yes Drive intox or ride w/intox compactor driver: No Do you feel safe at home: Yes Do you feel safe in your relationship?: Yes Additional Social history: H-Dane. Together 7 years History History 2 Para 1 Hx # Term Pregnancies 1 Multiple births 1 Hx # Pregnancies 0 Ectopic pregnancies 0 AB induced 0 Hx Number of Living Children 2 AB spontaneous 0 Past Pregnancies Del. Date GA/Weeks # Preg Succ Route Wgt Sex Labor Lgth Anesthesia Location Prov Complic 08/22/96 Yes 2863.302 g other 08/22/96 Yes 1956.117 g Female 11/09/18 39 No Female Tatiana Jarrell 11/09/[address] [facility] Tatiana Jarrell Delivery Date: 11/09/18 Last Updated by: Tatiana Jarrell M.D. Elective repeat delivery named [place] Readmission Within the Past 30 Days Yes or No: No
[2025-03-20] MEDS: Heparin 5,000 UNITS/ML VIAL 5000 UNITS SC ×2 (10:38→19:45)
[2025-03-20] MEDS: Ketamine 50 MG/5 ML SYRINGE 13 MG IVP (10:39)
--- NOTE | 2025-03-20 10:54 | ANES.CON_ITS ---
General Date of Service Date of Service: 03/20/25 Reason for Consult Requesting Provider: Joo Troncoso How Consult Conducted:: Chart Review Reason for Consult:: In-Patient (ICU) Ketamine protocol for pain. Consult Recommendation after Review:: Ketamine infusion for pain management. Height: 5 ft 7 in Weight: 65.7 kg Body Mass Index (BMI): 22.6 Meds Allergies and Home Medications Allergies Allergy/AdvReac Type Severity Reaction Status Date / Time No Known Allergies Allergy Verified 03/19/25 18:03 Home Medication ?Medication ?Instructions ?Recorded Unknown [No Known Home Meds] 02/03/25 Current Visit Medications: Current Medications Generic Name Dose Route Start Last Admin Trade Name Freq PRN Reason Stop Dose Admin Ephedrine Sulfate 5 mg 03/20/25 00:52 Ephedrine 50 Mg/Ml Vial IVP 04/19/25 00:51 DIRECTED PRN Fentanyl 100 mcg 03/20/25 05:09 03/20/25 07:19 Fentanyl 100 Mcg/2 Ml Vial IVP 100 mcg Q2H PRN PRN Administration Fentanyl/Ropivacaine 200 ml 03/20/25 01:00 03/20/25 03:17 Fentanyl/Ropivacaine 2 Mcg/Ml And 0.1% 200 Ml Cadd Cassette EP 04/19/25 00:59 200 ml On Hold: 03/20/25 04:30 DIRECTED DEVON Administration Glycopyrrolate 0.1 mg 03/20/25 08:42 Glycopyrrolate 0.2 Mg/1 Ml Vial IVP DIRECTED PRN Heparin Sodium (Porcine) 5,000 units 03/20/25 07:30 03/20/25 10:38 Heparin 5,000 Units/Ml Vial SC 5,000 units Q12H DEVON Administration Naloxone HCl 2 mg/ Sodium 500 mls @ 8.221 mls/hr 03/20/25 00:52 Chloride IV 04/19/25 00:51 INFUSION PRN pruritis 0.5 MCG/KG/HR Dextrose/Lactated Ringer's 1,000 mls @ 150 mls/hr 03/20/25 01:15 03/20/25 02:15 Dextrose 5%-Lr IV 04/19/25 01:14 100 mls/hr INFUSION DEVON Administration Piperacillin Sod/Tazobactam 50 mls @ 100 mls/hr 03/20/25 04:00 03/20/25 10:43 Sod 3.375 gm/ Sodium Chloride IVPB 100 mls/hr Q6H DEVON Administration Acetaminophen 1,000 mg in 100 mls @ 400 mls/hr 03/20/25 02:17 03/20/25 03:07 Ofirmev IVPB Infused Q6H PRN PRN Infusion Sodium Chloride 500 mls @ 0 mls/hr 03/20/25 02:31 03/20/25 02:32 Saline 500ml Bag IV 30 mls/hr PRN PRN Administration As Directed Fentanyl 1,000 mcg/ Sodium 100 mls @ 328.855 mls/hr 03/20/25 10:00 03/20/25 10:04 Chloride IV_INF 0.75 mcg/kg/hr INFUSION DEVON 4.933 mls/hr Protocol Administration 50 MCG/KG/HR Ketamine HCl 200 mg/ Sodium 100 mls @ 6.577 mls/hr 03/20/25 08:45 03/20/25 10:25 Chloride IV INF 0.2 mg/kg/hr INFUSION DEVON 6.577 mls/hr Protocol Administration 0.2 MG/KG/HR Lorazepam 1 mg 03/20/25 08:35 Lorazepam 20 Mg/10 Ml Vial IVP Q2H PRN PRN Midazolam HCl 1 mg 03/20/25 08:42 Midazolam 2 Mg/2 Ml Vial IVP DIRECTED PRN Naloxone HCl 0 mg 03/20/25 00:52 Naloxone 0.4 Mg/Ml Vial IVP 04/19/25 00:51 DIRECTED PRN Ondansetron HCl 4 mg 03/20/25 08:42 Ondansetron 4 Mg/2 Ml Vial IVP Q4H PRN PRN Polyethylene Glycol 17 gm 03/20/25 02:11 Polyethylene Glycol 3350 17 Gm Packet PO BID PRN PRN Sodium Chloride 500 ml 03/20/25 02:30 Normal Saline 500 Ml Bag IV DIRECTED PRN PFSH Active Problems Active Problems: Problem Status Onset Code Fentanyl dependence Acute F11.20 ALFREDO (acute kidney injury) Acute N17.9 Perforated bowel Acute K63.1 Peritonitis Acute K65.9 Weight loss Acute R63.4 Postcoital urinary tract infection Acute N39.0 Contraception Acute Z30.9 Resolved Z34.90 History of tobacco abuse Acute Z87.891 Hx of herpes genitalis Chronic Z86.19 Arthralgia Chronic ~08/1996 M25.50 Crohn disease Chronic K50.90 Depression Chronic F32.9 Opiate dependence, continuous Chronic F11.20 Medical History Medical History Rheumatoid arthritis delivery delivered Tobacco Smoking/Tobacco Use Status: Former Tobacco Use Alcohol Alcohol Intake: never Substance Use Substance use: Daily Substance use type: former substance user, marijuana, heroin and painkillers Prental History History 2 2 Para 1 Hx # Term Pregnancies 1 Multiple births 1 Hx # Pregnancies 0 Ectopic pregnancies 0 AB induced 0 Hx Number of Living Children 2 AB spontaneous 0 Past Pregnancies Del. Date GA/Weeks # Preg Succ Route Wgt Sex Labor Lgth Anesth esia Location [facility] 08/22/96 Yes 2863.302 g other 08/22/96 Yes 1956.117 g Female 11/09/18 39 No Female Tatiana Carrera 11/09/18 No 3118.448 g Female [facility] Tatiana Jarrell Delivery Date: 11/09/18 Last Updated by: Tatiana Jarrell M.D. Elective repeat delivery named Latanya Vital Signs & Lab Results Vital Signs Most Recent Vital Signs: Most Recent Vital Signs Temp Pulse Resp BP Pulse Ox 37.5 C 144 H 22 153/94 H 94 03/20/25 07:15 03/20/25 08:01 03/20/25 08:01 03/20/25 08:01 03/20/25 08:01 Point of Care Results Nursing Point of Care Results: 2 Finger Stick Blood Glucose, (70 - 120) 175 H T noreen, 07:22 Lab Results 03/20/25 04:36 03/20/25 04:36 Blood Type / Crossmatch: 2 Antibody Screen NEGATIVE 03/19/25 Complete Blood Count: 2 WBC, (4.4-10.8) 12.68 10^3/uL H Today, 04:36 RBC, (3.93-5.22) 3.46 10^6/uL L Today, 04:36 Hgb, (11.2-15.7) 9.6 g/dL L Today, 04:36 Hct, (36.0-46.0) 28.5 % L Today, 04:36 Plt Count, (130-400) 253 10^3/uL Today, 04:36 VBG Lactate, (<or=2.0) 1.1 mmol/L 03/19/25, 18:39 Complete Metabolic Panel: 2 Sodium, (136-145) 133 mmol/L L Today, 04:36 Potassium, (3.5-5.1) 3.4 mmol/L L Today, 04:36 Chloride, (98-107) 97 mmol/L L Today, 04:36 Carbon Dioxide, (21.0-32.0) 18.9 mmol/L L Today, 04:36 BUN, (7-18) 79 mg/dL H Today, 04:36 Creatinine, (0.55-1.02) 3.2 mg/dL H Today, 04:36 Est GFR (CKD-EPI 2020), (mL/min/1.73m2) 17.21 Today, 04:36 Magnesium, (1.8-2.4) 2.1 mg/dL 03/19/25, 18:39 Calcium, (8.5-10.1) 7.6 mg/dL L Today, 04:36 Albumin, (3.4-5.0) 2.1 g/dL L Today, 04:36 Glucose, (74-106) 144 mg/dL H Today, 04:36 Liver Function Panel: 2 ALT, (14-59) 39 U/L Today, 04:36 AST, (15-37) 42 U/L H Today, 04:36 Coagulation Panel: 2 INR, (0.9-1.1) 1.3 H 03/19/25, 18:39 PT, (9.1-11.1) 12.5 sec H 03/19/25, 18:39 APTT, (20.6-30.2) 37.2 sec H 03/19/25, 18:39 Cardiac Panel: 2 Troponin I, (<or=51) 9 ng/L 03/19/25 NT-Pro-B Natriuret Pep, (<300) 3605 pg/mL H 03/19/25 Pancreas Panel: 2 Lipase, (<78) 12 U/L 03/19/25, 18:39 Toxicology Panel: 2 Ur Amphetamines Screen, (Negative) Negative Today , 03:45 U Benzodiazepines Scrn, (Negative) Positive A Today , 03:45 Ur Barbiturates Screen, (Negative) Negative Today , 03:45 Urine Cocaine Screen, (Negative) Negative Today, 03:45 Urine Methadone Screen, (Negative) Negative Today , 03:45 Urine Opiates Screen, (Negative) Positive A Today, 03:45 Ur Tricyclics Screen, (Negative) Negative Today, 03:45 Ur THC Screen, (Negative) Negative Today, 03:45 Imaging and Studies Imaging and Studies EKG Summary: 03/19/25: Exam: Resting ECG Reason for Exam: Hypotension, leg swelling Patient Location: E HR:73 bpm ECG Measurements Heart Rate 73 AXIS TN 140 P 57 QRSd 91 QRS 40 QT 411 T30 QTc 455 Conclusion Sinus rhythm...normal P axis, V-rate 60- 99 Sinus Rhythm. When compared to prior 02/04/25 decreased heart rate is noted. WD Anesthesia Assessment and Plan Anesthesia History Personal History: No History of Anesthesia Complications Family History: No Family History of Anesthesia Complications Exercise Tolerance Exercise Tolerance: Metabolic Equivalents>4 Pertinent Negatives Pertinent Negatives: No Symptoms of GERD Cardiac & Pulmonary Exam Cardiac Exam: Normal S1/S2 Heart Sounds Pulmonary Exam: Clear Bilateral Breath Sounds Does patient have a Pacemaker or an ICD?: No Airway Exam Known Difficult Airway: No Mallampati Class: 2 Mouth Opening: Normal (> 3cm) Thyromental Distance: Greater than 3 cm Neck Range of Motion: Full ROM Neck Circumference: Normal Teeth Condition: Normal Dentition ASA Classification ASA Score: ASA 3 Emergency Case?: No NPO Status NPO Status: NPO Clears >2 hours, Solids >8 hours Status Status: Not Relevant due to Medical History Anesthesia Plan Resuscitation Status: Full Code Airway Planned: Natural Airway Pain Management: Other Monitors Used: Standard Monitors Preoperative Comments:: Assisted PIE [employer]UST MIXERdirect support staff member in establishing IV Ketamine infusion for pain management. Bolus = 13mg and infusion started at 0.2mg/kg/hr. Pt is post surgical (this AM) without effective pain control from Epidural (removed). Pt has history of chronic opioid abuse disorder. Eloy Lancaster CRNA
[2025-03-20] MEDS: Midazolam 2 MG/2 ML VIAL 1 MG IVP (11:05)
[2025-03-20] MEDS: Normal Saline Flush 10 ML SYR (11:59)
[2025-03-20] MEDS: Ondansetron 4 MG/2 ML VIAL IVP ×2 (12:06→20:22)
[2025-03-20] MEDS: Glycopyrrolate 0.2 MG/1 ML VIAL 0.1 MG IVP (12:06)
[2025-03-20] MEDS: DEXTROSE 5%-LACTATED RINGERS 1,000 ML 150 ML IV ×2 (12:30→19:20)
--- NOTE | 2025-03-20 13:04 | PHA.REVIEW2 ---
Pharmacy Admission Review Admission Clinical Review Admission Pharmacy Review: Fentanyl dependence (Acute) ALFREDO (acute kidney injury) (Acute) Perforated bowel (Acute) Peritonitis (Acute) No Known Allergies Allergy (Verified 03/19/25 18:03) Resuscitation Status Full Code Height 5 ft 7 in Weight 65.7 kg Pharmacy Admission Review Renal Dosing Renal Dosing: BUN 79 mg/dL (7-18) H 03/20/25 04:36 Creatinine 3.2 mg/dL (0.55-1.02) H 03/20/25 04:36 Medications needing adjustments: Intervened (CrCl 22.1 mL/min, BUN decreased from 92 and SCr decreased from 3.9) List of meds needing interventions: Changed Zosyn from 3.375mg to 2.25mg q6h Anticoagulation Anticoagulation: Hgb 9.6 g/dL (11.2-15.7) L 03/20/25 04:36 Hct 28.5 % (36.0-46.0) L 03/20/25 04:36 Plt Count 253 10^3/uL (130-400) 03/20/25 04:36 INR 1.3 (0.9-1.1) H 03/19/25 18:39 Creatinine 3.2 mg/dL (0.55-1.02) H 03/20/25 04:36 DVT Prophylaxis: Reviewed Medications: Heparin (q12h) Opiate Usage Evaluate Pain Scale/Pains Meds: Reviewed (fentanyl infusion @ 2mcg/kg/hr, fentanyl 100mcg IVP q2h PRN - 150mcg/24hrs) Scheduled Bowel Reg ordered if on Opiates?: Yes (Miralax BID) Relevant Labs Relevant Labs: Sodium 133 mmol/L (136-145) L 03/20/25 04:36 Potassium 3.4 mmol/L (3.5-5.1) L 03/20/25 04:36 Chloride 97 mmol/L (98-107) L 03/20/25 04:36 Magnesium 2.1 mg/dL (1.8-2.4) 03/19/25 18:39 Electrolytes, C-Reactive P, ESR: Reviewed Cardiac Review Cardiac Review: Troponin I 9 ng/L (<or=51) 03/19/25 21:07 NT-Pro-B Natriuret Pep 3605 pg/mL (<300) H 03/19/25 18:39 Blood Pressure : Heart Rate 147/89 : 138 1100 Blood Pressure : Heart Rate 142/85 : 136 1031 Blood Pressure : Heart Rate 153/88 : 143 1000 Blood Pressure : Heart Rate 149/85 : 146 0931 Blood Pressure : Heart Rate 141/86 : 141 0901 Blood Pressure : Heart Rate 153/91 : 149 0830 Blood Pressure : Heart Rate 153/94 : 144 0801 Blood Pressure : Heart Rate 151/87 : 149 0731 Blood Pressure : Heart Rate 150/89 : 147 0700 Blood Pressure : Heart Rate 152/87 : 146 0631 Blood Pressure : Heart Rate 149/83 : 152 0601 BP, HR, EF%: Reviewed QTc Review QTc: Reviewed (455 from 03/19/25) IV to PO Switch IV Medications: Reviewed (NPO) Home Meds Home Med List reviewed: Reviewed Relevent Home Meds Not ordered & why?: No known home meds Current Meds Current Medication Order Review: Intervened Comments: Added IV admission access Ketamine infusion @ 0.5mcg/kg/hr Pharmacy Antibiotic Review Relevant Labs: WBC 12.68 10^3/uL (4.4-10.8) H 03/20/25 04:36 Temperature 37.5 C Temperature 37.6 C Temperature 38.2 C Temperature 37.6 C Temperature 37.3 C Temperature 36.7 C Temperature 36.7 C Pharmacy Antibiotic Activity: C/S review and Renal function adjustment (Zosyn decreased) Comments: Patient is on Zosyn, day 1, for peritonitis and septic shock. WBC decreased from 17.28 and blood/surgical cultures pending.
--- NOTE | 2025-03-20 14:07 | W.ANESPOSTOP ---
Postoperative Evaluation Date, Time and Location Date Performed: 03/20/25 Time Performed: 08:00 Patient Location: Intensive Care Unit Vital Signs Most Recent Imported Vital Signs: Most Recent Vital Signs Temp Pulse Resp BP Pulse Ox 37.5 C 137 H 21 147/89 H 95 03/20/25 07:15 03/20/25 11:01 03/20/25 11:01 03/20/25 11:00 03/20/25 11:01 Pain Score Most Recent Pain Score: Most Recent Pain Score Pain Level 10 03/20/25 07:19 Assessment Mental Status: Awake but Confused Airway and Respiratory Function: Patent airway with normal (patient baseline) respiratory exam Cardiovascular Function: Hemodynamically Stable Hydration Status: Adequately Hydrated Nausea & Vomiting: No Nausea or Vomiting Pain: Pain is Moderate or Severe (Epidural in place. Question effectiveness for pain control.) Postoperative Pain Management: Pain being addressed with medication and Ongoing pain, patient will be managed as an inpatient Peripheral Nerve Block: Patient did not receive a nerve block
[2025-03-20 14:59] LABS: Anion Gap 12.3 mmol/L (3-11); BUN 62 mg/dL (7-18); CO2 23.7 mmol/L (21.0-32.0); Calcium 8.0 mg/dL (8.5-10.1); Chloride 102 mmol/L (98-107); Estimated GFR 23.14 (mL/min/1.73m2); Glucose 215 mg/dL (74-106); Potassium 3.2 mmol/L (3.5-5.1); Sodium 138 mmol/L (136-145)
[2025-03-20] MEDS: PIPERACILLIN/TAZO 2.25 GM in Normal Saline 50 ML IVPB ×2 (16:00→21:55)
--- NOTE | 2025-03-20 16:16 | PGE_ITS ---
Date of Service Date of service: 03/20/25 Time of Service: 16:16 Assessment and Plan Assessment and plan (1) Perforated bowel: Status: Acute Assessment and plan: S/p laparotomy/ostomy placement night of March 19 Postoperative care in ICU On IV pip/tazo, continue on this given she presented looking septic with peritonitis See below re: pain control and OUD She remains tachycardic since surgery, will give additional fluid bolus to see if responsive vs pain or withdrawal, likely multifactorial. BP stable. WBC decreasing Surgery is primary, managing post-operative care. (2) ALFREDO (acute kidney injury): Status: Acute Assessment and plan: Normal renal function at baseline CTA scan done before BMP resulted, contrast likely a factor Creatinine 4.5 on presention, she is making adequate urine and creatinine trending down. Renal dosing of medications, follow (3) Opiate dependence, continuous: Status: Chronic Assessment and plan: using fentanyl daily per report. Our UDS isn't useful in this setting, would need specific send out, but won't exchange specialist Given daily use, continue fentanyl drip, but added ketamine for additional non- opioid anesthesia. Once pain controlled, offer methadone vs buprenorphine for detention treatment of OUD. If she prefers the latter I would use ultra low dose protocol with cross titration while giving opioid agonist. also address issues of mood, contraception prior to discharge. (4) Crohn disease: Status: Chronic Assessment and plan: No treatment for approximately 7 years Unclear if this was cause of perforation, await pathology. Outpatient followup after recovery from partial colectomy (5) DVT prophylaxis: Status: Acute Assessment and plan: on heparin q 12 with renal failure, transition to LMWH once improved, for less shots (6) Hypokalemia: Status: Inactive Assessment and plan: supplement IV, conservatively given ALFREDO. Follow. (7) Anemia: Status: Chronic Assessment and plan: In setting of acute illness, surgery. Was normal in January,so likely acute blood loss get iron/tibc with labs to see if supplement would benefit. (8) Elevated AST (SGOT): Status: Acute Assessment and plan: In setting of acute illness. INR also slightly elevated, follow both to assess liver function. Plts okay suggesting no cirrhosis, though albumin low. Given OUD, get repeat hepatitis B/C/HIV with labs Subjective Subjective Patient reports: no flatus and shortness of breath; denies bowel movement or vomiting Interval history since last seen: Events: Partial colectomy with colostomy overnight Patient in severe pain, evident this morning that epidural not effective, removed per anesthesia Alvarado Patient reports using fentanyl daily. Started on fentanyl drip, Ketamine drip added after d/w anesthesia She is still in a lot of pain, mostly in abdomen. some nausea. feels anxious. no chest pain, though heart is fast. Exam Narrative Exam Narrative: General: Alert, slightly diaphoretic, uncomfortable HEENT: pupils wide (~5mm) bilaterally. CV: tachycardic, regular. no murmur Resp: CTAB anterior/laterally. mildly tachypneic, no rales Abd: minimal BS, slightly firm, diffusely tender, incision with dressing intact, ostomy wiht empty bag, stoma pink MSK: 1+ pitting edema BLE Objective Last Vital Signs Temp 37.6 C H 03/20/25 15:20 Pulse 135 H 03/20/25 15:16 Resp 22 03/20/25 15:16 BP 143/84 H 03/20/25 15:16 Pulse Ox 97 03/20/25 15:16 Laboratory Results - last 24 hr 03/19/25 03/19/25 03/19/25 18:39 20:14 21:07 WBC 17.28 H RBC 3.40 L Hgb 9.5 L Hct 28.2 L MCV 83 MCH 27.9 MCHC 33.7 RDW 13.9 Plt Count 212 MPV 9.5 Immature Gran % 0.5 Neutrophils % 89.5 Band Neutrophils % Lymphocytes % 6.5 Monocytes % 2.4 Eosinophils % 0.8 Basophils % 0.3 Nucleated RBC % 0.0 Absolute Neutrophils 15.47 H Absolute Lymphocytes 1.12 L Absolute Monocytes 0.41 Absolute Eosinophils 0.14 Absolute Basophils 0.05 RBC Morphology PT 12.5 H INR 1.3 H APTT 37.2 H VBG Lactate 1.1 Sodium 130 L 130 L Potassium 3.4 L 3.7 Chloride 90 L 94 L Carbon Dioxide 25.3 22.5 Anion Gap 14.7 H 13.5 H BUN 96 H* 92 H* Creatinine 4.5 H* 3.9 H* Est GFR (CKD-EPI 2020) 11.43 13.57 Glucose 111 H 97 Calcium 8.5 7.6 L Magnesium 2.1 Total Bilirubin 0.4 AST 63 H ALT 51 Alkaline Phosphatase 80 Troponin I 10 9 9 NT-Pro-B Natriuret Pep 3605 H Total Protein 7.5 Albumin 2.8 L Lipase 12 Urine Color Urine Clarity Urine pH Ur Specific [place] Urine Protein Urine Ketones Urine Blood Urine Nitrite Urine Bilirubin Urine Urobilinogen Ur Leukocyte Esterase Urine RBC Urine WBC Ur Epithelial Cells Urine Crystals Urine Bacteria Urine Casts Urine Mucus Ur Culture Indicated? Urine Glucose Urine Opiates Screen Urine Methadone Screen Ur Barbiturates Screen Ur Tricyclics Screen Ur Amphetamines Screen U Benzodiazepines Scrn Urine Cocaine Screen Ur THC Screen ABO/Rh Antibody Screen 03/19/25 03/20/25 03/20/25 21:37 03:45 04:36 WBC 12.68 H RBC 3.46 L Hgb 9.6 L Hct 28.5 L MCV 82 MCH 27.7 MCHC 33.7 RDW 13.9 Plt Count 253 MPV 9.3 Immature Gran % See Differential Neutrophils % 80.0 Band Neutrophils % 8 Lymphocytes % 9.0 Monocytes % 3.0 Eosinophils % 0.0 Basophils % 0.0 Nucleated RBC % 0.0 Absolute Neutrophils 11.16 H Absolute Lymphocytes 1.14 L Absolute Monocytes 0.38 Absolute Eosinophils 0.00 Absolute Basophils 0.00 RBC Morphology Normal PT INR APTT VBG Lactate Sodium 133 L Potassium 3.4 L Chloride 97 L Carbon Dioxide 18.9 L Anion Gap 17.1 H BUN 79 H Creatinine 3.2 H Est GFR (CKD-EPI 2020) 17.21 Glucose 144 H Calcium 7.6 L Magnesium Total Bilirubin 0.5 AST 42 H ALT 39 Alkaline Phosphatase 68 Troponin I NT-Pro-B Natriuret Pep Total Protein 6.0 L Albumin 2.1 L Lipase Urine Color Yellow Urine Clarity Clear Urine pH 5.5 Ur Specific [place] 1.015 Urine Protein 100 H Urine Ketones 15 H Urine Blood Large H Urine Nitrite Negative Urine Bilirubin Negative Urine Urobilinogen 0.2 Ur Leukocyte Esterase Negative Urine RBC 10-20 H Urine WBC 0-2 Ur Epithelial Cells Few Urine Crystals Negative Urine Bacteria Few Urine Casts Negative Urine Mucus Negative Ur Culture Indicated? No Urine Glucose Negative Urine Opiates Screen Positive A Urine Methadone Screen Negative Ur Barbiturates Screen Negative Ur Tricyclics Screen Negative Ur Amphetamines Screen Negative U Benzodiazepines Scrn Positive A Urine Cocaine Screen Negative Ur THC Screen Negative ABO/Rh O Positive Antibody Screen NEGATIVE 03/20/25 14:30 WBC RBC Hgb Hct MCV MCH MCHC RDW Plt Count MPV Immature Gran % Neutrophils % Band Neutrophils % Lymphocytes % Monocytes % Eosinophils % Basophils % Nucleated RBC % Absolute Neutrophils Absolute Lymphocytes Absolute Monocytes Absolute Eosinophils Absolute Basophils RBC Morphology PT INR APTT VBG Lactate Sodium 138 Potassium 3.2 L Chloride 102 Carbon Dioxide 23.7 Anion Gap 12.3 H BUN 62 H Creatinine 2.5 H Est GFR (CKD-EPI 2020) 23.14 Glucose 215 H Calcium 8.0 L Magnesium Total Bilirubin AST ALT Alkaline Phosphatase Troponin I NT-Pro-B Natriuret Pep Total Protein Albumin Lipase Urine Color Urine Clarity Urine pH Ur Specific [place] Urine Protein Urine Ketones Urine Blood Urine Nitrite Urine Bilirubin Urine Urobilinogen Ur Leukocyte Esterase Urine RBC Urine WBC Ur Epithelial Cells Urine Crystals Urine Bacteria Urine Casts Urine Mucus Ur Culture Indicated? Urine Glucose Urine Opiates Screen Urine Methadone Screen Ur Barbiturates Screen Ur Tricyclics Screen Ur Amphetamines Screen U Benzodiazepines Scrn Urine Cocaine Screen Ur THC Screen ABO/Rh Antibody Screen Time Spent with Patient Time Spent with Patient: >50 minutes Time was spent: preparing to see the patient(eg.review tests), obtaining and/or reviewing separately otained hiistory, ordering medications,tests, procedures, referring, communicating with other health resident care associate, indepentently interpreting results, counseling the patient and care coordination
[2025-03-20] MEDS: Lactated Ringers 500 ML IV (16:42)
[2025-03-20] MEDS: POTASSIUM CHLORIDE 20 MEQ/100 ML BAG 50 MEQ IV_INF (16:55)
[2025-03-20] MEDS: fentaNYL 1,000 MCG in Normal Saline 80 ML 21.704 MCG IV_INF ×2 (17:21→21:31)
[2025-03-20] MEDS: Normal Saline Flush 10 ML SYR IVP ×2 (19:45→21:04)
--- NOTE | 2025-03-20 20:20 | PGE_ITS ---
Date of Service Date of service: 03/20/25 Time of Service: 18:00 Assessment and Plan Assessment and plan (1) Peritonitis: Status: Acute Assessment and plan: secondary to perforated descending colon with purulent peritonitis. gram negative rods on peritoneal fluid gram stain so far. Continue zosyn. (2) Perforated bowel: Status: Acute Assessment and plan: POD 0 s/p laparotomy, segmental colon resection and end colostomy. continue zosyn, manage end organ complications and anticipate improvement in the coming days. (3) ALFREDO (acute kidney injury): Status: Acute Assessment and plan: secondary to septic shock from perforated colon w peritonitis. Continue fluids and limit nephrotoxic drugs. sepsis source control accomplished w surgery but will continue zosyn for ongoing management of the peritonitis. (4) DVT prophylaxis: Status: Acute Assessment and plan: heparin for dvt ppx started today. Subjective Subjective Interval history since last seen: Pt finally resting this evening. Epidural discontinued and ketamine and fentanyl drips started. Appreciate anesthesia and hospitalist managing her pain control today. Family is at bedside and we discussed her current condition. UOP good this afternoon, urine is clear yellow and >1L out this shift. Cr is improved slightly. Pt has admitted to fentanyl use as outpt and patients mother did tell me this at the bedside. Objective Last Vital Signs Temp 99.7 F H 03/20/25 20:09 Pulse 137 H 03/20/25 19:15 Resp 31 H 03/20/25 19:15 BP 140/85 03/20/25 19:00 Pulse Ox 92 03/20/25 19:15 Laboratory Results - last 24 hr 03/19/25 03/19/25 03/19/25 18:39 20:14 21:07 WBC RBC Hgb Hct MCV MCH MCHC RDW Plt Count MPV Immature Gran % Neutrophils % Band Neutrophils % Lymphocytes % Monocytes % Eosinophils % Basophils % Nucleated RBC % Absolute Neutrophils Absolute Lymphocytes Absolute Monocytes Absolute Eosinophils Absolute Basophils RBC Morphology PT 12.5 H INR 1.3 H APTT 37.2 H Sodium 130 L Potassium 3.7 Chloride 94 L Carbon Dioxide 22.5 Anion Gap 13.5 H BUN 92 H* Creatinine 3.9 H* Est GFR (CKD-EPI 2020) 13.57 Glucose 97 Calcium 7.6 L Total Bilirubin AST ALT Alkaline Phosphatase Troponin I 9 9 Total Protein Albumin Urine Color Urine Clarity Urine pH Ur Specific Waterproof Urine Protein Urine Ketones Urine Blood Urine Nitrite Urine Bilirubin Urine Urobilinogen Ur Leukocyte Esterase Urine RBC Urine WBC Ur Epithelial Cells Urine Crystals Urine Bacteria Urine Casts Urine Mucus Ur Culture Indicated? Urine Glucose Urine Opiates Screen Urine Methadone Screen Ur Barbiturates Screen Ur Tricyclics Screen Ur Amphetamines Screen U Benzodiazepines Scrn Urine Cocaine Screen Ur THC Screen ABO/Rh Antibody Screen 03/19/25 03/20/25 03/20/25 21:37 03:45 04:36 WBC 12.68 H RBC 3.46 L Hgb 9.6 L Hct 28.5 L MCV 82 MCH 27.7 MCHC 33.7 RDW 13.9 Plt Count 253 MPV 9.3 Immature Gran % See Differential Neutrophils % 80.0 Band Neutrophils % 8 Lymphocytes % 9.0 Monocytes % 3.0 Eosinophils % 0.0 Basophils % 0.0 Nucleated RBC % 0.0 Absolute Neutrophils 11.16 H Absolute Lymphocytes 1.14 L Absolute Monocytes 0.38 Absolute Eosinophils 0.00 Absolute Basophils 0.00 RBC Morphology Normal PT INR APTT Sodium 133 L Potassium 3.4 L Chloride 97 L Carbon Dioxide 18.9 L Anion Gap 17.1 H BUN 79 H Creatinine 3.2 H Est GFR (CKD-EPI 2020) 17.21 Glucose 144 H Calcium 7.6 L Total Bilirubin 0.5 AST 42 H ALT 39 Alkaline Phosphatase 68 Troponin I Total Protein 6.0 L Albumin 2.1 L Urine Color Yellow Urine Clarity Clear Urine pH 5.5 Ur Specific Waterproof 1.015 Urine Protein 100 H Urine Ketones 15 H Urine Blood Large H Urine Nitrite Negative Urine Bilirubin Negative Urine Urobilinogen 0.2 Ur Leukocyte Esterase Negative Urine RBC 10-20 H Urine WBC 0-2 Ur Epithelial Cells Few Urine Crystals Negative Urine Bacteria Few Urine Casts Negative Urine Mucus Negative Ur Culture Indicated? No Urine Glucose Negative Urine Opiates Screen Positive A Urine Methadone Screen Negative Ur Barbiturates Screen Negative Ur Tricyclics Screen Negative Ur Amphetamines Screen Negative U Benzodiazepines Scrn Positive A Urine Cocaine Screen Negative Ur THC Screen Negative ABO/Rh O Positive Antibody Screen NEGATIVE 03/20/25 14:30 WBC RBC Hgb Hct MCV MCH MCHC RDW Plt Count MPV Immature Gran % Neutrophils % Band Neutrophils % Lymphocytes % Monocytes % Eosinophils % Basophils % Nucleated RBC % Absolute Neutrophils Absolute Lymphocytes Absolute Monocytes Absolute Eosinophils Absolute Basophils RBC Morphology PT INR APTT Sodium 138 Potassium 3.2 L Chloride 102 Carbon Dioxide 23.7 Anion Gap 12.3 H BUN 62 H Creatinine 2.5 H Est GFR (CKD-EPI 2020) 23.14 Glucose 215 H Calcium 8.0 L Total Bilirubin AST ALT Alkaline Phosphatase Troponin I Total Protein Albumin Urine Color Urine Clarity Urine pH Ur Specific Waterproof Urine Protein Urine Ketones Urine Blood Urine Nitrite Urine Bilirubin Urine Urobilinogen Ur Leukocyte Esterase Urine RBC Urine WBC Ur Epithelial Cells Urine Crystals Urine Bacteria Urine Casts Urine Mucus Ur Culture Indicated? Urine Glucose Urine Opiates Screen Urine Methadone Screen Ur Barbiturates Screen Ur Tricyclics Screen Ur Amphetamines Screen U Benzodiazepines Scrn Urine Cocaine Screen Ur THC Screen ABO/Rh Antibody Screen Objective Narrative Objective Narrative: asleep, NAD eyes closed, warm extremities and core no peripheral edema Time Spent with Patient Time Spent with Patient: 25-34 minutes Time was spent: preparing to see the patient(eg.review tests), referring, communicating with other health youth care professional and care coordination
[2025-03-21] VITALS (114 sets, daily range): BP systolic 135–163; BP diastolic 85–106; PULSE 111–130; RESP 17–36; TEMP 36.5–37.9; O2SAT 86–98
[2025-03-21] MEDS: Prochlorperazine 10 MG/2 ML VIAL IVP ×3 (00:43→13:53)
[2025-03-21] MEDS: fentaNYL 1,000 MCG in Normal Saline 80 ML 32.886 MCG IV_INF ×4 (01:55→11:57)
[2025-03-21] MEDS: Ondansetron 4 MG/2 ML VIAL IVP ×3 (02:18→12:15)
[2025-03-21] MEDS: DEXTROSE 5%-LACTATED RINGERS 1,000 ML 150 ML IV ×2 (02:36→10:03)
[2025-03-21] MEDS: PIPERACILLIN/TAZO 2.25 GM in Normal Saline 50 ML IVPB (04:14)
[2025-03-21] MEDS: LORazepam 20 MG/10 ML VIAL IVP ×2 (04:39→20:50)
[2025-03-21] MEDS: Normal Saline Flush 10 ML SYR IVP ×5 (06:24→20:23)
[2025-03-21 07:17] LABS: HCT 22.9 % (36.0-46.0); HGB 7.7 g/dL (11.2-15.7); MCH 27.4 pg (27.0-33.0); MCHC 33.6 % (32.0-36.0); MCV 82 fL (80-95); MPV 9.3 fL (8.0-11.0); Platelet Count 258 10^3/uL (130-400); RBC 2.81 10^6/uL (3.93-5.22); RDW 14.2 % (11.7-14.6); RDW-SD 41.9 fL; WBC 15.81 10^3/uL (4.4-10.8)
[2025-03-21 07:27] LABS: INR 1.2 (0.9-1.1); Prothrombin Time 12.0 sec (9.1-11.1)
[2025-03-21 07:45] LABS: Iron 15 ug/dL (50-170); Total Iron Binding Capacity 215 ug/dL (250-450); Transferrin Sat 7 % (15-50)
[2025-03-21 07:47] LABS: ALT 30 U/L (14-59); AST 22 U/L (15-37); Albumin 1.8 g/dL (3.4-5.0); Alkaline Phosphatase 71 U/L (46-116); Anion Gap 8.6 mmol/L (3-11); BUN 42 mg/dL (7-18); Bilirubin, Total 0.3 mg/dL (0.2-1.0); CO2 26.4 mmol/L (21.0-32.0); Calcium 8.1 mg/dL (8.5-10.1); Chloride 109 mmol/L (98-107); Estimated GFR 46.41 (mL/min/1.73m2); Glucose 147 mg/dL (74-106); Potassium 3.4 mmol/L (3.5-5.1); Sodium 144 mmol/L (136-145); Total Protein 5.3 g/dL (6.4-8.2)
[2025-03-21] MEDS: Heparin 5,000 UNITS/ML VIAL 5000 UNITS SC ×2 (07:54→20:21)
[2025-03-21] MEDS: PIPERACILLIN/TAZO 3.375 GM in Normal Saline 50 ML IVPB ×3 (10:31→23:03)
--- NOTE | 2025-03-21 13:47 | W.PM.PROGNOT ---
Date of Service Date of service: 03/21/25 Time of Service: 13:47 Assessment and Plan Assessment and plan (1) Perforated bowel: Status: Acute Assessment and plan: S/p laparotomy/ostomy placement night of March 19 Postoperative care in ICU On IV pip/tazo, continue on this given she presented looking septic with peritonitis See below re: pain control and OUD She remains tachycardic since surgery, will give additional fluid bolus to see if responsive vs pain or withdrawal, likely multifactorial. BP stable. WBC decreasing Surgery is primary, managing post-operative care. 03/21/25 Pt does have an elevation in her wbc from 12.68->15.81. Most likely reactive in nature. Continue to monitor and await input from GS (2) ALFREDO (acute kidney injury): Status: Acute Assessment and plan: Normal renal function at baseline CTA scan done before BMP resulted, contrast likely a factor Creatinine 4.5 on presention, she is making adequate urine and creatinine trending down. Renal dosing of medications, follow 03/21/25 GFR 13.57->23.14->46.41 cw rehydration and recheck in am (3) Opiate dependence, continuous: Status: Chronic Assessment and plan: using fentanyl daily per report. Our UDS isn't useful in this setting, would need specific send out, but won't mash filter cloth changer Given daily use, continue fentanyl drip, but added ketamine for additional non-opioid anesthesia. Once pain controlled, offer methadone vs buprenorphine for intermediate accountant treatment of OUD. If she prefers the latter I would use ultra low dose protocol with cross titration while giving opioid agonist. also address issues of mood, contraception prior to discharge. (4) Crohn disease: Status: Chronic Assessment and plan: No treatment for approximately 7 years Unclear if this was cause of perforation, await pathology. Outpatient followup after recovery from partial colectomy (5) DVT prophylaxis: Status: Acute Assessment and plan: on heparin q 12 with renal failure, transition to LMWH once improved, for less shots 03/21/25 Will plan to dc on lovenox (6) Hypokalemia: Status: Inactive Assessment and plan: supplement IV, conservatively given ALFREDO. Follow. cw replacement (7) Anemia: Status: Chronic Assessment and plan: In setting of acute illness, surgery. Was normal in January,so likely acute blood loss get iron/tibc with labs to see if supplement would benefit. 03/21/25 iron significantly low (15) will start venofer (8) Elevated AST (SGOT): Status: Acute Assessment and plan: In setting of acute illness. INR also slightly elevated, follow both to assess liver function. Plts okay suggesting no cirrhosis, though albumin low. Given OUD, get repeat hepatitis B/C/HIV with labs (9) Tachycardia with hypertension: Status: Acute Assessment and plan: will add low dose metoprolol (10) Elevated brain natriuretic peptide (BNP) level: Status: Acute Assessment and plan: check echo Subjective Subjective Interval history since last seen: Pt seen and examined in her room this am. Resting comfortably Exam Narrative Exam Narrative: General: resting comfortably HEENT: pupils wide (~5mm) bilaterally. CV: tachycardic, regular. no murmur Resp: CTAB anterior/laterally. mildly tachypneic, no rales Abd: minimal BS, slightly firm, diffusely tender, incision with dressing intact, ostomy with empty bag, stoma pink MSK: 1+ pitting edema BLE Objective Last Vital Signs Temp 37.2 C 03/21/25 12:18 Pulse 122 H 03/21/25 10:10 Resp 25 H 03/21/25 10:10 BP 144/88 H 03/21/25 10:01 Pulse Ox 98 03/21/25 11:10 Laboratory Results - last 24 hr 03/20/25 03/21/25 14:30 06:52 WBC 15.81 H RBC 2.81 L Hgb 7.7 L Hct 22.9 L MCV 82 MCH 27.4 MCHC 33.6 RDW 14.2 Plt Count 258 MPV 9.3 PT 12.0 H INR 1.2 H Sodium 138 144 Potassium 3.2 L 3.4 L Chloride 102 109 H Carbon Dioxide 23.7 26.4 Anion Gap 12.3 H 8.6 BUN 62 H 42 H Creatinine 2.5 H 1.4 H D Est GFR (CKD-EPI 2020) 23.14 46.41 Glucose 215 H 147 H Calcium 8.0 L 8.1 L Iron 15 L TIBC 215 L Transferrin % Sat 7 L Total Bilirubin 0.3 AST 22 ALT 30 Alkaline Phosphatase 71 Total Protein 5.3 L Albumin 1.8 L Time Spent with Patient Time Spent with Patient: 35-49 minutes Time was spent: preparing to see the patient(eg.review tests), obtaining and/or reviewing separately otained hiistory, ordering medications,tests, procedures, referring, communicating with other health home care and home health aides teacher, indepentently interpreting results, counseling the patient and care coordination
[2025-03-21 14:30] LABS: HGB 8.1 g/dL (11.2-15.7)
--- NOTE | 2025-03-21 15:05 | CMPROGNOTE_ITS ---
Date of service: 03/21/25 Time of Service: 15:05 Care Management Progress Note Progress Note Text Progress Note Text: Shania was lying in bed awake and appeared much more comfortable than she was yesterday, when CM arrived. She was accompanied by her mom Annelise, who reports her daughter will visit her today. Shania's epidural was d/c yesterday and Ketamine and Fentanyl drip continue to run. Shania is on 2L O2 NC but took this and blood pressure cuff off for comfort. CM briefly discussed substance misuse use recovery options, but Shania was not open to these at this time. CM will prompt another discussion when patient does not have company. CM will continue to fol low. Discharge Potential Discharge Needs: PCP F/U Appt and Surgical F/U Appt Anticipated Barriers to Discharge: Medical Status Patient/Family Education Needs: Review discharge instructions, discuss Ask Me Three Transportation: Private vehicle Plan: Anticipate, Shania will be discharged home, once medically ready. Shania has begun establishing care with PCP Dr. Rueda. She should follow up with this PCP, surgical team and plan of care. Shania will transport via private vehicle by family. CM will continue to follow. Social Determinants of Health Screening Will the Patient Participate in the Screening?: Declined to provide Do you worry about having a steady place to live?: no
[2025-03-21] MEDS: ACETAMINOPHEN 1,000 MG/100 ML BAG 400 MG IVPB (15:35)
[2025-03-21] MEDS: POTASSIUM CHLORIDE/0.9% NACL 1,000 ML 100 MEQ IV (16:02)
--- NOTE | 2025-03-21 17:59 | PGE_ITS ---
Date of Service Date of service: 03/21/25 Time of Service: 17:59 Assessment and Plan Assessment and plan (1) Perforated bowel: Status: Acute Assessment and plan: Although her hemoglobin was down a little bit this morning, it seems to have plateaued as this afternoon's is 8.1. Clinically, I have a low index of suspicion for active bleeding, and I suspect this is more dilutional from all the drips and medications that she has been receiving rather than actual blood loss. I think it is fine to advance to some sips of clears today and see how she tolerates that. I am a little bit worried about the hiccups, but again, she is not at all distended so I'm hopeful she will tolerate this. This will also give us the opportunity to start some medications by mouth as well. Hopefully, we can start to turn down the opioid drip, as that is probably contributing to some element of GI dysmotility. Subjective Subjective Interval history since last seen: Shania is more awake this afternoon, and a little more engaged in the conversation. She says she is feeling okay. She says she has abdominal pain, but it certainly seems better than yesterday and the day before. She has a few hiccups, but she denies any nausea. Exam GI Other: Her abdomen is soft and nondistended. Stoma is pink, patent, but there is no meaningful drainage yet. Surgical drain is seropurulent Objective Last Vital Signs Temp 98.8 F 03/21/25 17:00 Pulse 122 H 03/21/25 10:10 Resp 25 H 03/21/25 10:10 BP 144/88 H 03/21/25 10:01 Pulse Ox 98 03/21/25 11:10 Laboratory Results - last 24 hr 03/21/25 03/21/25 06:52 14:20 WBC 15.81 H RBC 2.81 L Hgb 7.7 L 8.1 L Hct 22.9 L MCV 82 MCH 27.4 MCHC 33.6 RDW 14.2 Plt Count 258 MPV 9.3 PT 12.0 H INR 1.2 H Sodium 144 Potassium 3.4 L Chloride 109 H Carbon Dioxide 26.4 Anion Gap 8.6 BUN 42 H Creatinine 1.4 H D Est GFR (CKD-EPI 2020) 46.41 Glucose 147 H Calcium 8.1 L Iron 15 L TIBC 215 L Transferrin % Sat 7 L Total Bilirubin 0.3 AST 22 ALT 30 Alkaline Phosphatase 71 Total Protein 5.3 L Albumin 1.8 L Time Spent with Patient Time Spent with Patient: 35-49 minutes Time was spent: preparing to see the patient(eg.review tests), referring, communicating with other health reproductive healthcare assistant, indepentently interpreting results and counseling the patient
[2025-03-21 18:53] LABS: Hepatitis C Ab w Rflx HCV PCR Negative (Negative)
[2025-03-21 19:30] LABS: HBs Antibody, Quant <3.1 mIU/mL (See Note); Hepatitis B Surface Antigen Negative (Negative)
[2025-03-21 19:30] LABS: HIV-1/2 Ag & Ab Screen Negative (Negative)
[2025-03-22] VITALS (103 sets, daily range): BP systolic 69–142; BP diastolic 48–99; PULSE 65–145; RESP 15–38; TEMP 37–38; O2SAT 87–100
[2025-03-22] MEDS: Prochlorperazine 10 MG/2 ML VIAL IVP ×2 (00:02→22:23)
[2025-03-22] MEDS: POTASSIUM CHLORIDE/0.9% NACL 1,000 ML 100 MEQ IV ×2 (00:35→10:11)
[2025-03-22] MEDS: Calcium Carbonate *TUMS* 500 MG CHEW 1000 MG PO ×2 (02:03→16:24)
[2025-03-22] MEDS: LORazepam 20 MG/10 ML VIAL IVP ×2 (02:32→05:36)
[2025-03-22] MEDS: Normal Saline Flush 10 ML SYR IVP ×8 (02:33→22:16)
[2025-03-22] MEDS: PIPERACILLIN/TAZO 3.375 GM in Normal Saline 50 ML IVPB ×4 (04:31→22:16)
[2025-03-22 06:51] LABS: Abs Immature Grans 1.15 10^3/uL (0.0-0.06); HCT 23.7 % (36.0-46.0); HGB 7.6 g/dL (11.2-15.7); MCH 27.0 pg (27.0-33.0); MCHC 32.1 % (32.0-36.0); MCV 84 fL (80-95); MPV 8.8 fL (8.0-11.0); Platelet Count 325 10^3/uL (130-400); RBC 2.81 10^6/uL (3.93-5.22); RDW 14.9 % (11.7-14.6); RDW-SD 45.9 fL; WBC 18.37 10^3/uL (4.4-10.8)
[2025-03-22 07:24] LABS: ALT 26 U/L (14-59); AST 20 U/L (15-37); Albumin 1.8 g/dL (3.4-5.0); Alkaline Phosphatase 106 U/L (46-116); Anion Gap 10.5 mmol/L (3-11); BUN 32 mg/dL (7-18); Bilirubin, Total 0.4 mg/dL (0.2-1.0); CO2 26.5 mmol/L (21.0-32.0); Calcium 8.4 mg/dL (8.5-10.1); Chloride 111 mmol/L (98-107); Estimated GFR 78.86 (mL/min/1.73m2); Glucose 115 mg/dL (74-106); Potassium 3.4 mmol/L (3.5-5.1); Sodium 148 mmol/L (136-145); Total Protein 5.8 g/dL (6.4-8.2)
--- NOTE | 2025-03-22 07:39 | W.PM.PROGNOT ---
Date of Service Date of service: 03/22/25 Time of Service: 07:39 Assessment and Plan Assessment and plan (1) Perforated bowel: Status: Acute Assessment and plan: Pain is currently well controlled with opioid drip. HR and pulse continue to be elevated. Awaiting for AM labs to evaluate Hgb, WBC etc. Colostomy, has started with stool output. Thick, dark brown stool. Tolerating clear liquids so far, will continue this. Encouraged sitting in the chair and small walks as well when tolerated. Will continue to monitor pain and labs. Ideally, will be able to start transitioning to PO medications and away from the opioid drip. Pt seen and exmained. Reviewed Dee Dee Karimi's note and I agree. Pt with an incident this morning that involved intake of substances from her purse that resulted in an obtunded and physiologically declined acute change. Narcotic drip discontinued due to suspicion that she may have taken opiates from her purse. She recovered to normal vital signs and has been resting comfortably today. Currently she feels okay. She is hungry. Tolerating CLD and wonders if she can have more. No gas from colostomy though there has been thick loose stool. She has been out of bed once with the nurse today. Exam with alert patient who is calm and cooperative. EOMI, MMM normal resp effort normal peripheral perfusion abdomen is softly distended with a pink stoma in the LUQ. Bag is decompressed with brown-black effluent in bag, no blood. midline GAR[place] 7 dressing intact, clean and dry. Drain RLQ with serosanguinous fluid. trace periph edema A/P: POD 2 s/p ex lap, partial colectomy and end colostomy for perforated colon with purulent peritonitis. septic shock resolved. Perforated colon purulent peritonitis w septic shock on presentation - septic shock resolved. ALFREDO - resolved hypokalemia home use of opiates and benzodiazepines hypotension - resolved substance abuse chronic constipation Progressing well. Stoma with some loose stools out but minimal gas. Will allow full liquids but wait for gas from stoma before regular diet. expect distention will improve with flatus through stoma. continue IV abx for purulent peritonitis. mobilize patient with PT consult. discontinue multani catheter discontinue maintenance IVF replace potassium discontinue heparin dvt ppx and start lovenox now that renal function is normal. discontinue ketamine drip discontinue fentanyl drip start fentanyl IV, dose discussed w nursing and we will adjust as needed as the patient becomes more active. Drip dose was 365mcg per hour I will not start with that dose will start with 100mcg and titrate frequency and dose as needed. can add IV tylenol and other adjuncts as well. Her tolerance to opiates makes optimizing pain control challenging. Pt obtained some kind of intoxicating substance from her purse this morning that resulted in significant hemodynamic changes. Will monitor patient and keep her belongings outside of the room. She noted severe anxiety to me and said she hallucinated last night about a circus outside her room. I think its a bit early for benzo withdrawal but it is possible this contributed. Starting her reported home med clonazepam 1mg BID. She is exhibiting behaviors typical of opiate and benzo addiction and it is consequential to her care. Will discuss w case management as we will need to address the concern for substance abuse and her safety. 3. Subjective Subjective Interval history since last seen: Arrive with Shania transferring into the chair with [facility] staff. She states she had a rough overnight, but otherwise is feeling okay this morning. She states that clear liquids went well and she is looking forward to a breakfast tray. Exam Const General: cooperative and comfortable Orientation: alert and oriented x3 Resp Effort & Inspection: normal respiratory effort, no audible wheezes and no cough GI Inspection: normal to inspection and non-distended Palpation: soft, guarding and tender Other: Dark brown liquid stool is noted in the colostomy. Other: Multani in place with light yellow urine in the bag. Objective Last Vital Signs Temp 37.9 C H 03/21/25 20:30 Pulse 121 H 03/22/25 05:30 Resp 27 H 03/22/25 05:30 BP 140/94 H 03/22/25 05:00 Pulse Ox 92 03/22/25 05:30 Laboratory Results - last 24 hr 03/21/25 03/21/25 03/22/25 06:52 14:20 06:03 Hgb 8.1 L Sodium 144 148 H Potassium 3.4 L 3.4 L Chloride 109 H 111 H Carbon Dioxide 26.4 26.5 Anion Gap 8.6 10.5 BUN 42 H 32 H Creatinine 1.4 H D 0.9 Est GFR (CKD-EPI 2020) 46.41 78.86 Glucose 147 H 115 H Calcium 8.1 L 8.4 L Iron 15 L TIBC 215 L Transferrin % Sat 7 L Total Bilirubin 0.3 0.4 AST 22 20 ALT 30 26 Alkaline Phosphatase 71 106 Total Protein 5.3 L 5.8 L Albumin 1.8 L 1.8 L Time Spent with Patient Time Spent with Patient: >50 minutes Time was spent: preparing to see the patient(eg.review tests), ordering medications,tests, procedures, referring, communicating with other health health care recruiter, counseling the patient and care coordination
[2025-03-22] MEDS: Heparin 5,000 UNITS/ML VIAL 5000 UNITS SC (07:43)
[2025-03-22 07:48] LABS: Immature Grans % 0.0 %; RBC Morphology Normal
--- NOTE | 2025-03-22 11:57 | CMPROGNOTE_ITS ---
Date of service: 03/22/25 Time of Service: 12:01 Care Management Progress Note Progress Note Text Progress Note Text: Shania was lying in bed and did not awake to her name when CM met with her. She currently has an oxymask. CM left [facility] Drug [facility] Guide, and [place] [facility] [employer] phamphlets. Per report, Shania snorted a white substance in the room this morning. Per RN, she has been nonresponive for the morning follow this event. CM will coordinate [facility] MH screening, if appropriate. CM will continue to follow. Discharge Potential Discharge Needs: PCP F/U Appt and Surgical F/U Appt Anticipated Barriers to Discharge: Medical Status Patient/Family Education Needs: Review discharge instructions, discuss Ask Me Three Transportation: Private vehicle Plan: Anticipate, Shania will be discharged home, once medically ready. Shania has begun establishing care with PCP Dr. Rueda. She should follow up with this PCP, surgical team and plan of care. Shania has been given alcohol and drug recovery information pamphlets. Shania will transport via private vehicle by family. CM will continue to follow. Social Determinants of Health Screening Will the Patient Participate in the Screening?: Declined to provide Do you worry about having a steady place to live?: no
[2025-03-22] MEDS: Enoxaparin 40 MG/0.4 ML SYR SC (13:53)
[2025-03-22] MEDS: Potassium Chloride 20 MEQ TABCR 40 MEQ PO (13:54)
[2025-03-22] MEDS: fentaNYL 100 MCG/2 ML VIAL IVP ×5 (14:08→22:51)
--- NOTE | 2025-03-22 15:17 | PT.INIE ---
PT Notes Visit Reasons: peritonitis Physical Therapy Inpatient Initial Evaluation Date: 03/22/2025 Referring Doctor: Dariana Marvin MD PT Orders: PT CONSULT: Limited Ability Precautions: Fall. Standard. Activity as tolerated. Patient Profile/Admitting Diagnosis: Shania is a 49-year-old female with diagnosis of perforated bowel, septic shock with peritonitis and is status post exploratory laparotomy with segmental colon resection and end colostomy creation on postoperative day 2. PMHX: All Active Problems (Updated 03/19/25 @ 21:51 by Robinson Ruiz MD) Peritonitis (Acute) Weight loss (Acute) Postcoital urinary tract infection (Acute) Contraception (Acute) 08/2020. Declined LARC. Smokes tobacco. Rx for norethindrone 0.35 mg daily.History of tobacco abuse (Acute) Hx of herpes genitalis (Chronic) c/s report makes mention of vulvar herpes outbreak as being the cause of pt's c/s.Arthralgia (Chronic ~08/1996) related to remicaid treatment and crohn'sCrohn disease (Chronic) Depression (Chronic) Opiate dependence, continuous (Chronic) Medical History Rheumatoid arthritis delivery delivered Social History/Home Situation: Lives with 6-year-old daughter. Does not work currently. Daughter lives close by and has been a great support. has 4 steps to enter with rails on B sides. Independent with all aspects of ADLs LICENSED LAND SURVEYOR. Equipment Owned/DME: None Subjective: Pain level up to 8/10 at surgical incision with mobilization OOB today. Mildly lightheaded but was motivated to try get out of bed and get moving. Nurse Yisel aware of pain response and closely managing. Objective: General Observation: Surgical incision covered with dressing. STAR drain in place. Telemetry monitoring in place. B hands and B forearm with grade 1 edema. Mental Status: Mildly drowsy and oriented as to person, place, time, and purpose. Able to pay attention, focus, and respond appropriately. Pain: As above Vital Signs: Closely monitored via tele ROM: Right Upper Extremity: Shoulder Flexion WFL. Shoulder abduction WFL. Elbow flexion WFL. Wrist flexion WFL. Functional opening and closing of hand WFL. Left Upper Extremity: Shoulder Flexion WFL. Shoulder abduction WFL. Elbow flexion WFL. Wrist flexion WFL. Functional opening and closing of hand WFL. Right Lower Extremity: Hip flexion WFL. Hip abduction WFL. Knee flexion WFL. Ankle dorsiflexion WFL. Ankle plantarflexion WFL. Left Lower Extremity: Hip flexion WFL. Hip abduction WFL. Knee flexion WFL. Ankle dorsiflexion WFL. Ankle plantarflexion WFL. Strength: Right Upper Extremity: Shoulder flexors 4/5. Shoulder abductors 4/5. Elbow flexors 5/5. Elbow extensors 4/5. Mathematics Improvement Teacher strong. Left Upper Extremity: Shoulder flexors 4/5. Shoulder abductors 4/5. Elbow flexors 5/5. Elbow extensors 4/5. Mathematics Improvement Teacher strong. Right Lower Extremity: Hip flexors 4-/5. Hip abductors 4-/5. Knee flexors 4/5. Knee extensors 4-5/5. Ankle dorsiflexors 5/5. Ankle plantarflexors 5/5. Left Lower Extremity: Hip flexors 4-/5. Hip abductors 4-/5. Knee flexors 4/5. Knee extensors 4-5/5. Ankle dorsiflexors 5/5. Ankle plantarflexors 5/5. Bed Mobility/Transfers: Minimal cueing provided for use of B hands as needed for support, movement sequence, AD management, and posture to reduce fall risk and minimize pain report Supine to sit moderate assist with HOB at 30 degrees Sit to stand minimal assist of 2 with FWW Stand to sit minimal assist with FWW Bed to chair minimal assist of 2 with FWW Gait: 6 small steps from edeg of bed to bedside chair using front-wheeled walker with minimal assist of PT and contact guard assist of Nurse Morillo. Pain level shot up to 8/10. Tejal cues given for AD management, B hand placement, and weight distribution to minimize pain report and reduce fall Rafia Galvez MD risk. Balance: Static Sitting: Normal Dynamic Sitting: Normal Static Standing: Fair Dynamic Standing: Fair Special Tests: Mobility Limitations Standardized Measure [facility] AM-PAC 6 clicks Basic Mobility Inpatient Short Form: Raw Score: 11 CMS Score: 72% deficit Informed Consent/Education: Patient was instructed in purpose of PT consult and plan of care. Agreeable to proceed with established PT POC to achieve personal goals. Assessment: Pain was the primary limiting factor to mobility performance and activity tolerance. Patient was motivated to work through pain this afternoon from supine to walking a short distance in her room. Patient's pain level crept up to 8/10 and she was turning pale which was why Nurse Yisel was requested to come and help for safety. Patient was able to slowly make her way from the bed onto the chair with rests provided to prevent further increase in pain report. She hopes to regain independence to allow her to take care of her 6-year-old at home.safely. Back Patient presents with clinical signs and symptoms consistent with current/admitting diagnoses that have resulted to mobility limitations, gait instability, generalized weakness, and overall ADL decline as demonstrated by the following impairment level findings: 1. Decreased strength to B hip and knee major muscle groups 2. Impaired standing balance 3. Impaired activity tolerance 4. Pian level up to 8/10 at surgical site Impairments are contributing to the following functional limitations: 1. Decline in bed mobility skills 2. Decline in transfer skills 3. Difficulty with ambulation without assistive device and physical assistance 4. Increased completion time for mobility ADL performance 5. Increased risk for falls 6. Difficulty with managing steps alone safely Patient is assessed as a [id number] moderate complexity based on the following: History: 49-year-old female with past medical history as indicated above Examination: Demonstrable impairment in strength, balance, and mobility level with underlying impairments and functional limitations as exhibited above as well as deficit score of 72% utilizing the [facility] Mobility Inpatient Short Form Presentation: Evolving Decision Makin moderate complexity Goals: Goals X1 week 1. Supine-Sit independent 2. Sit-Supine independent 3. Sit-Stand independent 4. Stand-Sit independent 5. Bed-Chair independent 6. Chair-Bed independent 7. Independent gait on level surface with use of no device] for at least 300 feet without report of pain nor dyspnea 8. Independent stair negotiation while holding onto B rails for at least 5 steps without report of pain nor dyspnea 9. Independent with home exercise program 10. Good static and dynamic standing balance/tolerance Plan of Care/Treatment Plan: 1-2x/day, 7 days/week x 1 week. Plan of care has been reviewed with the LICENSED LAND SURVEYOR providing the service under Physical Therapy direction. Initiate Physical Therapy intervention for pain management as needed, strengthening, bed mobility, transfers, gait, stairs, balance training, and use of assistive device. DISCHARGE RECOMMENDATIONS: MEDARDO PT. May need FWW upon discharge. TREATMENT CODE/TIME: 10912 x 23, minutes for 1 unit (15: 17?15: 50). Thank you for the opportunity to participate in the care of this patient. Estrella Scott PT, DPT, CLT [facility] [place], [place]
--- NOTE | 2025-03-22 16:21 | PGE_ITS ---
Date of Service Date of service: 03/22/25 Time of Service: 16:21 Assessment and Plan Assessment and plan (1) Perforated bowel: Status: Acute Assessment and plan: S/p laparotomy/ostomy placement night of March 19 Postoperative care in ICU On IV pip/tazo, continue on this given she presented looking septic with peritonitis See below re: pain control and OUD She remains tachycardic since surgery, will give additional fluid bolus to see if responsive vs pain or withdrawal, likely multifactorial. BP stable. WBC decreasing Surgery is primary, managing post-operative care. 03/21/25 Pt does have an elevation in her wbc from 12.68->15.81. Most likely reactive in nature. Continue to monitor and await input from GS 03/22/25 wbc continues to trend up but again, most likely reactive. D/W GS who agrees. Pt remains on zosyn (2) ALFREDO (acute kidney injury): Status: Acute Assessment and plan: Normal renal function at baseline CTA scan done before BMP resulted, contrast likely a factor Creatinine 4.5 on presention, she is making adequate urine and creatinine trendi ng down. Renal dosing of medications, follow 03/21/25 GFR 13.57->23.14->46.41 cw rehydration and recheck in am 03/22/25 GFR much improved (3) Opiate dependence, continuous: Status: Chronic Assessment and plan: using fentanyl daily per report. Our UDS isn't useful in this setting, would need specific send out, but won't private branch exchange repairer Given daily use, continue fentanyl drip, but added ketamine for additional non- opioid anesthesia. Once pain controlled, offer methadone vs buprenorphine for shelter treatment of OUD. If she prefers the latter I would use ultra low dose protocol with cross titration while giving opioid agonist. also address issues of mood, contraception prior to discharge. 03/22/25 D/W GS who will manage pain (4) Crohn disease: Status: Chronic Assessment and plan: No treatment for approximately 7 years Unclear if this was cause of perforation, await pathology. Outpatient followup after recovery from partial colectomy (5) DVT prophylaxis: Status: Acute Assessment and plan: on heparin q 12 with renal failure, transition to LMWH once improved, for less shots 03/21/25 Will plan to dc on lovenox (6) Hypokalemia: Status: Inactive Assessment and plan: supplement IV, conservatively given ALFREDO. Follow. cw replacement 03/22/25 k still a bit low at 3.4 with 3.5 being wnl (7) Anemia: Status: Chronic Assessment and plan: In setting of acute illness, surgery. Was normal in January,so likely acute blood loss get iron/tibc with labs to see if supplement would benefit. 03/21/25 iron significantly low (15) will start venofer 03/22/25 D/W GS, will start venofer once more iv access is obtained (8) Elevated AST (SGOT): Status: Acute Assessment and plan: In setting of acute illness. INR also slightly elevated, follow both to assess liver function. Plts okay suggesting no cirrhosis, though albumin low. Given OUD, get repeat hepatitis B/C/HIV with labs (9) Tachycardia with hypertension: Status: Acute Assessment and plan: will add low dose metoprolol (10) Elevated brain natriuretic peptide (BNP) level: Status: Acute Assessment and plan: check echo Subjective Subjective Interval history since last seen: NS report pt with what appears to be drugs and drug paraphernalia in her room. This apparent contraband was given to our security services. Pt quite somnolent this am Exam Narrative Exam Narrative: General: somnolent HEENT: PERRLAB CV: tachycardic, regular. no murmur Resp: CTAB anterior/laterally. mildly tachypneic, no rales Abd: minimal BS, slightly firm, diffusely tender, incision with dressing intact, ostomy with empty bag, stoma pink MSK: 1+ pitting edema BLE Objective Last Vital Signs Temp 37 C 03/22/25 08:42 Pulse 115 H 03/22/25 15:45 Resp 21 03/22/25 15:45 BP 131/84 03/22/25 15:45 Pulse Ox 97 03/22/25 15:45 Laboratory Results - last 24 hr 03/21/25 03/21/25 03/22/25 04:36 06:52 06:03 WBC 18.37 H RBC 2.81 L Hgb 7.6 L Hct 23.7 L MCV 84 MCH 27.0 MCHC 32.1 RDW 14.9 H Plt Count 325 MPV 8.8 Immature Gran % 0.0 Neutrophils % 71.0 Lymphocytes % 21.0 Atypical Lymphs % 0 Monocytes % 4.0 Eosinophils % 0.0 Basophils % 0.0 Metamyelocytes % 4 Nucleated RBC % 0.0 Absolute Neutrophils 13.04 H Absolute Lymphocytes 3.86 H Absolute Monocytes 0.73 Absolute Eosinophils 0.00 Absolute Basophils 0.00 RBC Morphology Normal Sodium 148 H Potassium 3.4 L Chloride 111 H Carbon Dioxide 26.5 Anion Gap 10.5 BUN 32 H Creatinine 0.9 Est GFR (CKD-EPI 2020) 78.86 Glucose 115 H Calcium 8.4 L Magnesium Total Bilirubin 0.4 AST 20 ALT 26 Alkaline Phosphatase 106 Total Protein 5.8 L Albumin 1.8 L Hep Bs Antigen Negative Hep Bs Antibody Negative Hep Bs Antibody, Quant <3.1 Hep B Core Total Ab Negative Hepatitis C Antibody Negative HIV 1&2 Ag/Ab, 4th Gen Negative 03/22/25 03/22/25 18:00 Unknown WBC RBC Hgb Hct MCV MCH MCHC RDW Plt Count MPV Immature Gran % Neutrophils % Lymphocytes % Atypical Lymphs % Monocytes % Eosinophils % Basophils % Metamyelocytes % Nucleated RBC % Absolute Neutrophils Absolute Lymphocytes Absolute Monocytes Absolute Eosinophils Absolute Basophils RBC Morphology Sodium Potassium Cancelled Cancelled Chloride Carbon Dioxide Anion Gap BUN Creatinine Est GFR (CKD-EPI 2020) Glucose Calcium Magnesium Cancelled Total Bilirubin AST ALT Alkaline Phosphatase Total Protein Albumin Hep Bs Antigen Hep Bs Antibody Hep Bs Antibody, Quant Hep B Core Total Ab Hepatitis C Antibody HIV 1&2 Ag/Ab, 4th Gen Time Spent with Patient Time Spent with Patient: 25-34 minutes Time was spent: preparing to see the patient(eg.review tests), obtaining and/or reviewing separately otained hiistory, ordering medications,tests, procedures, referring, communicating with other health progressive care manager, indepentently interpreting results, counseling the patient and care coordination
[2025-03-22] MEDS: Acetaminophen 500 MG TAB 1000 MG PO (16:24)
[2025-03-22] MEDS: clonazePAM 1 MG TAB PO ×3 (16:43→22:05)
[2025-03-22] MEDS: Zolpidem 5 MG TAB PO (19:30)
[2025-03-22] MEDS: cloNIDine 0.1 MG TAB PO (19:30)
[2025-03-22] MEDS: oxyCODONE 10 MG TAB PO (19:30)
[2025-03-22] MEDS: Docusate Sodium 100 MG CAP PO (19:30)
[2025-03-22] MEDS: oxyCODONE 15 MG TAB PO (22:05)
[2025-03-22] MEDS: ACETAMINOPHEN 1,000 MG/100 ML BAG 400 MG IVPB (22:16)
[2025-03-23] VITALS (47 sets, daily range): BP systolic 128–142; BP diastolic 85–101; PULSE 84–150; RESP 21–44; TEMP 36.4–37.5; O2SAT 90–100
[2025-03-23] MEDS: Normal Saline Flush 10 ML SYR IVP ×7 (00:10→23:25)
[2025-03-23] MEDS: LORazepam 20 MG/10 ML VIAL IVP ×6 (00:18→23:21)
[2025-03-23] MEDS: fentaNYL 100 MCG/2 ML VIAL IVP ×6 (01:00→20:07)
[2025-03-23] MEDS: oxyCODONE 15 MG TAB PO ×5 (01:01→23:23)
[2025-03-23] MEDS: ACETAMINOPHEN 1,000 MG/100 ML BAG 400 MG IVPB ×3 (03:13→20:41)
[2025-03-23] MEDS: PIPERACILLIN/TAZO 3.375 GM in Normal Saline 50 ML IVPB ×4 (04:12→21:55)
[2025-03-23 06:57] LABS: Abs Immature Grans 2.26 10^3/uL (0.0-0.06); MCH 28.1 pg (27.0-33.0); MCHC 33.7 % (32.0-36.0); MCV 84 fL (80-95); MPV 8.9 fL (8.0-11.0); Platelet Count 334 10^3/uL (130-400); RBC 2.42 10^6/uL (3.93-5.22); RDW 14.9 % (11.7-14.6); RDW-SD 46.1 fL; WBC 17.27 10^3/uL (4.4-10.8)
[2025-03-23 07:19] LABS: ALT 38 U/L (14-59); AST 38 U/L (15-37); Albumin 1.7 g/dL (3.4-5.0); Alkaline Phosphatase 136 U/L (46-116); Anion Gap 11.0 mmol/L (3-11); BUN 22 mg/dL (7-18); Bilirubin, Total 0.4 mg/dL (0.2-1.0); CO2 24.0 mmol/L (21.0-32.0); Calcium 7.9 mg/dL (8.5-10.1); Chloride 108 mmol/L (98-107); Estimated GFR 90.83 (mL/min/1.73m2); Glucose 111 mg/dL (74-106); Potassium 3.0 mmol/L (3.5-5.1); Sodium 143 mmol/L (136-145); Total Protein 5.4 g/dL (6.4-8.2)
[2025-03-23 07:30] LABS: Magnesium 1.4 mg/dL (1.8-2.4)
[2025-03-23 07:47] LABS: Microcytosis 2+
[2025-03-23 07:49] LABS: HCT 20.2 % (36.0-46.0); HGB 6.8 g/dL (11.2-15.7)
[2025-03-23] MEDS: POTASSIUM CHLORIDE 20 MEQ/100 ML BAG 50 MEQ IV_INF ×2 (08:38→10:40)
[2025-03-23] MEDS: Potassium Chloride 20 MEQ TABCR 40 MEQ PO ×3 (08:40→20:20)
[2025-03-23] MEDS: Enoxaparin 40 MG/0.4 ML SYR SC (08:40)
[2025-03-23] MEDS: MAGNESIUM SULFATE 4 GM/100 ML BAG IV_INF (08:40)
[2025-03-23] MEDS: Docusate Sodium 100 MG CAP PO ×2 (08:41→20:23)
[2025-03-23] MEDS: clonazePAM 1 MG TAB PO ×3 (08:41→20:25)
[2025-03-23 12:13] LABS: HCT 23.3 % (36.0-46.0); HGB 7.5 g/dL (11.2-15.7); MCH 27.0 pg (27.0-33.0); MCHC 32.2 % (32.0-36.0); MCV 84 fL (80-95); MPV 8.8 fL (8.0-11.0); Platelet Count 374 10^3/uL (130-400); RBC 2.78 10^6/uL (3.93-5.22); RDW 14.9 % (11.7-14.6); RDW-SD 46.2 fL; WBC 20.33 10^3/uL (4.4-10.8)
--- NOTE | 2025-03-23 12:39 | W.PM.PROGNOT ---
Date of Service Date of service: 03/23/25 Time of Service: 12:39 Assessment and Plan Assessment and plan (1) Perforated bowel: Status: Acute Assessment and plan: S/p laparotomy/ostomy placement night of March 19 Postoperative care in ICU On IV pip/tazo, continue on this given she presented looking septic with peritonitis See below re: pain control and OUD She remains tachycardic since surgery, will give additional fluid bolus to see if responsive vs pain or withdrawal, likely multifactorial. BP stable. WBC decreasing Surgery is primary, managing post-operative care. 03/21/25 Pt does have an elevation in her wbc from 12.68->15.81. Most likely reactive in nature. Continue to monitor and await input from GS 03/22/25 wbc continues to trend up but again, most likely reactive. D/W GS who agrees. Pt remains on zosyn 03/23/25 wound cultures show ECOLI with intermediate sensitivity to zosyn but with scant growth. Will reach out to GS to see about abx changes (2) ALFREDO (acute kidney injury): Status: Acute Assessment and plan: Normal renal function at baseline CTA scan done before BMP resulted, contrast likely a factor Creatinine 4.5 on presention, she is making adequate urine and creatinine trending down. Renal dosing of medications, follow 03/21/25 GFR 13.57->23.14->46.41 cw rehydration and recheck in am 03/22/25 GFR much improved 03/23/25 resolved (3) Opiate dependence, continuous: Status: Chronic Assessment and plan: using fentanyl daily per report. Our UDS isn't useful in this setting, would need specific send out, but won't environmental change analyst Given daily use, continue fentanyl drip, but added ketamine for additional non-opioid anesthesia. Once pain controlled, offer methadone vs buprenorphine for detention treatment of OUD. If she prefers the latter I would use ultra low dose protocol with cross titration while giving opioid agonist. also address issues of mood, contraception prior to discharge. 03/22/25 D/W GS who will manage pain (4) Crohn disease: Status: Chronic Assessment and plan: No treatment for approximately 7 years Unclear if this was cause of perforation, await pathology. Outpatient followup after recovery from partial colectomy (5) DVT prophylaxis: Status: Acute Assessment and plan: on heparin q 12 with renal failure, transition to LMWH once improved, for less shots 03/21/25 Will plan to dc on lovenox (6) Hypokalemia: Status: Inactive Assessment and plan: supplement IV, conservatively given ALFREDO. Follow. cw replacement 03/22/25 k still a bit low at 3.4 with 3.5 being wnl 03/23/25 potassium is lower today as well as mag (7) Anemia: Status: Chronic Assessment and plan: In setting of acute illness, surgery. Was normal in January,so likely acute blood loss get iron/tibc with labs to see if supplement would benefit. 03/21/25 iron significantly low (15) will start venofer 03/22/25 D/W GS, will start venofer once more iv access is obtained 03/23/25 Apparently the consult to picc team was not forwarded to the picc team (placed 03/21/25). Luckily the iron transfusion is not emergent/urgent. Can replace with po iron as well (8) Elevated AST (SGOT): Status: Acute Assessment and plan: In setting of acute illness. INR also slightly elevated, follow both to assess liver function. Plts okay suggesting no cirrhosis, though albumin low. Given OUD, get repeat hepatitis B/C/HIV with labs 03/23/25 hep b/c negative. HIV negative (9) Tachycardia with hypertension: Status: Acute Assessment and plan: will add low dose metoprolol 03/23/25 started (10) Elevated brain natriuretic peptide (BNP) level: Status: Acute Assessment and plan: check echo 03/23/25 echo ordered but not absolutely necessary as inpatient. Can do as outpatient if needed Subjective Subjective Interval history since last seen: PT seen and examined in her room this am. POC d/w GS Dr. Marvin who will downgrade pt to med/surg. Pt's not getting xfusion at this point. Much more alert Exam Narrative Exam Narrative: General: somnolent HEENT: PERRLAB CV: tachycardic, regular. no murmur Resp: CTAB anterior/laterally. mildly tachypneic, no rales Abd: minimal BS, slightly firm, diffusely tender, incision with dressing intact, ostomy with stool, MSK: 1+ pitting edema BLE Objective Last Vital Signs Temp 36.5 C 03/23/25 07:55 Pulse 103 H 03/23/25 10:01 Resp 32 H 03/23/25 10:01 BP 128/87 03/23/25 10:01 Pulse Ox 97 03/23/25 10:01 Laboratory Results - last 24 hr 03/22/25 03/22/25 03/23/25 18:00 Unknown 05:39 WBC 17.27 H RBC 2.42 L Hgb 6.8 L* Hct 20.2 L* MCV 84 MCH 28.1 MCHC 33.7 RDW 14.9 H Plt Count 334 MPV 8.9 Immature Gran % See Differential Neutrophils % 70.0 Band Neutrophils % 1 Lymphocytes % 20.0 Atypical Lymphs % 1 Monocytes % 3.0 Eosinophils % 0.0 Basophils % 0.0 Metamyelocytes % 3 Myelocytes % 2 Nucleated RBC % 1.0 H Absolute Neutrophils 12.26 H Absolute Lymphocytes 3.63 H Absolute Monocytes 0.52 Absolute Eosinophils 0.00 Absolute Basophils 0.00 RBC Morphology See Below Microcytosis 2+ Sodium 143 Potassium Cancelled Cancelled 3.0 L Chloride 108 H Carbon Dioxide 24.0 Anion Gap 11.0 BUN 22 H Creatinine 0.8 Est GFR (CKD-EPI 2020) 90.83 Glucose 111 H Calcium 7.9 L Magnesium Cancelled 1.4 L Total Bilirubin 0.4 AST 38 H ALT 38 Alkaline Phosphatase 136 H Total Protein 5.4 L Albumin 1.7 L 03/23/25 12:06 WBC 20.33 H RBC 2.78 L Hgb 7.5 L Hct 23.3 L MCV 84 MCH 27.0 MCHC 32.2 RDW 14.9 H Plt Count 374 MPV 8.8 Immature Gran % Neutrophils % Band Neutrophils % Lymphocytes % Atypical Lymphs % Monocytes % Eosinophils % Basophils % Metamyelocytes % Myelocytes % Nucleated RBC % Absolute Neutrophils Absolute Lymphocytes Absolute Monocytes Absolute Eosinophils Absolute Basophils RBC Morphology Microcytosis Sodium Potassium Chloride Carbon Dioxide Anion Gap BUN Creatinine Est GFR (CKD-EPI 2020) Glucose Calcium Magnesium Total Bilirubin AST ALT Alkaline Phosphatase Total Protein Albumin Time Spent with Patient Time Spent with Patient: 25-34 minutes Time was spent: preparing to see the patient(eg.review tests), obtaining and/or reviewing separately otained hiistory, ordering medications,tests, procedures, referring, communicating with other health landcare facilitator, indepentently interpreting results, counseling the patient and care coordination
--- NOTE | 2025-03-23 13:09 | PGE_ITS ---
Date of Service Date of service: 03/23/25 Time of Service: 12:00 Assessment and Plan Assessment and plan (1) Perforated bowel: Status: Acute Assessment and plan: POD 3 s/p ex lap, partial colectomy and end colostomy for perforated colon with purulent peritonitis. septic shock resolved. Perforated colon, purulent peritonitis w septic shock on presentation - septic shock resolved. Continue zosyn. blood cx from admission negative. peritoneal fluid cx w e coli. ALFREDO - resolved hypokalemia - replete 40meq IV KCL and 40mEq PO KCL, recheck in AM. Hypomagnesemia - making K replacement challenging. replete with 4g Mg sulfate today home use of opiates and benzodiazepines - home klonopin ordered, midday dose available here to reduce anxiety and try to keep her calm so she doesnt leave AMA. She has brought leaving up with nursing but has been able to be redirected to stay. hypotension - resolved, stable hemodynamics. substance abuse and post-op pain - discussed compassionately at length w patient today. Opiate use with unpredictable doses at home makes treating her post op pain challenging. She has tolerance to opiates and higher than typical dosages are required to get her comfortable. A detox-like reduction in dose is planned, and I told her I would gently reduce the opiate dose daily to help decrease the amount she is getting, while increasing and maximizing adjunctive therapies such as IV tylenol, ice packs, PT. She verbalized understanding. Right now she has 15mg of oxycodone (equivalent to two 7.5mg percocets minus the tylenol) every 3 hours. I intend to decrease the frequency over time. Will reduce fentanyl for breakthrough pain frequency today and plan change of oxycodone ttonight and tomorrow. Emphasized that over time her acute surgical and peritonitis pain WILL improve, and that managing her pain adequately and safely is a priority for her as much as it is any other patient. She agrees w the plan. I have discontinued clonidine which was to help w withdrawal symptoms, she did not tolerate it well. anxiety: home klonopin plus a midday dose available. chronic constipation on colace scheduled and miralax prn. stool output adequate and soft at this time. anemia - multifactorial. Recheck today is 7.5 so I will hold on transfusion. No evidence of active bleeding. dvt ppx with lovenox transfer out of ICU -continue telemetry. continue to keep her personal belongings out of her room because of the events of morning. If she exhibitis risky behavior I will place her on 1:1 supervision. Subjective Subjective Interval history since last seen: No major overnight events. Pt had severe anxiety beginning in the evening and occuring inermittantly. she did not hallucinate last night, says she feels better w ketamine drip off. Pain was not well controlled off fentanyl drip so meds adjusted and she feels we have good control of her pain now. Fentanyl 100mcg for breakthrough pain and oxycodone 15mg q3h prn pain score 5 and above. We discussed drug use at home. She tells me she has been addicted for years and has been on and off methadone for it in the past. she says she has trauma from early life that got her started in it. She says she uses crushed pills she buys on the street and snorts them. She denies IV drug use. I asked about her home life, patient lives at home with her 5 year old and with the father of the five year old. He does not use drugs but is aware of her drug use. She says he is always available to care for their daughter and her safety at home has never been compromised. she says she wishes she could stop using drugs. She has quit and relapsed in the past. hgb 6.5 this AM. recheck was 7.5. Exam Narrative Exam Narrative: awake, NAD, upright at edge of bed calm, comfortable, cooperative normal resp effort, off oxygen abdomen is soft, nondistended, pink stoma with gas and stool in bag trace peripheral edema Const General: cooperative and comfortable Orientation: alert and oriented x3 Resp Effort & Inspection: normal respiratory effort, no audible wheezes and no cough GI Inspection: normal to inspection and non-distended Palpation: soft, guarding and tender Other: Dark brown liquid stool is noted in the colostomy. Other: Lamar in place with light yellow urine in the bag. Objective Last Vital Signs Temp 97.7 F 03/23/25 07:55 Pulse 112 H 03/23/25 12:52 Resp 24 03/23/25 12:52 BP 139/100 H 03/23/25 12:52 Pulse Ox 98 03/23/25 12:52 Laboratory Results - last 24 hr 03/22/25 03/22/25 03/23/25 18:00 Unknown 05:39 WBC 17.27 H RBC 2.42 L Hgb 6.8 L* Hct 20.2 L* MCV 84 MCH 28.1 MCHC 33.7 RDW 14.9 H Plt Count 334 MPV 8.9 Immature Gran % See Differential Neutrophils % 70.0 Band Neutrophils % 1 Lymphocytes % 20.0 Atypical Lymphs % 1 Monocytes % 3.0 Eosinophils % 0.0 Basophils % 0.0 Metamyelocytes % 3 Myelocytes % 2 Nucleated RBC % 1.0 H Absolute Neutrophils 12.26 H Absolute Lymphocytes 3.63 H Absolute Monocytes 0.52 Absolute Eosinophils 0.00 Absolute Basophils 0.00 RBC Morphology See Below Microcytosis 2+ Sodium 143 Potassium Cancelled Cancelled 3.0 L Chloride 108 H Carbon Dioxide 24.0 Anion Gap 11.0 BUN 22 H Creatinine 0.8 Est GFR (CKD-EPI 2020) 90.83 Glucose 111 H Calcium 7.9 L Magnesium Cancelled 1.4 L Total Bilirubin 0.4 AST 38 H ALT 38 Alkaline Phosphatase 136 H Total Protein 5.4 L Albumin 1.7 L 03/23/25 12:06 WBC 20.33 H RBC 2.78 L Hgb 7.5 L Hct 23.3 L MCV 84 MCH 27.0 MCHC 32.2 RDW 14.9 H Plt Count 374 MPV 8.8 Immature Gran % Neutrophils % Band Neutrophils % Lymphocytes % Atypical Lymphs % Monocytes % Eosinophils % Basophils % Metamyelocytes % Myelocytes % Nucleated RBC % Absolute Neutrophils Absolute Lymphocytes Absolute Monocytes Absolute Eosinophils Absolute Basophils RBC Morphology Microcytosis Sodium Potassium Chloride Carbon Dioxide Anion Gap BUN Creatinine Est GFR (CKD-EPI 2020) Glucose Calcium Magnesium Total Bilirubin AST ALT Alkaline Phosphatase Total Protein Albumin Time Spent with Patient Time Spent with Patient: >50 minutes Time was spent: preparing to see the patient(eg.review tests), ordering medicati ons,tests, procedures, referring, communicating with other health tree care foreman and counseling the patient
--- NOTE | 2025-03-23 13:10 | PTTR_ITS ---
PT Notes Visit Reasons: peritonitis Inpatient Physical Therapy Treatment Note [facility] Date: 03/23/25 Patient Profile/Admitting Diagnosis: Shania is a 49-year-old female with diagnosis of perforated bowel, septic shock with peritonitis and is status post exploratory laparotomy with segmental colon resection and end colostomy creation on postoperative day 3. PRECAUTIONS: fall, standard SUBJECTIVE: Shania initially declines PT this morning, but is agreeable to work ing with PT this afternoon. OBJECTIVE: ? PAIN: denies VITALS: ? Pre-Treatment: 139/100 ? Post-Treatment: 140/99, HR 101? Therapeutic Activities ([id number]): Direct one-on-one instruction in dynamic activities to improve functional performance. ? BED MOBILITY/TRANSFERS? Sit-stand: SBA? Stand-sit: SBA ? GAIT: ambulated 200' with FWW, CGA initially, progressing to SBA. Marlin barajas slow gait speed, with good safety awareness. Trialled ambulation with fingertip support only to FWW, which she tolerates x 25' without difficulty. Trial ambulation without AD, with CGA; patient tolerates straight plane ambulation well, but has significant LOB upon turning, requiring max A for recovery and assistance back to chair. ? She was issued FWW for home use. ? ASSESSMENT:? Improving activity tolerance, but with balance impairments requiring use of FWW for support. PLAN: Continue PT intervention for progressive ambulation to address limitations in balance and activity tolerance. Will incorporate balance retraining activities and general strengthening. TREATMENT CODE/TIME: 1647-1023 ([id number]) DISCHARGE RECOMMENDATION: Home with HHPT
[2025-03-23] MEDS: Magnesium Chloride 64 MG TABCR PO ×2 (15:36→20:24)
[2025-03-23] MEDS: Normal Saline 500 ML IV (15:37)
[2025-03-23] MEDS: Ketorolac 15 MG/ML VIAL IVP (15:39)
--- NOTE | 2025-03-23 16:33 | W.PM.PROGNOT ---
Date of Service Date of service: 03/23/25 Time of Service: 16:33 Assessment and Plan Assessment and plan (1) Perforated bowel: Status: Acute Assessment and plan: S/p laparotomy/ostomy placement night of March 19 Postoperative care in ICU On IV pip/tazo, continue on this given she presented looking septic with peritonitis See below re: pain control and OUD She remains tachycardic since surgery, will give additional fluid bolus to see if responsive vs pain or withdrawal, likely multifactorial. BP stable. WBC decreasing Surgery is primary, managing post-operative care. 03/21/25 Pt does have an elevation in her wbc from 12.68->15.81. Most likely reactive in nature. Continue to monitor and await input from GS 03/22/25 wbc continues to trend up but again, most likely reactive. D/W GS who agrees. Pt remains on zosyn 03/23/25 wound cultures show ECOLI with intermediate sensitivity to zosyn but with scant growth. Will reach out to GS to see about abx changes (2) ALFREDO (acute kidney injury): Status: Acute Assessment and plan: Normal renal function at baseline CTA scan done before BMP resulted, contrast likely a factor Creatinine 4.5 on presention, she is making adequate urine and creatinine trending down. Renal dosing of medications, follow 03/21/25 GFR 13.57->23.14->46.41 cw rehydration and recheck in am 03/22/25 GFR much improved 03/23/25 resolved (3) Opiate dependence, continuous: Status: Chronic Assessment and plan: using fentanyl daily per report. Our UDS isn't useful in this setting, would need specific send out, but won't foreign exchange student coordinator Given daily use, continue fentanyl drip, but added ketamine for additional non-opioid anesthesia. Once pain controlled, offer methadone vs buprenorphine for fdc treatment of OUD. If she prefers the latter I would use ultra low dose protocol with cross titration while giving opioid agonist. also address issues of mood, contraception prior to discharge. 03/22/25 D/W GS who will manage pain (4) Crohn disease: Status: Chronic Assessment and plan: No treatment for approximately 7 years Unclear if this was cause of perforation, await pathology. Outpatient followup after recovery from partial colectomy (5) DVT prophylaxis: Status: Acute Assessment and plan: on heparin q 12 with renal failure, transition to LMWH once improved, for less shots 03/21/25 Will plan to dc on lovenox 03/23/25 above a typo, will not need lovenox as outpatient (6) Hypokalemia: Status: Inactive Assessment and plan: supplement IV, conservatively given ALFREDO. Follow. cw replacement 03/22/25 k still a bit low at 3.4 with 3.5 being wnl 03/23/25 potassium is lower today as well as mag (7) Anemia: Status: Chronic Assessment and plan: In setting of acute illness, surgery. Was normal in January,so likely acute blood loss get iron/tibc with labs to see if supplement would benefit. 03/21/25 iron significantly low (15) will start venofer 03/22/25 D/W GS, will start venofer once more iv access is obtained 03/23/25 Apparently the consult to picc team was not forwarded to the picc team (placed 03/21/25). Luckily the iron transfusion is not emergent/urgent. Can replace with po iron as well (8) Elevated AST (SGOT): Status: Acute Assessment and plan: In setting of acute illness. INR also slightly elevated, follow both to assess liver function. Plts okay suggesting no cirrhosis, though albumin low. Given OUD, get repeat hepatitis B/C/HIV with labs 03/23/25 hep b/c negative. HIV negative (9) Tachycardia with hypertension: Status: Acute Assessment and plan: will add low dose metoprolol 03/23/25 started (10) Elevated brain natriuretic peptide (BNP) level: Status: Acute Assessment and plan: check echo 03/23/25 echo ordered but not absolutely necessary as inpatient. Can do as outpatient if needed Subjective Subjective Interval history since last seen: complains of dysuria Exam Narrative Exam Narrative: General: somnolent HEENT: PERRLAB CV: tachycardic, regular. no murmur Resp: CTAB anterior/laterally. mildly tachypneic, no rales Abd: minimal BS, slightly firm, diffusely tender, incision with dressing intact, ostomy with stool, MSK: 1+ pitting edema BLE Objective Last Vital Signs Temp 36.7 C 03/23/25 13:46 Pulse 112 H 03/23/25 12:52 Resp 24 03/23/25 12:52 BP 139/100 H 03/23/25 12:52 Pulse Ox 98 03/23/25 12:52 Laboratory Results - last 24 hr 03/23/25 03/23/25 05:39 12:06 WBC 17.27 H 20.33 H RBC 2.42 L 2.78 L Hgb 6.8 L* 7.5 L Hct 20.2 L* 23.3 L MCV 84 84 MCH 28.1 27.0 MCHC 33.7 32.2 RDW 14.9 H 14.9 H Plt Count 334 374 MPV 8.9 8.8 Immature Gran % See Differential Neutrophils % 70.0 Band Neutrophils % 1 Lymphocytes % 20.0 Atypical Lymphs % 1 Monocytes % 3.0 Eosinophils % 0.0 Basophils % 0.0 Metamyelocytes % 3 Myelocytes % 2 Nucleated RBC % 0.0 Absolute Neutrophils 12.26 H Absolute Lymphocytes 3.63 H Absolute Monocytes 0.52 Absolute Eosinophils 0.00 Absolute Basophils 0.00 RBC Morphology See Below Microcytosis 2+ Sodium 143 Potassium 3.0 L Chloride 108 H Carbon Dioxide 24.0 Anion Gap 11.0 BUN 22 H Creatinine 0.8 Est GFR (CKD-EPI 2020) 90.83 Glucose 111 H Calcium 7.9 L Magnesium 1.4 L Total Bilirubin 0.4 AST 38 H ALT 38 Alkaline Phosphatase 136 H Total Protein 5.4 L Albumin 1.7 L Time Spent with Patient Time Spent with Patient: 25-34 minutes Time was spent: preparing to see the patient(eg.review tests), obtaining and/or reviewing separately otained hiistory, ordering medications,tests, procedures, referring, communicating with other health pediatric critical care nurse, indepentently interpreting results, counseling the patient and care coordination
[2025-03-23 18:35] LABS: Glucose Negative (Negative)
[2025-03-23 18:41] LABS: RBC >50 HPF (0-2); WBC Negative HPF (0-5)
[2025-03-23] MEDS: Phenazopyridine 200 MG TAB PO (20:22)
[2025-03-23] MEDS: Ferrous Sulfate 325 MG TAB PO (20:25)
[2025-03-23] MEDS: Zolpidem 5 MG TAB PO (23:26)
[2025-03-24] VITALS (55 sets, daily range): BP systolic 129–153; BP diastolic 83–98; PULSE 85–113; RESP 0–47; TEMP 36.4–37.3; O2SAT 94–100
[2025-03-24] MEDS: fentaNYL 100 MCG/2 ML VIAL IVP ×4 (00:01→21:44)
[2025-03-24] MEDS: LORazepam 20 MG/10 ML VIAL IVP ×3 (01:54→06:18)
[2025-03-24] MEDS: oxyCODONE 15 MG TAB PO ×5 (02:17→21:17)
[2025-03-24] MEDS: ACETAMINOPHEN 1,000 MG/100 ML BAG 400 MG IVPB ×3 (03:21→21:53)
[2025-03-24] MEDS: PIPERACILLIN/TAZO 3.375 GM in Normal Saline 50 ML IVPB ×2 (03:33→10:05)
[2025-03-24] MEDS: Normal Saline Flush 10 ML SYR IVP ×6 (04:12→21:18)
[2025-03-24 06:59] LABS: Abs Immature Grans 3.10 10^3/uL (0.0-0.06); MCH 27.5 pg (27.0-33.0); MCHC 32.2 % (32.0-36.0); MCV 86 fL (80-95); MPV 8.9 fL (8.0-11.0); Platelet Count 463 10^3/uL (130-400); RBC 2.00 10^6/uL (3.93-5.22); RDW 15.3 % (11.7-14.6); RDW-SD 47.4 fL; WBC 22.46 10^3/uL (4.4-10.8)
[2025-03-24 07:18] LABS: ALT 31 U/L (14-59); AST 21 U/L (15-37); Albumin 1.7 g/dL (3.4-5.0); Alkaline Phosphatase 128 U/L (46-116); Anion Gap 13.1 mmol/L (3-11); BUN 12 mg/dL (7-18); Bilirubin, Total 0.3 mg/dL (0.2-1.0); CO2 19.9 mmol/L (21.0-32.0); Calcium 7.8 mg/dL (8.5-10.1); Chloride 111 mmol/L (98-107); Estimated GFR 106.62 (mL/min/1.73m2); Glucose 111 mg/dL (74-106); Potassium 3.6 mmol/L (3.5-5.1); Sodium 144 mmol/L (136-145); Total Protein 5.3 g/dL (6.4-8.2)
[2025-03-24 07:19] LABS: Magnesium 2.0 mg/dL (1.8-2.4)
[2025-03-24 07:34] LABS: Microcytosis 2+
[2025-03-24 07:38] LABS: HGB 5.5 g/dL (11.2-15.7)
[2025-03-24 07:39] LABS: HCT 17.1 % (36.0-46.0)
--- NOTE | 2025-03-24 08:43 | PT.INNT ---
PT Notes Visit Reasons: peritonitis Patient on hold from PT this am due to low Hgb. Receiving blood this am. Will resume PT intervention once medically appropriate.
[2025-03-24] MEDS: Enoxaparin 40 MG/0.4 ML SYR SC (08:59)
[2025-03-24] MEDS: clonazePAM 1 MG TAB PO ×3 (08:59→21:16)
[2025-03-24] MEDS: Phenazopyridine 200 MG TAB PO ×3 (08:59→21:17)
[2025-03-24] MEDS: Docusate Sodium 100 MG CAP PO ×2 (09:00→21:16)
[2025-03-24] MEDS: Metoprolol CR 25 MG TABCR 12.5 MG PO (09:00)
[2025-03-24] MEDS: Ferrous Sulfate 325 MG TAB PO ×2 (09:00→21:17)
[2025-03-24] MEDS: ACETAMINOPHEN 1,000 MG/100 ML BAG 200 MG IVPB (10:19)
--- NOTE | 2025-03-24 11:06 | PGE_ITS ---
Date of Service Date of service: 03/24/25 Time of Service: 11:06 Assessment and Plan Assessment and plan (1) Perforated bowel: Status: Acute Assessment and plan: POD 4 s/p ex lap, partial colectomy and end colostomy for perforated colon with purulent peritonitis. septic shock resolved. Perforated colon, purulent peritonitis w septic shock on presentation - septic shock resolved. E coli with intermediate sensitivity to zosyn on cx. wbc continuing to trend up with no other clear cause. switching to rocephin today. At risk for abscess. She is afebrile and does not have any sign of infection other than rising wbc. I will hold off on CT today. Consider CT tomorrow if wbc continue to increase or if she is febrile. CT too early may show more post op change than pathology. Anemia - progressive, multifactorial. hgb 5.5 today, transfusion 2u prbc ordered. hemoccult ordered and pending. Starting empiric ppi BID as she is at risk for PUD. Consider egd tomorrow for positive occult blood or if she continues to drop hgb. NPO at midnight in case she needs egd tomorrow. ALFREDO - resolved hypokalemia - 3.6 today, improved. Giving lasix with blood tranafusion today so will replete 40meq IV KCL aiming for K of 4. Hypomagnesemia - replete. Mg 2. home use of opiates and benzodiazepines - home klonopin ordered. Oxycodone for post op pain ordered, I am decreasing the frequency to q4h today, and decreasing the dose given for lower pain scores. Discussed w hospitalist, we will ask palliative care to consult on possibly starting methadone as a management tool for her addiction and to decrease the required dose of oxycodone to keep post op pain controlled. As of now with current dose, it will be difficult to prescribe a safe amount of post op pain control oxycodone for home. Risk of overdose with any more than 4 pills at a time. appreciate palliative care input. she will need outpatient resources as well. hypotension - resolved, stable hemodynamics. anxiety: home klonopin plus a midday dose available. chronic constipation on colace scheduled and miralax prn. stool output adequate and soft at this time. dvt ppx with lovenox Subjective Subjective Interval history since last seen: No major events. Pain decently controlled. ambulating with PT. Anxiety flairs have occurred but she has not talked about leaving AMA today. Hgb 5.5 this AM, 2u prbc ordered and transfusion has begun. Occult blood test from stool sent. Exam Narrative Exam Narrative: awake, NAD calm, comfortable, cooperative normal resp effort abdomen is soft, nondistended, pink stoma with gas and stool in bag. Stool is dark. trace peripheral edema persistent Const General: cooperative and comfortable Orientation: alert and oriented x3 Resp Effort & Inspection: normal respiratory effort, no audible wheezes and no cough GI Inspection: normal to inspection and non-distended Palpation: soft, guarding and tender Other: Dark brown liquid stool is noted in the colostomy. Other: Lamar in place with light yellow urine in the bag. Objective Objective Narrative Objective Narrative: labs reviewed Time Spent with Patient Time Spent with Patient: 35-49 minutes Time was spent: preparing to see the patient(eg.review tests), ordering medications,tests, procedures, referring, communicating with other health personal care assistant, indepentently interpreting results, counseling the patient and care coordination
[2025-03-24] MEDS: Pantoprazole 40 MG TABCR PO ×2 (11:25→21:16)
[2025-03-24] MEDS: Furosemide 40 MG/4 ML VIAL IVP (11:25)
[2025-03-24] MEDS: POTASSIUM CHLORIDE 20 MEQ/100 ML BAG 50 MEQ IV_INF ×2 (11:26→13:41)
--- NOTE | 2025-03-24 12:00 | W.PM.PROGNOT ---
Date of Service Date of service: 03/24/25 Time of Service: 12:00 Assessment and Plan Assessment and plan (1) Perforated bowel: Status: Acute Assessment and plan: S/p laparotomy/ostomy placement night of March 19 Postoperative care in ICU On IV pip/tazo, continue on this given she presented looking septic with peritonitis See below re: pain control and OUD She remains tachycardic since surgery, will give additional fluid bolus to see if responsive vs pain or withdrawal, likely multifactorial. BP stable. WBC decreasing Surgery is primary, managing post-operative care. 03/21/25 Pt does have an elevation in her wbc from 12.68->15.81. Most likely reactive in nature. Continue to monitor and await input from GS 03/22/25 wbc continues to trend up but again, most likely reactive. D/W GS who agrees. Pt remains on zosyn 03/23/25 wound cultures show ECOLI with intermediate sensitivity to zosyn but with scant growth. Will reach out to GS to see about abx changes 03/24/25 Discussed with GS, will change abx 2/2 intermediate resistance and increasing wbc. Wound C/D/I Organism 1 Escherichia coli GROWTH SCANT GROWTH Organism 2 Strep anginosus ([facility]) GROWTH RARE GROWTH Esch coli Result Ampicillin R Ampicillin/Sulbactam R Cefazolin S Ceftazidime S CEFTRIAXONE S Gentamicin R Imipenem S Levofloxacin S Tobramycin S Trimethoprim/Sulfamethoxazole R Piperacillin/Tazobactam I (2) ALFREDO (acute kidney injury): Status: Acute Assessment and plan: Normal renal function at baseline CTA scan done before BMP resulted, contrast likely a factor Creatinine 4.5 on presention, she is making adequate urine and creatinine trending down. Renal dosing of medications, follow 03/21/25 GFR 13.57->23.14->46.41 cw rehydration and recheck in am 03/22/25 GFR much improved 03/23/25 resolved (3) Opiate dependence, continuous: Status: Chronic Assessment and plan: using fentanyl daily per report. Our UDS isn't useful in this setting, would need specific send out, but won't supervisor policy change clerks Given daily use, continue fentanyl drip, but added ketamine for additional non-opioid anesthesia. Once pain controlled, offer methadone vs buprenorphine for live out nanny treatment of OUD. If she prefers the latter I would use ultra low dose protocol with cross titration while giving opioid agonist. also address issues of mood, contraception prior to discharge. 03/22/25 D/W GS who will manage pain 03/24/25 D/w CM today. Recommendation is to follow up with MAURY in the outpatient setting. I have placed consult to palliative care as well (4) Crohn disease: Status: Chronic Assessment and plan: No treatment for approximately 7 years Unclear if this was cause of perforation, await pathology. Outpatient followup after recovery from partial colectomy (5) DVT prophylaxis: Status: Acute Assessment and plan: on heparin q 12 with renal failure, transition to LMWH once improved, for less shots 03/21/25 Will plan to dc on lovenox 03/23/25 above a typo, will not need lovenox as outpatient (6) Hypokalemia: Status: Inactive Assessment and plan: supplement IV, conservatively given ALFREDO. Follow. cw replacement 03/22/25 k still a bit low at 3.4 with 3.5 being wnl 03/23/25 potassium is lower today as well as mag 03/24/25 currently low normal, cw k and mag replacement (7) Anemia: Status: Chronic Assessment and plan: In setting of acute illness, surgery. Was normal in January,so likely acute blood loss get iron/tibc with labs to see if supplement would benefit. 03/21/25 iron significantly low (15) will start venofer 03/22/25 D/W GS, will start venofer once more iv access is obtained 03/23/25 Apparently the consult to picc team was not forwarded to the picc team (placed 03/21/25). Luckily the iron transfusion is not emergent/urgent. Can replace with po iron as well 03/24/25 started FeSo4. Will need mcc replacement. Also noticed pt with significant hematuria. Pt will need repeat UA in 4-6 weeks to ensure resolution, and would consider EMD SPECIAL EDUCATION TEACHER evaluation at the discretion of the PCP. Could be 2/2 menses as well. INR only mildly elevated (8) Elevated AST (SGOT): Status: Acute Assessment and plan: In setting of acute illness. INR also slightly elevated, follow both to assess liver function. Plts okay suggesting no cirrhosis, though albumin low. Given OUD, get repeat hepatitis B/C/HIV with labs 03/23/25 hep b/c negative. HIV negative (9) Tachycardia with hypertension: Status: Acute Assessment and plan: will add low dose metoprolol 03/23/25 started (10) Elevated brain natriuretic peptide (BNP) level: Status: Acute Assessment and plan: check echo 03/23/25 echo ordered but not absolutely necessary as inpatient. Can do as outpatient if needed Subjective Subjective Interval history since last seen: Pt seen and examined in her room. Pt without significant complaints Exam Narrative Exam Narrative: General: somnolent HEENT: PERRLAB CV: tachycardic, regular. no murmur Resp: CTAB anterior/laterally. Vitals indicate RR at 44, pt without tachypnea on exam Abd: minimal BS, slightly firm, diffusely tender, incision with dressing intact, ostomy with stool, MSK: 1+ pitting edema BLE Objective Last Vital Signs Temp 37.2 C 03/24/25 11:55 Pulse 94 H 03/24/25 11:55 Resp 40 H 03/24/25 11:55 BP 137/90 03/24/25 11:55 Pulse Ox 99 03/24/25 11:55 Laboratory Results - last 24 hr 03/23/25 03/23/25 03/23/25 05:39 12:06 18:20 WBC 20.33 H RBC 2.78 L Hgb 7.5 L Hct 23.3 L MCV 84 MCH 27.0 MCHC 32.2 RDW 14.9 H Plt Count 374 MPV 8.8 Immature Gran % Neutrophils % Band Neutrophils % Lymphocytes % Monocytes % Eosinophils % Basophils % Metamyelocytes % Myelocytes % Nucleated RBC % 0.0 Absolute Neutrophils Absolute Lymphocytes Absolute Monocytes Absolute Eosinophils Absolute Basophils RBC Morphology Microcytosis Sodium Potassium Chloride Carbon Dioxide Anion Gap BUN Creatinine Est GFR (CKD-EPI 2020) Glucose Calcium Magnesium Total Bilirubin AST ALT Alkaline Phosphatase Total Protein Albumin Urine Color Yellow Urine Clarity Sl Cloudy Urine pH 6.5 Ur Specific [place] 1.025 Urine Protein 100 H Urine Ketones Trace H Urine Blood Large H Urine Nitrite Negative Urine Bilirubin Negative Urine Urobilinogen 0.2 Ur Leukocyte Esterase Negative Urine RBC >50 H Urine WBC Negative Ur Epithelial Cells Few Urine Crystals Negative Urine Bacteria Few Urine Casts Negative Urine Mucus Negative Ur Culture Indicated? C&S Done As Ordered Urine Glucose Negative ABO/Rh Antibody Screen Crossmatch 03/24/25 05:47 WBC 22.46 H RBC 2.00 L Hgb 5.5 L* D Hct 17.1 L* MCV 86 MCH 27.5 MCHC 32.2 RDW 15.3 H Plt Count 463 H MPV 8.9 Immature Gran % See Differential Neutrophils % 72.0 Band Neutrophils % 3 Lymphocytes % 18.0 Monocytes % 2.0 Eosinophils % 2.0 Basophils % 0.0 Metamyelocytes % 2 Myelocytes % 1 Nucleated RBC % 0.8 H Absolute Neutrophils 16.85 H Absolute Lymphocytes 4.04 H Absolute Monocytes 0.45 Absolute Eosinophils 0.45 Absolute Basophils 0.00 RBC Morphology See Below Microcytosis 2+ Sodium 144 Potassium 3.6 Chloride 111 H Carbon Dioxide 19.9 L Anion Gap 13.1 H BUN 12 Creatinine 0.7 Est GFR (CKD-EPI 2020) 106.62 Glucose 111 H Calcium 7.8 L Magnesium 2.0 Total Bilirubin 0.3 AST 21 ALT 31 Alkaline Phosphatase 128 H Total Protein 5.3 L Albumin 1.7 L Urine Color Urine Clarity Urine pH Ur Specific [place] Urine Protein Urine Ketones Urine Blood Urine Nitrite Urine Bilirubin Urine Urobilinogen Ur Leukocyte Esterase Urine RBC Urine WBC Ur Epithelial Cells Urine Crystals Urine Bacteria Urine Casts Urine Mucus Ur Culture Indicated? Urine Glucose ABO/Rh O Positive Antibody Screen NEGATIVE Crossmatch See Detail Time Spent with Patient Time Spent with Patient: 25-34 minutes Time was spent: preparing to see the patient(eg.review tests), obtaining and/or reviewing separately otained hiistory, ordering medications,tests, procedures, referring, communicating with other health child care director, indepentently interpreting results, counseling the patient and care coordination
[2025-03-24] MEDS: cefTRIAXone 1 GM/50 ML BAG IVPB (12:15)
[2025-03-24] MEDS: Prochlorperazine 10 MG/2 ML VIAL IVP (16:13)
[2025-03-24] MEDS: Zolpidem 5 MG TAB PO (21:17)
[2025-03-25 00:44] VITALS: BP 140/87; PULSE 102; PULSE 84; RESP 16; O2SAT 97
[2025-03-25] MEDS: Prochlorperazine 10 MG/2 ML VIAL IVP (00:46)
[2025-03-25] MEDS: Normal Saline Flush 10 ML SYR IVP ×3 (00:46→07:02)
[2025-03-25 00:55] VITALS: TEMP 37.3
[2025-03-25] MEDS: oxyCODONE 15 MG TAB PO (01:34)
[2025-03-25] MEDS: Calcium Carbonate *TUMS* 500 MG CHEW 1000 MG PO (01:51)
[2025-03-25] MEDS: fentaNYL 100 MCG/2 ML VIAL IVP ×4 (01:59→07:02)
--- NOTE | 2025-03-25 04:53 | W.EVENT ---
Date of service: 03/25/25 Time of Service: 04:53 Event Note: This is a 49-year-old female patient now postop day 6 who was wanting to leave AMA at 04:00 this morning after having been found to have a powder which she states is street fentanyl with xylazine that she snorts daily. She has not used this since her hospitalization and operation having been on ketamine with fentanyl postoperatively for challenging pain control and now on intermittent IV fentanyl 100 mcg every 4 hours. She is using fentanyl with xylazine powder several packs daily along with as much Klonopin as she can get off the street. She was last prescribed Klonopin in August 2024 but had been on high dose Klonopin with Ritalin prescribed by a psychologist years ago who lost his license and therefore she was not able to get her medication prescribed. Previously she had illicit drug abuse issues when she was and had been on Suboxone with continuation of Suboxone for a long time after her . Her partner at the time, who also had a drug use disorder with street use, did not feel comfortable with Suboxone and wanted her on methadone. She was switched to methadone on over 200 mg daily for many years but this stopped. She presently is only using street drugs with as much fentanyl/xylazine powder and Klonopin as she can obtain. [facility] review does show prescriptions for zolpidem consistently up to August 2024 and also Klonopin intermittently up to August 2024 with more consistent prescribing in 2023. Urine drug screen upon admission revealed benzodiazepines and opiates but with high dose synthetic narcotics, the screening ADÁN can often be positive for opiates but confirmation would show other metabolites. This confirmation was not performed. The patient's history is very consistent with high-dose fentanyl with xylazine snorting and Klonopin daily. She is having extreme anxiety now that she is not on high doses of fentanyl and off ketamine postoperatively. She has received intermittent doses of Ativan with her fentanyl and is in the ICU for close monitoring with this combination treatment. She was wanting to leave AMA because of her extreme anxiety and stated that she wanted to go to her visual education teacher and PCP at [facility], but the main issue is that the patient is going through withdrawals. The patient agrees with this conclusion. I had a long discussion with her as to what we could do to temporize until efficiency engineer so that the surgeon and she could discuss a safer discharge plan. She did agree to having higher doses of fentanyl IV with the patient having high tolerance to this drug and the chances of respiratory suppression being less though she has been on a washout dosing recently with only infrequent IV treatment. Because of this uncertainty of her response to fentanyl, we will dose at 100 mcg IV every 30 minutes with a maximum of 200 mcg in 2 hours with 1 mg of Ativan IV now for anxiety. She does understand that we are following the Palliative Care analgesia protocol, but she is a full code and if rescue intubation is needed, she is not opposed to this intervention. This is a low likelihood with her tolerance by history with the patient being honest about her use and volume. I did call the surgeon, Dr. Marvin to review the case and the situation and she is agreeable to short-term Palliative Care analgesia with close monitoring in the ICU (following the Palliative Care policy guidelines) until morning rounds. At that time a stay for discharge and transfer of care plan could be arranged with her caregivers at [facility]. The patient does understand that she cannot leave AMA on these higher doses of analgesia and IV benzodiazepines until she is medically safe. She is agreeable to the plan. During my discussion with the patient she was slightly anxious but had good eye contact and normal speech. She was mentating clearly and had no tremor but was fidgety. She continued to have IV in place with IV drain status post surgery with diverting colostomy for sepsis and acute peritonitis as a complication of perforation secondary to her undertreated Crohn's disease (see H&P). 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 She is postoperative day 6 and on weaning doses of analgesia which is not treating her withdrawals. Increased doses of fentanyl and intermittent IV Ativan as discussed above following protocol with ICU monitoring and risk of intubation if needed. Patient is a full code. Time Spent with Patient Time spent in critical care(minutes): 40 Time Spent Included: Coordination of care, Chart review, Documenting critically ill care, Time at immediate bedside and Discussing critically ill care with other medical staff
[2025-03-25] MEDS: LORazepam 20 MG/10 ML VIAL IVP (05:03)
[2025-03-25 05:09] VITALS: BP 129/83; PULSE 98; RESP 26; O2SAT 99
[2025-03-25 05:10] VITALS: PULSE 100; RESP 39; O2SAT 99
[2025-03-25 06:00] VITALS: PULSE 92; RESP 22
[2025-03-25 06:08] LABS: Abs Immature Grans 2.39 10^3/uL (0.0-0.06); HCT 31.9 % (36.0-46.0); HGB 10.5 g/dL (11.2-15.7); MCH 27.9 pg (27.0-33.0); MCHC 32.9 % (32.0-36.0); MCV 85 fL (80-95); MPV 8.6 fL (8.0-11.0); Platelet Count 470 10^3/uL (130-400); RBC 3.76 10^6/uL (3.93-5.22); RDW 15.3 % (11.7-14.6); RDW-SD 46.6 fL
[2025-03-25 06:12] LABS: WBC 26.66 10^3/uL (4.4-10.8)
[2025-03-25 06:28] LABS: ALT 27 U/L (14-59); AST 18 U/L (15-37); Albumin 2.0 g/dL (3.4-5.0); Alkaline Phosphatase 144 U/L (46-116); Anion Gap 11.5 mmol/L (3-11); BUN 8 mg/dL (7-18); Bilirubin, Total 0.2 mg/dL (0.2-1.0); CO2 23.5 mmol/L (21.0-32.0); Calcium 7.6 mg/dL (8.5-10.1); Chloride 107 mmol/L (98-107); Estimated GFR 106.62 (mL/min/1.73m2); Glucose 180 mg/dL (74-106); Sodium 142 mmol/L (136-145); Total Protein 6.0 g/dL (6.4-8.2)
[2025-03-25 06:41] LABS: Potassium 2.6 mmol/L (3.5-5.1)
[2025-03-25 06:48] LABS: Polychromasia Present
--- NOTE | 2025-03-25 08:00 | NUR.NOTE ---
Nursing Note: Shania rang her call silver around 0720 -- Andrea Acosta, RN responded and reported to me that Shania stated she is leaving at 8am, asked to have her belongings packed up. Upon assessment, Shania is sitting up in recliner chair, no signs of distress. She pleasantly communicated that her ride will be here at 8am. After assessing abdominal dressings/drains, I sat down to listen to Shania and communicate my concerns about her leaving AMA. Shania provided a brief history of her medical history to me and then expressed lack of gonzalo in the doctors here, felt that she would do better at [facility], states she already called them and they said they would see her (unable to clarify if she meant a gastroenterology clinic or the emergency department). During conversation, Shania intermittently said she was leaving to go home and would call for follow-up and only go to the ED if symptoms worsened and also that she planned to leave here and go straight to the ED at [facility]. Shania also had complaints about how a previous nurse smelled and stated that she wanted to see her baby (6 yo daughter) because she is learning to ride a bike and she's missing it. I discussed my concerns with her leaving, including: -Antibiotics: I asked if she could try to wait for Dr. Marvin to show up so that we might be able to make a plan to at least keep her on antbiotics. -Drain management: GARLAND, usually managed by the surgical team; We are currently flushing the STAR drain routinely--Shania would not have access to the supplies needed for this. 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 -Lack of services/supplies for colostomy care: I provided pt with 4 replacement colostomy bags and 2 clean graduates for emptying her STAR and Colostomy. -Pain management: I told Shania I was worried about her pain level and not having access to safe pain management options, specifically that using fentanyl and xylazine put her life in danger. I asked Shania what her thoughts were on pain management and asked if she was interested at all about being in a treatment program. Shania stated that she had been in a treatment program for years and won't do it again because it was ruining her teeth. I apologetically pointed out that if she were to overdose because of fentanyl and xylazine, she may lose her life, and if she did, she wouldn't even be alive to worry about her teeth. Pt stated, then I won't have to worry about it anyway. I pressed the issue gently, and Shania nodded her head, indicating her understanding. Before continuing conversation, I told Shania that I would message Dr. Marvin to see if she planned to round before 8am. At about 0745, BRANDON Shah with surgical team arrived to see Shania. Dee Dee discussed with Shania: Shania's wish to leave AMA, disease progress since admission and current concerns/reasons why she would advise Shania to stay in the hospital at this time, including: Septic shock upon admission, current WBC count, current need for IV antibiotics, plans to repeat CT to assess for abscess, plans to take pt to OR for an EGD to assess for ulcers/investigate cause of recent need for blood transfusions, pain management, GARLAND management (due 03/26), follow-up appointments, prescriptions. Pt still insists upon leaving against medical advice. Dee Dee left briefly to get more information and then returned, at which time Shania's ride was waiting for her and Shania had requested that I take out her IV and assist her in getting dressed. Dee Dee explained again what procedures, treatments, and tests the care team still wanted to implement, which did not persuade Shania. Dee Dee then shifted to educating about when to return to the emergency department. Pt verbalizes understanding of the risks and states that she will return to the ED or go to the ED at [facility] if she experiences worsening of symptoms. We discussed that care management typically assists with discharge planning and colostomy supply ordering, which Shania would not have the benefit of. I brought up STAR management and that Shania is comfortable emptying the STAR and Colostomy but the STAR would not be flushed at home. In response to discussing about GARLAND management Dee Dee called the surgical office and made an appointment for 03/27 at 9:15am (2 days from time of this this discussion). Dee Dee described the location of the surgical office and asked Shania to please come to the appointment in the context of leaving AMA, needing GARLAND managment, and instructed that she will definitely need to be seen when her quinn are due to be removed. Shania states she will come to the appointment. There is no plan for discharge pain management. Dee Dee told Shania that she will send antibiotic prescriptions to [facility] and impressed upon Shania that they are very important and that she is concerned that Shania will end up back at the hospital in worse condition than when she originally presented. Shania verbalized understanding. I assisted Shania in getting dressed, provided educational materials from [employer] and the [facility] education packet on colostomy care and diet, a new stoma measuring tool, 2 new graduates, scissors, paste, powder, replacement bags, skin prep, and a post-it note with her appointment date and time. After Shania left, I discovered 1 pillow and pillow case and 1 cell phone computing architect that belong to her. I placed them in a belongings bag with her patient ID label and called her 03/25/25 at 10:21 to notify her, but she did not answer. I left a voicemail stating what was left behind and that it would be in our Director's office and left the ICU nurses' station number for her to call back.
[2025-03-25 08:01] VITALS: PULSE 90; RESP 28
--- NOTE | 2025-03-25 08:26 | W.ANESPRE ---
General Info Height: 5 ft 7 in Weight: 68.8 kg Body Mass Index (BMI): 23.7 Surgical Procedure: Operation Date: 03/19/25 22:00 Proposed Procedure Side Surgeon p Exploratory Laparotomy Robinson Ruiz MD Actual Procedure Side Surgeon p Exploratory Laparotomy; Bowel Resection; Colostomy Not Applicable Robinson Ruiz MD Pre-Op Diagnosis Post-Op Diagnosis Peritonitis Peritonitis Operation Date: 03/25/25 14:05 Proposed Procedure Side Surgeon p Gastroscopy Dariana Marvin MD Meds Allergies and Home Medications Allergies Allergy/AdvReac Type Severity Reaction Status Date / Time No Known Allergies Allergy Verified 03/19/25 18:03 Home Medication ?Medication ?Instructions ?Recorded levofloxacin 750 mg tablet 750 mg PO DAILY #7 tabs 03/25/25 metronidazole 500 mg tablet 500 mg PO Q8H 7 days #21 tabs 03/25/25 Current Visit Medications: Current Medications Generic Name Dose Route Start Last Admin Trade Name Freq PRN Reason Stop Dose Admin Calcium Carbonate 1,000 mg 03/22/25 01:53 03/25/25 01:51 Calcium Carbonate *Tums* 500 Mg Chew PO 1,000 mg QID PRN PRN Administration Clonazepam 1 mg 03/23/25 08:30 03/24/25 21:16 Clonazepam 1 Mg Tab PO 1 mg TID DEVON Administration Docusate Sodium 100 mg 03/22/25 20:00 03/24/25 21:16 Docusate Sodium 100 Mg Cap PO 100 mg BID DEVON Administration Fentanyl 100 mcg 03/25/25 04:56 03/25/25 07:02 Fentanyl 100 Mcg/2 Ml Vial IVP 100 mcg Q30M PRN Administration Ferrous Sulfate 325 mg 03/23/25 20:00 03/24/25 21:17 Ferrous Sulfate 325 Mg Tab PO 325 mg BID DEVON Administration Sodium Chloride 500 mls @ 0 mls/hr 03/20/25 02:31 03/23/25 15:37 Saline 500ml Bag IV 5 mls/hr PRN PRN Administration As Directed Ceftriaxone Sodium/Dextrose 1 gm in 50 mls @ 100 mls/hr 03/24/25 12:00 03/24/25 13:00 Rocephin IVPB Infused Q24H DEVON Infusion Acetaminophen 1,000 mg in 100 mls @ 400 mls/hr 03/24/25 16:00 03/25/25 05:09 Ofirmev IVPB Not Given Q6H DEVON IV Miscellaneous Supplies 1 each 03/20/25 13:00 Iv Access IV DIRECTED DEVON Metoprolol Succinate 12.5 mg 03/24/25 08:30 03/24/25 09:00 Metoprolol Cr 25 Mg Tabcr PO 12.5 mg DAILY DEVON Administration Oxycodone HCl 15 mg 03/24/25 11:05 03/25/25 01:34 Oxycodone 15 Mg Tab PO 15 mg Q4H PRN PRN Administration Oxycodone HCl 7.5 mg 03/24/25 11:05 Oxycodone 5 Mg Tab PO Q4H PRN PRN Pantoprazole Sodium 40 mg 03/24/25 20:00 03/24/25 21:16 Pantoprazole 40 Mg Tabcr PO 40 mg BID@0730,1999 DEVON Administration Phenazopyridine HCl 200 mg 03/23/25 20:00 03/24/25 21:17 Phenazopyridine 200 Mg Tab PO 200 mg TID DEVON Administration Polyethylene Glycol 17 gm 03/20/25 02:11 Polyethylene Glycol 3350 17 Gm Packet PO BID PRN PRN Potassium Chloride 40 meq 03/23/25 14:00 03/24/25 19:28 Potassium Chloride 20 Meq Tabcr PO Not Given TID DEVON Prochlorperazine Edisylate 10 mg 03/20/25 12:25 03/25/25 00:46 Prochlorperazine 10 Mg/2 Ml Vial IVP 10 mg Q6H PRN PRN Administration Sodium Chloride 0 ml 03/20/25 20:00 03/24/25 21:18 Normal Saline Flush 10 Ml Syr IVP 10 ml BID DEVON Administration Sodium Chloride 0 ml 03/20/25 20:52 03/25/25 07:02 Normal Saline Flush 10 Ml Syr IVP 10 ml PRN PRN Administration Sodium Chloride 0 ml 03/23/25 08:02 Normal Saline 10 Ml Vial IJ DIRECTED PRN Zolpidem Tartrate 5 mg 03/22/25 19:22 03/24/25 21:17 Zolpidem 5 Mg Tab PO 5 mg HS PRN PRN Administration PFSH Active Problems Active Problems: Problem Status Onset Code Elevated brain natriuretic peptide (BNP) level Acute R79.89 Tachycardia with hypertension Acute R00.0, I10 Elevated AST (SGOT) Acute R74.01 Anemia Chronic D64.9 DVT prophylaxis Acute Z29.9 Fentanyl dependence Acute F11.20 ALFREDO (acute kidney injury) Acute N17.9 Perforated bowel Acute K63.1 Peritonitis Acute K65.9 Weight loss Acute R63.4 Postcoital urinary tract infection Acute N39.0 Contraception Acute Z30.9 Resolved Z34.90 History of tobacco abuse Acute Z87.891 Hx of herpes genitalis Chronic Z86.19 Arthralgia Chronic ~08/1996 M25.50 Crohn disease Chronic K50.90 Depression Chronic F32.9 Opiate dependence, continuous Chronic F11.20 Medical History Medical History Rheumatoid arthritis delivery delivered Tobacco Smoking/Tobacco Use Status: Former Tobacco Use Alcohol Alcohol Intake: never Substance Use Substance use: Daily Substance use type: former substance user, marijuana, heroin and painkillers Prental History History 2 Para 1 Hx # Term Pregnancies 1 Multiple births 1 Hx # Pregnancies 0 Ectopic pregnancies 0 AB induced 0 Hx Number of Living Children 2 AB spontaneous 0 Past Pregnancies Del. Date GA/Weeks # Preg Succ Route Wgt Sex Labor Lgth Anesthesia Location Prov Complic 08/22/96 Yes 2863.302 g other 08/22/96 Yes 1956.117 g Female 11/09/18 39 No Female Tatiana Jarrell 11/09/[address] [facility] Tatiana Jarrell Delivery Date: 11/09/18 Last Updated by: Tatiana Jarrell M.D. Elective repeat delivery named [place] Vital Signs and Lab Results Vital Signs Most Recent Vital Signs in EMR: Most Recent Vital Signs Temp Pulse Resp BP Pulse Ox 37.3 C 98 H 26 H 129/83 99 03/25/25 00:55 03/25/25 05:09 03/25/25 05:09 03/25/25 05:09 03/25/25 05:09 Point of Care Results Point of Care Results: Finger Stick Blood Glucose 145 03/21/25 06:43 Lab Results 03/25/25 05:42 03/25/25 05:42 Blood Type / Crossmatch: Antibody Screen NEGATIVE 03/24/25 Crossmatch See Detail 03/24/25 Complete Blood Count: WBC, (4.4-10.8) 26.66 10^3/uL H* Today, 05:42 RBC, (3.93-5.22) 3.76 10^6/uL L Today, 05:42 Hgb, (11.2-15.7) 10.5 g/dL L Δ Today, 05:42 Hct, (36.0-46.0) 31.9 % L Today, 05:42 Plt Count, (130-400) 470 10^3/uL H Today, 05:42 VBG Lactate, (<or=2.0) 1.1 mmol/L 03/19/25, 18:39 Complete Metabolic Panel: Sodium, (136-145) 142 mmol/L Today, 05:42 Potassium, (3.5-5.1) 2.6 mmol/L L* Δ Today, 05:42 Chloride, (98-107) 107 mmol/L Today, 05:42 Carbon Dioxide, (21.0-32.0) 23.5 mmol/L Today, 05:42 BUN, (7-18) 8 mg/dL Today, 05:42 Creatinine, (0.55-1.02) 0.7 mg/dL Today, 05:42 Est GFR (CKD-EPI 2020), (mL/min/1.73m2) 106.62 Today, 05:42 Magnesium, (1.8-2.4) 2.0 mg/dL 03/24/25, 05:47 Calcium, (8.5-10.1) 7.6 mg/dL L Today, 05:42 Albumin, (3.4-5.0) 2.0 g/dL L Today, 05:42 Glucose, (74-106) 180 mg/dL H Today, 05:42 Liver Function Panel: ALT, (14-59) 27 U/L Today, 05:42 AST, (15-37) 18 U/L Today, 05:42 Coagulation Panel: INR, (0.9-1.1) 1.2 H 03/21/25, 06:52 PT, (9.1-11.1) 12.0 sec H 03/21/25, 06:52 APTT, (20.6-30.2) 37.2 sec H 03/19/25, 18:39 Cardiac Panel: Troponin I, (<or=51) 9 ng/L 03/19/25 NT-Pro-B Natriuret Pep, (<300) 3605 pg/mL H 03/19/25 Pancreas Panel: Lipase, (<78) 12 U/L 03/19/25, 18:39 Infectious Disease: HIV 1&2 Ag/Ab, 4th Gen, (Negative) Negative 03/21/25, 06:52 Hep Bs Antigen, (Negative) Negative 03/21/25, 04:36 Hepatitis C Antibody, (Negative) Negative 03/21/25, 04:36 Toxicology Panel: Ur Amphetamines Screen, (Negative) Negative 03/20/25, 03:45 U Benzodiazepines Scrn, (Negative) Positive A 03/20/25, 03:45 Ur Barbiturates Screen, (Negative) Negative 03/20/25, 03:45 Urine Cocaine Screen, (Negative) Negative 03/20/25, 03:45 Urine Methadone Screen, (Negative) Negative 03/20/25, 03:45 Urine Opiates Screen, (Negative) Positive A 03/20/25, 03:45 Ur Tricyclics Screen, (Negative) Negative 03/20/25, 03:45 Ur THC Screen, (Negative) Negative 03/20/25, 03:45 Imaging and Studies Imaging and Studies Study information below may be from another EMR and interpreted by another provider. Please see original notes in EMR for more complete details. EKG Summary: 03/19/25: Exam: Resting ECG Reason for Exam: Hypotension, leg swelling Patient Location: E HR:73 bpm ECG Measurements Heart Rate 73 AXIS AK 140 P 57 QRSd 91 QRS 40 QT 411 T30 QTc 455 Conclusion Sinus rhythm...normal P axis, V-rate 60- 99 Sinus Rhythm. When compared to prior 02/04/25 decreased heart rate is noted. WD Anesthesia Assessment and Plan Anesthesia History Personal History: No History of Anesthesia Complications Family History: No Family History of Anesthesia Complications Exercise Tolerance Exercise Tolerance: Metabolic Equivalents>4 Implantable Cardiac Device Does patient have a Pacemaker or an ICD?: No Airway Exam Known Difficult Airway: No Mallampati Class: 2 Mouth Opening: Normal (> 3cm) Thyromental Distance: Greater than 3 cm Neck Range of Motion: Full ROM Neck Circumference: Normal Teeth Condition: Normal Dentition Anesthesia Plan Resuscitation Status: Full Code Anesthesia Technique: General Anesthesia Monitors Used: Standard Monitors
--- NOTE | 2025-03-25 08:48 | PGE_ITS ---
Date of Service Date of service: 03/25/25 Time of Service: 08:48 Subjective Subjective Interval history since last seen: events of the day and night noted. Pt left AMA before my arrival to her room. Early this AM she was given fentanyl to try to treat her withdrawal agitation to bridge her to being able to stay for medical care. I dont think this was a sustainable plan for the day, and as she has improved daily she has threatened t o leave daily. She admitted in conversations about leaving AMA with me daily that she feels trapped in the hospital and that she isnt willing to stay if she doesnt feel sick. She verbalized understanding that she is not well, that she is anemic requiring tranfusion, that her wbc was rising continuously, and that the plan today was for CT scan and EGD. I believe she is competent and aware and that she was not willing to stay beyond the point where she was needing our assistance. It is not a sustainable plan to increase her opiates and benzos again just to keep her for care. These drugs are counter productive to her care. I cannot prescribe oxycodone to her as outpt knowning that she has a supply of opiates at home that she will use. I did prescribe levaquin and flagyl for her and will follow up in office on tuesday for drain check and check. I believe she will return for care after she has met her own needs at home, I hope she does. Objective Last Vital Signs Temp 99.1 F 03/25/25 00:55 Pulse 98 H 03/25/25 05:09 Resp 26 H 03/25/25 05:09 BP 129/83 03/25/25 05:09 Pulse Ox 99 03/25/25 05:09 Laboratory Results - last 24 hr 03/24/25 03/25/25 05:47 05:42 WBC 26.66 H* RBC 3.76 L Hgb 10.5 L D Hct 31.9 L MCV 85 MCH 27.9 MCHC 32.9 RDW 15.3 H Plt Count 470 H MPV 8.6 Immature Gran % See Differential Neutrophils % 75.0 Band Neutrophils % 2 Lymphocytes % 11.0 Monocytes % 4.0 Eosinophils % 3.0 Basophils % 1.0 Metamyelocytes % 3 Myelocytes % 1 Nucleated RBC % 2.0 H Absolute Neutrophils 20.53 H Absolute Lymphocytes 2.93 Absolute Monocytes 1.07 H Absolute Eosinophils 0.80 H Absolute Basophils 0.27 H RBC Morphology See Below Polychromasia Present Sodium 142 Potassium 2.6 L* D Chloride 107 Carbon Dioxide 23.5 Anion Gap 11.5 H BUN 8 Creatinine 0.7 Est GFR (CKD-EPI 2020) 106.62 Glucose 180 H Calcium 7.6 L Total Bilirubin 0.2 AST 18 ALT 27 Alkaline Phosphatase 144 H Total Protein 6.0 L Albumin 2.0 L ABO/Rh O Positive Antibody Screen NEGATIVE Crossmatch See Detail Time Spent with Patient Time Spent with Patient: <25 minutes Time was spent: preparing to see the patient(eg.review tests), ordering medications,tests, procedures and referring, communicating with other health intensive care ambulance paramedic
--- NOTE | 2025-03-25 08:57 | PDOC.CMPRO ---
Date of service: 03/25/25 Time of Service: 08:59 Care Management Progress Note Progress Note Text Progress Note Text: Shania signed out AMA prior to CM meeting with her. Discharge Potential Discharge Needs: PCP F/U Appt and Surgical F/U Appt Anticipated Barriers to Discharge: Medical Status Patient/Family Education Needs: Review discharge instructions, discuss Ask Me Three Transportation: Private vehicle Plan: Anticipate, Shania will be discharged home, once medically ready. Shania has begun establishing care with PCP Dr. Rueda. She should follow up with this PCP, surgical team and plan of care. Shania has been given alcohol and drug recovery information pamphlets. Shania will transport via private vehicle by family. CM will continue to follow. Social Determinants of Health Screening Will the Patient Participate in the Screening?: Declined to provide Do you worry about having a steady place to live?: no
--- NOTE | 2025-03-25 09:13 | W.PM.DS.N ---
Date of service: 03/25/25 Time of Service: 09:13 DS: Diagnosis Discharge Diagnosis (1) Perforated bowel: Status: Acute (2) ALFREDO (acute kidney injury): Status: Acute (3) Opiate dependence, continuous: Status: Chronic (4) Crohn disease: Status: Chronic (5) DVT prophylaxis: Status: Acute (6) Hypokalemia: Status: Inactive (7) Anemia: Status: Chronic (8) Elevated AST (SGOT): Status: Acute (9) Tachycardia with hypertension: Status: Acute (10) Elevated brain natriuretic peptide (BNP) level: Status: Acute Discharge Plan Disposition Patient Disposition: Against Medical Advice Condition: Stable Discharge Details Reason For Visit: peritonitis Admit Date/Time: 03/20/25 01:15 Admit Provider: Junior Hogue Attending Provider: Robinson Ruiz Primary Care Provider: Hali Rueda Hospital Course Hospital Course: This is a 49-year-old female who was admitted on 03/20/2025 for perforated bowel. While she was in the hospital she was seen in consultation with surgery and did have definitive correction of appropriately about on the . Patient was diagnosed with septic shock with peritonitis had an exploratory laparotomy as well as segmental colon resection with creation of end colostomy. After surgery she was placed in the ICU for close monitoring as well as pain control. I will add that she was seen also by anesthesia for postoperative pain control. Unfortunately on 25 March she left AGAINST MEDICAL ADVICE. I did not see the patient but my colleague Dr. Thrasher did see her and has placed event note. I do not significant concerns at patient will get septic and have to return to the hospital Home Meds and New Rx's Prescriptions: New metronidazole 500 mg tablet 500 mg PO Q8H 7 Days Qty: 21 0RF levofloxacin 750 mg tablet 750 mg PO DAILY Qty: 7 0RF Discharge Instructions Referrals: Robinson Ruiz MD [ [facility] STAFF PHYSICIAN, Surgery] Referral Note: follow up in 5-7 days or as previously scheduled DS: Summary Time Spent with Patient providing and/or coordinating discharge services: Less than 30 minutes Status at Discharge Functional status at discharge: independent ambulation Overall status at discharge: patient is not back to baseline Mental Status: other Speech and Movement: other Mood: other Affect: other Exam Narrative Exam Narrative: pt left AMA Psych Mental Status: other Speech and Movement: other Mood: other Affect: other DS: Data Vitals/I&O Vitals and I&O: Vital Signs Temperature 37.3 C 03/25/25 00:55 Temperature Source Tympanic 03/25/25 00:55 Pulse 100 H 03/25/25 05:10 Pulse 90 03/25/25 08:01 Respiratory Rate 28 H 03/25/25 08:01 Respiratory Effort Incrsd Work of Breathing 03/20/25 02:43 Respiratory Depth Normal 03/20/25 02:43 Respiratory Pattern Normal 03/20/25 02:43 Blood Pressure 129/83 03/25/25 05:09 Blood Pressure Mean 97 03/25/25 05:09 Blood Pressure Position Supine 03/20/25 02:43 Pulse Oximetry 99 03/25/25 05:10 Oxygen Delivery Method Room Air 03/25/25 00:55 Oxygen Flow Rate 0 03/25/25 00:55 Pain Level 10 03/25/25 05:49 Comment see transfusion record for temp 03/24/25 13:02 Intake & Output 03/24/25 03/24/25 03/25/25 11:59 23:59 11:59 Intake Total 845 / 2665 1820 / 2665 540 / 540 Output Total 1250 / 4740 3490 / 4740 660 / 660 Balance -405 / -2075 -1670 / -2075 -120 / -120 Weight 70.4 kg 68.8 kg Intake: IV 320 / 690 370 / 690 100 / 100 Oral 150 / 840 690 / 840 440 / 440 Blood Product 375 / 1125 750 / 1125 Rbc Leuko Reduced Unit 375 / 375 [id number] Rbc Leuko Reduced Unit 750 / 750 [id number] Injectate Abdomen 10 Output: Drainage 50 / 165 115 / 165 35 / 35 Abdomen 50 / 165 115 / 165 35 / 35 Urine 750 / 3550 2800 / 3550 550 / 550 Stool 450 / 1025 575 / 1025 75 / 75 Other: Urine Color Light [place] Urine Appearance Clear Clear Clear Urine Odor Strong None None Comment urine was tea colored and mixed with stool. 400mL amount is estimated purewick placed temporarily per pt's request as pt is receiving lasix and is hooked up to blood, IV abx, potassium gtt, and monitoring blood tinged mix with orange Stool Size Moderate Stool Characteristics Liquid Soft Brown Formed Liquid Data Completed and Pending Labs on day of discharge: Labs from last 24 hours 03/25/25 03/24/25 05:42 05:47 WBC 26.66 H* RBC 3.76 L Hgb 10.5 L D Hct 31.9 L MCV 85 MCH 27.9 MCHC 32.9 RDW 15.3 H Plt Count 470 H MPV 8.6 Immature Gran % See Differential Neutrophils % 75.0 Band Neutrophils % 2 Lymphocytes % 11.0 Monocytes % 4.0 Eosinophils % 3.0 Basophils % 1.0 Metamyelocytes % 3 Myelocytes % 1 Nucleated RBC % 2.0 H Absolute Neutrophils 20.53 H Absolute Lymphocytes 2.93 Absolute Monocytes 1.07 H Absolute Eosinophils 0.80 H Absolute Basophils 0.27 H RBC Morphology See Below Polychromasia Present Sodium 142 Potassium 2.6 L* D Chloride 107 Carbon Dioxide 23.5 Anion Gap 11.5 H BUN 8 Creatinine 0.7 Est GFR (CKD-EPI 2020) 106.62 Glucose 180 H Calcium 7.6 L Total Bilirubin 0.2 AST 18 ALT 27 Alkaline Phosphatase 144 H Total Protein 6.0 L Albumin 2.0 L ABO/Rh O Positive Antibody Screen NEGATIVE Crossmatch See Detail PFSH All Active Problems (Updated 03/21/25 @ 13:57 by Dannie Woodruff MD) Elevated brain natriuretic peptide (BNP) level (Acute) Tachycardia with hypertension (Acute) Elevated AST (SGOT) (Acute) Anemia (Chronic) DVT prophylaxis (Acute) Fentanyl dependence (Acute) ALFREDO (acute kidney injury) (Acute) Perforated bowel (Acute) Peritonitis (Acute) Weight loss (Acute) Postcoital urinary tract infection (Acute) Contraception (Acute) 08/2020. Declined LARC. Smokes tobacco. Rx for norethindrone 0.35 mg daily. History of tobacco abuse (Acute) Hx of herpes genitalis (Chronic) c/s report makes mention of vulvar herpes outbreak as being the cause of pt's c/s. Arthralgia (Chronic ~08/1996) related to remicaid treatment and crohn's Crohn disease (Chronic) Depression (Chronic) Opiate dependence, continuous (Chronic) Medical History Rheumatoid arthritis delivery delivered Family History Brother Crohn's colitis Social History Smoking/Tobacco Use Status: Former Tobacco Use Quit Date: 04/27/18 Smoking risk assessment performed?: Yes Alcohol Intake: never Drug use: Daily Substance use type: former substance user, marijuana, heroin and painkillers Adopted: No Foster care: No Household members: significant other Housing: house Number of Children: 3 Seatbelt use: always Helmet use: Yes Drive intox or ride w/intox drive away driver: No Do you feel safe at home: Yes Do you feel safe in your relationship?: Yes Additional Social history: H-Dane. Together 7 years History History 2 Para 1 Hx # Term Pregnancies 1 Multiple births 1 Hx # Pregnancies 0 Ectopic pregnancies 0 AB induced 0 Hx Number of Living Children 2 AB spontaneous 0 Past Pregnancies Del. Date GA/Weeks # Preg Succ Route Wgt Sex Labor Lgth Anesthesia Location [facility] 08/22/96 Yes 2863.302 g other 08/22/96 Yes 1956.117 g Female 11/09/18 39 No Female [facility]iana Jar[facility] 11/09/18 No 3118.448 g Female [facility] Tatiana Jarrell Delivery Date: 11/09/18 Last Updated by: Tatiana Jarrell M.D. Elective repeat delivery named [place] Time Spent with Patient Time Spent with Patient: <45 minutes Time was spent: other
== END 2025-03-25 08:30 | disposition left against medical advice (07) | DRG 853 ==
LOC: ER 22:12 → SUR 22:30 → ICU 03-20 01:34
PROVIDERS: Family Medicine; Surgery; Admitting Provider Family Medicine; Emergency Provider Registered Nurse Emergency; PCP Family Medicine; Responsible Provider Hospitalist; Visit Provider Surgery
PROC: (CPT 49000; principal; 2025-03-19 22:00)
DX: A41.9 Sepsis, unspecified organism (principal); K63.1 Perforation of intestine (nontraumatic); K65.9 Peritonitis, unspecified; R65.21 Severe sepsis with septic shock; K50.918 Crohn's disease, unspecified, with other complication; N17.9 Acute kidney failure, unspecified; E87.21 Acute metabolic acidosis; E87.1 Hypo-osmolality and hyponatremia; D62 Acute posthemorrhagic anemia; F13.239 Sedative, hypnotic or anxiolytic dependence with withdrawal, unspecified; F11.23 Opioid dependence with withdrawal; R45.851 Suicidal ideations; E87.6 Hypokalemia; R74.01 Elevation of levels of liver transaminase levels; R00.0 Tachycardia, unspecified; I10 Essential (primary) hypertension; F32.A Depression, unspecified; K59.09 Other constipation; B96.20 Unspecified Escherichia coli [E. coli] as the cause of diseases classified elsewhere; R60.0 Localized edema; R31.0 Gross hematuria; R79.89 Other specified abnormal findings of blood chemistry; D46.9 Myelodysplastic syndrome, unspecified; G89.18 Other acute postprocedural pain; R74.8 Abnormal levels of other serum enzymes; Z90.49 Acquired absence of other specified parts of digestive tract; Z93.3 Colostomy status; K02.9 Dental caries, unspecified; F19.90 Other psychoactive substance use, unspecified, uncomplicated
CPT/HCPCS: 44143; 44139; 00123; 36415; 62326; 71275; 74177; 80048; 80053; 80061; 80307; 83690; 85027; 86704; 86706; 86803; 86850; 86900; 86901; 86920; 87040; 87077; 87340; 87389; 88305; 93005; 96127; 96361; 96365; 96374; 96375; 96376; 97162; 97530; 99285; 99291; J1650; 71045; 81003; 81015; 81025; 82272; 83036; 83540; 83550; 83605; 83735; 83880; 84132; 84484; 85018; 85025; 85610; 85730; 87070; 87075; 87086; 87186; 87205; 88307; 88361; 93010; 93306; 99223; 99232; 99233; 99239; J0131; J0665; J0666; J0696; J0780; J1171; J1596; J1644; J1836; J1885; J1938; J1956; J2003; J2060; J2250; J2401; J2405; J2543; J2598; J2704; J3010; J3475; J3480; J3490; P9016

== ENCOUNTER 2025-03-26 09:09 | Inpatient (IN) | payer MEDICAID, SELFPAY ==
[2025-03-26] VITALS (106 sets, daily range): BP systolic 112–158; BP diastolic 66–98; PULSE 80–127; RESP 8–27; TEMP 36.7–37; O2SAT 96–100
--- NOTE | 2025-03-26 10:02 | ED.GENADUL_ITS ---
Discharge Plan Disposition Patient Disposition: Admit to [facility] Condition: Stable Discharge Details Clinical Impression: Opiate dependence, continuous, Elevated brain natriuretic peptide (BNP) level, Crohn disease, Post-operative pain Primary Care Provider: Hali Rueda ED Provider: Maria Fernanda Caceers Home Meds and New Rx's Prescriptions: No Action metronidazole 500 mg tablet 500 mg PO Q8H 7 Days Qty: 21 0RF Patient Comments: Picked up but has not started them yet 03/26/25 CT levofloxacin 750 mg tablet 750 mg PO DAILY Qty: 7 0RF Patient Comments: Picked up but has not started them yet 03/26/25 CT HPI General Date/Time Provider Initiated Documentation: 03/26/25 09:14 . HPI Narrative: 49-year-old female with history of polysubstance abuse, recent admission for perforated bowel now with colostomy and surgical drain presents for evaluation of swelling and abdominal pain. Patient signed out AGAINST MEDICAL ADVICE yesterday morning. She states that she felt like she was present upstairs and was going crazy. Since time of discharge she has not taken any antibiotics. She attempted to change her colostomy bag yesterday however it exploded all over her abdomen. She has staining to her surgical dressings which are in place. She states that she has been emptying her surgical drain. She last drained at this morning. She has not changed her colostomy bag since yesterday. There is no current output in the colostomy bag. She has increase in lower extremity edema today. She states that she was very edematous prior to her hospitalization however it had improved. She is having good urine output. She states that she was incontinent of urine prior to her hospitalization. She states that she has been urinating frequently but has not been incontinent. She states that she does have some irritation secondary to Lamar catheter attempts during her last hospitalization. She denies any fevers or chills. She has diffuse pain throughout her abdomen. No chest pain or shortness of breath. No cough or cold. Related Data Home Medications ?Medication ?Instructions ?Recorded ?Confirmed levofloxacin 750 mg tablet 750 mg PO DAILY #7 tabs 12/1403/26/25 metronidazole 500 mg tablet 500 mg PO Q8H 7 days #21 t abs 03/25/25 03/26/25 Previous Rx's ?Medication ?Instructions ?Recorded levofloxacin 750 mg tablet 750 mg PO DAILY #7 tabs 12/14 metronidazole 500 mg tablet 500 mg PO Q8H 7 days #21 t abs 03/25/25 Allergies Allergy/AdvReac Type Severity Reaction Status Date / Time No Known Allergies Allergy Verified 03/26/25 09:21 General Stated Complaint: GenMedical MEGHA: 3 Review of Systems Narrative: Remainder of review of systems otherwise negative except for as noted in the HPI x 10. Exam Narrative Exam Narrative: General: non-toxic, no respiratory distress, comfortable HEENT: normocephalic, atraumatic, lids and lashes normal, PERRL, EOMI, anicteric sclera, no conjunctival injection, moist oral mucosa Card: regular rate and rhythm, S1S2, no murmurs, rubs, or gallops Lungs: good air entry, clear to auscultation bilaterally. no wheezes, rales, rhonchi, or retractions Abd: soft, mild diffuse tenderness, surgical bandage in place midline with large amount of dried stool, STAR drain in place, non-distended, normal bowel sounds, no rebound or guarding, no peritoneal signs Musculoskeletal: full range of motion of arms and legs, no tenderness to palpation. no clubbing or cyanosis, bilateral lower extremity edema Neurologic: appropriate for age, strength normal Psych: alert and oriented Skin: no petechiae, no lesions, warm and dry Course Vital Signs Vital signs: Vital Signs Temperature 36.8 C 03/26/25 09:11 Pulse 93 H 03/26/25 09:11 Respiratory Rate 17 03/26/25 09:11 Blood Pressure 126/82 03/26/25 09:11 Pulse Oximetry 99 03/26/25 09:11 Temperature 36.8 C 03/26/25 09:21 Temperature Source Oral 03/26/25 09:21 Pulse 93 H 03/26/25 09:21 Respiratory Rate 17 03/26/25 09:21 Blood Pressure 126/82 03/26/25 09:21 Blood Pressure Position Sitting 03/26/25 09:21 Pulse Oximetry 99 03/26/25 09:21 Oxygen Delivery Method Room Air 03/26/25 09:21 Oxygen Flow Rate 0 03/26/25 09:21 Pain Level 9 03/26/25 09:21 Lab/Test Results Lab/Test Results: 03/26/25 09:45 Blood Blood Culture - Pending 03/26/25 09:45 Blood Blood Culture - Pending Medical Decision Making 49-year-old female with history of polysubstance abuse, recent perforated bowel now with colostomy and surgical drain in place presents for abdominal pain and leg swelling. I did review prior records from her recent admission. Surgical note states that patient was to take Levaquin and Flagyl after leaving AMA and to follow-up with surgery on Tuesday. She apparently had been on the palliative care protocol due to her significant need for narcotic and benzos. Plan had been to get a CT on day of discharge. Laboratory studies show elevated white count. It has decreased only slightly from yesterday. No elevated lactic acid. Blood cultures are pending. CT abdomen pelvis was obtained and reviewed with surgery. These are expected postoperative changes. They do feel that patient will require admission for further IV antibiotic given the persistent elevation of white count. She does have an elevated BNP and troponin today. EKG does not show any acute ischemic changes. Case discussed with hospitalist who will admit to their service. Surgery will be consulting. PFSH All Active Problems (Updated 03/26/25 @ 13:03 by Maria Fernanda Caceres MD) Post-operative pain (Acute) Elevated brain natriuretic peptide (BNP) level (Acute) Tachycardia with hypertension (Acute) Elevated AST (SGOT) (Acute) Anemia (Chronic) Fentanyl dependence (Acute) ALFREDO (acute kidney injury) (Acute) Perforated bowel (Acute) Peritonitis (Acute) Weight loss (Acute) Postcoital urinary tract infection (Acute) Contraception (Acute) 08/2020. Declined LARC. Smokes tobacco. Rx for norethindrone 0.35 mg daily. History of tobacco abuse (Acute) Hx of herpes genitalis (Chronic) c/s report makes mention of vulvar herpes outbreak as being the cause of pt's c/s. Arthralgia (Chronic ~08/1996) related to remicaid treatment and crohn's Crohn disease (Chronic) Depression (Chronic) Opiate dependence, continuous (Chronic) Medical History Rheumatoid arthritis delivery delivered Family History Brother Crohn's colitis Social History Smoking/Tobacco Use Status: Former Tobacco Use Quit Date: 04/27/18 Smoking risk assessment performed?: Yes Alcohol Intake: never Drug use: Daily Substance use type: former substance user, marijuana, heroin and painkillers Adopted: No Foster care: No Household members: significant other Housing: house Number of Children: 3 Seatbelt use: always Helmet use: Yes Drive intox or ride w/intox coal tram driver: No Do you feel safe at home: Yes Do you feel safe in your relationship?: Yes Additional Social history: H-Dane. Together 7 years History History 2 Para 1 Hx # Term Pregnancies 1 Multiple births 1 Hx # Pregnancies 0 Ectopic pregnancies 0 AB induced 0 Hx Number of Living Children 2 AB spontaneous 0 Past Pregnancies Del. Date GA/Weeks # Preg Succ Route Wgt Sex Labor Lgth Anesth esia Location [facility] 08/22/96 Yes 2863.302 g other 08/22/96 Yes 1956.117 g Female 11/09/18 39 No Female Tatiana Carrera 11/09/18 No 3118.448 g Female [facility] Tatiana Jarrell Delivery Date: 11/09/18 Last Updated by: Tatiana Jarrell M.D. Elective repeat delivery named Latanya
[2025-03-26] MEDS: HYDROmorphone 2 MG/ML SYR 1 MG IVP ×2 (10:34→12:43)
[2025-03-26 10:35] LABS: Abs Immature Grans 1.09 10^3/uL (0.0-0.06); HCT 36.8 % (36.0-46.0); HGB 11.7 g/dL (11.2-15.7); Immature Grans % 4.4 %; MCH 27.7 pg (27.0-33.0); MCHC 31.8 % (32.0-36.0); MCV 87 fL (80-95); MPV 8.8 fL (8.0-11.0); Platelet Count 613 10^3/uL (130-400); RBC 4.23 10^6/uL (3.93-5.22); RDW 16.4 % (11.7-14.6); RDW-SD 49.3 fL; WBC 24.94 10^3/uL (4.4-10.8)
[2025-03-26 10:59] LABS: ALT 31 U/L (14-59); AST 18 U/L (15-37); Albumin 2.8 g/dL (3.4-5.0); Alkaline Phosphatase 151 U/L (46-116); Anion Gap 9.6 mmol/L (3-11); BUN 10 mg/dL (7-18); Bilirubin, Total 0.3 mg/dL (0.2-1.0); CO2 26.4 mmol/L (21.0-32.0); Calcium 9.2 mg/dL (8.5-10.1); Chloride 104 mmol/L (98-107); Estimated GFR 106.62 (mL/min/1.73m2); Glucose 107 mg/dL (74-106); Lipase 78 U/L (<78); Magnesium 1.8 mg/dL (1.8-2.4); NT-proBNP 6094 pg/mL (<300); Potassium 3.2 mmol/L (3.5-5.1); Sodium 140 mmol/L (136-145); Total Protein 7.6 g/dL (6.4-8.2)
--- NOTE | 2025-03-26 11:00 | RT.EKG_ITS ---
APPROVED REPORT Exam: Resting ECG Reason for Exam: elevated trop Patient Location: E HR:101 bpm ECG Measurements Heart Rate 101 AXIS RI 114 P 83 QRSd 77 QRS 62 QT 355 T 36 QTc 461 Conclusion Sinus tachycardia...rate> 99 Sinus tachycardia. When compared to prior 03/19/25 increased heart rate is noted. WD
[2025-03-26 11:02] LABS: Troponin I 130 ng/L (<or=51)
[2025-03-26] MEDS: Omnipaque 350 MG/ML 100 ML BTL IJ (11:58)
[2025-03-26] MEDS: Normal Saline - Diluent 50 ML VIAL IJ (11:59)
--- NOTE | 2025-03-26 11:59 | DI.CT_ITS ---
Exam(s) CT ABDOMEN PELVIS W EXAM: CT ABDOMEN PELVIS W CLINICAL HISTORY: s/p perf bowel TECHNIQUE: Imaging Protocol: Axial computed tomography images with coronal and sagittal reformatted images were created and reviewed. CONTRAST MATERIAL: Intravenous: Omnipaque 350 Contrast volume:70 mL Oral: No COMPARISON: CT CT CHEST PE ABD PELVIS W from 03/19/2025 FINDINGS: ABDOMEN: Lung Bases: No acute abnormality. Liver: Normal density. No measurable mass. Portal, Superior Mesenteric, and Splenic Veins: Unremarkable. Gallbladder and Biliary Tract: No radiodense calculus or dilation. Pancreas: Normal density, no abnormal calcifications or inflammatory process. Spleen: Normal. Adrenals: No masses seen. Kidneys: Normal size, contour and axis. No radiodense stones or obstructive uropathy. No masses seen. Abdominal Aorta: Abdominal portion non-dilated. Atherosclerotic calcification is present. Bowel: There has been interval resection of a portion of the distal transverse colon and descending colon. The patient has a left abdominal colostomy. There is bowel wall thickening involving the transverse and ascending colon. There is also mild bowel wall thickening involving the small bowel in the left upper quadrant. There is no evidence of obstruction. Peritoneal Cavity: There is a small amount of ascites in the pelvis. There are small collections of fluid seen in the mesentery suspicious for small abscesses. The largest measures approximately 2 cm in diameter. There is a drainage catheter which enters the abdomen on the right. The tip of the catheter is seen in the left pericolic gutter. There has been significant improvement in the pneumoperitoneum with 2 tiny foci of air beneath the anterior abdominal wall. Lymph Nodes: Within normal limits. Bones: Within normal limits for the patient's age. There are old healed right rib fractures. Soft Tissues: There is a midline anterior abdominal wall surgical incision. There is a small amount of fluid seen in the base of the scar. PELVIS: Bladder: Symmetric distention, no gross wall thickening. Reproductive Organs: Unremarkable as visualized. Lymph Nodes: Within normal limits. Bones: Within normal limits for the patient's age. IMPRESSION: 1. Interval resection of the distal transverse colon and descending colon with a left abdominal colostomy. 2. Bowel wall thickening involving the transverse colon and ascending colon. There is also mild wall thickening involving loops of small bowel in the left upper quadrant. This may represent enterocolitis. 3. There is no evidence of bowel obstruction. 4. A few small fluid collections seen within the mesentery which may represent small abscesses. The largest measures just 2 cm. 5. Significant improvement in the pneumoperitoneum with 2 tiny foci of intraperitoneal air beneath the anterior abdominal wall. 6. Midline surgical incision with a small amount of fluid seen in the base of the scar. 7. Small amount of abdominal pelvic ascites. RADIATION DOSE DELIVERED: 289.4mGy.cm Total DLP DATA REPOSITORY: All CT scans at this facility are submitted to the National Radiology Data Registry (NRDR) Dose Index Registry (DIR) with the [employer] (ACR). RADIATION OPTIMIZATION: All CT scans at this facility use at least one of these dose optimization techniques: automated exposure control; mA and/or kV adjustment per patient size (includes targeted exams where dose is matched to clinical indication); or iterative reconstruction.
--- NOTE | 2025-03-26 12:01 | DI.RAD_ITS ---
Exam(s) XR CHEST 1V IN DI DEPT EXAM: XR CHEST 1V IN DI DEPT CLINICAL HISTORY: leg swelling TECHNIQUE: 2D digital imaging was performed of the chest. One image was obtained. An AP view was obtained. COMPARISON: CR XR CHEST 2V PA LATERAL from 06/28/2024 CR XR PORTABLE CHEST AP from 07/03/2024 CR,XR XR PORTABLE CHEST AP from 02/03/[address] ABDOMEN PELVIS WO/W from 02/03/[address] ABDOMEN PELVIS W from 03/26/2025 FINDINGS: MEDIASTINUM: Normal. HEART: Normal. PULMONARY VASCULATURE: Normal. LUNGS: Clear. PLEURAL SPACE: No pleural effusion or pneumothorax. BONE:Within normal limits for the patient's age. OTHER FINDINGS:Normal. IMPRESSION: No acute pulmonary findings. DATA REPOSITORY: RADIATION DOSE DELIVERED:
[2025-03-26] MEDS: Potassium Chloride 20 MEQ TABCR 40 MEQ PO (12:10)
[2025-03-26 13:24] LABS: Troponin I 168 ng/L (<or=51)
--- NOTE | 2025-03-26 13:30 | W.PM.HP.N ---
Date of service: 03/26/25 Time of Service: 13:30 Assessment and Plan Assessment and plan (1) Sepsis: Status: Acute Assessment and plan: Meets criteria with elevated HR, WBC with peritonitis that was partially treated before she left AMA 03/25. She was on piperacillin/tazobactam at previous admission, which is reasonable, but her WBC was not trending down. Her peritoneal culture grew e. coli that was only intermediately sensitive to pip/tazo She was given levofloxacin and metronidazole upon discharge, which she did not fill, but this was given in the ED. Will continue this as the e. coli was sensitive to levofloxacin and the metronidazole would cover slow growing anaerobes. She has not been given fluid resuscitation due to concern for CHF, see below. (2) Elevated troponin: Status: Acute Assessment and plan: With no chest pain or EKG changes, this is not ACS. This related to her acute illness. With some LE edema and elevated BNaP, concern for CHF, get echocardiogram. Get lipids/A1c to assess overall cardiac risk to consider mitigation strategies. (3) Perforated bowel: Status: Acute Assessment and plan: Presented on initial admission with perforated bowel and underwent resection. Covering with antibiotics as above as she did have peritonitis on admission No additional source of infection or complication such as abscess noted on CT. Mildly elevated lipase, but not c/w pancreatitis. Surgery following. (4) Opiate dependence, continuous: Status: Chronic Assessment and plan: Severe opioid use disorder has complicated her post-op course. Will treat with prn opioid agonist both oral and IV to treat pain and avoid withdrawl Despite my strongly encouraging maintenance therapy to improve roasterman prognosis, she does not want to start this. Fentanyl and likely xylazine are drugs of choice. She admits to using while inpatient in the past. We did discuss the behavioral contract, safety concern for her using while admitted. Repeat UDS to look for stimulants given elevated troponin, but she denies this. Will also use precedex for anxiety and xylazine withdrawal after discussion. prn midazolam as needed. Sleep is a big concern, as she will be monitored, okay to use 10mg zolpidem along with mirtazipine, which has helped in the past. (5) Hypokalemia: Status: Inactive Assessment and plan: replace IV to start, follow (6) DVT prophylaxis: Status: Resolved Assessment and plan: enoxaparin History of Present Illness History of Present Illness Chief Complaint: abdominal pain Narrative: 49 year old woman with opioid use disorder and history of Crohn disease not on therapy who initially presented March 19 with severe abdominal pain worsening over several days and was taken to surgery for perforated bowel. She underwent laparotomy and colectomy with ostomy placement early 03/20. She was treated with pip/tazo and her peritoneal fluid grew E. coli which with intermediate sensitivity to that agent. She had ALFREDO post-op, which improved. Her septic physiology did improve, but she had ongoing pain complicated by her opioid use disorder and concern she was sneaking fentanyl into the hospital based on her behavior after visitors. She left AMA early 03/25. Levofloxacin and metronidazole were prescribed, but she never took them. On 03/26 she returned. She states she wasn't able to manage her drain and colostomy. She has some abdominal pain but can manage that well with street drugs. After talking to her mom, adult daughter, and 6 yo she was convinced to go back to the hospital. She knows she needs more treatment for her abdominal wounds and infection. She hasn't had fever or chills. She has some appetite, but doesn't eat much when using drugs, which she last used last night. Colostomy is putting out fluid regularly. No urinary complaints. She states the first thing she did when leaving was street drugs. She has terrible cravings as well as a trauma history and serious anxiety. She has used suboxone and methadone before, but ends up faking urines, selling it, and using street drugs anyways. She doesn't want to go back on either. When she isn't using she has severe anxiety, can't sleep, feels out of her mind. Ketamine did help, but felt like wasn't getting enough here even when given high dose fentanyl. She remembers using fentanyl/xylazine she snuck in to [facility] last admission, but doesn't remember exactly when. Review of Systems All systems reviewed & are unremarkable except as noted in HPI and below PFSH All Active Problems Elevated troponin (Acute) Sepsis (Acute) Post-operative pain (Acute) Elevated brain natriuretic peptide (BNP) level (Acute) Tachycardia with hypertension (Acute) Elevated AST (SGOT) (Acute) Fentanyl dependence (Acute) ALFREDO (acute kidney injury) (Acute) Perforated bowel (Acute) Peritonitis (Acute) Weight loss (Acute) Postcoital urinary tract infection (Acute) Contraception (Acute) 08/2020. Declined LARC. Smokes tobacco. Rx for norethindrone 0.35 mg daily. Hx of herpes genitalis (Chronic) c/s report makes mention of vulvar herpes outbreak as being the cause of pt's c/s. History of tobacco abuse (Acute) Arthralgia (Chronic ~08/1996) related to remicaid treatment and crohn's Crohn disease (Chronic) Depression (Chronic) Opiate dependence, continuous (Chronic) Medical History Anemia Rheumatoid arthritis delivery delivered Surgical History (Updated 03/26/25 @ 17:36 by Joo Troncoso) Status post partial colectomy S/P section Family History Brother Crohn's colitis Social History (Updated 03/26/25 @ 17:38 by Joo Troncoso) Smoking/Tobacco Use Status: Former Tobacco Use Quit Date: 04/27/18 Smoking risk assessment performed?: Yes Alcohol Intake: never Drug use: Daily Substance use type: marijuana, heroin, tranquilizers, sedatives and painkillers Counseling given: Yes Counseling provided: provider counseling Adopted: No Foster care: No Household members: significant other Housing: house Number of Children: 3 Seatbelt use: always Helmet use: Yes Drive intox or ride w/intox 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 Mom and adult twin daughters age 28 supportive. History History 2 Para 1 Hx # Term Pregnancies 1 Multiple births 1 Hx # Pregnancies 0 Ectopic pregnancies 0 AB induced 0 Hx Number of Living Children 2 AB spontaneous 0 Past Pregnancies Del. Date GA/Weeks # Preg Succ Route Wgt Sex Labor Lgth Anesthesia Location [facility] 08/22/96 Yes 2863.302 g other 08/22/96 Yes 1956.117 g Female 11/09/18 39 No Female Tatianaamanda Morenoor 11/09/18 No 3118.448 g Female [facility] Tatiana Jarrell Delivery Date: 11/09/18 Last Updated by: Tatiana Jarrell M.D. Elective repeat delivery named [place] Meds Allergies and Home Medications Allergies Allergy/AdvReac Type Severity Reaction Status Date / Time No Known Allergies Allergy Verified 03/26/25 09:21 Home Medications ?Medication ?Instructions ?Recorded ?Confirmed ?Type levofloxacin 750 mg tablet 750 mg PO DAILY #7 tabs 03/25/25 03/26/25 Rx metronidazole 500 mg tablet 500 mg PO Q8H 7 days #21 tabs 03/25/25 03/26/25 Rx Exam Narrative Exam Narrative: GEN: Alert and oriented x 4, pleasant and cooperative, gives linear history. No acute distress at rest, but clammy and slight mouth and hand tremor.. HEENT: Head atraumatic. Conjunctiva clear, no icterus. PEERL, pupils 2-3mm in room light, EOMI. slight rhinorrhea. MMM, OP benign. Neck is supple with no masses or lymphadenopathy, trachea midline LUNGS: CTAB with normal effort CV: RRR with no murmurs, gallops, or rubs. ABD: active bowel sounds, soft, nontender and nondistended. No masses. EXT: no cyanosis, clubbing. 1+ edema right, trace left MSK: No joint redness or swelling NEURO: CN 2-12 grossly intact. Normal movement of 4 extremities. Normal speech and coordination. Mild tremor SKIN: No rashes or open wounds. PSYCH: Anxious mood and affect, normal thought process Results Imaging Chest x-ray: report reviewed and image reviewed Abdomen CT scan report/results: report reviewed CT scan - pelvis: report reviewed EKG: report reviewed and image reviewed (sinus tachycardia 104, no ST-T changes.) Imaging Studies: CT abd/pelvis: 1. Interval resection of the distal transverse colon and descending colon with a left abdominal colostomy. 2. Bowel wall thickening involving the transverse colon and ascending colon. There is also mild wall thickening involving loops of small bowel in the left upper quadrant. This may represent enterocolitis. 3. There is no evidence of bowel obstruction. 4. A few small fluid collections seen within the mesentery which may represent small abscesses. The largest measures just 2 cm. 5. Significant improvement in the pneumoperitoneum with 2 tiny foci of intraperitoneal air beneath the anterior abdominal wall. 6. Midline surgical incision with a small amount of fluid seen in the base of the scar. 7. Small amount of abdominal pelvic ascites. Labs 03/26/25 10:24 03/26/25 10:24 Labs: Laboratory Results - last 24 hr 03/26/25 03/26/25 10:24 12:45 WBC 24.94 H RBC 4.23 Hgb 11.7 Hct 36.8 MCV 87 MCH 27.7 MCHC 31.8 L RDW 16.4 H Plt Count 613 H MPV 8.8 Immature Gran % 4.4 Neutrophils % 73.0 Lymphocytes % 18.1 Monocytes % 2.4 Eosinophils % 1.8 Basophils % 0.3 Nucleated RBC % 0.2 Absolute Neutrophils 18.21 H Absolute Lymphocytes 4.51 H Absolute Monocytes 0.60 Absolute Eosinophils 0.45 Absolute Basophils 0.07 VBG Lactate 1.2 Sodium 140 Potassium 3.2 L Chloride 104 Carbon Dioxide 26.4 Anion Gap 9.6 BUN 10 Creatinine 0.7 Est GFR (CKD-EPI 2020) 106.62 Glucose 107 H Calcium 9.2 Magnesium 1.8 Total Bilirubin 0.3 AST 18 ALT 31 Alkaline Phosphatase 151 H Troponin I 130 H* 168 H* NT-Pro-B Natriuret Pep 6094 H Total Protein 7.6 Albumin 2.8 L Lipase 78 H Last Vital Signs Temp 36.8 C 03/26/25 09:21 Pulse 110 H 03/26/25 11:31 Resp 17 03/26/25 09:21 BP 158/98 H 03/26/25 11:30 Pulse Ox 100 03/26/25 11:31 Time Spent Time spent with Patient: >75 minutes Time was spent: preparing to see the patient(eg.review tests), obtaining and/or reviewing separately otained hiistory, ordering medications,tests, procedures, referring, communicating with other health home care music therapist, indepentently interpreting results, counseling the patient and care coordination
--- NOTE | 2025-03-26 13:57 | W.PC.ACHO ---
Registration Status: REG ER Primary Language: Preferred Language: Spanish ED Information & Data Chief Complaint GenMedical 03/26/25 10:03 Triage Note Pt admitted here and signed 03/26/25 09:11 out AMA thinking she could care for herself but is still in a lot of pain, extremely weak, and not feeling well Medical / Surgical History (Last Updated 03/26/25 @ 13:35 by Joo Troncoso) Anemia Rheumatoid arthritis delivery delivered Most Recent Vital Signs Temperature 36.8 C 03/26/25 09:21 Temperature Source Oral 03/26/25 09:21 Pulse 110 H 03/26/25 11:31 Respiratory Rate 17 03/26/25 09:21 Respiratory Effort Normal, Non-Labored 03/26/25 12:26 Respiratory Depth Normal 03/26/25 12:26 Respiratory Pattern Normal 03/26/25 12:26 Blood Pressure 158/98 H 03/26/25 11:30 Blood Pressure Mean 112 03/26/25 11:30 Blood Pressure Position Sitting 03/26/25 09:21 Pulse Oximetry 100 03/26/25 11:31 Oxygen Delivery Method Room Air 03/26/25 09:21 Oxygen Flow Rate 0 03/26/25 09:21 Pain Level 9 03/26/25 12:43 Allergies No Known Allergies Allergy (Verified 03/26/25 09:21) Precautions Isolation Standard precaution 03/26/25 09:36 Active Medications Generic Name Dose Route Start Last Admin Trade Name Freq PRN Reason Stop Dose Admin Iohexol 100 ml 03/26/25 12:00 03/26/25 11:58 Omnipaque 350 Mg/Ml 100 Ml Btl IJ 04/25/25 23:59 70 ml DIRECTED DEVON Administration Sodium Chloride 50 ml 03/26/25 12:00 03/26/25 11:59 Normal Saline - Diluent 50 Ml Vial IJ 50 ml .FOR DI USE DEVON Administration IV IV Catheter Type [Right Saline Lock Antecubital] IV Catheter Gauge [Right 18 Antecubital] Diet Orders Category Date Time Status Heart Healthy Eating [DIET] Nutrition 03/26/25 Dinner Active Diagnostics 03/26/25 03/26/25 03/26/25 Range/Units 12:45 12:45 10:24 WBC 24.94 H (4.4-10.8) 10^3/uL RBC 4.23 (3.93-5.22) 10^6/uL Hgb 11.7 (11.2-15.7) g/dL Hct 36.8 (36.0-46.0) % MCV 87 (80-95) fL MCH 27.7 (27.0-33.0) pg MCHC 31.8 L (32.0-36.0) % RDW 16.4 H (11.7-14.6) % Plt Count 613 H (130-400) 10^3/uL MPV 8.8 (8.0-11.0) fL Immature Gran % 4.4 % Neutrophils % 73.0 % Lymphocytes % 18.1 % Monocytes % 2.4 % Eosinophils % 1.8 % Basophils % 0.3 % Nucleated RBC % 0.2 (0.0-0.3) % Absolute Neutrophils 18.21 H (1.2-6.7) 10^3/uL Absolute Lymphocytes 4.51 H (1.2-3.4) 10^3/uL Absolute Monocytes 0.60 (0.1-0.8) 10^3/uL Absolute Eosinophils 0.45 (0.0-0.7) 10^3/uL Absolute Basophils 0.07 (0.0-0.2) 10^3/uL VBG Lactate 1.2 (<or=2.0) mmol/L Sodium 140 (136-145) mmol/L Potassium 3.2 L (3.5-5.1) mmol/L Chloride 104 (98-107) mmol/L Carbon Dioxide 26.4 (21.0-32.0) mmol/L Anion Gap 9.6 (3-11) mmol/L BUN 10 (7-18) mg/dL Creatinine 0.7 (0.55-1.02) mg/dL Est GFR (CKD-EPI 2020) 106.62 (mL/min/1.73m2) Glucose 107 H (74-106) mg/dL Calcium 9.2 (8.5-10.1) mg/dL Magnesium 1.8 (1.8-2.4) mg/dL Total Bilirubin 0.3 (0.2-1.0) mg/dL AST 18 (15-37) U/L ALT 31 (14-59) U/L Alkaline Phosphatase 151 H (46-116) U/L Troponin I Pending 168 H* 130 H* (<or=51) ng/L NT-Pro-B Natriuret Pep 6094 H (<300) pg/mL Total Protein 7.6 (6.4-8.2) g/dL Albumin 2.8 L (3.4-5.0) g/dL Lipase 78 H (<78) U/L 03/26/25 11:20 Blood Culture - Pending Blood 03/26/25 10:24 Blood Culture - Pending Blood Intake and Output - 24 Hour Total 03/26/25 09:09 thru 03/26/25 09:11 Weight 66.224 kg Falls Risk Assessment History of Falls No History 03/26/25 12:26 Contributing Factors Impairments 03/26/25 12:26 Ambulatory Aids Uses ambulatory device 03/26/25 12:26 Tubes/Lines W/no contributing factors 03/26/25 12:26 Gait Evaluation W/no contributing factors 03/26/25 12:26 Fall Total Score 38 03/26/25 12:26 Level of Risk Moderate Risk 03/26/25 12:26 Problems (Last Updated 03/26/25 @ 13:35 by Joo Troncoso) Elevated troponin (Acute) Sepsis (Acute) Post-operative pain (Acute) Elevated brain natriuretic peptide (BNP) level (Acute) Perforated bowel (Acute) Crohn disease (Chronic) Opiate dependence, continuous (Chronic) v v v v v v v v v Sending and/or Receiving Nurses: Please use comment section below to note any information pertinent to the patient hand-off not included above. Information / Comments: Left AMA yesterday morning. Surgical dressing being changed by surgeon right now. Colostomy is draining. CT done - negative. WBC elevated but coming down. Last dose dilaudid 12:30pm. A & O and pleasant. Vitals stable. Blood Cultures drawn. 12:45 Troponin sent off late - new draw due at 13:45. Oral K replacement given. Report received from: Danay Jimenez RN
--- NOTE | 2025-03-26 13:57 | NUR.NOTE ---
This rn gave report to Rosana Alvarado in ICU. Informed her that lab previously cynthia trop with BC. Lab called back and stated they were unable to obtain trop. This rn was notified that BC were uncollected not 1hr trop and called back later to verify with lab and was informed that trop was uncollected. This rn sent 1hr trop after being notified by lab that it was uncollected. Pt awake alert and oriented x4. Pt at baseline presentation. No acute distress noted. Dr Cook at bedside with pt changing surgical/ ostomy dressing. This rn informed Rosana that pt would be brought upstairs once procedure was finished. Nursing Note:
[2025-03-26 14:46] LABS: Troponin I 227 ng/L (<or=51)
[2025-03-26 15:14] LABS: Glucose Negative (Negative)
[2025-03-26 15:20] LABS: RBC >50 HPF (0-2)
[2025-03-26 15:31] LABS: Cannabinoids THC Positive (Negative); METHADONE URINE SCREEN Negative (Negative)
[2025-03-26] MEDS: POTASSIUM CHLORIDE 20 MEQ/100 ML BAG 50 MEQ IV_INF (15:50)
[2025-03-26] MEDS: Normal Saline Flush 10 ML SYR (15:51)
[2025-03-26] MEDS: HYDROmorphone 2 MG/ML SYR IVP ×3 (15:51→21:03)
[2025-03-26] MEDS: Acetaminophen 325 MG TAB 650 MG PO (15:51)
[2025-03-26 16:33] LABS: Glucose 100 mg/dL (Negative)
[2025-03-26 16:40] LABS: C & S Indicated? Yes; RBC >50 HPF (0-2); WBC >50 HPF (0-5)
[2025-03-26] MEDS: Midazolam 2 MG/2 ML VIAL IVP ×2 (17:47→21:02)
[2025-03-26] MEDS: dexmedeTOMidine IN 0.9 % NACL 400 MCG/100 ML BTL IV (17:57)
[2025-03-26] MEDS: oxyCODONE 10 MG TAB 20 MG PO ×2 (17:58→23:02)
[2025-03-26] MEDS: levoFLOXacin 750 MG/150 ML BAG 100 MG IVPB (19:35)
[2025-03-26] MEDS: Zolpidem 10 MG TAB PO (19:43)
[2025-03-26] MEDS: metroNIDAZOLE 500 MG/100 ML BAG 100 MG IVPB ×2 (19:43→23:30)
[2025-03-26] MEDS: Mirtazapine 15 MG TAB 7.5 MG PO (19:43)
--- NOTE | 2025-03-26 22:06 | W.SURGCON ---
Date of service: 03/26/25 Time of Service: 14:00 Assessment and Plan Assessment and plan (1) Sepsis: Status: Acute Assessment and plan: Unclear the source of this. Patient does have some thickening of her ascending and transverse colon. The CT scan preoperatively from 03/19/2025 also shows some thickening. Will follow this with serial abdominal exams, her abdominal exam right now is quite benign. Have ordered lactic acid level for tonight and for tomorrow. Currently on Levaquin and Flagyl. Her chest x-ray is unremarkable. There are some small fluid collections which can be seen on the CT of the abdomen, patient has a drain. Fluid collections are in the mesentery normally these will resolve on their own. (2) Anemia: Assessment and plan: 03/24/2025 patient with precipitous drop in hemoglobin, she received a 2 unit PRBC transfusion. Currently her hemoglobin is stable. Will monitor for now. (3) Post-operative pain: Status: Acute Assessment and plan: Postoperative pain, being managed by hospitalist physician Dr. Troncoso. She is on oxycodone for this (4) Elevated troponin: Status: Acute Assessment and plan: Being managed by hospitalist physician, Dr. Joo Troncoso. Does not appear to be ACS. (5) ALFREDO (acute kidney injury): Status: Acute Assessment and plan: Will avoid contrasted studies if possible. History of Present Illness History of Present Illness Chief Complaint: Leaking colostomy Narrative: Ms. funez is a 49-year-old female, she is status post exploratory laparotomy, partial colectomy and colostomy creation by surgical colleague Dr. 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 Ms. funez has a decade long history of profound opioid dependence and abuse. She left the hospital AMA on 03/25/2025 (yesterday) due to dissatisfaction with some aspects of her care. She was admitted to the ICU secondary to and extremely high intravenous opiate requirement for control of her pain. Today she presents secondary to difficulty colostomy dressings. She reports that her colostomy has broken open and spilled liquid stool on her incision. She currently has no nausea she reports that she lives at home with her mother and child and does have support at home. She was concerned that if she did not come to the hospital she would receive an due to purchasing illicit opiates to equal her pain. Review of Systems Constitutional Comments: Negative ENT Comments: Patient with history of poor dentition and dental caries secondary to chronic use of sugared methadone. Cardiovascular Comments: Negative. Respiratory Comments: Negative. Gastrointestinal Comments: Recent colostomy as per HPI above. Genitourinary Comments: History of ALFREDO on most recent admission, from a laboratory perspective this had improved. Musculoskeletal Comments: Negative. Neurologic Comments: See below, chronic opioid dependence Psychiatric Comments: Patient with chronic opioid dependence Hematologic/Lymphatic Comments: Patient with drop in hemoglobin they prior to leaving AMA, hemoglobin of 5.5. It appears she did get a 2 unit PRBC transfusion. PFSH All Active Problems (Updated 03/26/25 @ 22:27 by Ady Cook MD) Leukocytosis (Acute) Elevated troponin (Acute) Sepsis (Acute) Post-operative pain (Acute) Elevated brain natriuretic peptide (BNP) level (Acute) Tachycardia with hypertension (Acute) Elevated AST (SGOT) (Acute) Fentanyl dependence (Acute) ALFREDO (acute kidney injury) (Acute) Perforated bowel (Acute) Peritonitis (Acute) Weight loss (Acute) Postcoital urinary tract infection (Acute) Contraception (Acute) 08/2020. Declined LARC. Smokes tobacco. Rx for norethindrone 0.35 mg daily. History of tobacco abuse (Acute) Hx of herpes genitalis (Chronic) c/s report makes mention of vulvar herpes outbreak as being the cause of pt's c/s. Arthralgia (Chronic ~08/1996) related to remicaid treatment and crohn's Crohn disease (Chronic) Depression (Chronic) Opiate dependence, continuous (Chronic) Medical History (Updated 03/26/25 @ 22:27 by Ady Cook MD) Anemia Rheumatoid arthritis delivery delivered Surgical History (Updated 03/26/25 @ 17:36 by Joo Troncoso) Status post partial colectomy S/P section Family History Brother Crohn's colitis Social History (Updated 03/26/25 @ 17:38 by Joo Troncoso) Smoking/Tobacco Use Status: Former Tobacco Use Quit Date: 04/27/18 Smoking risk assessment performed?: Yes Alcohol Intake: never Drug use: Daily Substance use type: marijuana, heroin, tranquilizers, sedatives and painkillers Counseling given: Yes Counseling provided: provider counseling Adopted: No Foster care: No Household members: significant other Housing: house Number of Children: 3 Seatbelt use: always Helmet use: Yes Drive intox or ride w/intox haul truck driver: No Do you feel safe at home: Yes Do you feel safe in your relationship?: Yes Additional Social history: Shared custody of 6 yo girl. Mom and adult twin daughters age 28 supportive. History History 2 Para 1 Hx # Term Pregnancies 1 Multiple births 1 Hx # Pregnancies 0 Ectopic pregnancies 0 AB induced 0 Hx Number of Living Children 2 AB spontaneous 0 Past Pregnancies Del. Date GA/Weeks # Preg Succ Route Wgt Sex Labor Lgth Anesthesia Location Prov Complic 08/22/96 Yes 2863.302 g other 08/22/96 Yes 1956.117 g Female 11/09/18 39 No Female Tatiana Jarrell 11/09/18 No 3118.448 g Female [facility] Tatiana Jarrell Delivery Date: 11/09/18 Last Updated by: Tatiana Jarrell M.D. Elective repeat delivery named [place] Exam Narrative Exam Narrative: Ms. funez is a adult female, she is awake and alert, compliance and pleasant during history as well as examination. Her vital signs show some mild tachycardia, normal blood pressure, she is afebrile. Her cardiac exam this afternoon was regular rate and rhythm without gross murmur. Her pulmonary exam with clear to auscultation bilaterally. Her abdomen was examined with the assistance of a nursing home assistant administrator today. Patient has normal active bowel sounds, she has a surgical drain placed in the right mid abdomen, with serous fluid within it. There is a disposable wound VAC along the midline laparotomy, and a colostomy which is pink and viable and putting out yellow stool. The temporary wound VAC was removed from the patient's midline abdomen laparotomy incision is closed with quinn and appears to be healing quite well. The wound was dressed with clean gauze and tape. The Pj drain contains some clots of blood with serous fluid. The drain was stripped and a new dressing was applied. Patient's abdomen is soft nontender nondistended. Results Last Vital Signs Temp 36.9 C 03/26/25 12:30 Pulse 96 H 03/26/25 21:10 Resp 19 03/26/25 21:10 BP 119/75 03/26/25 21:10 Pulse Ox 100 03/26/25 16:30 Labs 03/26/25 10:24 03/26/25 10:24 Labs: Laboratory Results - last 24 hr 03/26/25 03/26/25 03/26/25 10:24 12:45 13:24 WBC 24.94 H RBC 4.23 Hgb 11.7 Hct 36.8 MCV 87 MCH 27.7 MCHC 31.8 L RDW 16.4 H Plt Count 613 H MPV 8.8 Immature Gran % 4.4 Neutrophils % 73.0 Lymphocytes % 18.1 Monocytes % 2.4 Eosinophils % 1.8 Basophils % 0.3 Nucleated RBC % 0.2 Absolute Neutrophils 18.21 H Absolute Lymphocytes 4.51 H Absolute Monocytes 0.60 Absolute Eosinophils 0.45 Absolute Basophils 0.07 VBG Lactate 1.2 Sodium 140 Potassium 3.2 L Chloride 104 Carbon Dioxide 26.4 Anion Gap 9.6 BUN 10 Creatinine 0.7 Est GFR (CKD-EPI 2020) 106.62 Glucose 107 H Calcium 9.2 Magnesium 1.8 Total Bilirubin 0.3 AST 18 ALT 31 Alkaline Phosphatase 151 H Troponin I 130 H* 168 H* 227 H* NT-Pro-B Natriuret Pep 6094 H Total Protein 7.6 Albumin 2.8 L Lipase 78 H Urine Color Urine Clarity Urine pH Ur Specific [place] Urine Protein Urine Ketones Urine Blood Urine Nitrite Urine Bilirubin Urine Urobilinogen Ur Leukocyte Esterase Urine RBC Urine WBC Ur Epithelial Cells Urine Crystals Urine Bacteria Urine Casts Urine Mucus Urine Other Ur Culture Indicated? Urine Glucose Urine Opiates Screen Urine Methadone Screen Ur Barbiturates Screen Ur Tricyclics Screen Ur Amphetamines Screen U Benzodiazepines Scrn Urine Cocaine Screen Ur THC Screen 03/26/25 03/26/25 14:59 15:45 WBC RBC Hgb Hct MCV MCH MCHC RDW Plt Count MPV Immature Gran % Neutrophils % Lymphocytes % Monocytes % Eosinophils % Basophils % Nucleated RBC % Absolute Neutrophils Absolute Lymphocytes Absolute Monocytes Absolute Eosinophils Absolute Basophils VBG Lactate Sodium Potassium Chloride Carbon Dioxide Anion Gap BUN Creatinine Est GFR (CKD-EPI 2020) Glucose Calcium Magnesium Total Bilirubin AST ALT Alkaline Phosphatase Troponin I NT-Pro-B Natriuret Pep Total Protein Albumin Lipase Urine Color Dark Yellow Dark Yellow Urine Clarity Sl Cloudy Cloudy Urine pH 6.5 7.0 Ur Specific [place] 1.015 1.020 Urine Protein >=300 H >=300 H Urine Ketones 15 H Trace H Urine Blood Large H Large H Urine Nitrite Positive H Negative Urine Bilirubin Small H Small H Urine Urobilinogen 0.2 0.2 Ur Leukocyte Esterase Negative Trace H Urine RBC >50 H >50 H Urine WBC 10-20 H >50 H Ur Epithelial Cells Moderate Not Applicable Urine Crystals Negative Not Applicable Urine Bacteria Few Not Applicable Urine Casts Negative Urine Mucus Negative Not Applicable Urine Other Rare Renal Ur Culture Indicated? No/Sq. Contamination Yes Urine Glucose Negative 100 H Urine Opiates Screen Positive A Urine Methadone Screen Negative Ur Barbiturates Screen Negative Ur Tricyclics Screen Negative Ur Amphetamines Screen Negative U Benzodiazepines Scrn Negative Urine Cocaine Screen Negative Ur THC Screen Positive A Imaging Abdomen CT scan report/results: report reviewed, image reviewed and other (Reviewed patient's CT scan, the images along with the radiologist read. There are some small fluid collections in the mesentery. There is some thickening of the transverse colon and ascending colon.)
[2025-03-26] MEDS: dexmedeTOMidine IN 0.9 % NACL 400 MCG/100 ML BTL 16.025 MCG IV (23:01)
[2025-03-27] VITALS (53 sets, daily range): BP systolic 102–133; BP diastolic 58–76; PULSE 68–105; RESP 11–26; TEMP 36.4–37; O2SAT 96–99
[2025-03-27] MEDS: HYDROmorphone 2 MG/ML SYR IVP ×8 (00:21→22:59)
[2025-03-27] MEDS: Midazolam 2 MG/2 ML VIAL IVP ×8 (00:23→21:26)
[2025-03-27] MEDS: oxyCODONE 10 MG TAB 20 MG PO ×4 (03:29→21:27)
[2025-03-27] MEDS: dexmedeTOMidine IN 0.9 % NACL 400 MCG/100 ML BTL 16.025 MCG IV ×4 (05:03→23:51)
[2025-03-27] MEDS: metroNIDAZOLE 500 MG/100 ML BAG 100 MG IVPB ×3 (05:43→18:49)
[2025-03-27 06:15] LABS: Abs Immature Grans 0.46 10^3/uL (0.0-0.06); HCT 29.8 % (36.0-46.0); HGB 9.8 g/dL (11.2-15.7); Immature Grans % 3.0 %; MCH 28.9 pg (27.0-33.0); MCHC 32.9 % (32.0-36.0); MCV 88 fL (80-95); MPV 8.9 fL (8.0-11.0); Platelet Count 493 10^3/uL (130-400); RBC 3.39 10^6/uL (3.93-5.22); RDW 16.2 % (11.7-14.6); RDW-SD 50.0 fL; WBC 15.27 10^3/uL (4.4-10.8)
[2025-03-27 06:31] LABS: Anion Gap 12.3 mmol/L (3-11); BUN 6 mg/dL (7-18); CO2 21.7 mmol/L (21.0-32.0); Calcium 7.9 mg/dL (8.5-10.1); Chloride 107 mmol/L (98-107); Estimated GFR 106.62 (mL/min/1.73m2); Glucose 127 mg/dL (74-106); Potassium 3.6 mmol/L (3.5-5.1); Sodium 141 mmol/L (136-145)
[2025-03-27 06:35] LABS: Hemoglobin A1C 5.8 % (<5.7)
[2025-03-27 06:39] LABS: Calculated LDL 121 mg/dL (<100); Cholesterol 201 mg/dL (<200); HDL Cholesterol 26 mg/dL (>or=50); Triglyceride 272 mg/dL (<150)
[2025-03-27 06:40] LABS: Troponin I 114 ng/L (<or=51)
[2025-03-27] MEDS: Enoxaparin 40 MG/0.4 ML SYR SC (08:27)
[2025-03-27] MEDS: Normal Saline Flush 10 ML SYR IVP ×2 (09:25→21:26)
--- NOTE | 2025-03-27 10:02 | INITIAL_ITS ---
Date of service: 03/27/25 Time of Service: 10:02 Care Management Initial Assmt Initial Assessment Reason for Hospitalization: Sepsis, opiod use, Elevated Troponin Functional Status/Living Situation Patient Presentation: Shania was sitting in a chair when CM met with her, she is pleasant and engages in conversation. Shania shares that she is struggling, further endorsing SI with intent. She described her withdrawal-related pain as overwhelming stating that it would be easier to get it to stop. Shania reflected on unresolved trauma from her past, which she reports has been weighing on her for years and knows she has to tell her mother, but is scared of her reaction. Shania reports that she does not feel safe and 100% knows she would follow through trying to OD. Patient also disclosed multiple past suicide attempts by overdosing, further stating that she doesn't understand why it didn't work, making note that it must not have been my time. [facility] is notified. Interim safety plan placed, per protocol. Patient agrees no visitors at this time, in order to keep her stimulation low. In addition, Shania expressed concerns with her overnight nursing care. She reports that the nurse appeared more focused on her own personal life than providing her with appropriate support and assistance. Further stating that she understands that everyone has a personal life but she needs to try to focus on herself rather than personal issues of others. CM notified charge nurse. Town of Residence: [place] Resides with: Parent Natural Supports: Mother, twin daughter and 6 year old daughter. Employment Status: Unemployed Instrumental Activities of Daily Living (ADLs): Independent Medications Medication Management: No Issues/Barriers identified Physical Functioning/Mobility Assistive Device: None Advance Directives Advance Directives: Do you have an Advance Directive: N , 09:10 AD On File at [facility]: N 10/16/18, 09:10 Date Asked 03/26/25 03/26/25, 09:13 AD Date Reviewed COLST On File at [facility] COLST Date Scanned Code Status Resuscitation Status Full Code Portal Pt does not currently have a portal and education provided: Yes Insurance Coverage/Financial Issues Insurance: Medicaid [facility] - [id number] Care Team Visit Care Team Role Provider Type Hali Rueda MD Primary Care Provider NON-[facility] STAFF PHYSICIAN Maria Fernanda Reyes MD Other Providers NON-[facility] STAFF BRANDON Mccrary Other Providers PHYSICIANS ASSISTANT Gregoria Catnu [facility] Other Providers [facility] STAFF PHYSICIAN Gregoria Cantu [facility] Other Providers [facility] ST[facility] PHYSI VALENTE Hopkins, DO Other Providers CONSULTING PHYSICIAN Ady Cook MD Other Providers [facility] STAFF PHYSICIAN Joel Rosado MD Other Providers [facility] STAFF PHYSICIAN Penny Whitten MD Other Providers [facility] STAFF PHYSICIAN Jing Epps, DO Other Providers CONSULTING PHYSICIAN Heladio Montiel MD Other Providers CONSULTING PHYSICIAN Omid Cano, DO Other Providers OSTEOPATHIC DOCTOR Robinson Ruiz MD Other Providers [facility] STAFF PHYSICIAN Yessenia Victor, DO Other Providers OSTEOPATHIC DOCTOR Dariana Marvin MD Other Providers [facility] STAFF PHYSICIAN Maria Fernanda Caceres MD Emergency Provider [facility] STAFF PHYSICIAN Joo Troncoso Admit Provider [facility] STAFF PHYSICIAN Attending Provider Discharge Potential Discharge Needs: Consult Consult Services Needed: Palliative (Review goals of care.) and Other (Astrophysics Teacher, if willing) and PCP F/U Appt Anticipated Barriers to Discharge: None Identified Patient/Family Education Needs: Review discharge instructions, discuss Ask Me Three Transportation: Private vehicle Plan: Patient endorses SI with intent, [facility] consult is requested. Discharge planning is dependent on if the patient requires inpatient psych treatment when medically cleared. CM will continue to follow. Social Determinants of Health Screening Social Determinants of health last assessed in clinic: 03/27/25 Will the Patient Participate in the Screening?: Yes Do you worry about having a steady place to live?: no Problems where you live: no known problems In the past 12 months, have you had to go without electric, gas, oil or water in your home?: no 1. Within the past 12 months, we worried whether our food would run out before we got money to buy more.: Never true 2. Within the past 12 months, the food we bought just didn't last and we didn't have money to get more.: Never true Has lack of transportation kept you from medical appointments or from doing things needed for daily living?: no Has anyone in your life made you feel unsafe or unsupported?: no How hard is it for you to pay for the very basics like food, housing, medical care, and heating? Would you say it is:: Not hard at all Do you want help finding or keeping work or a job?: I do not need or want help If for any reason you need help with day-to-day activities such as bathing, preparing meals, shopping, managing finances, etc., do you get the help you need?: I get all the help I need How often do you feel lonely or isolated from those around you?: Sometimes Do you speak a language other than Mongolian at home?: No Does the patient want assistance with any of the above?: No Health Related Social Needs Health related social needs: feeling lonely/isolated (Z60.8) Health related social needs details: None needed. PFSH All Active Problems (Updated 03/26/25 @ 22:27 by Ady Cook MD) Leukocytosis (Acute) Elevated troponin (Acute) Sepsis (Acute) Post-operative pain (Acute) Elevated brain natriuretic peptide (BNP) level (Acute) Tachycardia with hypertension (Acute) Elevated AST (SGOT) (Acute) Fentanyl dependence (Acute) ALFREDO (acute kidney injury) (Acute) Perforated bowel (Acute) Peritonitis (Acute) Weight loss (Acute) Postcoital urinary tract infection (Acute) Contraception (Acute) 08/2020. Declined LARC. Smokes tobacco. Rx for norethindrone 0.35 mg daily. History of tobacco abuse (Acute) Hx of herpes genitalis (Chronic) c/s report makes mention of vulvar herpes outbreak as being the cause of pt's c/s. Arthralgia (Chronic ~08/1996) related to remicaid treatment and crohn's Crohn disease (Chronic) Depression (Chronic) Opiate dependence, continuous (Chronic) Medical History (Updated 03/26/25 @ 22:27 by Ady Cook MD) Anemia Rheumatoid arthritis delivery delivered Surgical History (Updated 03/26/25 @ 17:36 by Joo Troncoso) Status post partial colectomy S/P section Family History Brother Crohn's colitis Social History (Updated 03/26/25 @ 17:38 by Joo Troncoso) Smoking/Tobacco Use Status: Former Tobacco Use Quit Date: 04/27/18 Smoking risk assessment performed?: Yes Alcohol Intake: never Drug use: Daily Substance use type: marijuana, heroin, tranquilizers, sedatives and painkillers Counseling given: Yes Counseling provided: provider counseling Adopted: No Foster care: No Household members: significant other Housing: house Number of Children: 3 Seatbelt use: always Helmet use: Yes Drive intox or ride w/intox cdl bulk driver: No Do you feel safe at home: Yes Do you feel safe in your relationship?: Yes Additional Social history: Shared custody of 6 yo girl. Mom and adult twin daughters age 28 supportive. History History 2 Para 1 Hx # Term Pregnancies 1 Multiple births 1 Hx # Pregnancies 0 Ectopic pregnancies 0 AB induced 0 Hx Number of Living Children 2 AB spontaneous 0 Past Pregnancies Del. Date GA/Weeks # Preg Succ Route Wgt Sex Labor Lgth Anesth esia Location [facility] 08/22/96 Yes 2863.302 g other 08/22/96 Yes 1956.117 g Female 11/09/18 39 No Female Tatiana Carrera 11/09/18 No 3118.448 g Female [facility] Tatiana Jarrell Delivery Date: 11/09/18 Last Updated by: Tatiana Jarrell M.D. Elective repeat delivery named [place]
--- NOTE | 2025-03-27 10:33 | CMSP_ITS ---
Date of service: 03/27/25 Time of Service: 10:33 Care Management Safety Plan Status Status: Voluntary Safety Plan Safety Plan: Shania Walker was admitted to the ICU 03/26/25 after leaving the hospital AMA 03/25/25. Prior to leaving the hospital on 03/25/25, the patient admitted to using street fentanyl and xylazine during her admission. Given this recent high-risk behavior and elopement, safety planning and a behavioral support plan will be necessary. CM will follow and coordinate with the interdisciplinary team regarding ongoing plan of care and discharge planning. 03/26/25: CM reviewed the Behavior Plan for Safe Hospitalization with the Shania and the interdisciplinary care team. Patient verbalized understanding, agreed to the outlined expectations, and signed the plan. The original copy is filed in the patients chart, but subject to revision based on ongoing interdisciplinary team review. ?Behavior Plan for Safe Hospitalization: ? Substance Use: Patient is expected to abstain from any use or possession of illicit substances while hospitalized. Any suspected use will prompt immediate medical and administrative review. ? Room Safety: Belongings may be searched upon admission and as needed for safety. No personal medications or unsupervised items allowed at bedside. ? Medication Administration: All medications must be administered by nursing staff only. No PRNs or medication self-administration. ? Visitation: No visitors allowed at this time due to recent inpatient substance use and safety concerns. This will be reassessed by the interdisciplinary team as clinically appropriate. ? Outings/Passes: No off-unit or off-campus passes. Patient must remain on the unit unless medically necessary for diagnostics or procedures. ? Monitoring: Nursing to monitor closely for signs of intoxication, withdrawal, or unsafe behavior. Safety checks per ICU protocol. ? Team Coordination: Interdisciplinary team including RN Cosmetics Presser, Primary RN, Hospitalist and CM will meet regularly to assess safety, behavior, and discharge planning. ? Non-Adherence: Failure to follow the behavior plan may result in reassessment of medical appropriateness for continued inpatient stay.
--- NOTE | 2025-03-27 10:52 | PDOC.CMSAFE ---
Date of service: 03/27/25 Time of Service: 10:52 Care Management Safety Plan Status Status: Voluntary Safety Plan Safety Plan: Shania Walker was admitted to the ICU 03/26/25 after leaving the hospital AMA 03/25/25. Prior to leaving the hospital on 03/25/25, the patient admitted to using street fentanyl and xylazine during her admission. Given this recent high-risk behavior and elopement, safety planning and a behavioral support plan will be necessary. CM will follow and coordinate with the interdisciplinary team regarding ongoing plan of care and discharge planning. ?Behavior Plan for Safe Hospitalization: ? Substance Use: Patient is expected to abstain from any use or possession of illicit substances while hospitalized. Any suspected use will prompt immediate medical and administrative review. ? Room Safety: Belongings may be searched upon admission and as needed for safety. No personal medications or unsupervised items allowed at bedside. ? Medication Administration: All medications must be administered by nursing staff only. No PRNs or medication self-administration. ? Visitation: No visitors allowed at this time due to recent inpatient substance use and safety concerns. This restriction will be reassessed by the interdisciplinary team as clinically appropriate. Updated on 03/27/25: Visitation exception made to include mother and daughters, at RN discretion. ? Outings/Passes: No off-unit or off-campus passes. Patient must remain on the unit unless medically necessary for diagnostics or procedures. ? Monitoring: Nursing to monitor closely for signs of intoxication, withdrawal, or unsafe behavior. Safety checks per ICU protocol. ? Team Coordination: Interdisciplinary team including RN Hide Grader, Primary RN, Hospitalist and CM will meet regularly to assess safety, behavior, and discharge planning. ? Non-Adherence: Failure to follow the behavior plan may result in reassessment of medical appropriateness for continued inpatient stay.
--- NOTE | 2025-03-27 11:41 | PGE_ITS ---
Date of Service Date of service: 03/27/25 Time of Service: 11:41 Assessment and Plan Assessment and plan (1) Sepsis: Status: Acute Assessment and plan: Meets criteria with elevated HR, WBC with peritonitis that was partially treated before she left AMA 03/25. She was on piperacillin/tazobactam at previous admission, which is reasonable, but her WBC was not trending down. Her peritoneal culture grew e. coli that was only intermediately sensitive to pip/tazo She was given levofloxacin and metronidazole upon discharge, which she did not fill, but this was given in the ED. Will continue this as the e. coli was sensitive to levofloxacin and the metronidazole would cover slow growing anaerobes. Her vitals have been stable and WBC coming down, so I don't think there is an evolving infection, but rather residual inflammatory state complicated by opioid/xylazine withdrawal. (2) Elevated troponin: Status: Acute Assessment and plan: With no chest pain or EKG changes, this is not ACS. This related to her acute illness Troponins down 03/27 With some LE edema on admission and elevated BNaP, concern for CHF, echocardiogram 03/27 with read pending, but clinically I don't think she is in CHF. Get lipids/A1c done assess overall cardiac risk show mild HLD and pre-DM. (3) Perforated bowel: Status: Acute Assessment and plan: Presented on initial admission with perforated bowel and underwent resection. Covering with antibiotics as above as she did have peritonitis on admission No obvious additional source of infection or complication such as abscess noted on CT, but surgery noted thickened colon, following. Lactates reassuring. (4) Opiate dependence, continuous: Status: Chronic Assessment and plan: Severe opioid use disorder has complicated her post-op course. Treating with prn opioid agonist both oral and IV to treat pain and avoid withdrawl Despite my strongly encouraging maintenance therapy to improve exterminator helper termite prognosis, she does not want to start this. Fentanyl and likely xylazine are drugs of choice. She admits to using while inpatient in the past. Discussed behavioral contract, safety concern for her using while admitted. Repeat UDS to look for stimulants given elevated troponin only showed opiates. Symptoms currently well managed on precedex for anxiety and xylazine withdrawal along with opioids for pain, zolpidem/mirtazipine for sleep, and prn midazolam as needed. (5) Hypokalemia: Status: Inactive Assessment and plan: replaced IV and po, improved, follow (6) DVT prophylaxis: Status: Resolved Assessment and plan: enoxaparin Subjective Subjective Patient reports: feels better, tolerating a regular diet and voiding w/o difficulty; denies diarrhea, nausea, vomiting, shortness of breath or fever Interval history since last seen: patient's purse was put into storage out of room, drugs were found She slept pretty well last night and feel better. Stayed on top of pain and withdrawal pretty well with the meds available to her. Abdominal pain feels okay, feels like she is getting better. Exam Narrative Exam Narrative: GEN: Alert and oriented x 4, pleasant and cooperative, gives linear history. No acute distress at rest, no longer tremulous. LUNGS: CTAB with normal effort CV: RRR with no murmurs, gallops, or rubs. ABD: active bowel sounds, soft, minimally tender and nondistended. Incision intact, STAR drain with straw colored fluid, ostomy looks benign to me EXT: no cyanosis, clubbing. trace david geoffrey PSYCH: Anxious mood and affect, normal thought process Objective Last Vital Signs Temp 36.7 C 03/27/25 07:00 Pulse 85 03/27/25 09:00 Resp 11 L 03/27/25 09:00 BP 114/65 03/27/25 09:00 Pulse Ox 98 03/27/25 09:00 Laboratory Results - last 24 hr 03/26/25 03/26/25 03/26/25 12:45 13:24 14:59 WBC RBC Hgb Hct MCV MCH MCHC RDW Plt Count MPV Immature Gran % Neutrophils % Lymphocytes % Monocytes % Eosinophils % Basophils % Nucleated RBC % Absolute Neutrophils Absolute Lymphocytes Absolute Monocytes Absolute Eosinophils Absolute Basophils VBG Lactate Sodium Potassium Chloride Carbon Dioxide Anion Gap BUN Creatinine Est GFR (CKD-EPI 2020) Glucose Hemoglobin A1c Calcium Troponin I 168 H* 227 H* Triglycerides Total Cholesterol LDL Cholesterol, Calc HDL Cholesterol Urine Color Dark Yellow Urine Clarity Sl Cloudy Urine pH 6.5 Ur Specific [place] 1.015 Urine Protein >=300 H Urine Ketones 15 H Urine Blood Large H Urine Nitrite Positive H Urine Bilirubin Small H Urine Urobilinogen 0.2 Ur Leukocyte Esterase Negative Urine RBC >50 H Urine WBC 10-20 H Ur Epithelial Cells Moderate Urine Crystals Negative Urine Bacteria Few Urine Casts Negative Urine Mucus Negative Urine Other Rare Renal Ur Culture Indicated? No/Sq. Contamination Urine Glucose Negative Urine Opiates Screen Positive A Urine Methadone Screen Negative Ur Barbiturates Screen Negative Ur Tricyclics Screen Negative Ur Amphetamines Screen Negative U Benzodiazepines Scrn Negative Urine Cocaine Screen Negative Ur THC Screen Positive A 03/26/25 03/26/25 03/27/25 15:45 22:45 05:55 WBC 15.27 H RBC 3.39 L Hgb 9.8 L Hct 29.8 L MCV 88 MCH 28.9 MCHC 32.9 RDW 16.2 H Plt Count 493 H MPV 8.9 Immature Gran % 3.0 Neutrophils % 70.4 Lymphocytes % 19.8 Monocytes % 3.9 Eosinophils % 2.8 Basophils % 0.1 Nucleated RBC % 0.0 Absolute Neutrophils 10.75 H Absolute Lymphocytes 3.02 Absolute Monocytes 0.60 Absolute Eosinophils 0.43 Absolute Basophils 0.02 VBG Lactate 1.7 1.4 Sodium 141 Potassium 3.6 Chloride 107 Carbon Dioxide 21.7 Anion Gap 12.3 H BUN 6 L Creatinine 0.7 Est GFR (CKD-EPI 2020) 106.62 Glucose 127 H Hemoglobin A1c 5.8 H Calcium 7.9 L Troponin I 114 H* Triglycerides 272 H Total Cholesterol 201 H LDL Cholesterol, Calc 121 H HDL Cholesterol 26 L Urine Color Dark Yellow Urine Clarity Cloudy Urine pH 7.0 Ur Specific [place] 1.020 Urine Protein >=300 H Urine Ketones Trace H Urine Blood Large H Urine Nitrite Negative Urine Bilirubin Small H Urine Urobilinogen 0.2 Ur Leukocyte Esterase Trace H Urine RBC >50 H Urine WBC >50 H Ur Epithelial Cells Not Applicable Urine Crystals Not Applicable Urine Bacteria Not Applicable Urine Casts Urine Mucus Not Applicable Urine Other Ur Culture Indicated? Yes Urine Glucose 100 H Urine Opiates Screen Urine Methadone Screen Ur Barbiturates Screen Ur Tricyclics Screen Ur Amphetamines Screen U Benzodiazepines Scrn Urine Cocaine Screen Ur THC Screen Time Spent with Patient Time Spent with Patient: >50 minutes Time was spent: preparing to see the patient(eg.review tests), obtaining and/or reviewing separately otained hiistory, ordering medications,tests, procedures, referring, communicating with other health field care advocate, indepentently interpreting results, counseling the patient and care coordination
[2025-03-27] MEDS: Acetaminophen 325 MG TAB 650 MG PO (12:50)
[2025-03-27] MEDS: LORazepam 1 MG TAB 2 MG PO ×2 (14:01→19:50)
--- NOTE | 2025-03-27 14:45 | PDOC.CMSAFE ---
Date of service: 03/27/25 Time of Service: 14:45 Care Management Safety Plan Status Status: Voluntary Reason for Wait Reason for Wait: Medical Clearance Safety Plan Safety Plan: VOLUNTARY FOR INPATIENT PSYCHIATRIC STABILIZATION. Patient is appropriate in all interactions since arriving at [facility]; Pt has demonstrated appropriate coping and communication skills, has articulated his or her needs and concerns and is fully engaged during staff interactions. Safety plan has been established with patient, and care team, to adhere to patient goals, identify restrictions based on behavioral status, address nutrition, and determine allowed personal belongings, tools for hygiene and personal care. Determine level of activity including ambulation, level of supervision, visitors, and determine privileges based on behaviors and level of engagement by pt. SAFETY PLAN: 1. Will remain on suicide precautions. In Paper Clothes 2. Will remain in room under direct supervision of one-on-one staff at all times provided by [employer]; VICKY, CHIEF LIBRARIAN BRANCH OR DEPARTMENT coagulating drying supervisor. 3. May have paper cups, plates, finger foods as well as a cardboard spoon with which to eat meals. 4. Follow [facility] Management of the Admitted Behavioral Health Patient policy. 5. Comfort bath system only, shower permitted with escort at RN discretion. 6. No personal belongings-soft items permitted at RN discretion. 7. Visitors-none at this time. 8. Activities: soft cart items approved per RN discretion. 9. Bathroom privileges with escort in the ED, available in room without limitation on M/S. 10. Phone: contact limited to family at this time, via cordless phone at RN discretion. 11. Due to VOLUNTARY status, if patient wishes to leave [facility], staff will contact [facility] Crisis Screener ([phone]) and On-Call Hr Recruiter ([phone]) as soon as possible. In the event of elopement, notify [place] [employer] ([phone]). Patient is currently voluntarily at [facility] and seeking inpatient admission when a bed becomes available. [facility] Frontline Dry Mill Operator will continue seeking placement. Please contact the Heddle Machine Operator Hr Recruiter ([phone]) and [facility] Dry Mill Operator ([phone]) for any needed changes in the Safety Plan. Safety plan has been provided to interdepartmental care team.
--- NOTE | 2025-03-27 16:29 | W.PM.PROGNOT ---
Date of Service Date of service: 03/27/25 Time of Service: 11:00 Assessment and Plan Assessment and plan (1) Opiate dependence, continuous: Status: Chronic Assessment and plan: Being managed by Dr. Troncoso, currently on as needed Dilaudid IV, Percocet, and Precedex. (2) Elevated troponin: Status: Acute Assessment and plan: This is decreasing. (3) Leukocytosis: Status: Acute Assessment and plan: Her leukocytosis is improving as well. She was put on targeted antibiotics by Dr. Troncoso she has an E. coli which is sensitive to zohaib quinolones. Yesterday on review of her imaging she did have some thickening of the ascending colon and transverse colon. I had ordered lactic acids, these are normal. Question now is when she should be discharged home. I suspect from the surgical perspective another 48 hours is necessary to document stability of hemoglobin as well as improvement in the leukocytosis. She is well diverted, and her colostomy is working well, which is reassuring from the gastrointestinal and postsurgical perspective. Subjective Subjective Interval history since last seen: Patient today pleasant, reporting minimal abdominal pain. She is receiving Percocet, IV Dilaudid, and now upon entering the room, Precedex. She reports that her colostomy still is functioning. Exam Narrative Exam Narrative: Vital signs over the past 24 hours show improvement in tachycardia. She has no fevers. She was examined today with her nurse present as an dam tender assistant and linux network administrator. Her abdominal incision is dry, dressed from yesterday. The Pj drain has recorded 50 cc out. Today there was about 50 cc of serous fluid within the drain that was removed. Colostomy with gas, currently is well pouched. Mucosa appears well-perfused. Objective Last Vital Signs Temp 36.9 C 03/27/25 11:42 Pulse 68 03/27/25 11:42 Resp 16 03/27/25 11:42 BP 122/64 03/27/25 11:42 Pulse Ox 98 03/27/25 11:42 Laboratory Results - last 24 hr 03/26/25 03/26/25 03/27/25 15:45 22:45 05:55 WBC 15.27 H RBC 3.39 L Hgb 9.8 L Hct 29.8 L MCV 88 MCH 28.9 MCHC 32.9 RDW 16.2 H Plt Count 493 H MPV 8.9 Immature Gran % 3.0 Neutrophils % 70.4 Lymphocytes % 19.8 Monocytes % 3.9 Eosinophils % 2.8 Basophils % 0.1 Nucleated RBC % 0.0 Absolute Neutrophils 10.75 H Absolute Lymphocytes 3.02 Absolute Monocytes 0.60 Absolute Eosinophils 0.43 Absolute Basophils 0.02 VBG Lactate 1.7 1.4 Sodium 141 Potassium 3.6 Chloride 107 Carbon Dioxide 21.7 Anion Gap 12.3 H BUN 6 L Creatinine 0.7 Est GFR (CKD-EPI 2020) 106.62 Glucose 127 H Hemoglobin A1c 5.8 H Calcium 7.9 L Troponin I 114 H* Triglycerides 272 H Total Cholesterol 201 H LDL Cholesterol, Calc 121 H HDL Cholesterol 26 L Urine Color Dark Yellow Urine Clarity Cloudy Urine pH 7.0 Ur Specific [place] 1.020 Urine Protein >=300 H Urine Ketones Trace H Urine Blood Large H Urine Nitrite Negative Urine Bilirubin Small H Urine Urobilinogen 0.2 Ur Leukocyte Esterase Trace H Urine RBC >50 H Urine WBC >50 H Ur Epithelial Cells Not Applicable Urine Crystals Not Applicable Urine Bacteria Not Applicable Urine Mucus Not Applicable Ur Culture Indicated? Yes Urine Glucose 100 H Time Spent with Patient Time Spent with Patient: 25-34 minutes Time was spent: preparing to see the patient(eg.review tests) and indepentently interpreting results
--- NOTE | 2025-03-27 18:20 | PDOC.MHCN ---
Date of service: 03/27/25 Time of Service: 15:05 PHQ-9 Over the last 2 weeks, how often have you been bothered by any of the following problems? 1. Little interest or pleasure in doing things: not at all 2. Feeling down, depressed, or hopeless: several days 5. Poor appetite or overeating: more than half the days 6. Feeling bad about yourself - or that you are a failure or have let yourself and your family down: not at all 8. Moving or speaking so slowly that other people could have noticed? - Or the opposite - being so fidgety or restless that you have been moving around a lot more than usual: not at all 9. Thoughts that you would be better off or of hurting yourself in some way: more than half the days If you checked off any problems, how difficult have these problems made it for you to do your work, take care of things at home, or get along with other people?: somewhat difficult PHQ-9 Results: Positive Source: Developed by Drs. Dannie Tamez, Patty Barker, Masoud Grimm and colleagues, with an educational leyda from [employer]. Suicide Severity Rate CSSRS Have you wished you were or wished you could go to sleep and not wake up?: Yes Have you actually had any thoughts of killing yourself?: Yes CSSRS2 Have you been thinking about how you might do this?: Yes Have you had these thoughts and had some intention of acting on them?: Yes Have you started to work out or worked out the details of how to kill yourself? Do you intend to carry out this plan?: No CSSRS3 Have you ever done anything, started to do anything or prepared to do anything to end your life?: Yes CSSRS4 Was this within the past three months?: Yes Screening Score Total Score: 8 Screening: Positive Mental Health Emergency Note Release [facility] release signed:: No Reason for Visit Suicidal thoughts and actions, intentional overdose. In the last 2 weeks has the pt presented for ES prior to today?: No Client Information Client is: Substance use Well Housed: Yes Safety Risk/Harm to Self or Others Current Ideation to Harm Self or Others: Yes to self. Intent: yes, has intent. Plan: yes,has a plan. Risk: Does risk to harm exist?: yes. Access to means: Yes. Risk: Severe Duty to warn indicated: No Asssessment/Mental Status Appearance: Unremarkable and Disheveled Attitude: Cooperative and Friendly Behavior: Unremarkable Speech: Normal Affect: Normal and Cogruent with mood Mood: Euthymic and Anxious Thought process: Unremarkable and Poverty of content Hallucinations: No Delusions: No Attention: Unremarkable Perception: Not impaired Orientation: Fully orientated Memory: Intact Insight: Fair Judgement: Poor Neurovegetative Symptoms Sleep: Decrease Appetitie: Decrease Interests: Decrease Energy: No change Libido: No change Impression The client presented in a disheveled state, wearing a hospital gown while being in the ICU following a serious drug overdose that was intended to end her life. She declared her inability to provide self-care, highlighting her distressing circumstances. As a mother of three, with her youngest living at home with the client and the biological father, the client expressed that 'the addiction is stronger than the love I have for my children. ' She acknowledged the presence of a replacement mother for her youngest daughter, indicating that she 'adores' this individual, and stated the replacement mother 'is a better mom to my daughter than I am' and 'I'm so glad she's there for her. ' The client remains at high risk for serious harm or due to her ongoing relentless pursuit of street drugs, specifically fentanyl, crack, cocaine, and xylazine, which she seeks access to on a daily basis. There is a critical concern regarding her intent to gain immediate access to these substances upon discharge from the hospital or any treatment facility. The client recently underwent lifesaving surgery due to sepsis, resulting in a colostomy bag, a change which she described as life-changing and deeply distressing. Clinically, she makes incongruous statements about wanting to live but expresses that she is okay with the possibility of overdosing as a means to facilitate sleep with deadly consequences. Despite her high-risk behaviors, the client agreed to voluntary inpatient treatment, although she has left against medical advice (AMA) in the past two days in search of more illicit drugs and has returned due to medical necessity. Hospital suicide protocols remain in place. Plan/Disposition Recommended Disposition: Hospitalization facilities contacted. Plan: Inpatient mental health treatment. Facilities contacted if Applicable [facility] Not accepted, No bed available [facility] Not accepted, No bed available [facility] Not accepted, No bed available, [facility] Not accepted, No bed available [facility] Not accepted, No bed available [facility] Not accepted, No bed available Reports/communication Outcome discussed with: ED/Personnel and Other
--- NOTE | 2025-03-27 18:38 | PDOC.MHPN2 ---
Date of service: 03/27/25 Time of Service: 18:55 Mental Health Emergency Note Release [facility] release signed:: No Reason for Visit In the last 2 weeks has the pt presented for ES prior to today?: No Plan/Disposition Recommended Disposition: Hospitalization (Client currently awaiting voluntary placement for inpatient mental health treatment.) facilities contacted. Reports/communication Outcome discussed with: Other (Verbal contact with MAGO Ventura in ICU to alert status is voluntary with EE prepared in the event client attempts elopement or discharge AMA.)
[2025-03-27] MEDS: levoFLOXacin 750 MG/150 ML BAG 100 MG IVPB (18:48)
[2025-03-27] MEDS: Zolpidem 10 MG TAB PO (21:27)
[2025-03-27] MEDS: Mirtazapine 15 MG TAB 7.5 MG PO (21:27)
[2025-03-28] VITALS (19 sets, daily range): BP systolic 115–148; BP diastolic 52–89; PULSE 69–120; RESP 14–24; TEMP 36.5–37.5; O2SAT 97–100
[2025-03-28] MEDS: Midazolam 2 MG/2 ML VIAL IVP ×7 (00:04→17:39)
[2025-03-28] MEDS: metroNIDAZOLE 500 MG/100 ML BAG 100 MG IVPB ×4 (00:21→17:58)
[2025-03-28] MEDS: HYDROmorphone 2 MG/ML SYR IVP ×9 (01:40→22:23)
[2025-03-28] MEDS: oxyCODONE 10 MG TAB 20 MG PO ×4 (01:40→17:45)
[2025-03-28] MEDS: LORazepam 1 MG TAB 2 MG PO ×6 (03:12→20:44)
[2025-03-28 03:55] LABS: HCG Qual (Urine) Negative
[2025-03-28] MEDS: Normal Saline Flush 10 ML SYR IVP ×7 (05:54→22:23)
[2025-03-28 06:50] LABS: HCT 27.7 % (36.0-46.0); HGB 9.0 g/dL (11.2-15.7); MCH 28.9 pg (27.0-33.0); MCHC 32.5 % (32.0-36.0); MCV 89 fL (80-95); MPV 8.9 fL (8.0-11.0); Platelet Count 446 10^3/uL (130-400); RBC 3.11 10^6/uL (3.93-5.22); RDW 16.2 % (11.7-14.6); RDW-SD 51.8 fL; WBC 10.84 10^3/uL (4.4-10.8)
[2025-03-28] MEDS: dexmedeTOMidine IN 0.9 % NACL 400 MCG/100 ML BTL 16.025 MCG IV (06:58)
[2025-03-28 07:12] LABS: Anion Gap 10.6 mmol/L (3-11); BUN 4 mg/dL (7-18); CO2 23.4 mmol/L (21.0-32.0); Calcium 8.1 mg/dL (8.5-10.1); Chloride 109 mmol/L (98-107); Estimated GFR 106.62 (mL/min/1.73m2); Glucose 122 mg/dL (74-106); Potassium 3.2 mmol/L (3.5-5.1); Sodium 143 mmol/L (136-145)
--- NOTE | 2025-03-28 11:14 | PHA.REVIEW2 ---
Pharmacy Admission Review Admission Clinical Review Admission Pharmacy Review: Leukocytosis (Acute) Elevated troponin (Acute) Sepsis (Acute) Post-operative pain (Acute) Elevated brain natriuretic peptide (BNP) level (Acute) ALFREDO (acute kidney injury) (Acute) Perforated bowel (Acute) No Known Allergies Allergy (Verified 03/26/25 09:21) Resuscitation Status Full Code Height 5 ft 7 in Weight 64.6 kg Pharmacy Admission Review Renal Dosing Renal Dosing: BUN 4 mg/dL (7-18) L 03/28/25 05:38 Creatinine 0.7 mg/dL (0.55-1.02) 03/28/25 05:38 Medications needing adjustments: Reviewed (CrCl 99.45 mL/min) List of meds needing interventions: Current medications are okay Anticoagulation Anticoagulation: Hgb 9.0 g/dL (11.2-15.7) L 03/28/25 05:38 Hct 27.7 % (36.0-46.0) L 03/28/25 05:38 Plt Count 446 10^3/uL (130-400) H 03/28/25 05:38 Creatinine 0.7 mg/dL (0.55-1.02) 03/28/25 05:38 DVT Prophylaxis: Reviewed (Hgb decreased from 9.8) Medications: Enoxaparin (40mg daily) Opiate Usage Evaluate Pain Scale/Pains Meds: Reviewed (hydromorphone 2mg IVP q2h PRN - 16mg/24hrs, oxycodone 20mg q4h PRN - 80mg/24hrs) Scheduled Bowel Reg ordered if on Opiates?: No (PRN Miralax) Relevant Labs Relevant Labs: Sodium 143 mmol/L (136-145) 03/28/25 05:38 Potassium 3.2 mmol/L (3.5-5.1) L 03/28/25 05:38 Chloride 109 mmol/L (98-107) H 03/28/25 05:38 Magnesium 1.8 mg/dL (1.8-2.4) 03/26/25 10:24 Electrolytes, C-Reactive P, ESR: Reviewed DM Control DM Control: Glucose 122 mg/dL (74-106) H 03/28/25 05:38 Hemoglobin A1c 5.8 % (<5.7) H 03/27/25 05:55 DM Control: Reviewed Insulin Dosing, Diabetic Medication: No med orders, no diagnosis of diabetes in chart Cardiac Review Cardiac Review: Troponin I 114 ng/L (<or=51) H* 03/27/25 05:55 NT-Pro-B Natriuret Pep 6094 pg/mL (<300) H 03/26/25 10:24 BP, HR, EF%: Reviewed (BP 116/59, HR WNL) List meds needing interventions: Has order for Precedex infusion @ 1mcg/kg/hr - per morning meeting trying to wean off today QTc Review QTc: Reviewed (461 from 03/26/25) IV to PO Switch IV Medications: Reviewed (Precedex, hydromorphone, levofloxacin, metronidazole, midazolam and prochlorperazine) Home Meds Home Med List reviewed: Reviewed Current Meds Current Medication Order Review: Intervened Comments: Added IV admission order Pharmacy Antibiotic Review Relevant Labs: WBC 10.84 10^3/uL (4.4-10.8) H 03/28/25 05:38 Temperature 37.1 C Microbiology 03/26/25 15:45 Urine Culture - Final Urine - Reflex from Ua NO GROWTH 24 HOURS 03/26/25 11:20 Blood Culture - Preliminary Blood NO GROWTH 24 HOURS 03/26/25 10:24 Blood Culture - Preliminary Blood NO GROWTH 24 HOURS Surgical Aerobic Culture Final 03/25/25-0853 Day 1 Result ISOLATES BELOW DAY 1 GROWTH SCANT GROWTH ISOLATE 1 APPEARANCE Gram Negative Delvis ISOLATE 1 ACTION ID AND SUSCEPTIBILITY TO FOLLOW Day 2 Result ISOLATES BELOW DAY 2 GROWTH SCANT GROWTH ISOLATE 1 APPEARANCE Gram Negative Delvis ISOLATE 1 ACTION SUSCEPTIBILITY TO FOLLOW DAY 2 GROWTH RARE GROWTH ISOLATE 2 APPEARANCE Gram Positive Diana ISOLATE 2 ACTION IDENTIFICATION TO FOLLOW Day 3 Result ISOLATES BELOW DAY 3 GROWTH SCANT GROWTH ISOLATE 1 APPEARANCE Gram Negative Delvis DAY 3 GROWTH RARE GROWTH ISOLATE 2 APPEARANCE Gram Positive Diana ISOLATE 2 ACTION IDENTIFICATION TO FOLLOW Day 4 Result ISOLATES BELOW DAY 4 GROWTH SCANT GROWTH ISOLATE 1 APPEARANCE Gram Negative Delvis DAY 4 GROWTH RARE GROWTH ISOLATE 2 APPEARANCE Gram Positive Diana Organism 1 Escherichia coli GROWTH SCANT GROWTH Organism 2 Strep anginosus ([facility]) GROWTH RARE GROWTH Esch coli Result Ampicillin R Ampicillin/Sulbactam R Cefazolin S Ceftazidime S CEFTRIAXONE S Gentamicin R Imipenem S Levofloxacin S Tobramycin S Trimethoprim/Sulfamethoxazole R Piperacillin/Tazobactam I Pharmacy Antibiotic Activity: C/S review and Reviewed, no change Comments: Patient is on levofloxacin and metronidazole, day 2, for sepsis/peritonitis. Left AMA 03/25 after receiving a couple days of Zosyn, was changed to levofloxacin and metronidazole upon discharge based on source cultures. See previous pharmacy review note from last admission. WBC decreased from 15.72.
--- NOTE | 2025-03-28 11:28 | CMSP_ITS ---
Date of service: 03/28/25 Time of Service: 11:28 Care Management Safety Plan Status Status: Interim (due to medical clearance ) Reason for Wait Reason for Wait: Inpatient Admission and Medical Clearance Safety Plan Safety Plan: CM will respond to ED to assess patient after patient has been medically cleared and assessed by screener. If screener deems patient meets criteria for psychiatric stabilization CM will facilitate interdepartmental huddle with [facility] screener for safety planning considerations and meet with patient to review [facility] policy and safety plan, establish individual wishes for treatment and maintain patient rights. SAFETY PLAN: 1. Will remain on suicide precautions and in paper clothes.? 2. Will remain in room under direct supervision of one-on-one staff at all times provided by VICKY, DIRECTOR OF LOSS PREVENTION director funds development. 3. May have paper cups, plates, finger foods as well as a cardboard spoon with which to eat meals. 4. Follow [facility] Management of the Admitted Behavioral Health Patient policy. 5. Comfort bath system only. 6. Personal blanket at RN discretion. 7. No visitors per behavioral plan at RN discretion. 8. Phone contact at RN discretion. 9. Due to VOLUNTARY status, if patient wishes to leave [facility], staff will contact [facility] Crisis Screener ([phone]) and [employer]-Call [employer] ([phone]) as soon as possible. In the event of elopement, notify [facility] Police ([phone]). ? If deemed appropriate for inpatient psychiatric care, safety plan will be established with patient, and care team, to adhere to patient goals, identify restrictions based on behavioral status, address nutrition, and determine allowed personal belongings, tools for hygiene and personal care. As well plan will determine level of activity including ambulation, level of supervision, visitors, and determine privileges based on level of acuity, behaviors and level of engagement by patient.
--- NOTE | 2025-03-28 11:30 | PDOC.CMPRO ---
Date of service: 03/28/25 Time of Service: 14:55 Care Management Progress Note Progress Note Text Progress Note Text: Shania was standing up and staring out the door of her room at the time CM met with her. She requested CM leave as she didn't want to talk. Per report, she is not medically cleared. CM huddled with [facility]. [facility] states Shania does not deny SI, and her plan would be to use street drugs. [facility] states she was initially open to voluntary placement but is now declining the need for this type of treatment. Per [facility], they recommend EE pathway and will discuss with the provider; No EE certs are being sent at this time. Per [facility], Shania requested that she is given a personal blanket; [facility] feels this is appropriate. CM communicated this with [employer] and added the personal blanket to the safety plan, at RN discretion. [facility] has sent referrals to [facility] [place], [facility], [facility]. A psychiatric consult has been ordered which should comment on the need and appropriateness for impatient treatment. Per RN, Shania reported she will refuse the psychiatry consult. CM will continue to follow. Discharge Potential Discharge Needs: PCP F/U Appt Anticipated Barriers to Discharge: Medical Status and Other (inpatient treatment) Patient/Family Education Needs: Review discharge instructions, discuss Ask Me Three Transportation: Private vehicle Plan: Patient endorses SI with intent and plan. [facility] crisis screener has seen this patient and reports to have discussed treatment options. [facility] reports Shania is no longer agreeable to treatment options. Unsure if an EE will be sent, at this time. Discharge planning is dependent on if the patient requires inpatient psych treatment when medically cleared. CM will continue to follow. Status Status: Voluntary Social Determinants of Health Screening Social Determinants of health last assessed in clinic: 03/28/25 Will the Patient Participate in the Screening?: Yes Do you worry about having a steady place to live?: no Problems where you live: no known problems In the past 12 months, have you had to go without electric, gas, oil or water in your home?: no 1. Within the past 12 months, we worried whether our food would run out before we got money to buy more.: Never true 2. Within the past 12 months, the food we bought just didn't last and we didn't have money to get more.: Never true Has lack of transportation kept you from medical appointments or from doing things needed for daily living?: no Has anyone in your life made you feel unsafe or unsupported?: no How hard is it for you to pay for the very basics like food, housing, medical care, and heating? Would you say it is:: Not hard at all Do you want help finding or keeping work or a job?: I do not need or want help If for any reason you need help with day-to-day activities such as bathing, preparing meals, shopping, managing finances, etc., do you get the help you need?: I get all the help I need How often do you feel lonely or isolated from those around you?: Sometimes Do you speak a language other than Jordanian at home?: No Does the patient want assistance with any of the above?: No Health Related Social Needs Health related social needs: feeling lonely/isolated (Z60.8) Health related social needs details: None needed.
[2025-03-28] MEDS: cloNIDine 0.1 MG TAB PO (13:05)
--- NOTE | 2025-03-28 13:25 | W.PM.PROGNOT ---
Date of Service Date of service: 03/28/25 Time of Service: 13:25 Assessment and Plan Assessment and plan (1) Sepsis: Status: Acute Assessment and plan: Met criteria on admission with elevated HR, WBC with peritonitis that was partially treated before she left AMA 03/25. She was on piperacillin/tazobactam at previous admission, which is reasonable, but her WBC was not trending down. Her peritoneal culture grew e. coli that was only intermediately sensitive to pip/tazo She was given levofloxacin and metronidazole upon discharge, which she did not fill, but treated with these here as e. coli was sensitive to levofloxacin and the metronidazole would cover slow growing anaerobes. Her vitals have normalized, WBC coming down, lactates are negative, sepsis physiology resolved, continue antibiotics for now. (2) Elevated troponin: Status: Acute Assessment and plan: With no chest pain or EKG changes, this is not ACS. This related to her acute illness and possibly drug use, but no cocaine or stimulants in her system. Troponins trending down Echocardiogram reassuring, no active CHF Lipids/A1c show mild HLD and pre-DM. Will discuss statin to modify risk prior to discharge. (3) Perforated bowel: Status: Acute Assessment and plan: Presented on initial admission with perforated bowel and underwent resection. Covering with antibiotics as above as she did have peritonitis on admission No obvious additional source of infection or complication such as abscess noted on CT, but surgery noted thickened colon, following, recommends 48hr of monitoring. (4) Opiate dependence, continuous: Status: Chronic Assessment and plan: Severe opioid use disorder has complicated her post-op course. Treating with prn opioid agonist both oral and IV to treat pain and avoid withdrawl Despite my strongly encouraging maintenance therapy to improve intermodal dispatcher prognosis, she does not want to start this. Fentanyl and likely xylazine are drugs of choice. She admits to using while inpatient in the past. Discussed behavioral contract, safety concern for her using while admitted. She tapered off precedex this morning, can use prn oral clonidine. Try to taper opioids. Can continue zolpidem/mirtazipine for sleep, and use oral lorazepam as needed. Continue to offer transition to MOUD if she changes her mind. (5) Hypokalemia: Status: Inactive Assessment and plan: replaced IV and po, give additional PO today, follow (6) Depression: Status: Chronic Assessment and plan: In setting of ongoing drug use. Suicidal intent clear on 03/27, now contradicting her previous statements, denies SI. She does have risk factors for suicide and is at extremely high risk for relapse to ilicit drug use, but I don't think she legally can be kept involuntarily as she was under the effects of multiple mind-altering medication for sedation in the ICU to treat withdrawal symptoms when she made her statements. Her mental status is improved today in terms of clarify of thought and she is denying suicidal plans. [facility] to help assess her and help with treatment suggestions. She is open to this assessment. If psych agrees, can d/c observer. (7) DVT prophylaxis: Status: Resolved Assessment and plan: enoxaparin Subjective Subjective Patient reports: feels better, tolerating a regular diet and voiding w/o difficulty; denies vomiting, shortness of breath or fever Interval history since last seen: Events: Evaluated by MH for suidical ideation, recommend inpatient She is feeling a little better today. States today is the first time in a long time she didn't wake up thinking about using drugs. She denies wanting to kill herself. She states that yesterday she was feeling triggered by discussion of traumatic events and just wanted to get high, though her statements yesterday about suicide by overdose are documented. Exam Narrative Exam Narrative: GEN: Alert and oriented x 4, sitting up in bed pleasant and cooperative, gives linear history. No acute distress at rest, no longer tremulous. LUNGS: CTAB with normal effort CV: RRR with no murmurs, gallops, or rubs. ABD: active bowel sounds, soft, nontender and nondistended. Incision intact, STAR drain with straw colored fluid, ostomy looks benign to me EXT: no cyanosis, clubbing. trace david geoffrey PSYCH: less anxious mood and affect, normal thought process Objective Last Vital Signs Temp 37.1 C 03/28/25 03:19 Pulse 73 03/28/25 07:14 Resp 21 03/28/25 07:14 BP 116/59 L 03/28/25 07:14 Pulse Ox 98 03/28/25 07:14 Laboratory Results - last 24 hr 03/28/25 03/28/25 03:30 05:38 WBC 10.84 H RBC 3.11 L Hgb 9.0 L Hct 27.7 L MCV 89 MCH 28.9 MCHC 32.5 RDW 16.2 H Plt Count 446 H MPV 8.9 Sodium 143 Potassium 3.2 L Chloride 109 H Carbon Dioxide 23.4 Anion Gap 10.6 BUN 4 L Creatinine 0.7 Est GFR (CKD-EPI 2020) 106.62 Glucose 122 H Calcium 8.1 L Urine HCG, Qual Negative Time Spent with Patient Time Spent with Patient: >50 minutes Time was spent: preparing to see the patient(eg.review tests), obtaining and/or reviewing separately otained hiistory, ordering medications,tests, procedures, referring, communicating with other health care program director, indepentently interpreting results, counseling the patient and care coordination
[2025-03-28] MEDS: Potassium Chloride 20 MEQ TABCR 40 MEQ PO ×2 (14:07→20:20)
--- NOTE | 2025-03-28 15:38 | W.PC.ACHO ---
Registration Status: ADM IN Primary Language: Preferred Language: Luxembourgish ED Information & Data Chief Complaint GenMedical 03/26/25 10:03 Triage Note Pt admitted here and signed 03/26/25 09:11 out AMA thinking she could care for herself but is still in a lot of pain, extremely weak, and not feeling well Medical / Surgical History (Last Reviewed 03/26/25 @ 17:33 by Joo Troncoso) Anemia Rheumatoid arthritis delivery delivered (Last Updated 03/26/25 @ 17:36 by Joo Troncoso) Status post partial colectomy S/P section Most Recent Vital Signs Temperature 36.5 C 03/28/25 15:10 Temperature Source Skin 03/28/25 15:10 Pulse 120 H 03/28/25 15:10 Pulse 74 03/28/25 07:14 Respiratory Rate 18 03/28/25 15:10 Respiratory Effort Normal 03/26/25 14:50 Respiratory Depth Normal 03/26/25 14:50 Respiratory Pattern Normal 03/26/25 14:50 Blood Pressure 148/89 H 03/28/25 15:10 Blood Pressure Mean 108 03/28/25 15:10 Blood Pressure Position Supine 03/26/25 14:50 Pulse Oximetry 99 03/28/25 15:10 Oxygen Delivery Method Room Air 03/28/25 15:10 Oxygen Flow Rate 0 03/28/25 15:10 Pain Level 10 03/28/25 05:53 Allergies No Known Allergies Allergy (Verified 03/26/25 09:21) Precautions Isolation Standard precaution 03/26/25 09:36 Active Medications Generic Name Dose Route Start Last Admin Trade Name Freq PRN Reason Stop Dose Admin Acetaminophen 650 mg 03/26/25 12:59 03/27/25 12:50 Acetaminophen 325 Mg Tab PO 650 mg Q4H PRN PRN Administration Clonidine 0.1 mg 03/28/25 12:17 03/28/25 13:05 Clonidine 0.1 Mg Tab PO 0.1 mg TID PRN PRN Administration Anxiety Enoxaparin Sodium 40 mg 03/27/25 08:30 03/28/25 10:53 Enoxaparin 40 Mg/0.4 Ml Syr SC 40 mg DAILY DEVON Administration Hydromorphone HCl 2 mg 03/26/25 13:45 03/28/25 15:16 Hydromorphone 2 Mg/Ml Syr IVP 2 mg Q2H PRN PRN Administration Metronidazole 500 mg in 100 mls @ 100 mls/hr 03/26/25 18:00 03/28/25 15:15 Flagyl IVPB Infused Q6H DEVON Infusion Levofloxacin 750 mg in 150 mls @ 100 mls/hr 03/26/25 18:00 03/28/25 00:15 Levaquin Premixed Bag IVPB Infused Q24H DEVON Infusion Lorazepam 2 mg 03/27/25 13:51 03/28/25 14:06 Lorazepam 1 Mg Tab PO 2 mg QID PRN PRN Administration Midazolam HCl 2 mg 03/26/25 16:56 03/28/25 15:16 Midazolam 2 Mg/2 Ml Vial IVP 2 mg Q2H PRN PRN Administration Mirtazapine 7.5 mg 03/26/25 20:00 03/27/25 21:27 Mirtazapine 15 Mg Tab PO 7.5 mg HS DEVON Administration Oxycodone HCl 20 mg 03/26/25 17:45 03/28/25 14:06 Oxycodone 10 Mg Tab PO 20 mg Q4H PRN PRN Administration Sodium Chloride 0 ml 03/27/25 09:21 03/28/25 15:17 Normal Saline Flush 10 Ml Syr IVP 30 ml PRN PRN Administration Zolpidem Tartrate 10 mg 03/26/25 20:00 03/27/25 21:27 Zolpidem 10 Mg Tab PO 10 mg HS DEVON Administration IV IV Catheter Type [Right Peripheral IV Antecubital] IV Catheter Gauge [Right 18 Antecubital] Diagnostics 03/28/25 03/28/25 Range/Units 05:38 03:30 WBC 10.84 H (4.4-10.8) 10^3/uL RBC 3.11 L (3.93-5.22) 10^6/uL Hgb 9.0 L (11.2-15.7) g/dL Hct 27.7 L (36.0-46.0) % MCV 89 (80-95) fL MCH 28.9 (27.0-33.0) pg MCHC 32.5 (32.0-36.0) % RDW 16.2 H (11.7-14.6) % Plt Count 446 H (130-400) 10^3/uL MPV 8.9 (8.0-11.0) fL Sodium 143 (136-145) mmol/L Potassium 3.2 L (3.5-5.1) mmol/L Chloride 109 H (98-107) mmol/L Carbon Dioxide 23.4 (21.0-32.0) mmol/L Anion Gap 10.6 (3-11) mmol/L BUN 4 L (7-18) mg/dL Creatinine 0.7 (0.55-1.02) mg/dL Est GFR (CKD-EPI 2020) 106.62 (mL/min/1.73m2) Glucose 122 H (74-106) mg/dL Calcium 8.1 L (8.5-10.1) mg/dL Urine HCG, Qual Negative 03/26/25 11:20 Blood Culture - Preliminary Blood NO GROWTH 48 HOURS 03/26/25 10:24 Blood Culture - Preliminary Blood NO GROWTH 48 HOURS 03/26/25 15:45 Urine Culture - Final Urine - Reflex from Ua Intake and Output - 24 Hour Total 03/26/25 09:09 thru 03/28/25 15:15 Intake Total 4875.188 Output Total 5810 Balance -934.812 Weight 64.6 kg Intake: IV 1885.188 Oral 2840 Injectate 150 rt tristen 150 Output: Drainage 160 rt tristen 160 Urine 5400 Stool 250 Other: Urine Color Light [place] Urine Appearance Clear Urine Odor None Comment does have frequent UTIs Stool Size Small Stool Characteristics Liquid [place] Risk Assessment History of Falls No History 03/26/25 14:50 Contributing Factors Medications 03/26/25 14:50 Ambulatory Aids Independent 03/26/25 14:50 Tubes/Lines With any additional score 03/26/25 14:50 Gait Evaluation No gait disturbance 03/26/25 14:50 Cognition No cognitive impairment 03/26/25 14:50 Fall Total Score 23 03/26/25 14:50 Level of Risk Standard/Low Risk 03/26/25 14:50 Problems (Last Reviewed 03/26/25 @ 17:33 by Joo Troncoso) Leukocytosis (Acute) Elevated troponin (Acute) Sepsis (Acute) Post-operative pain (Acute) Elevated brain natriuretic peptide (BNP) level (Acute) ALFREDO (acute kidney injury) (Acute) Perforated bowel (Acute) Crohn disease (Chronic) Depression (Chronic) Opiate dependence, continuous (Chronic) Notes 03/26/25 13:57 Nursing Notes by Danay Jackson This rn gave report to Rosana Alvarado in ICU. Informed her that lab previously cynthia trop with BC. Lab called back and stated they were unable to obtain trop. This rn was notified that BC were uncollected not 1hr trop and called back later to verify with lab and was informed that trop was uncollected. This rn sent 1hr trop after being notified by lab that it was uncollected. Pt awake alert and oriented x4. Pt at baseline presentation. No acute distress noted. Dr Cook at bedside with pt changing surgical/ ostomy dressing. This rn informed Rosana that pt would be brought upstairs once procedure was finished. Nursing Note: Initialized on 03/26/25 13:57 - END OF NOTE v v v v v v v v v Sending and/or Receiving Nurses: Please use comment section below to note any information pertinent to the patient hand-off not included above. Information / Comments: This nurse received report fron RN [facility] about this patient transfer, patient oriented, drainages in place, we removed cord and we accommodate the room for safety precautions, patient anxious asking for anxiety meds. Report received from: [employer]
--- NOTE | 2025-03-28 15:57 | W.PC.ACHO ---
Registration Status: ADM IN Primary Language: Preferred Language: Sami ED Information & Data Chief Complaint GenMedical 03/26/25 10:03 Triage Note Pt admitted here and signed 03/26/25 09:11 out AMA thinking she could care for herself but is still in a lot of pain, extremely weak, and not feeling well Medical / Surgical History (Last Reviewed 03/26/25 @ 17:33 by Joo Troncoso) Anemia Rheumatoid arthritis delivery delivered (Last Updated 03/26/25 @ 17:36 by Joo Troncoso) Status post partial colectomy S/P section Most Recent Vital Signs Temperature 36.5 C 03/28/25 15:10 Temperature Source Skin 03/28/25 15:10 Pulse 120 H 03/28/25 15:10 Pulse 80 03/28/25 11:46 Respiratory Rate 18 03/28/25 15:10 Respiratory Effort Normal 03/26/25 14:50 Respiratory Depth Normal 03/26/25 14:50 Respiratory Pattern Normal 03/26/25 14:50 Blood Pressure 148/89 H 03/28/25 15:10 Blood Pressure Mean 108 03/28/25 15:10 Blood Pressure Position Supine 03/26/25 14:50 Pulse Oximetry 99 03/28/25 15:10 Oxygen Delivery Method Room Air 03/28/25 15:10 Oxygen Flow Rate 0 03/28/25 15:10 Pain Level 10 03/28/25 05:53 Allergies No Known Allergies Allergy (Verified 03/26/25 09:21) Precautions Isolation Standard precaution 03/26/25 09:36 Active Medications Generic Name Dose Route Start Last Admin Trade Name Freq PRN Reason Stop Dose Admin Acetaminophen 650 mg 03/26/25 12:59 03/27/25 12:50 Acetaminophen 325 Mg Tab PO 650 mg Q4H PRN PRN Administration Clonidine 0.1 mg 03/28/25 12:17 03/28/25 13:05 Clonidine 0.1 Mg Tab PO 0.1 mg TID PRN PRN Administration Anxiety Enoxaparin Sodium 40 mg 03/27/25 08:30 03/28/25 11:00 Enoxaparin 40 Mg/0.4 Ml Syr SC Not Given DAILY DEVON Hydromorphone HCl 2 mg 03/26/25 13:45 03/28/25 15:16 Hydromorphone 2 Mg/Ml Syr IVP 2 mg Q2H PRN PRN Administration Metronidazole 500 mg in 100 mls @ 100 mls/hr 03/26/25 18:00 03/28/25 15:15 Flagyl IVPB Infused Q6H DEVON Infusion Levofloxacin 750 mg in 150 mls @ 100 mls/hr 03/26/25 18:00 03/28/25 00:15 Levaquin Premixed Bag IVPB Infused Q24H DEVON Infusion Lorazepam 2 mg 03/27/25 13:51 03/28/25 14:06 Lorazepam 1 Mg Tab PO 2 mg QID PRN PRN Administration Midazolam HCl 2 mg 03/26/25 16:56 03/28/25 15:16 Midazolam 2 Mg/2 Ml Vial IVP 2 mg Q2H PRN PRN Administration Mirtazapine 7.5 mg 03/26/25 20:00 03/27/25 21:27 Mirtazapine 15 Mg Tab PO 7.5 mg HS DEVON Administration Oxycodone HCl 20 mg 03/26/25 17:45 03/28/25 14:06 Oxycodone 10 Mg Tab PO 20 mg Q4H PRN PRN Administration Sodium Chloride 0 ml 03/27/25 09:21 03/28/25 15:17 Normal Saline Flush 10 Ml Syr IVP 30 ml PRN PRN Administration Zolpidem Tartrate 10 mg 03/26/25 20:00 03/27/25 21:27 Zolpidem 10 Mg Tab PO 10 mg HS DEVON Administration IV IV Catheter Type [Right Peripheral IV Antecubital] IV Catheter Gauge [Right 18 Antecubital] Diagnostics 03/28/25 03/28/25 Range/Units 05:38 03:30 WBC 10.84 H (4.4-10.8) 10^3/uL RBC 3.11 L (3.93-5.22) 10^6/uL Hgb 9.0 L (11.2-15.7) g/dL Hct 27.7 L (36.0-46.0) % MCV 89 (80-95) fL MCH 28.9 (27.0-33.0) pg MCHC 32.5 (32.0-36.0) % RDW 16.2 H (11.7-14.6) % Plt Count 446 H (130-400) 10^3/uL MPV 8.9 (8.0-11.0) fL Sodium 143 (136-145) mmol/L Potassium 3.2 L (3.5-5.1) mmol/L Chloride 109 H (98-107) mmol/L Carbon Dioxide 23.4 (21.0-32.0) mmol/L Anion Gap 10.6 (3-11) mmol/L BUN 4 L (7-18) mg/dL Creatinine 0.7 (0.55-1.02) mg/dL Est GFR (CKD-EPI 2020) 106.62 (mL/min/1.73m2) Glucose 122 H (74-106) mg/dL Calcium 8.1 L (8.5-10.1) mg/dL Urine HCG, Qual Negative 03/26/25 11:20 Blood Culture - Preliminary Blood NO GROWTH 48 HOURS 03/26/25 10:24 Blood Culture - Preliminary Blood NO GROWTH 48 HOURS 03/26/25 15:45 Urine Culture - Final Urine - Reflex from Ua Intake and Output - 24 Hour Total 03/26/25 09:09 thru 03/28/25 15:15 Intake Total 4875.188 Output Total 5810 Balance -934.812 Weight 64.6 kg Intake: IV 1885.188 Oral 2840 Injectate 150 rt tristen 150 Output: Drainage 160 rt tristen 160 Urine 5400 Stool 250 Other: Urine Color Light [place] Urine Appearance Clear Urine Odor None Comment does have frequent UTIs Stool Size Small Stool Characteristics Liquid [place] Risk Assessment History of Falls No History 03/26/25 14:50 Contributing Factors Medications 03/26/25 14:50 Ambulatory Aids Independent 03/26/25 14:50 Tubes/Lines With any additional score 03/26/25 14:50 Gait Evaluation No gait disturbance 03/26/25 14:50 Cognition No cognitive impairment 03/26/25 14:50 Fall Total Score 23 03/26/25 14:50 Level of Risk Standard/Low Risk 03/26/25 14:50 Problems (Last Reviewed 03/26/25 @ 17:33 by Joo Troncoso) Leukocytosis (Acute) Elevated troponin (Acute) Sepsis (Acute) Post-operative pain (Acute) Elevated brain natriuretic peptide (BNP) level (Acute) ALFREDO (acute kidney injury) (Acute) Perforated bowel (Acute) Crohn disease (Chronic) Depression (Chronic) Opiate dependence, continuous (Chronic) Notes 03/26/25 13:57 Nursing Notes by Danay Jackson This rn gave report to Rosana Alvarado in ICU. Informed her that lab previously cynthia trop with [facility]. Lab called back and stated they were unable to obtain trop. This rn was notified that BC were uncollected not 1hr trop and called back later to verify with lab and was informed that trop was uncollected. This rn sent 1hr trop after being notified by lab that it was uncollected. Pt awake alert and oriented x4. Pt at baseline presentation. No acute distress noted. Dr Cook at bedside with pt changing surgical/ ostomy dressing. This rn informed Rosana that pt would be brought upstairs once procedure was finished. Nursing Note: Initialized on 03/26/25 13:57 - END OF NOTE v v v v v v v v v Sending and/or Receiving Nurses: Please use comment section below to note any information pertinent to the patient hand-off not included above. Information / Comments: report given to Eloy Gonzalez RN Report received from:
--- NOTE | 2025-03-28 16:01 | PDOC.MHPN2 ---
Date of service: 03/28/25 Time of Service: 10:15 Suicide Severity Rate CSSRS Have you wished you were or wished you could go to sleep and not wake up?: Yes Have you actually had any thoughts of killing yourself?: Yes CSSRS2 Have you been thinking about how you might do this?: Yes Have you had these thoughts and had some intention of acting on them?: Yes Have you started to work out or worked out the details of how to kill yourself? Do you intend to carry out this plan?: Yes CSSRS3 Have you ever done anything, started to do anything or prepared to do anything to end your life?: Yes CSSRS4 Was this within the past three months?: Yes Screening Score Total Score: 8 Screening: Positive Mental Health Emergency Note Release [facility] release signed:: No Reason for Visit Reassessment after intentional overdose. In the last 2 weeks has the pt presented for ES prior to today?: No Client Information Client is: Substance use Well Housed: Yes Non Suicidal Self Injury Current: Yes, substance abuse Safety Risk/Harm to Self or Others Current Ideation to Harm Self or Others: Yes to self. Intent: yes, has intent. Plan: yes,has a plan. Risk: Does risk to harm exist?: yes. Access to means: Yes. Types of Means: Other (Reports easy access to drugs). Asssessment/Mental Status Appearance: Disheveled Attitude: Cooperative, Demanding, Guarded and Friendly Behavior: Agitated Speech: Normal Affect: Cogruent with mood Mood: Anxious Thought process: Goal directed and Circumstational Hallucinations: No Delusions: No Attention: Unremarkable Perception: Not impaired Orientation: Fully orientated Memory: Intact Insight: Poor Judgement: Poor Neurovegetative Symptoms Sleep: Increase Appetitie: No change Interests: No change Energy: No change Libido: No change Substance Use: Drug Issues: Dependence Do you use nicotine?: No Have you used substances in the last 7 days?: yes, Client reports usage of street Fentanyl and Xylazine Additional Issues: Assaultive/Threatening Behavior: No Medical Concerns: Yes Client engaged in active self harm w/weapon: No Threatening to run away: Yes Child reported abuse/neglect: No Domestic violence is a concern: No Extreme Psychosis or extreme behavior is present: No Impression Client is alert and oriented, actively engages in assessment. Client shows distress while discussing her mood and anticipated changes to her medication this morning. Client requests removal of the sitter stating it's too much. Client reports no longer wanting to seek inpatient mental health treatment. Client remains high risk for serious harm or to herself due to access to means in the community and relentless pursuit and intent to gain access to street drugs, specifically fentanyl, crack, cocaine, xylazine. Client reports intent to gain immediate access upon discharge from the hospital or any other facility that would prevent access. Client reported the only thing keeping me from thinking about drugs is this medication they're giving me now. At today's reassessment, the client appeared alert and oriented and actively engaged in the assessment process. She maintained good eye contact throughout the session. However, the client showed signs of distress while discussing her mood and the anticipated changes to her medication this morning. She expressed a desire for the removal of the 'sitter,' stating, 'it's too much. ' Additionally, the client reported that she is no longer willing to seek inpatient mental health treatment. The client presented in a disheveled state, wearing a hospital gown while being in the ICU following a serious drug overdose that was intended to end her life. She declared her inability to provide self-care, highlighting her distressing circumstances. As a mother of three, with her youngest living at home with the client and the biological father, the client expressed that 'the addiction is stronger than the love I have for my children. ' She acknowledged the presence of a replacement mother for her youngest daughter, indicating that she 'adores' this individual, and stated the replacement mother 'is a better mom to my daughter than I am' and 'I'm so glad she's there for her. ' The client remains at high risk for serious harm or due to her ongoing relentless pursuit of street drugs, specifically fentanyl, crack, cocaine, and xylazine, which she seeks access to on a daily basis. There is a critical concern regarding her intent to gain immediate access to these substances upon discharge from the hospital or any treatment facility. The client recently underwent lifesaving surgery due to sepsis, resulting in a colostomy bag, a change which she described as life-changing and deeply distressing. Clinically, she makes incongruous statements about wanting to live but expresses that she is okay with the possibility of overdosing as a means to facilitate sleep with deadly consequences. Despite her high-risk behaviors, the client agreed to voluntary inpatient treatment, although she has left against medical advice (AMA) in the past two days in search of more illicit drugs and has returned due to medical necessity. Hospital suicide protocols remain in place. Plan/Disposition Recommended Disposition: Hospitalization facilities contacted and Psych Screening. Person reported agreement to plan: No Reports/communication Outcome discussed with: Other (ICU attending and charge nurse, Care Management)
--- NOTE | 2025-03-28 19:14 | W.PC.ACHO ---
Registration Status: ADM IN Primary Language: Preferred Language: Albanian ED Information & Data Chief Complaint GenMedical 03/26/25 10:03 Triage Note Pt admitted here and signed 03/26/25 09:11 out AMA thinking she could care for herself but is still in a lot of pain, extremely weak, and not feeling well Medical / Surgical History (Last Reviewed 03/26/25 @ 17:33 by Joo Troncoso) Anemia Rheumatoid arthritis delivery delivered (Last Updated 03/26/25 @ 17:36 by Joo Troncoso) Status post partial colectomy S/P section Most Recent Vital Signs Temperature 36.5 C 03/28/25 15:10 Temperature Source Skin 03/28/25 15:10 Pulse 120 H 03/28/25 15:10 Pulse 80 03/28/25 11:46 Respiratory Rate 18 03/28/25 15:10 Respiratory Effort Normal 03/26/25 14:50 Respiratory Depth Normal 03/26/25 14:50 Respiratory Pattern Normal 03/26/25 14:50 Blood Pressure 148/89 H 03/28/25 15:10 Blood Pressure Mean 108 03/28/25 15:10 Blood Pressure Position Supine 03/26/25 14:50 Pulse Oximetry 99 03/28/25 15:10 Oxygen Delivery Method Room Air 03/28/25 15:10 Oxygen Flow Rate 0 03/28/25 15:10 Pain Level 10 03/28/25 17:45 Allergies No Known Allergies Allergy (Verified 03/26/25 09:21) Precautions Isolation Standard precaution 03/26/25 09:36 Active Medications Generic Name Dose Route Start Last Admin Trade Name Freq PRN Reason Stop Dose Admin Acetaminophen 650 mg 03/26/25 12:59 03/27/25 12:50 Acetaminophen 325 Mg Tab PO 650 mg Q4H PRN PRN Administration Clonidine 0.1 mg 03/28/25 12:17 03/28/25 13:05 Clonidine 0.1 Mg Tab PO 0.1 mg TID PRN PRN Administration Anxiety Enoxaparin Sodium 40 mg 03/27/25 08:30 03/28/25 11:00 Enoxaparin 40 Mg/0.4 Ml Syr SC Not Given DAILY DEVON Hydromorphone HCl 2 mg 03/26/25 13:45 03/28/25 17:39 Hydromorphone 2 Mg/Ml Syr IVP 2 mg Q2H PRN PRN Administration Metronidazole 500 mg in 100 mls @ 100 mls/hr 03/26/25 18:00 03/28/25 17:58 Flagyl IVPB 100 mls/hr Q6H DEVON Administration Levofloxacin 750 mg in 150 mls @ 100 mls/hr 03/26/25 18:00 03/28/25 00:15 Levaquin Premixed Bag IVPB Infused Q24H DEVON Infusion Lorazepam 2 mg 03/27/25 13:51 03/28/25 19:06 Lorazepam 1 Mg Tab PO 2 mg QID PRN PRN Administration Midazolam HCl 2 mg 03/26/25 16:56 03/28/25 17:39 Midazolam 2 Mg/2 Ml Vial IVP 2 mg Q2H PRN PRN Administration Mirtazapine 7.5 mg 03/26/25 20:00 03/27/25 21:27 Mirtazapine 15 Mg Tab PO 7.5 mg HS DEVON Administration Oxycodone HCl 20 mg 03/26/25 17:45 03/28/25 17:45 Oxycodone 10 Mg Tab PO 20 mg Q4H PRN PRN Administration Sodium Chloride 0 ml 03/27/25 09:21 03/28/25 17:59 Normal Saline Flush 10 Ml Syr IVP 20 ml PRN PRN Administration Zolpidem Tartrate 10 mg 03/26/25 20:00 03/27/25 21:27 Zolpidem 10 Mg Tab PO 10 mg HS DEVON Administration IV IV Catheter Type [Right Peripheral IV Antecubital] IV Catheter Gauge [Right 18 Antecubital] Diagnostics 03/28/25 03/28/25 Range/Units 05:38 03:30 WBC 10.84 H (4.4-10.8) 10^3/uL RBC 3.11 L (3.93-5.22) 10^6/uL Hgb 9.0 L (11.2-15.7) g/dL Hct 27.7 L (36.0-46.0) % MCV 89 (80-95) fL MCH 28.9 (27.0-33.0) pg MCHC 32.5 (32.0-36.0) % RDW 16.2 H (11.7-14.6) % Plt Count 446 H (130-400) 10^3/uL MPV 8.9 (8.0-11.0) fL Sodium 143 (136-145) mmol/L Potassium 3.2 L (3.5-5.1) mmol/L Chloride 109 H (98-107) mmol/L Carbon Dioxide 23.4 (21.0-32.0) mmol/L Anion Gap 10.6 (3-11) mmol/L BUN 4 L (7-18) mg/dL Creatinine 0.7 (0.55-1.02) mg/dL Est GFR (CKD-EPI 2020) 106.62 (mL/min/1.73m2) Glucose 122 H (74-106) mg/dL Calcium 8.1 L (8.5-10.1) mg/dL Urine HCG, Qual Negative 03/26/25 11:20 Blood Culture - Preliminary Blood NO GROWTH 48 HOURS 03/26/25 10:24 Blood Culture - Preliminary Blood NO GROWTH 48 HOURS 03/26/25 15:45 Urine Culture - Final Urine - Reflex from Ua Intake and Output - 24 Hour Total 03/26/25 09:09 thru 03/28/25 15:15 Intake Total 4875.188 Output Total 5810 Balance -934.812 Weight 64.6 kg Intake: IV 1885.188 Oral 2840 Injectate 150 rt tristen 150 Output: Drainage 160 rt tristen 160 Urine 5400 Stool 250 Other: Urine Color Light [place] Urine Appearance Clear Urine Odor None Comment does have frequent UTIs Stool Size Small Stool Characteristics Liquid [place] Risk Assessment History of Falls No History 03/26/25 14:50 Contributing Factors Medications 03/26/25 14:50 Ambulatory Aids Independent 03/26/25 14:50 Tubes/Lines With any additional score 03/26/25 14:50 Gait Evaluation No gait disturbance 03/26/25 14:50 Cognition No cognitive impairment 03/26/25 14:50 Fall Total Score 23 03/26/25 14:50 Level of Risk Standard/Low Risk 03/26/25 14:50 Problems (Last Reviewed 03/26/25 @ 17:33 by Joo Troncoso) Leukocytosis (Acute) Elevated troponin (Acute) Sepsis (Acute) Post-operative pain (Acute) Elevated brain natriuretic peptide (BNP) level (Acute) ALFREDO (acute kidney injury) (Acute) Perforated bowel (Acute) Crohn disease (Chronic) Depression (Chronic) Opiate dependence, continuous (Chronic) Notes 03/26/25 13:57 Nursing Notes by Danay Jackson This rn gave report to Rosana Alvarado in ICU. Informed her that lab previously cynthia trop with [facility]. Lab called back and stated they were unable to obtain trop. This rn was notified that BC were uncollected not 1hr trop and called back later to verify with lab and was informed that trop was uncollected. This rn sent 1hr trop after being notified by lab that it was uncollected. Pt awake alert and oriented x4. Pt at baseline presentation. No acute distress noted. Dr Cook at bedside with pt changing surgical/ ostomy dressing. This rn informed Rosana that pt would be brought upstairs once procedure was finished. Nursing Note: Initialized on 03/26/25 13:57 - END OF NOTE v v v v v v v v v Sending and/or Receiving Nurses: Please use comment section below to note any information pertinent to the patient hand-off not included above. Information / Comments: this nursae received report from ICU nurse patient naler and oriented, drug seeker, she arrives pretty anxious, asking for anxiety meds. Report received from: MARKELL HUGGINS
[2025-03-28] MEDS: levoFLOXacin 750 MG/150 ML BAG 100 MG IVPB (19:22)
[2025-03-28] MEDS: Mirtazapine 15 MG TAB 7.5 MG PO (20:20)
[2025-03-28] MEDS: Zolpidem 10 MG TAB PO (20:20)
[2025-03-28] MEDS: Acetaminophen 325 MG TAB 650 MG PO (20:37)
[2025-03-28] MEDS: Ondansetron 4 MG/2 ML VIAL IVP (20:37)
[2025-03-28] MEDS: fentaNYL 100 MCG/2 ML VIAL IVP (21:48)
--- NOTE | 2025-03-28 21:57 | W.EVENT ---
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 She typically takes fentanyl with xylazine daily and titrates this to help with pain and sleep. She was just recently stopped on Precedex which was helping her with her narcotic withdrawal and is feeling very anxious and craving as she also is not sleeping. She is on IV Levaquin and metronidazole which could be converted to oral therapy for discharge if the patient is doing well. She has been eating she states that she has been tolerating her meals and she has had no fever. Her white count has decreased but not normalized but she also has a reactive component with her platelet count elevated as well which is decreasing. She very calmly talks about the misinterpretation of her stating that she wanted to take her street medications of fentanyl and xylazine to sleep and that she was not saying that she wanted to kill herself and she has no suicidal ideation at this time. She wants to live to take care of her daughter and she wants to come off of the street fentanyl and xylazine on her own. She has done this in the past. She does test street drugs as to what the contents are but does not know the dosage. 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 She was very calmly talking about wanting to go home and restart her outpatient treatment. She is very uncomfortable presently but not stating that she would leave AMA and does want to return to the previous treatment with Precedex which was helping her with withdrawal symptoms benefit greatly. After long discussion there are no alternatives for treating her on the floor with Versed intermittently not appearing to help as much the Precedex. I will transfer her back to the ICU and we initiate Precedex infusion with the other medications unchanged. In the morning she needs to discuss discharge on oral antibiotic therapy and the risk and benefits of that versus continued IV antibiotic therapy which would require a ICU level care with Precedex infusion. The patient is comfortable with this plan. Nursing supervisor frame assembly was also comfortable with this plan. Time Spent with Patient Time spent in critical care(minutes): 45 Time Spent Included: Coordination of care, Chart review, Documenting critically ill care, Time at immediate bedside, Discussing critically ill care with other medical staff and Other (Long conversation with patient as to suicidal ideation and lack of this presently, plan that she will not stop using when discharged and is comfortable attempting to wean herself off the street medications which she has done before. She is not open to maintenance therapy with Suboxone.)
[2025-03-28] MEDS: dexmedeTOMidine IN 0.9 % NACL 400 MCG/100 ML BTL IV (23:14)
[2025-03-29] VITALS (25 sets, daily range): BP systolic 122–127; BP diastolic 87–98; PULSE 89–119; RESP 11–26; TEMP 37.2–38.1; O2SAT 96–98
[2025-03-29] MEDS: metroNIDAZOLE 500 MG/100 ML BAG 100 MG IVPB ×3 (00:06→12:13)
[2025-03-29] MEDS: HYDROmorphone 2 MG/ML SYR IVP ×4 (01:54→12:14)
[2025-03-29] MEDS: Midazolam 2 MG/2 ML VIAL IVP ×3 (02:27→08:18)
[2025-03-29] MEDS: oxyCODONE 10 MG TAB 20 MG PO ×3 (03:09→12:14)
--- NOTE | 2025-03-29 05:55 | W.PC.ACHO ---
Registration Status: ADM IN Primary Language: Preferred Language: Luxembourgish ED Information & Data Chief Complaint GenMedical 03/26/25 10:03 Triage Note Pt admitted here and signed 03/26/25 09:11 out AMA thinking she could care for herself but is still in a lot of pain, extremely weak, and not feeling well Medical / Surgical History (Last Reviewed 03/26/25 @ 17:33 by Joo Troncoso) Anemia Rheumatoid arthritis delivery delivered (Last Updated 03/26/25 @ 17:36 by Joo Troncoso) Status post partial colectomy S/P section Most Recent Vital Signs Temperature 37.5 C 03/28/25 19:25 Temperature Source Temporal Artery Scan 03/28/25 19:25 Pulse 113 H 03/29/25 01:30 Pulse 104 H 03/29/25 02:30 Respiratory Rate 20 03/29/25 02:30 Respiratory Effort Normal 03/28/25 23:20 Respiratory Depth Normal 03/28/25 23:20 Respiratory Pattern Normal 03/28/25 23:20 Blood Pressure 139/86 03/28/25 19:25 Blood Pressure Mean 103 03/28/25 19:25 Blood Pressure Position Supine 03/26/25 14:50 Pulse Oximetry 97 03/29/25 01:30 Oxygen Delivery Method Room Air 03/28/25 23:20 Oxygen Flow Rate 0 03/28/25 23:20 Pain Level 7 03/28/25 22:23 Comment pt is sitting up on the side of the bed, no advise reaction from any of the pain medications. 03/28/25 22:30 Allergies No Known Allergies Allergy (Verified 03/26/25 09:21) Precautions Isolation Standard precaution 03/26/25 09:36 Active Medications Generic Name Dose Route Start Last Admin Trade Name Freq PRN Reason Stop Dose Admin Acetaminophen 650 mg 03/26/25 12:59 03/28/25 20:37 Acetaminophen 325 Mg Tab PO 650 mg Q4H PRN PRN Administration Enoxaparin Sodium 40 mg 03/27/25 08:30 03/28/25 11:00 Enoxaparin 40 Mg/0.4 Ml Syr SC Not Given DAILY DEVON Hydromorphone HCl 2 mg 03/26/25 13:45 03/29/25 01:54 Hydromorphone 2 Mg/Ml Syr IVP 2 mg Q2H PRN PRN Administration Metronidazole 500 mg in 100 mls @ 100 mls/hr 03/26/25 18:00 03/29/25 01:11 Flagyl IVPB Infused Q6H DEVON Infusion Levofloxacin 750 mg in 150 mls @ 100 mls/hr 03/26/25 18:00 03/28/25 21:59 Levaquin Premixed Bag IVPB Infused Q24H DEVON Infusion Dexmedetomidine/Sodium Chloride 400 mcg in 100 mls @ 3.23 mls/hr 03/28/25 22:00 03/29/25 04:46 Precedex IV 0.4 mcg/kg/hr INFUSION DEVON 6.46 mls/hr Protocol Titration 0.2 MCG/KG/HR Lorazepam 2 mg 03/27/25 13:51 03/28/25 20:44 Lorazepam 1 Mg Tab PO 2 mg QID PRN PRN Administration Midazolam HCl 2 mg 03/26/25 16:56 03/29/25 02:27 Midazolam 2 Mg/2 Ml Vial IVP 2 mg Q2H PRN PRN Administration Mirtazapine 7.5 mg 03/26/25 20:00 03/28/25 20:20 Mirtazapine 15 Mg Tab PO 7.5 mg HS DEVON Administration Ondansetron HCl 4 mg 03/28/25 20:02 03/28/25 20:37 Ondansetron 4 Mg/2 Ml Vial IVP 4 mg Q4H PRN PRN Administration Oxycodone HCl 20 mg 03/26/25 17:45 03/29/25 03:09 Oxycodone 10 Mg Tab PO 20 mg Q4H PRN PRN Administration Sodium Chloride 0 ml 03/27/25 09:21 03/28/25 22:23 Normal Saline Flush 10 Ml Syr IVP 10 ml PRN PRN Administration Zolpidem Tartrate 10 mg 03/26/25 20:00 03/28/25 20:20 Zolpidem 10 Mg Tab PO 10 mg HS DEVON Administration IV IV Catheter Type [Right Peripheral IV Antecubital] IV Catheter Gauge [Right 18 Antecubital] Diagnostics 03/28/25 Range/Units 05:38 WBC 10.84 H (4.4-10.8) 10^3/uL RBC 3.11 L (3.93-5.22) 10^6/uL Hgb 9.0 L (11.2-15.7) g/dL Hct 27.7 L (36.0-46.0) % MCV 89 (80-95) fL MCH 28.9 (27.0-33.0) pg MCHC 32.5 (32.0-36.0) % RDW 16.2 H (11.7-14.6) % Plt Count 446 H (130-400) 10^3/uL MPV 8.9 (8.0-11.0) fL Sodium 143 (136-145) mmol/L Potassium 3.2 L (3.5-5.1) mmol/L Chloride 109 H (98-107) mmol/L Carbon Dioxide 23.4 (21.0-32.0) mmol/L Anion Gap 10.6 (3-11) mmol/L BUN 4 L (7-18) mg/dL Creatinine 0.7 (0.55-1.02) mg/dL Est GFR (CKD-EPI 2020) 106.62 (mL/min/1.73m2) Glucose 122 H (74-106) mg/dL Calcium 8.1 L (8.5-10.1) mg/dL 03/26/25 11:20 Blood Culture - Preliminary Blood NO GROWTH 48 HOURS 03/26/25 10:24 Blood Culture - Preliminary Blood NO GROWTH 48 HOURS 03/26/25 15:45 Urine Culture - Final Urine - Reflex from Ua Intake and Output - 24 Hour Total 03/26/25 09:09 thru 03/29/25 04:46 Intake Total 5433.639 Output Total 5830 Balance -396.361 Weight 64.1 kg Intake: IV 2263.639 Oral 3020 Injectate 150 rt tristen 150 Output: Drainage 180 rt tristen 180 Urine 5400 Stool 250 Other: Urine Color Yellow Urine Appearance Clear Urine Odor Normal Comment does have frequent UTIs Stool Size Small Stool Characteristics Liquid [place] Risk Assessment History of Falls No History 03/28/25 23:20 Contributing Factors Medications 03/28/25 23:20 Ambulatory Aids Independent 03/28/25 23:20 Tubes/Lines With any additional score 03/28/25 23:20 Gait Evaluation No gait disturbance 03/28/25 23:20 Cognition No cognitive impairment 03/28/25 23:20 Fall Total Score 23 03/28/25 23:20 Level of Risk Standard/Low Risk 03/28/25 23:20 Problems (Last Reviewed 03/26/25 @ 17:33 by Joo Troncoso) Leukocytosis (Acute) Elevated troponin (Acute) Sepsis (Acute) Post-operative pain (Acute) Elevated brain natriuretic peptide (BNP) level (Acute) ALFREDO (acute kidney injury) (Acute) Perforated bowel (Acute) Crohn disease (Chronic) Depression (Chronic) Opiate dependence, continuous (Chronic) Notes 03/26/25 13:57 Nursing Notes by Danay Jackson This rn gave report to Rosana Alvarado in ICU. Informed her that lab previously cynthia trop with BC. Lab called back and stated they were unable to obtain trop. This rn was notified that BC were uncollected not 1hr trop and called back later to verify with lab and was informed that trop was uncollected. This rn sent 1hr trop after being notified by lab that it was uncollected. Pt awake alert and oriented x4. Pt at baseline presentation. No acute distress noted. Dr Cook at bedside with pt changing surgical/ ostomy dressing. This rn informed Rosana that pt would be brought upstairs once procedure was finished. Nursing Note: Initialized on 03/26/25 13:57 - END OF NOTE v v v v v v v v v Sending and/or Receiving Nurses: Please use comment section below to note any information pertinent to the patient hand-off not included above. Information / Comments: Report received from: Didi Al RN
[2025-03-29] MEDS: Normal Saline Flush 10 ML SYR IVP ×2 (06:06→09:14)
[2025-03-29] MEDS: Enoxaparin 40 MG/0.4 ML SYR SC (08:18)
--- NOTE | 2025-03-29 08:20 | CMPROGNOTE_ITS ---
Date of service: 03/29/25 Time of Service: 08:20 Care Management Progress Note Progress Note Text Progress Note Text: An Interdisciplinary Department Huddle was coordinated by CM to discuss the appropriateness of pursuing an EE, as Shania denies SI, declines tele-psychiatry evaluation and there are concerns for her safety after discharge. Present: Hospitalist/Dr. Troncoso, [facility] (Joyce and Treasure), and Care Managers Willa Restrepo and Brea. During review it was noted that Shania has verbalized intent to overdose upon leaving the hospital to both [facility] clinician and CM, but has not endorsed the same intent to the hospitalist. [facility] also advocating that patient clinical p resentation is concerning, see [facility] screening. The team collectively agrees that Shania appears to have no intention of detoxing, which was also noted by the hospitalist would likely to be a challenging process and may require restraints. Per hospitalist, case has been reviewed with ED Director, who concurred that an EE is not appropriate at this time. Following the huddle, Joyce from [facility] met with Shania. A safety plan was established under the direction of the Hospitalist and patient was safety planned to the c/o [facility]. Shania is now off Precidex and is anticipated to discharge from [facility] once medically cleared by the hospitalist. CM notified [facility], and the patient was provided with a folder of community resources; however, she declined to engage further. Shania is medically ready to discharge per provider: she has been counselled about substance abuse treatment and declines recommendations (see d/c summary.) CM met with Shania at 2pm, she was sitting up in bed looking out the window. She is calm, appropriate in interaction and reports that she is getting ready to go home and planning to have her mother or her child's father, pick her up. She did not endorse SI, and reports that she is appreciative of the care received, but ready to leave. Discharge Potential Discharge Needs: PCP F/U Appt Anticipated Barriers to Discharge: None Identified Patient/Family Education Needs: Review discharge instructions, discuss Ask Me Three Transportation: Private vehicle Plan: Anticipate, patient will discharge to the community once medically cleared by hospitalist. Follow up with PCP and discharge plan of care as directed. CM will follow. Social Determinants of Health Screening Social Determinants of health last assessed in clinic: 08/08/25 Will the Patient Participate in the Screening?: Yes Do you worry about having a steady place to live?: no Problems where you live: no known problems In the past 12 months, have you had to go without electric, gas, oil or water in your home?: no 1. Within the past 12 months, we worried whether our food would run out before we got money to buy more.: Never true 2. Within the past 12 months, the food we bought just didn't last and we didn't have money to get more.: Never true Has lack of transportation kept you from medical appointments or from doing things needed for daily living?: no Has anyone in your life made you feel unsafe or unsupported?: no How hard is it for you to pay for the very basics like food, housing, medical care, and heating? Would you say it is:: Not hard at all Do you want help finding or keeping work or a job?: I do not need or want help If for any reason you need help with day-to-day activities such as bathing, preparing meals, shopping, managing finances, etc., do you get the help you need?: I get all the help I need How often do you feel lonely or isolated from those around you?: Sometimes Do you speak a language other than Japanese at home?: No Does the patient want assistance with any of the above?: No Health Related Social Needs Health related social needs: feeling lonely/isolated (Z60.8) Health related social needs details: None needed.
[2025-03-29] MEDS: LORazepam 1 MG TAB 2 MG PO ×2 (09:10→12:14)
--- NOTE | 2025-03-29 10:26 | W.PM.PROGNOT ---
Date of Service Date of service: 03/29/25 Time of Service: 10:26 Assessment and Plan Assessment and plan (1) Opiate dependence, continuous: Status: Chronic Assessment and plan: Being managed by hospitalist team Dr. Troncoso (2) Status post partial colectomy: Assessment and plan: She is doing well. She did have an elevation of her temperature, but I think this may be more related to anxiolytics and analgesics than infectious process. Her abdominal exam today is benign. Every other staple removed along with STAR drain today. Today she declined her labs. So don't have labs today. Yesterday the WBC was downtrending. I think from a surgical perspective she can be discharged home. She should go home with levaquin and flagyl PO for 10 days, and follow up in clinic in 1 week. Her opiate use disorder certainly is a concern, but at this point I do not think we are helping her with the amount of narcotics we are having to give here in the hospital. Subjective Subjective Interval history since last seen: Patient with anxiety yesterday evening and concern over rate and type of analgesics and anxiolytics. Today she is pleasant without complaints. Reports that her colostomy is functioning great. Exam Narrative Exam Narrative: Patient did have an elevation of her temperature this morning to 38.1, HR mildly elevated. She was examined today with her nurse present. Her drain output is minimal today it is serous. Drain removed today. Every other staple removed from midline with steristrips applied. Objective Last Vital Signs Temp 38.1 C H 03/29/25 08:24 Pulse 107 H 03/29/25 08:24 Resp 15 03/29/25 08:30 BP 122/98 H 03/29/25 08:24 Pulse Ox 98 03/29/25 08:24 Time Spent with Patient Time Spent with Patient: <25 minutes Time was spent: preparing to see the patient(eg.review tests) and counseling the patient
[2025-03-29] MEDS: Ondansetron 4 MG/2 ML VIAL IVP (10:33)
[2025-03-29 11:33] LABS: HCT 32.9 % (36.0-46.0); HGB 10.6 g/dL (11.2-15.7); MCH 28.6 pg (27.0-33.0); MCHC 32.2 % (32.0-36.0); MCV 89 fL (80-95); MPV 8.9 fL (8.0-11.0); Platelet Count 625 10^3/uL (130-400); RBC 3.71 10^6/uL (3.93-5.22); RDW 16.2 % (11.7-14.6); RDW-SD 51.5 fL; WBC 12.50 10^3/uL (4.4-10.8)
[2025-03-29 11:43] LABS: Anion Gap 12.1 mmol/L (3-11); BUN 3 mg/dL (7-18); CO2 22.9 mmol/L (21.0-32.0); Calcium 8.9 mg/dL (8.5-10.1); Chloride 106 mmol/L (98-107); Estimated GFR 90.83 (mL/min/1.73m2); Glucose 119 mg/dL (74-106); Potassium 3.7 mmol/L (3.5-5.1); Sodium 141 mmol/L (136-145)
[2025-03-29 12:04] LABS: Iron 29 ug/dL (50-170); Total Iron Binding Capacity 343 ug/dL (250-450); Transferrin Sat 8 % (15-50)
--- NOTE | 2025-03-29 13:53 | DSE_ITS ---
Date of service: 03/29/25 Time of Service: 13:54 DS: Diagnosis Discharge Diagnosis (1) Opiate dependence, continuous: Status: Chronic (2) Status post partial colectomy: Discharge Plan Disposition Patient Disposition: Home Condition: Fair Discharge Details Reason For Visit: Sepsis,S/p coloctomy, elevated troponin, opoid use Admit Date/Time: 03/26/25 13:00 Admit Provider: Joo Troncoso Attending Provider: Joo Troncoso Primary Care Provider: Hali Rueda [facility] Course Hospital Course: 49 year old woman with active opioid use disorder and history of Crohn disease not on therapy who initially presented March 19 with severe abdominal pain worsening over several days and was taken to surgery for perforated bowel felt secondary to stercoral colitis. She underwent laparotomy and colectomy with ostomy placement early 03/20. She was treated with pip/tazo and her peritoneal fluid grew E. coli which with intermediate sensitivity to that agent. She had ALFREDO post-op, which improved. Her septic physiology did improve, but she had ongoing pain complicated by her opioid use disorder and concern she was sneaking fentanyl into the hospital based on her behavior after visitors. She left AMA early 03/25. Levofloxacin and metronidazole were prescribed, but she never took them. She returned 03/26 and was started on levofloxacin and metronidazole IV. She improved clinically and the TRISTEN drain was removed by surgery as well as every other staple, with a plan to continue oral antibiotics and follow up 1 week with surgery clinic. She was maintained on high dose oral and IV opioids for pain given her heavy daily use of fentanyl. She also required benzodiazepine and Precedex to manage withdrawal as she also uses xylazine daily. Precedex was discontinued and she was given oral clonidine but she did not tolerate this and was moved back to the ICU for Precedex. She was encouraged to consider suboxone or methadone to treat her opioid use disorder, but she declined saying these didn't work for her even at high doses. She conceded she will go back to using street drugs. She understands she may have lost some tolerance and should use less. Her troponin was elevated from 130 to 227 before trending down to 114, in the setting of acute drug use and sepsis. This was also seen in January 2025. She never had EKG changes or chest pain. Echocardiogram showed normal LVEF and no focal wall motion abnormalities. Lipids and A1c were done, which showed moderate elevation of LDL and pre-DM at 5.8%. correction risk mitigation such as statin therapy was deferred to PCP. On 03/27 she expressed suicidal ideation with a plan to overdose on street drugs. She was evaluated by [facility] crisis team and EE recommended. However consistently on 2nd certification evaluation she denies wanting to kill herself. Given she was under the influence of multiple mind altering medication at the time she made her initial comments, she was felt not appropriate for EE. She did contract for safety and made a plan to follow up with mental health prior to discharge. Home Meds and New Rx's Prescriptions: Continued metronidazole 500 mg tablet 500 mg PO Q8H 10 Days Qty: 30 0RF Patient Comments: Picked up but has not started them yet 03/26/25 CT levofloxacin 750 mg tablet 750 mg PO DAILY 10 Days Qty: 10 0RF Discharge Instructions Additional Instructions: take the antibiotics for 10 more days Make sure you follow up with surgery clinic in 7 days to remove the rest of your sutures. Activity:: Activity as Tolerated Equipment/Supplies:: No Equipment Needed Diet:: As Tolerated Discharge Orders Discharge Orders: Discharge Order (Routine); Ordered 03/29/25 Ordered By: Joo Troncoso DS: Summary Time Spent with Patient providing and/or coordinating discharge services: Greater than 30 minutes Status at Discharge Functional status at discharge: independent ambulation Overall status at discharge: patient is progressing back to baseline Mental Status: mental status grossly normal Speech and Movement: speech and movement normal Mood: congruent mood Affect: normal affect Quality:SDOH Health Related Social Needs: Health related social needs lonely/isolated Health related social needs details None needed. Health related social needs details: None needed. Exam Narrative Exam Narrative: GEN: Alert and oriented x 4, sitting up, pleasant and cooperative, gives linear history. No acute distress, not tremulous LUNGS: CTAB with normal effort CV: RRR with no murmurs, gallops, or rubs. ABD: active bowel sounds, soft, nontender and nondistended. Incision intact, TRISTEN removed, ostomy looks benign with green/brown stool EXT: no cyanosis, clubbing. trace ankle edema david PSYCH: Normal mood and affect, normal thought process Psych Mental Status: mental status grossly normal Speech and Movement: speech and movement normal Mood: congruent mood Affect: normal affect DS: Data Vitals/I&O Vitals and I&O: Vital Signs Temperature 37.2 C 03/29/25 13:02 Temperature Source Temporal Artery Scan 03/28/25 19:25 Pulse 104 H 03/29/25 13:02 Pulse 105 H 03/29/25 13:02 Respiratory Rate 17 03/29/25 13:00 Respiratory Effort Normal 03/28/25 23:20 Respiratory Depth Normal 03/28/25 23:20 Respiratory Pattern Normal 03/28/25 23:20 Blood Pressure 127/87 03/29/25 13:02 Blood Pressure Mean 101 03/29/25 13:02 Blood Pressure Position Supine 03/26/25 14:50 Pulse Oximetry 98 03/29/25 13:02 Oxygen Delivery Method Room Air 03/28/25 23:20 Oxygen Flow Rate 0 03/28/25 23:20 Pain Level 7 03/28/25 22:23 Comment pt is sitting up on the side of the bed, no advise reaction from any of the pain medications. 03/28/25 22:30 Intake & Output 03/28/25 03/29/25 03/29/25 23:59 11:59 23:59 Intake Total 640 / 1440 1186.304 / 1426.304 240 / 1426.304 Output Total 195 / 2395 1230 / 1240 10 / 1240 Balance 445 / -955 -43.696 / 186.304 230 / 186.304 Weight 64.1 kg Intake: IV 460 / 1010 264.304 / 264.304 Oral 180 / 380 922 / 1162 240 / 1162 Output: Drainage 30 / 40 10 / 40 rt tristen 30 / 40 10 / 40 Urine 175 / 2225 900 / 900 Stool 300 / 300 Other: Urine Color Pale Yellow Yellow Urine Appearance Clear Clear Urine Odor Normal Comment Patient voided 175mL into bedside commode, and an additional moderate- large amount voided that failed to be captured within a container. Stool Size Moderate Stool Characteristics Soft Formed Data Completed and Pending Labs on day of discharge: Labs from last 24 hours 03/29/25 11:25 WBC 12.50 H RBC 3.71 L Hgb 10.6 L Hct 32.9 L MCV 89 MCH 28.6 MCHC 32.2 RDW 16.2 H Plt Count 625 H MPV 8.9 Sodium 141 Potassium 3.7 Chloride 106 Carbon Dioxide 22.9 Anion Gap 12.1 H BUN 3 L Creatinine 0.8 Est GFR (CKD-EPI 2020) 90.83 Glucose 119 H Calcium 8.9 Iron 29 L TIBC 343 Transferrin % Sat 8 L Preliminary micro results at discharge 03/26/25 11:20 Blood Blood Culture - Preliminary NO GROWTH 72 HOURS 03/26/25 10:24 Blood Blood Culture - Preliminary NO GROWTH 72 HOURS PFSH All Active Problems (Updated 03/28/25 @ 13:49 by Joo Troncoso) Leukocytosis (Acute) Elevated troponin (Acute) Sepsis (Acute) Post-operative pain (Acute) Elevated brain natriuretic peptide (BNP) level (Acute) Tachycardia with hypertension (Acute) Elevated AST (SGOT) (Acute) Fentanyl dependence (Acute) ALFREDO (acute kidney injury) (Acute) Perforated bowel (Acute) Peritonitis (Acute) Weight loss (Acute) Postcoital urinary tract infection (Acute) Contraception (Acute) 08/2020. Declined LARC. Smokes tobacco. Rx for norethindrone 0.35 mg daily. Hx of herpes genitalis (Chronic) c/s report makes mention of vulvar herpes outbreak as being the cause of pt's c/s. History of tobacco abuse (Acute) Arthralgia (Chronic ~08/1996) related to remicaid treatment and crohn's Crohn disease (Chronic) Depression (Chronic) Opiate dependence, continuous (Chronic) Medical History (Updated 03/28/25 @ 13:49 by Joo Trnocoso) Anemia Rheumatoid arthritis delivery delivered Surgical History (Updated 03/26/25 @ 17:36 by Joo Troncoso) Status post partial colectomy S/P section Family History Brother Crohn's colitis Social History (Updated 03/26/25 @ 17:38 by Joo Troncoso) Smoking/Tobacco Use Status: Former Tobacco Use Quit Date: 04/27/18 Smoking risk assessment performed?: Yes Alcohol Intake: never Drug use: Daily Substance use type: marijuana, heroin, tranquilizers, sedatives and painkillers Counseling given: Yes Counseling provided: provider counseling Adopted: No Foster care: No Household members: significant other Housing: house Number of Children: 3 Seatbelt use: always Helmet use: Yes Drive intox or ride w/intox grain combine driver: No Do you feel safe at home: Yes Do you feel safe in your relationship?: Yes Additional Social history: Shared custody of 6 yo girl. Mom and adult twin daughters age 28 supportive. History History 2 Para 1 Hx # Term Pregnancies 1 Multiple births 1 Hx # Pregnancies 0 Ectopic pregnancies 0 AB induced 0 Hx Number of Living Children 2 AB spontaneous 0 Past Pregnancies Del. Date GA/Weeks # Preg Succ Route Wgt Sex Labor Lgth Anesth esia Location Prov [facility] 08/22/96 Yes 2863.302 g other 08/22/96 Yes 1956.117 g Female 11/09/18 39 No Female Tatiana Carrera 11/09/[address] [facility] Tatiana Jarrell Delivery Date: 11/09/18 Last Updated by: Tatiana Jarrell M.D. Elective repeat delivery named [place] Time Spent with Patient Time Spent with Patient: 45-69 minutes Time was spent: preparing to see the patient(eg.review tests), obtaining and/or reviewing separately otained hiistory, ordering medications,tests, procedures, referring, communicating with other health gericare aide, indepentently interpreting results, counseling the patient and care coordination
--- NOTE | 2025-03-29 14:50 | MHPN_ITS ---
Date of service: 03/29/25 Time of Service: 11:30 Suicide Severity Rate CSSRS Have you wished you were or wished you could go to sleep and not wake up?: Yes Have you actually had any thoughts of killing yourself?: Yes CSSRS2 Have you been thinking about how you might do this?: Yes Have you had these thoughts and had some intention of acting on them?: Yes Have you started to work out or worked out the details of how to kill yourself? Do you intend to carry out this plan?: Yes CSSRS3 Have you ever done anything, started to do anything or prepared to do anything to end your life?: Yes CSSRS4 Was this within the past three months?: Yes Screening Score Total Score: 8 Screening: Positive Mental Health Emergency Note Release HS release signed:: No Reason for Visit Intentional overdose, reassessment. In the last 2 weeks has the pt presented for ES prior to today?: Yes, presented at Safety Risk/Harm to Self or Others Current Ideation to Harm Self or Others: No Risk: Does risk to harm exist?: yes. Access to means: Yes. Types of Means: Other (Illicit drugs street drugs). Details: Client has repeatedly stated that she intends to acquire street drugs defined as fentanyl and xylazine within minutes of discharge. Today, this plan was not restated. Client also unable to iterate substantial support plan upon discharge. . Counseling provided: Yes Risk: High Risk Duty to warn indicated: No Asssessment/Mental Status Appearance: Disheveled and Poor hygiene Attitude: Guarded and Friendly Behavior: Unremarkable Speech: Normal Affect: Normal and Incongurent with mood Mood: Anxious and Irritable Thought process: Blocking and Poverty of content Hallucinations: No Delusions: No Attention: Unremarkable Perception: Not impaired Orientation: Fully orientated Memory: Intact Insight: Fair Judgement: Fair Neurovegetative Symptoms Sleep: Decrease Appetitie: No change Interests: Increase Energy: No change Libido: No change Substance Use: Drug Issues: Dependence Do you use nicotine?: No Have you used substances in the last 7 days?: yes, Client declined all outside supports. Plan/Disposition Recommended Disposition: Hospitalization No and Community resources. Plan: Client was offered and declined inpatient mental health services, all other supports, minimally engaged in safety plan to discharge from mental health services. Client agreed to in-person follow-up on April 01 with [facility] and expects contact from [facility] to setup time and place chosen by client. Reports/communication Reports: Reports made to DCF Outcome discussed with: Other (Consult with Care Management and Attending prior to final assessment and safety plan. Results of client assessment reviewed with Care Management.)
--- NOTE | 2025-03-29 17:45 | CMDISCH_ITS ---
Date of service: 03/29/25 Time of Service: 17:45 LACE Index Scoring Tool Questions: Length of Stay (in days): 3 Was the patient admitted via the E.D.?: Yes E.D. Visits: 4 Answers: Total Score: 10 Risk of Readmission: High Risk Care Management Discharge Plan Reason for Hospitalization: Sepsis Discharge Plan: Shania is discharged home via private vehicle with her significant other. Pt is encouraged to follow up in the community after discharge and engage with [facility] per her safety plan. No new services are ordered before discharge. Patient/Family Education Needs: Review discharge instructions, limitations and recommendation to follow up after discharge. Discuss ask me three. SDOH Health Related Social Needs: Health related social needs lonely/isolated Health related social needs details None needed. Health related social needs details: None needed.
== END 2025-03-29 15:50 | disposition home or self-care (01) | DRG 871 ==
LOC: ER 13:03 → ICU 14:33 → MS 03-28 15:05 → ICU 03-28 23:10
PROVIDERS: Family Medicine; Surgery; Admitting Provider Family Medicine; Emergency Provider Emergency Medicine Emergency Medical Services; PCP Family Medicine; Responsible Provider Family Medicine; Visit Provider Family Medicine
DX: A41.9 Sepsis, unspecified organism (principal); K65.9 Peritonitis, unspecified; F11.20 Opioid dependence, uncomplicated; N17.9 Acute kidney failure, unspecified; R71.0 Precipitous drop in hematocrit; K50.90 Crohn's disease, unspecified, without complications; R45.851 Suicidal ideations; E87.6 Hypokalemia; D64.9 Anemia, unspecified; G89.18 Other acute postprocedural pain; D72.829 Elevated white blood cell count, unspecified; F32.A Depression, unspecified; R74.8 Abnormal levels of other serum enzymes; Z90.49 Acquired absence of other specified parts of digestive tract; Z93.3 Colostomy status; K02.9 Dental caries, unspecified; R60.0 Localized edema; B96.20 Unspecified Escherichia coli [E. coli] as the cause of diseases classified elsewhere; F19.90 Other psychoactive substance use, unspecified, uncomplicated
CPT/HCPCS: 00123; 36415; 80048; 80053; 80061; 80307; 83690; 85027; 87040; 93005; 96127; 96374; 96376; 99285; J1650; 71045; 74177; 81003; 81015; 81025; 83036; 83540; 83550; 83605; 83735; 83880; 84484; 85025; 87086; 93010; 93306; 99223; 99233; 99239; 99291; J1171; J1836; J1956; J2250; J2405; J3010; J3480; J3490

== ENCOUNTER 2025-05-04 14:38 | Inpatient (IN) | payer MEDICAID, SELFPAY ==
[2025-05-04] VITALS (36 sets, daily range): BP systolic 94–163; BP diastolic 54–98; PULSE 84–170; RESP 14–28; TEMP 36.4–38; O2SAT 95–100
--- NOTE | 2025-05-04 15:02 | DI.CT_ITS ---
Exam(s) CT ABDOMEN PELVIS W EXAM: CT ABDOMEN PELVIS W CLINICAL HISTORY: abdominal pain, N/V. TECHNIQUE: Imaging Protocol: Axial computed tomography images with coronal and sagittal reformatted images were created and reviewed CONTRAST MATERIAL: Intravenous: Omnipaque-350 100cc Oral: None COMPARISON: CT CT CHEST PE ABD PELVIS W from 03/19/[address] ABDOMEN PELVIS W from 03/26/2025 FINDINGS: VISUALIZED LUNG BASES: No nodules nor pleural effusions evident. ABDOMEN: GI: Again noted is evidence of recent partial left hemicolectomy and left colostomy. The sigmoid is oversewn in the upper left iliac fossa. The colon at and proximal to the colostomy is significantly distended with fecal material from the tip of the cecum to the colostomy bag with distension of the diameter of the colon up to 6 cm. There is no evidence of small-bowel obstruction. There is a tiny amount of free air which has further decreased from the scan of 03/26/2025. The previously present right sided surgical drain has been removed. There is diffuse haziness in the mesentery but no obvious discernible abscesses. There is no ascites. No anasarca. The appendix is not well seen. There is no obvious evidence of appendicitis. There is no significant diverticular disease in the descending colon. LIVER: There are no focal hepatic lesions evident. No dilated intrahepatic ducts. GALLBLADDER/BILIARY: No obvious gallbladder pathology. CBD is slightly dilated. PANCREAS: No evidence of pancreatic mass nor dilatation of the pancreatic duct. SPLEEN: Spleen is not enlarged. No obvious intrasplenic lesions. Splenic and portal veins are patent. ADRENALS: There are no significant adrenal masses. KIDNEYS:No cysts evident. No solid renal masses. No calculi nor hydronephrosis.. ABDOMINAL AORTA: Abdominal aorta is not enlarged. LYMPH NODES:There is no retroperitoneal nor paraaortic adenopathy. ABDOMINAL WALL: Left-sided colostomy. There does not appear to be obvious obstruction at this level PELVIS: LYMPH NODES: There is no intrapelvic nor inguinal adenopathy. REPRODUCTIVE: Uterus and adnexa regions appear age-appropriate. URINARY BLADDER: No calculi nor obvious masses evident OSSEOUS: No fractures. Chronic disc space narrowing L4-5. No listhesis. No lytic nor blastic osseous lesions evident. IMPRESSION: 1. Compared to the most recent CT scan of 03/26/2025 there has been interval partial left colectomy and creation of a left sided colostomy. 2. There is now abundant fecal distention of the colon from the cecum to the level of the colostomy. The distended diameter of the fecal filled colon is up to 6 cm. The oversewn sigmoid rectosigmoid remain collapsed. 3. There is generalized mesenteric streaking and at tiny amount of free air (less than previous) but no evidence of small-bowel obstruction and no obvious discernible abscesses. 4. The previously present right side percutaneous surgical drain has been removed since the prior CT scan of 03/26/2025 Report called by myself to ER physician 05/04/2025 at 5:40 p.m. RADIATION DOSE DELIVERED: 252.58mGy.cm Total DLP DATA REPOSITORY: All CT scans at this facility are submitted to the National Radiology Data Registry (NRDR) Dose Index Registry (DIR) with the [employer] (ACR). RADIATION OPTIMIZATION: All CT scans at this facility use at least one of these dose optimization techniques: automated exposure control; mA and/or kV adjustment per patient size (includes targeted exams where dose is matched to clinical indication); or iterative reconstruction.
--- NOTE | 2025-05-04 15:07 | ED.GENADUL_ITS ---
Discharge Plan Discharge Details Chief Complaint: Abd Prob Primary Care Provider: Hali Rueda ED Provider: Ramírez Hicks Home Meds and New Rx's Prescriptions: No Action pantoprazole 40 mg tablet,delayed release (DR/EC) 40 mg PO DAILY Qty: 30 2RF ondansetron 4 mg tablet,disintegrating 4 mg PO Q8H PRN (Reason: nausea and vomiting) 30 Days Qty: 90 1RF furosemide [Lasix] 20 mg tablet 20 mg PO DAILY Qty: 8 0RF ondansetron HCl 8 mg tablet 4 mg PO TID PRN Patient Comments: TAKE ONE TABLET BY MOUTH EVERY 8 HOURS NEEDED FOR NAUSEA AND VOMITING HPI General Mode of arrival: wheelchair . Date/Time Provider Initiated Documentation: 05/04/25 14:41 . Limitations to Documentation: no limitations . Information obtained by: patient . HPI Narrative: HISTORY OF PRESENT ILLNESS 49-year-old female with a history of Crohn's disease presenting with constipation, nausea, vomiting, and leg swelling. The patient reports that she was recently prescribed a laxative for constipation. She took 4 Dulcolax tablets as part of a colonoscopy regimen, followed by MiraLAX. Approximately 4 hours later, she experienced severe discomfort, including phantom bowel movements, vomiting, and dry heaving. She spent about 3 hours in the bathroom, during which she also experienced urinary incontinence. She describes the pain as excruciating and intermittent, similar to the pain she experienced at age 27 when she had intestinal ulcers due to Crohn's disease, but worse. The patient first noticed symptoms of constipation 4 days ago, including bloating and reduced output into her bag. She recalls eating a whole pizza, which she believes may have triggered her symptoms. After the pizza, she felt bloated and noticed a bulge around her stoma while massaging it. She had a colonoscopy on 03/20/2025 for a bowel rupture, performed by Dr. Ruiz. She did not have a colostomy prior to this. She has been in remission from Crohn's disease for several years, managed with Remicade after a 6-month course of high- dose prednisone. She also has rheumatoid arthritis related to her Crohn's disease, which has been inactive. The patient has been experiencing leg swelling since her last hospital visit. The swelling is more pronounced in right leg than the other. She tries to elevate her feet, which helps in the morning, but the swelling returns once she stands up. The swelling does not extend above her knees. She has had ultrasounds done. The patient took Zofran 4 mg at 6:00 AM and just before leaving for this appointment. PAST SURGICAL HISTORY: emergent ex lap, partial colectomy and end colostomy emergently with Dr Ruiz on 03/20/25 for stercoral colitis with perforation and septic shock. Related Data Home Medications ?Medication ?Instructions ?Recorded ?Confirmed ondansetron 4 mg disintegrating 4 mg PO Q8H PRN nausea and 04/05/25 05/04/25 tablet vomiting 30 days #90 tabs pantoprazole 40 mg tablet,delayed 40 mg PO DAILY #30 t abs 04/05/25 05/04/25 release furosemide 20 mg tablet (Lasix) 20 mg PO DAILY #8 tabs 05/03/25 05/04/25 ondansetron HCl 8 mg tablet 4 mg PO TID PRN 05/04/25 0 05/04/25 Previous Rx's ?Medication ?Instructions ?Recorded ondansetron 4 mg disintegrating 4 mg PO Q8H PRN nausea and 04/05/25 tablet vomiting 30 days #90 tabs pantoprazole 40 mg tablet,delayed 40 mg PO DAILY #30 t abs 04/05/25 release furosemide 20 mg tablet (Lasix) 20 mg PO DAILY #8 tabs 05/03/25 Allergies Allergy/AdvReac Type Severity Reaction Status Date / Time No Known Allergies Allergy Verified 05/04/25 14:43 General Stated Complaint: Abd Prob MEGHA: 3 Review of Systems All systems reviewed & are unremarkable except as noted in HPI and below Constitutional Constitutional: Denies fever(s) Gastrointestinal Gastrointestinal: Reports as per HPI Exam Const General: cooperative and no acute distress [facility] Mouth: mucous membranes dry Eyes Conjunctivae: normal conjunctivae Sclera: normal sclerae Neck Neck: trachea midline and supple Resp Auscultation: clear to auscultation bilaterally, no rales, no rhonchi and no wheezes Cardio Rate: regular rate and not tachycardic Rhythm: regular rhythm GI Palpation: soft, not firm, no guarding, no masses, not rigid and tender in the RUQ Skin General skin exam: no rashes or lesions noted Neuro General: patient alert, patient awake and tone normal Extrem General: edema Laterality: bilateral (1+ pitting up to knees) Psych Appearance: grossly normal Mental Status: mental status grossly normal Course Vital Signs Vital signs: Vital Signs Temperature 36.4 C 05/04/25 14:40 Pulse 84 05/04/25 14:40 Respiratory Rate 18 05/04/25 14:40 Blood Pressure 94/66 L 05/04/25 14:40 Pulse Oximetry 98 05/04/25 14:40 Temperature 36.4 C 05/04/25 14:43 Pulse 84 05/04/25 14:43 Respiratory Rate 18 05/04/25 14:43 Blood Pressure 94/66 L 05/04/25 14:43 Pulse Oximetry 98 05/04/25 14:43 Pain Level 7 05/04/25 14:43 Medical Decision Making ASSESSMENT AND PLAN Initial Assessment: 49-year-old female with history of Crohn's disease, status post emergent ex lap and partial colectomy for stercoral colitis with perforation and septic shock in February, here with severe abdominal discomfort, nausea, vomiting, and dry heaving after taking Dulcolax and MiraLAX for constipation. She did have significant output from ostomy. Patient is hypotensive and appears hypovolemic. Patient has bilateral lower extremity lymphedema. Differential Diagnosis: - Crohn's flare: Considered due to similar pain to past episodes. Plan: Monitor symptoms, administer IV fluids, check electrolytes, perform CT scan. - Obstruction: Considered due to severe symptoms. Plan: Perform CT scan to rule out obstruction. - Hypovolemia and dehydration - Lymphedema ED Course: - Will give IV fluid bolus. - Concern for electrolyte abnormality and will check. Concern for potential intra-abdominal surgical process. Plan to obtain CT of the abdomen pelvis. - Care to be signed out to oncoming provider with plan to follow-up on diagnostics and reassess patient for disposition. This document was written with the assistance of SEJAL Rodrigez. The patient consented to its use. Quality:SDOH Health Related Social Needs: Health related social needs lonely/isolated Health related social needs details None needed. PFSH All Active Problems Peripheral edema (Acute) Acute constipation (Acute) Colostomy status (Acute) Malnutrition related to chronic disease (Acute) Tachycardia with hypertension (Acute) Elevated AST (SGOT) (Acute) Fentanyl dependence (Acute) Peritonitis (Acute) Weight loss (Acute) Postcoital urinary tract infection (Acute) Contraception (Acute) 08/2020. Declined LARC. Smokes tobacco. Rx for norethindrone 0.35 mg daily. History of tobacco abuse (Acute) Hx of herpes genitalis (Chronic) c/s report makes mention of vulvar herpes outbreak as being the cause of pt's c/s. Arthralgia (Chronic ~08/1996) related to remicaid treatment and crohn's Depression (Chronic) Opiate dependence, continuous (Chronic) Medical History Elevated troponin Elevated brain natriuretic peptide (BNP) level Crohn disease Anemia Rheumatoid arthritis delivery delivered Surgical History Status post partial colectomy S/P section Family History Brother Crohn's colitis Social History Smoking/Tobacco Use Status: Former Tobacco Use Quit Date: 04/27/18 Smoking risk assessment performed?: Yes Alcohol Intake: never Drug use: Daily Substance use type: marijuana, heroin, tranquilizers, sedatives and painkillers Counseling given: Yes Counseling provided: provider counseling Adopted: No Foster care: No Household members: significant other Housing: house Number of Children: 3 Seatbelt use: always Helmet use: Yes Drive intox or ride w/intox 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 Mom and adult twin daughters age 28 supportive. History History 2 Para 1 Hx # Term Pregnancies 1 Multiple births 1 Hx # Pregnancies 0 Ectopic pregnancies 0 AB induced 0 Hx Number of Living Children 2 AB spontaneous 0 Past Pregnancies Del. Date GA/Weeks # Preg Succ Route Wgt Sex Labor Lgth Anesth esia Location [facility] 08/22/96 Yes 2863.302 g other 08/22/96 Yes 1956.117 g Female 11/09/18 39 No Female Tatiana Carrera 11/09/18 No 3118.448 g Female [facility] Tatiana Jarrell Delivery Date: 11/09/18 Last Updated by: Tatiana Jarrell M.D. Elective repeat delivery named Latanya
[2025-05-04 15:39] LABS: Abs Immature Grans 0.01 10^3/uL (0.0-0.06); HCT 32.1 % (36.0-46.0); HGB 10.4 g/dL (11.2-15.7); Immature Grans % 0.1 %; MCH 26.7 pg (27.0-33.0); MCHC 32.4 % (32.0-36.0); MCV 83 fL (80-95); MPV 8.7 fL (8.0-11.0); Platelet Count 320 10^3/uL (130-400); RBC 3.89 10^6/uL (3.93-5.22); RDW 14.8 % (11.7-14.6); RDW-SD 44.5 fL; WBC 9.21 10^3/uL (4.4-10.8)
[2025-05-04 15:55] LABS: ALT 13 U/L (14-59); AST 20 U/L (15-37); Albumin 2.9 g/dL (3.4-5.0); Alkaline Phosphatase 129 U/L (46-116); Anion Gap 7.8 mmol/L (3-11); BUN 10 mg/dL (7-18); Bilirubin, Total 0.3 mg/dL (0.2-1.0); CO2 31.2 mmol/L (21.0-32.0); Calcium 8.9 mg/dL (8.5-10.1); Chloride 100 mmol/L (98-107); Estimated GFR 106.62 (mL/min/1.73m2); Glucose 129 mg/dL (74-106); Lipase 12 U/L (<78); Magnesium 1.9 mg/dL (1.8-2.4); Potassium 3.8 mmol/L (3.5-5.1); Sodium 139 mmol/L (136-145); Total Protein 7.0 g/dL (6.4-8.2)
[2025-05-04] MEDS: Lactated Ringers 1,000 ML 1000 ML IV ×2 (16:30→17:39)
[2025-05-04] MEDS: Ondansetron 4 MG/2 ML VIAL IVP (16:51)
[2025-05-04] MEDS: HYDROmorphone 2 MG/ML SYR 1 MG IVP (16:51)
[2025-05-04] MEDS: Normal Saline Flush 10 ML SYR IVP (17:03)
[2025-05-04] MEDS: Normal Saline - Diluent 50 ML VIAL IJ (17:03)
[2025-05-04] MEDS: Omnipaque 350 MG/ML 100 ML BTL IJ (17:04)
[2025-05-04] MEDS: HYDROmorphone 2 MG/ML SYR (17:53)
[2025-05-04] MEDS: ACETAMINOPHEN 1,000 MG/100 ML BAG 400 MG IVPB (18:11)
--- NOTE | 2025-05-04 18:27 | NUR.NOTE ---
Nursing Note: PT had large formed stool with large amount of soft stool in ostomy bag also on pt abd and clothing. This RN with student cleaned patient , cut ostomy to size, used stoma powder, and attached new bag to patient. skin on abd alonso stoma reddened and irritated. Stoma pink beefy red. Pt tolerated well.
[2025-05-04] MEDS: diphenhydrAMINE 50 MG/ML VIAL 12.5 MG IVP (19:20)
[2025-05-04] MEDS: Droperidol 5 MG/2 ML VIAL 2.5 MG IVP (19:23)
--- NOTE | 2025-05-04 19:45 | RT.EKG_ITS ---
APPROVED REPORT Exam: Resting ECG Reason for Exam: tachycardia Patient Location: E HR:126 bpm ECG Measurements Heart Rate 126 AXIS [place] 222 P 0 QRSd 243 QRS -89 QT 396 T -26 QTc 573 Conclusion Extreme tachycardia with wide complex, no further rhythm analysis attempted No STEMI
--- NOTE | 2025-05-04 19:45 | RT.EKG_ITS ---
APPROVED REPORT Exam: Resting ECG Reason for Exam: tachy Patient Location: E HR:157 bpm ECG Measurements Heart Rate 157 AXIS VA [id number] P [id number] QRSd 77 QRS 10 QT 309 T -34 QTc 500 Conclusion Atrial fibrillation...V-rate 156-158, irreg A-activity No STEMI
[2025-05-04] MEDS: LORazepam 20 MG/10 ML VIAL ×3 (20:02→20:47)
[2025-05-04] MEDS: diphenhydrAMINE 50 MG/ML VIAL (20:04)
[2025-05-04] MEDS: diazePAM 10 MG/2 ML SYR 5 MG IVP ×4 (21:01→23:45)
--- NOTE | 2025-05-04 22:11 | HPE_ITS ---
Date of service: 05/04/25 Time of Service: 22:11 Assessment and Plan Assessment and plan (1) Serotonin syndrome: Start date: 05/04/25 Status: Acute Assessment and plan: This is a 49-year-old lady who was seen in the ED for severe constipation and did move her bowels but then was having symptoms prompting the use of droperidol which has put the patient into serotonin syndrome. This appears to be moderately severe and she will be admitted to the ICU for frequent IV Valium dosing. Poison control was consulted and will follow. Patient also has complications of chronic fentanyl use with xylazine and she may have xylazine withdrawal while in the hospital which will respond well to Precedex infusion. This was initiated. Patient will be watched closely in the ICU for respiratory suppression. She is severely tachycardic with dilated pupils and tremulous with some clonus. She appears to be responding to Valium and Precedex as well as external cooling for her elevated temperature. She is a full code. (2) Acute constipation: Start date: 05/04/25 Status: Acute Assessment and plan: Patient has severe constipation with large bowel movement in the ED but this prompted treatment with droperidol because of her nausea and discomfort pushing her into serotonin syndrome with the patient already on agents which could cause this problem using street drugs. Continue to watch for bowel movements while hospitalized. (3) Opiate dependence, continuous: Status: Chronic Assessment and plan: Not willing to go through outpatient treatment at this time but this would be encouraged. (4) Fentanyl dependence: Status: Chronic Assessment and plan: Patient continues to do fentanyl with xylazine from the street and has problems with narcotic withdrawal when she is hospitalized. This also complicates her serotonin syndrome and fentanyl worsening this process. She states she does not do cocaine which also worsens this process. (5) Depression: Status: Chronic Assessment and plan: Not on medical therapy at this time and this should be encouraged. She has high risk behavior with her drug use. (6) Crohn disease: Assessment and plan: Patient had a history of Crohn disease back in 2019 and recently had sterocolitis with perforation and peritonitis prompting partial colectomy and colostomy diversion. Patient will be following up with surgery and gastroenterology for these issues. She did have constipation as her presentation to the ED but this was complicated by her serotonin syndrome. The colostomy is functioning. History of Present Illness History of Present Illness Chief Complaint: Severe abdominal pain with constipation, serotonin syndrome secondary Narrative: This is a 49-year-old female patient who reported to ED because of abdominal discomfort and severe constipation with chronic narcotic use as an outpatient using street fentanyl mixed with xylazine. She denies other drug use such as cocaine. The ED physician was trying to avoid use of narcotics for her symptoms and she was given a dose of droperidol with Benadryl which prompted symptoms consistent with serotonin syndrome. She became diaphoretic, severely tachycardic and felt warm with tremors and clonus. She did eventually begin to have temperature when transferred to the ICU and did receive Ativan with Valium in the ED. She was respond to Valium IV this would be dosed frequently to control symptoms. Patient was in distress and gave minimal conversation. She was slightly delirious. She is at risk of narcotic withdrawal and has been in the hospital treating peritonitis and complications of perforated bowel, requiring ICU level of care and responding well to Precedex at that time. Precedex was initiated in the ICU because of her history and combination of Valium and Precedex was working well with no severe respiratory suppression. She is watched closely by the ICU nurse. Patient is a full code and will need close follow-up as an outpatient which is difficult with her street drug use. Review of Systems Narrative: 13 point review of systems otherwise unrevealing, unobtainable or stable. PFSH All Active Problems (Updated 05/05/25 @ 08:13 by Dandre Steele) Serotonin syndrome (Acute) Peripheral edema (Acute) Acute constipation (Acute) Colostomy status (Acute) Malnutrition related to chronic disease (Acute) Tachycardia with hypertension (Acute) Elevated AST (SGOT) (Acute) Fentanyl dependence (Chronic) Peritonitis (Acute) Weight loss (Acute) Postcoital urinary tract infection (Acute) Contraception (Acute) 08/2020. Declined LARC. Smokes tobacco. Rx for norethindrone 0.35 mg daily. History of tobacco abuse (Acute) Hx of herpes genitalis (Chronic) c/s report makes mention of vulvar herpes outbreak as being the cause of pt's c/s. Arthralgia (Chronic ~08/1996) related to remicaid treatment and crohn's Depression (Chronic) Opiate dependence, continuous (Chronic) Medical History Elevated troponin Elevated brain natriuretic peptide (BNP) level Crohn disease Anemia Rheumatoid arthritis delivery delivered Surgical History Status post partial colectomy S/P section Family History Brother Crohn's colitis Social History Smoking/Tobacco Use Status: Former Tobacco Use Quit Date: 04/27/18 Smoking risk assessment performed?: Yes Alcohol Intake: never Drug use: Daily Substance use type: marijuana, heroin, tranquilizers, sedatives and painkillers Counseling given: Yes Counseling provided: provider counseling Adopted: No Foster care: No Household members: significant other Housing: house Number of Children: 3 Seatbelt use: always Helmet use: Yes Drive intox or ride w/intox city bus driver: No Do you feel safe at home: Yes Do you feel safe in your relationship?: Yes Additional Social history: Shared custody of 6 yo girl. Mom and adult twin daughters age 28 supportive. History History 2 2 Para 1 Hx # Term Pregnancies 1 Multiple births 1 Hx # Pregnancies 0 Ectopic pregnancies 0 AB induced 0 Hx Number of Living Children 2 AB spontaneous 0 Past Pregnancies Del. Date GA/Weeks # Preg Succ Route Wgt Sex Labor Lgth Anesth esia Location [facility] 08/22/96 Yes 2863.302 g other 08/22/96 Yes 1956.117 g Female 11/09/18 39 No Female Tatiana Carrera 11/09/18 No 3118.448 g Female [facility] Tatiana Jarrell Delivery Date: 11/09/18 Last Updated by: Tatiana Jarrell M.D. Elective repeat delivery named [place] Meds Allergies and Home Medications Allergies Allergy/AdvReac Type Severity Reaction Status Date / Time No Known Allergies Allergy Verified 05/04/25 14:43 Home Medications ?Medication ?Instructions ?Recorded ?Confirmed ?Type ondansetron 4 mg disintegrating 4 mg PO Q8H PRN nausea and 04/05/25 05/04/25 Rx tablet vomiting 30 days #90 tabs pantoprazole 40 mg tablet,delayed 40 mg PO DAILY #30 t abs 04/05/25 05/04/25 Rx release furosemide 20 mg tablet (Lasix) 20 mg PO DAILY #8 tabs 05/03/25 05/04/25 Rx ondansetron HCl 8 mg tablet 4 mg PO TID PRN 05/04/25 0 05/04/25 History Exam Narrative Exam Narrative: General: Patient appears older than stated age, moderately obese, delirious and not answering questions appropriately with her acute symptoms. She is in moderate to severe distress. She appeared diaphoretic. HEENT: Normocephalic, pupils equal but dilated and reactive. Extraocular movement intact and sclera anicteric. Oropharynx with dry mucosa and poor dentition. Neck: Supple without JVD. Back: Stooped posture without CVA tenderness. Lungs: Fair aeration clear to auscultation and percussion. Breast: Exam deferred. Abdomen: Moderately obese but soft with no focalizing tenderness or guarding. Colostomy bag is functioning with formed brown stool in the bag (patient had a large bowel movement in the ED). Bowel sounds positive all quadrants. Genitalia/rectal: Exam deferred. Skin: Moist and very warm to touch. Patient is diaphoretic. Pale color. Extremities: Nonpitting edema lower extremities, peripheral pulses intact, no cyanosis or clubbing. Neuro: Cranial nerves II through XII grossly intact, diffuse tremor with 2 beat clonus over lower extremities. Patient is moving all extremities well. Psych: Slightly delirious with her serotonin syndrome but answering some questions though mostly inappropriate. She is acutely ill but not manifesting abnormal thought processes. Mood and affect obscured by acute process. Memory testing not possible. Results Imaging Imaging Studies: EXAM: CT ABDOMEN PELVIS W CLINICAL HISTORY: abdominal pain, N/V. TECHNIQUE: Imaging Protocol: Axial computed tomography images with coronal and sagittal reformatted images were created and reviewed CONTRAST MATERIAL: Intravenous: Omnipaque-350 100cc Oral: None COMPARISON: CT CT CHEST PE ABD PELVIS W from 03/19/[address] ABDOMEN PELVIS W from 03/26/2025 FINDINGS: VISUALIZED LUNG BASES: No nodules nor pleural effusions evident. ABDOMEN: GI: Again noted is evidence of recent partial left hemicolectomy and left colostomy. The sigmoid is oversewn in the upper left iliac fossa. The colon at and proximal to the colostomy is significantly distended with fecal material from the tip of the cecum to the colostomy bag with distension of the diameter of the colon up to 6 cm. There is no evidence of small-bowel obstruction. There is a tiny amount of free air which has further decreased from the scan of 03/26/2025. The previously present right sided surgical drain has been removed. There is diffuse haziness in the mesentery but no obvious discernible abscesses. There is no ascites. No anasarca. The appendix is not well seen. There is no obvious evidence of appendicitis. There is no significant diverticular disease in the descending colon. LIVER: There are no focal hepatic lesions evident. No dilated intrahepatic ducts. GALLBLADDER/BILIARY: No obvious gallbladder pathology. CBD is slightly dilated. PANCREAS: No evidence of pancreatic mass nor dilatation of the pancreatic duct. SPLEEN: Spleen is not enlarged. No obvious intrasplenic lesions. Splenic and portal veins are patent. ADRENALS: There are no significant adrenal masses. KIDNEYS:No cysts evident. No solid renal masses. No calculi nor hydronephrosis.. ABDOMINAL AORTA: Abdominal aorta is not enlarged. LYMPH NODES:There is no retroperitoneal nor paraaortic adenopathy. ABDOMINAL WALL: Left-sided colostomy. There does not appear to be obvious obstruction at this level PELVIS: LYMPH NODES: There is no intrapelvic nor inguinal adenopathy. REPRODUCTIVE: Uterus and adnexa regions appear age-appropriate. URINARY BLADDER: No calculi nor obvious masses evident OSSEOUS: No fractures. Chronic disc space narrowing L4-5. No listhesis. No lytic nor blastic osseous lesions evident. IMPRESSION: 1. Compared to the most recent CT scan of 03/26/2025 there has been interval partial left colectomy and creation of a left sided colostomy. 2. There is now abundant fecal distention of the colon from the cecum to the level of the colostomy. The distended diameter of the fecal filled colon is up to 6 cm. The oversewn sigmoid rectosigmoid remain collapsed. 3. There is generalized mesenteric streaking and at tiny amount of free air (less than previous) but no evidence of small-bowel obstruction and no obvious discernible abscesses. 4. The previously present right side per-cutaneous surgical drain has been removed since the prior CT scan of 03/26/2025 Labs 05/05/25 05:50 05/05/25 05:50 Labs: Laboratory Results - last 24 hr 05/04/25 13:31 WBC 9.21 RBC 3.89 L Hgb 10.4 L Hct 32.1 L MCV 83 MCH 26.7 L MCHC 32.4 RDW 14.8 H Plt Count 320 MPV 8.7 Immature Gran % 0.1 Neutrophils % 74.6 Lymphocytes % 19.8 Monocytes % 5.0 Eosinophils % 0.3 Basophils % 0.2 Nucleated RBC % 0.0 Absolute Neutrophils 6.87 H Absolute Lymphocytes 1.82 Absolute Monocytes 0.46 Absolute Eosinophils 0.03 Absolute Basophils 0.02 Sodium 139 Potassium 3.8 Chloride 100 Carbon Dioxide 31.2 Anion Gap 7.8 BUN 10 Creatinine 0.7 Est GFR (CKD-EPI 2020) 106.62 Glucose 129 H Calcium 8.9 Magnesium 1.9 Total Bilirubin 0.3 AST 20 ALT 13 L Alkaline Phosphatase 129 H Total Protein 7.0 Albumin 2.9 L Lipase 12 Last Vital Signs Temp 37.6 C 05/04/25 20:20 Pulse 155 H 05/04/25 21:12 Resp 24 05/04/25 21:12 BP 137/79 05/04/25 21:12 Pulse Ox 98 05/04/25 21:12 Time Spent Time spent with Patient: >75 minutes Time was spent: preparing to see the patient(eg.review tests), obtaining and/or reviewing separately otained hiistory, ordering medications,tests, procedures, referring, communicating with other health medicare compliance auditor, indepentently interpreting results and care coordination
[2025-05-05] VITALS (62 sets, daily range): BP systolic 90–160; BP diastolic 64–98; PULSE 89–162; RESP 9–27; TEMP 36.8–37.8; O2SAT 93–100
[2025-05-05] MEDS: Lactated Ringers 500 ML 125 ML IV (00:06)
[2025-05-05] MEDS: diazePAM 10 MG/2 ML SYR 5 MG IVP ×6 (00:35→09:20)
[2025-05-05 00:50] LABS: COVID-19 PCR Negative (Negative); RSV PCR Negative (Negative)
[2025-05-05 01:08] LABS: TSH 0.94 uIU/mL (0.36-3.74)
[2025-05-05] MEDS: dexmedeTOMidine IN 0.9 % NACL 400 MCG/100 ML BTL IV (01:18)
[2025-05-05 01:29] LABS: INR 1.2 (0.9-1.1); Prothrombin Time 12.1 sec (9.1-11.1)
[2025-05-05] MEDS: Lactated Ringers 1,000 ML 125 ML IV (05:00)
--- NOTE | 2025-05-05 06:05 | W.PC.ACHO ---
Registration Status: ADM IN Primary Language: Preferred Language: Japanese ED Information & Data Chief Complaint Abd Prob 05/04/25 18:47 Chief Complaint Abd Prob 05/04/25 15:16 Triage Note abd surg in february had f/u apt 05/04/25 14:40 yesterday. pt was constipated, they have her laxative. took it last night and it was affective but then she got cramps, nausea and vomiting. Medical / Surgical History (Last Reviewed 05/04/25 @ 22:11 by Dandre Steele) Elevated troponin Elevated brain natriuretic peptide (BNP) level Crohn disease Anemia Rheumatoid arthritis delivery delivered (Last Reviewed 05/04/25 @ 22:11 by Dandre Steele) Status post partial colectomy S/P section Most Recent Vital Signs Temperature 37.6 C H 05/04/25 23:50 Temperature Source Tympanic 05/04/25 23:50 Pulse 124 H 05/05/25 02:31 Pulse 125 H 05/05/25 02:31 Respiratory Rate 22 05/05/25 02:31 Respiratory Effort Incrsd Work of Breathing 05/04/25 23:15 Respiratory Depth Deep 05/04/25 23:15 Respiratory Pattern Tachypnea 05/04/25 23:15 Blood Pressure 145/77 H 05/05/25 02:31 Blood Pressure Mean 96 05/05/25 02:31 Pulse Oximetry 96 05/05/25 00:31 Respiratory End-tidal CO2 33 05/04/25 22:45 Oxygen Delivery Method Room Air 05/04/25 23:15 Oxygen Flow Rate 0 05/04/25 23:15 Pain Level 8 05/04/25 23:27 Allergies No Known Allergies Allergy (Verified 05/04/25 14:43) Precautions Isolation Standard precaution 05/04/25 18:47 Active Medications Generic Name Dose Route Start Last Admin Trade Name Freq PRN Reason Stop Dose Admin Diazepam 5 mg 05/05/25 01:09 05/05/25 05:18 Diazepam 10 Mg/2 Ml Syr IVP 5 mg Q15M PRN Administration Dexmedetomidine/Sodium Chloride 400 mcg in 100 mls @ 3.221 mls/hr 05/05/25 01:15 05/05/25 02:27 Precedex IV 0.6 mcg/kg/hr INFUSION DEVON 9.662 mls/hr Protocol Titration 0.2 MCG/KG/HR Ringer's Solution 1,000 mls @ 125 mls/hr 05/05/25 05:00 05/05/25 05:00 IV 125 mls/hr INFUSION DEVON Administration Sodium Chloride 0 ml 05/04/25 20:00 05/04/25 23:34 Normal Saline Flush 10 Ml Syr IVP Not Given BID DEVON Sodium Chloride 50 ml 05/04/25 16:30 05/04/25 17:03 Normal Saline - Diluent 50 Ml Vial IJ 50 ml DIRECTED DEVON Administration Sodium Chloride 0 ml 05/04/25 16:29 05/04/25 17:03 Normal Saline Flush 10 Ml Syr IVP 10 ml PRN PRN Administration IV IV Catheter Type [Left Forearm Saline Lock ] IV Catheter Gauge [Left 20 Forearm] Diagnostics 05/05/25 05/05/25 05/04/25 Range/Units 05:35 00:45 23:35 WBC Pending (4.4-10.8) 10^3/uL RBC Pending (3.93-5.22) 10^6/uL Hgb Pending (11.2-15.7) g/dL Hct Pending (36.0-46.0) % MCV Pending (80-95) fL MCH Pending (27.0-33.0) pg MCHC Pending (32.0-36.0) % RDW Pending (11.7-14.6) % Plt Count Pending (130-400) 10^3/uL MPV Pending (8.0-11.0) fL Immature Gran % % Neutrophils % % Lymphocytes % % Monocytes % % Eosinophils % % Basophils % % Nucleated RBC % (0.0-0.3) % Absolute Neutrophils (1.2-6.7) 10^3/uL Absolute Lymphocytes (1.2-3.4) 10^3/uL Absolute Monocytes (0.1-0.8) 10^3/uL Absolute Eosinophils (0.0-0.7) 10^3/uL Absolute Basophils (0.0-0.2) 10^3/uL PT 12.1 H (9.1-11.1) sec INR 1.2 H (0.9-1.1) Sodium Pending (136-145) mmol/L Potassium Pending (3.5-5.1) mmol/L Chloride Pending (98-107) mmol/L Carbon Dioxide Pending (21.0-32.0) mmol/L Anion Gap Pending (3-11) mmol/L BUN Pending (7-18) mg/dL Creatinine Pending (0.55-1.02) mg/dL Est GFR (CKD-EPI 2020) Pending (mL/min/1.73m2) Glucose Pending (74-106) mg/dL Calcium Pending (8.5-10.1) mg/dL Magnesium (1.8-2.4) mg/dL Total Bilirubin Pending (0.2-1.0) mg/dL AST Pending (15-37) U/L ALT Pending (14-59) U/L Alkaline Phosphatase Pending (46-116) U/L Total Protein Pending (6.4-8.2) g/dL Albumin Pending (3.4-5.0) g/dL Lipase (<78) U/L TSH (0.36-3.74) uIU/mL Ur Buprenorphine Ur Norbuprenorphine Urine Xylazine COVID-19 Source Nasopharynx SARS-CoV-2 (PCR) Negative (Negative) Influenza Type A (PCR) Negative (Negative) Influenza Type B (PCR) Negative (Negative) RSV (PCR) Negative (Negative) 05/04/25 05/04/25 Range/Units 22:25 13:31 WBC 9.21 (4.4-10.8) 10^3/uL RBC 3.89 L (3.93-5.22) 10^6/uL Hgb 10.4 L (11.2-15.7) g/dL Hct 32.1 L (36.0-46.0) % MCV 83 (80-95) fL MCH 26.7 L (27.0-33.0) pg MCHC 32.4 (32.0-36.0) % RDW 14.8 H (11.7-14.6) % Plt Count 320 (130-400) 10^3/uL MPV 8.7 (8.0-11.0) fL Immature Gran % 0.1 % Neutrophils % 74.6 % Lymphocytes % 19.8 % Monocytes % 5.0 % Eosinophils % 0.3 % Basophils % 0.2 % Nucleated RBC % 0.0 (0.0-0.3) % Absolute Neutrophils 6.87 H (1.2-6.7) 10^3/uL Absolute Lymphocytes 1.82 (1.2-3.4) 10^3/uL Absolute Monocytes 0.46 (0.1-0.8) 10^3/uL Absolute Eosinophils 0.03 (0.0-0.7) 10^3/uL Absolute Basophils 0.02 (0.0-0.2) 10^3/uL PT (9.1-11.1) sec INR (0.9-1.1) Sodium 139 (136-145) mmol/L Potassium 3.8 (3.5-5.1) mmol/L Chloride 100 (98-107) mmol/L Carbon Dioxide 31.2 (21.0-32.0) mmol/L Anion Gap 7.8 (3-11) mmol/L BUN 10 (7-18) mg/dL Creatinine 0.7 (0.55-1.02) mg/dL Est GFR (CKD-EPI 2020) 106.62 (mL/min/1.73m2) Glucose 129 H (74-106) mg/dL Calcium 8.9 (8.5-10.1) mg/dL Magnesium 1.9 (1.8-2.4) mg/dL Total Bilirubin 0.3 (0.2-1.0) mg/dL AST 20 (15-37) U/L ALT 13 L (14-59) U/L Alkaline Phosphatase 129 H (46-116) U/L Total Protein 7.0 (6.4-8.2) g/dL Albumin 2.9 L (3.4-5.0) g/dL Lipase 12 (<78) U/L TSH 0.94 (0.36-3.74) uIU/mL Ur Buprenorphine Pending Ur Norbuprenorphine Pending Urine Xylazine Pending COVID-19 Source SARS-CoV-2 (PCR) (Negative) Influenza Type A (PCR) (Negative) Influenza Type B (PCR) (Negative) RSV (PCR) (Negative) Intake and Output - 24 Hour Total 05/04/25 14:38 thru 05/05/25 04:38 Intake Total 2615.260 Output Total 150 Balance 2465.260 Weight 64.4 kg Intake: IV 2615.260 Output: Emesis 150 Other: Stool Size Large Stool Characteristics Soft Formed Hard Emesis Description Retching Bile Falls Risk Assessment History of Falls No History 05/04/25 23:15 Contributing Factors Unstable,Impairments 05/04/25 23:15 Ambulatory Aids Independent 05/04/25 23:15 Tubes/Lines With any additional score 05/04/25 23:15 Gait Evaluation W/any additional score 05/04/25 23:15 Cognition No cognitive impairment 05/04/25 23:15 Fall Total Score 46 05/04/25 23:15 Level of Risk Moderate Risk 05/04/25 23:15 Problems (Last Reviewed 05/04/25 @ 22:11 by Dandre Steele) Serotonin syndrome (Acute) Acute constipation (Acute) Opiate dependence, continuous (Chronic) Notes 05/04/25 18:27 Nursing Notes by Selma Sharp Nursing Note: PT had large formed stool with large amount of soft stool in ostomy bag also on pt abd and clothing. This RN with student cleaned patient , cut ostomy to size, used stoma powder, and attached new bag to patient. skin on abd alonso stoma reddened and irritated. Stoma pink beefy red. Pt tolerated well. Initialized on 05/04/25 18:27 - END OF NOTE v v v v v v v v v Sending and/or Receiving Nurses: Please use comment section below to note any information pertinent to the patient hand-off not included above. Information / Comments: Report received from: Corey Reyes RN
[2025-05-05 06:39] LABS: HCT 28.4 % (36.0-46.0); HGB 9.5 g/dL (11.2-15.7); MCH 27.9 pg (27.0-33.0); MCHC 33.5 % (32.0-36.0); MCV 84 fL (80-95); MPV 9.0 fL (8.0-11.0); Platelet Count 382 10^3/uL (130-400); RBC 3.40 10^6/uL (3.93-5.22); RDW 15.2 % (11.7-14.6); RDW-SD 46.1 fL; WBC 13.41 10^3/uL (4.4-10.8)
[2025-05-05 07:01] LABS: ALT 9 U/L (14-59); AST 10 U/L (15-37); Albumin 2.8 g/dL (3.4-5.0); Alkaline Phosphatase 114 U/L (46-116); Anion Gap 10.7 mmol/L (3-11); BUN 6 mg/dL (7-18); Bilirubin, Total 0.4 mg/dL (0.2-1.0); CO2 29.3 mmol/L (21.0-32.0); Calcium 8.6 mg/dL (8.5-10.1); Chloride 101 mmol/L (98-107); Estimated GFR 110.65 (mL/min/1.73m2); Glucose 124 mg/dL (74-106); Sodium 141 mmol/L (136-145); Total Protein 6.4 g/dL (6.4-8.2)
[2025-05-05 07:03] LABS: Potassium 2.7 mmol/L (3.5-5.1)
--- NOTE | 2025-05-05 08:11 | PDOC.CMIN ---
Date of service: 05/05/25 Time of Service: 08:11 Care Management Initial Assmt Initial Assessment Reason for Hospitalization: Acute serotonin syndrome, acute severe constipation Functional Status/Living Situation Patient Presentation: Shania was awake and sitting in a chair when CM met with her. She is polite and easily engaged in conversation. Per pt, she recently became super sick after taking a bowel regimen prescribed by her Surgeon for constipation. She described being found down in the bathroom by her ex-partner, with significant nausea, vomiting and soaked in stool. He then assisted her by cutting off her clothing, cleaning her up and helping her get to the hospital. Shania noted that she was recently discharged from the hospital, and had been doing well prior to this event. She continues to live in a single family home on [address], with her 6 yr old daughter and the child's father. She is independent at baseline, although has not driven since her surgery. Her mother and ex-partner provide transportation. She denies difficulty obtaining ostomy supplies and is scheduled to meet with her surgeon next month to discuss possible reversal in reversal in August. Town of Residence: [place] [address] Resides with: Child and Spouse ( Lives with her 6 yr old daughter and the child's father. ) Significant Other/Family: Local (Shania has a 6 year old daughter (Pitcher) and 28 y/old twins - one local one in [place]) Natural Supports: Mother Venecia Ex-partner Employment Status: Unemployed Instrumental Activities of Daily Living (ADLs): Independent Medications Medication Management: No Issues/Barriers identified Physical Functioning/Mobility Assistive Device: None Advance Directives Advance Directives: Do you have an Advance Directive: N 10/16/18, 09:10 AD On File at [facility]: N 10/16/18, 09:10 Date Asked 05/04/25 05/04/25, 14:47 AD Date Reviewed COLST On File at [facility] COLST Date Scanned Code Status Resuscitation Status Full Code Insurance Coverage/Financial Issues Insurance: Medicaid of [place] - [id number] Financial Issues: None identified Care Team Visit Care Team Role Provider Type Junior Hogue MD MD [facility] STAFF PHYSICIAN Hali Rueda MD Primary Care Provider NON-[facility] STAFF PHYSICIAN See Saeed MD Emergency Provider [facility] STAFF PHYSICIAN Dandre Steele Admit Provider NON-[facility] STAFF PHYSICIAN Attending Provider Discharge Potential Discharge Needs: PCP F/U Appt and Surgical F/U Appt Anticipated Barriers to Discharge: None Identified Patient/Family Education Needs: Review discharge instructions, discuss Ask Me Three Transportation: Private vehicle Plan: Anticipate Shania will discharge home via private vehicle with family once medically ready. Patient will follow up with community providers and continue per her discharge plan of care. CM will follow and support discharge planning considerations, as needed. Social Determinants of Health Screening Will the Patient Participate in the Screening?: Unable to obtain Health Related Social Needs Health related social needs details: Due to patient's present condition, questions not pertinent to presentation would not be appropriate. PFSH All Active Problems (Updated 05/05/25 @ 08:13 by Dandre Steele) Serotonin syndrome (Acute) Peripheral edema (Acute) Acute constipation (Acute) Colostomy status (Acute) Malnutrition related to chronic disease (Acute) Tachycardia with hypertension (Acute) Elevated AST (SGOT) (Acute) Fentanyl dependence (Chronic) Peritonitis (Acute) Weight loss (Acute) Postcoital urinary tract infection (Acute) Contraception (Acute) 08/2020. Declined LARC. Smokes tobacco. Rx for norethindrone 0.35 mg daily. History of tobacco abuse (Acute) Hx of herpes genitalis (Chronic) c/s report makes mention of vulvar herpes outbreak as being the cause of pt's c/s. Arthralgia (Chronic ~08/1996) related to remicaid treatment and crohn's Depression (Chronic) Opiate dependence, continuous (Chronic) Medical History Elevated troponin Elevated brain natriuretic peptide (BNP) level Crohn disease Anemia Rheumatoid arthritis delivery delivered Surgical History Status post partial colectomy S/P section Family History Brother Crohn's colitis Social History Smoking/Tobacco Use Status: Former Tobacco Use Quit Date: 04/27/18 Smoking risk assessment performed?: Yes Alcohol Intake: never Drug use: Daily Substance use type: marijuana, heroin, tranquilizers, sedatives and painkillers Counseling given: Yes Counseling provided: provider counseling Adopted: No Foster care: No Household members: significant other Housing: house Number of Children: 3 Seatbelt use: always Helmet use: Yes Drive intox or ride w/intox otr company driver: No Do you feel safe at home: Yes Do you feel safe in your relationship?: Yes Additional Social history: Shared custody of 6 yo girl. Mom and adult twin daughters age 28 supportive. History History 2 Para 1 Hx # Term Pregnancies 1 Multiple births 1 Hx # Pregnancies 0 Ectopic pregnancies 0 AB induced 0 Hx Number of Living Children 2 AB spontaneous 0 Past Pregnancies Del. Date GA/Weeks # Preg Succ Route Wgt Sex Labor Lgth Anesthesia Location Prov Compl 08/22/96 Yes 2863.302 g other 08/22/96 Yes 1956.117 g Female 11/09/18 39 No Female Tatiana Jarrell 11/09/18 No 3118.448 g Female [facility] Tatiana Jarrell Delivery Date: 11/09/18 Last Updated by: Tatiana Jarrell M.D. Elective repeat delivery named Latanya
[2025-05-05 08:25] LABS: Glucose Negative (Negative)
[2025-05-05 08:36] LABS: C & S Indicated? No; RBC Negative HPF (0-2); WBC 0-2 HPF (0-5)
[2025-05-05 08:38] LABS: Cannabinoids THC Positive (Negative); METHADONE URINE SCREEN Negative (Negative)
[2025-05-05] MEDS: dexmedeTOMidine IN 0.9 % NACL 400 MCG/100 ML BTL 9.662 MCG IV (10:11)
[2025-05-05] MEDS: Pantoprazole 40 MG VIAL IVP (10:46)
[2025-05-05] MEDS: Enoxaparin 40 MG/0.4 ML SYR SC (10:46)
[2025-05-05] MEDS: Normal Saline Flush 10 ML SYR IVP ×4 (10:46→23:35)
[2025-05-05] MEDS: POTASSIUM CHLORIDE/D5-0.9%NACL 1,000 ML 125 MEQ IV ×2 (10:48→18:31)
[2025-05-05] MEDS: LORazepam 20 MG/10 ML VIAL IVP ×4 (11:53→23:35)
--- NOTE | 2025-05-05 17:00 | RT.EKG_ITS ---
APPROVED REPORT Exam: Resting ECG Reason for Exam: arrhythmia, qt prolong Patient Location: I HR:93 bpm ECG Measurements Heart Rate 93 AXIS RI 148 P 60 QRSd 83 QRS 46 QT 426 T 64 QTc 530 Conclusion Sinus rhythm...normal P axis, V-rate 50- 99 Probable left atrial enlargement...P >50mS, <-0.10mV V1 Prolonged QT interval...QTc >510mS
[2025-05-05] MEDS: dexmedeTOMidine IN 0.9 % NACL 400 MCG/100 ML BTL 12.882 MCG IV (18:03)
--- NOTE | 2025-05-05 22:46 | PGE_ITS ---
Objective Last Vital Signs Temp 37.3 C 05/05/25 11:10 Pulse 93 H 05/05/25 16:00 Resp 16 05/05/25 16:00 BP 136/94 H 05/05/25 15:31 Pulse Ox 97 05/05/25 16:00 Laboratory Results - last 24 hr 05/04/25 05/04/25 05/05/25 13:31 23:35 00:45 WBC RBC Hgb Hct MCV MCH MCHC RDW Plt Count MPV PT 12.1 H INR 1.2 H Sodium Potassium Chloride Carbon Dioxide Anion Gap BUN Creatinine Est GFR (CKD-EPI 2020) Glucose Calcium Total Bilirubin AST ALT Alkaline Phosphatase Total Protein Albumin TSH 0.94 Urine Color Urine Clarity Urine pH Ur Specific [place] Urine Protein Urine Ketones Urine Blood Urine Nitrite Urine Bilirubin Urine Urobilinogen Ur Leukocyte Esterase Urine RBC Urine WBC Ur Epithelial Cells Urine Crystals Urine Bacteria Urine Casts Urine Mucus Ur Culture Indicated? Urine Glucose Urine Opiates Screen Urine Methadone Screen Ur Barbiturates Screen Ur Tricyclics Screen Ur Amphetamines Screen U Benzodiazepines Scrn Urine Cocaine Screen Ur THC Screen COVID-19 Source Nasopharynx SARS-CoV-2 (PCR) Negative Influenza Type A (PCR) Negative Influenza Type B (PCR) Negative RSV (PCR) Negative 05/05/25 05/05/25 05:50 07:35 WBC 13.41 H RBC 3.40 L Hgb 9.5 L Hct 28.4 L MCV 84 MCH 27.9 MCHC 33.5 RDW 15.2 H Plt Count 382 MPV 9.0 PT INR Sodium 141 Potassium 2.7 L* D Chloride 101 Carbon Dioxide 29.3 Anion Gap 10.7 BUN 6 L Creatinine 0.6 Est GFR (CKD-EPI 2020) 110.65 Glucose 124 H Calcium 8.6 Total Bilirubin 0.4 AST 10 L ALT 9 L Alkaline Phosphatase 114 Total Protein 6.4 Albumin 2.8 L TSH Urine Color Yellow Urine Clarity Clear Urine pH 7.0 Ur Specific [place] 1.015 Urine Protein Negative Urine Ketones 40 H Urine Blood Moderate H Urine Nitrite Negative Urine Bilirubin Negative Urine Urobilinogen 0.2 Ur Leukocyte Esterase Trace H Urine RBC Negative Urine WBC 0-2 Ur Epithelial Cells Moderate Urine Crystals Negative Urine Bacteria Few Urine Casts 0-2 Hyaline Urine Mucus Negative Ur Culture Indicated? No Urine Glucose Negative Urine Opiates Screen Positive A Urine Methadone Screen Negative Ur Barbiturates Screen Negative Ur Tricyclics Screen Negative Ur Amphetamines Screen Negative U Benzodiazepines Scrn Positive A Urine Cocaine Screen Negative Ur THC Screen Positive A COVID-19 Source SARS-CoV-2 (PCR) Influenza Type A (PCR) Influenza Type B (PCR) RSV (PCR)
[2025-05-06] VITALS (51 sets, daily range): BP systolic 90–131; BP diastolic 62–93; PULSE 49–99; RESP 7–33; TEMP 36.7–37.4; O2SAT 94–99
[2025-05-06] MEDS: dexmedeTOMidine IN 0.9 % NACL 400 MCG/100 ML BTL 19.323 MCG IV ×3 (00:45→06:29)
[2025-05-06] MEDS: LORazepam 20 MG/10 ML VIAL IVP ×2 (01:30→05:47)
[2025-05-06] MEDS: Normal Saline Flush 10 ML SYR IVP ×4 (01:58→11:29)
[2025-05-06] MEDS: diazePAM 10 MG/2 ML SYR 5 MG IVP ×4 (01:59→04:21)
[2025-05-06] MEDS: fentaNYL 100 MCG/2 ML VIAL 50 MCG IVP (05:11)
[2025-05-06] MEDS: POTASSIUM CHLORIDE/D5-0.9%NACL 1,000 ML 125 MEQ IV ×2 (05:24→12:50)
[2025-05-06 06:58] LABS: HCT 25.8 % (36.0-46.0); HGB 8.4 g/dL (11.2-15.7); MCH 26.9 pg (27.0-33.0); MCHC 32.6 % (32.0-36.0); MCV 83 fL (80-95); MPV 9.4 fL (8.0-11.0); Platelet Count 295 10^3/uL (130-400); RBC 3.12 10^6/uL (3.93-5.22); RDW 15.2 % (11.7-14.6); RDW-SD 45.8 fL; WBC 8.52 10^3/uL (4.4-10.8)
[2025-05-06 07:20] LABS: ALT 9 U/L (14-59); AST 11 U/L (15-37); Albumin 2.5 g/dL (3.4-5.0); Alkaline Phosphatase 87 U/L (46-116); Anion Gap 8.1 mmol/L (3-11); BUN 2 mg/dL (7-18); Bilirubin, Total 0.3 mg/dL (0.2-1.0); CO2 27.9 mmol/L (21.0-32.0); Calcium 8.2 mg/dL (8.5-10.1); Chloride 108 mmol/L (98-107); Estimated GFR 110.65 (mL/min/1.73m2); Glucose 145 mg/dL (74-106); Sodium 144 mmol/L (136-145); Total Protein 5.9 g/dL (6.4-8.2)
[2025-05-06 07:22] LABS: Potassium 2.6 mmol/L (3.5-5.1)
[2025-05-06 07:35] LABS: Creatine Kinase 84 U/L (26-192)
--- NOTE | 2025-05-06 08:13 | W.PULMCON ---
General Date Of Service Date of service: 05/06/25 Time of Service: 07:15 Requesting physician: Junior Hogue Reason for Consult: Serotonin syndrome Recommendations: Assessment: 1. Serotonin syndrome - improved - likely precipitated by droperidol - improved 2. Acute constipation - improved 3. Polysubstance abuse - opioids and xylazine 4. Hx crohn's disease - s/p colostomy for bowel perforation in 03/2025 Recommendations: - titrate off precedex - her episode of serotonin syndrome seems to have resolved. Can use PRN benzodiazapines should she develop further signs (agitation, clonus, hyperreflexia etc) - pain control per primary team - check CK level I will sign off, but please contact me should her clinical status deteriorate Discussed with Dr. Troncoso History of Present Illness Narrative: Patient is a 49 yo with a history of polysubstance abuse, crohn's disease, and chronic malnutrition, who was admitted on 05/04 for acute abdominal pain. She was admitted on 03/2025 for sterocolitis, large bowel perforation, and septic shock. Underwent partial colectomy and end-colostomy placement. Presented back to the ED with severe abdominal pain. CT abd showed significant stool buildup and dilated colon. She was given droperidol in the ED, but then developed diaphoresis, agitation, and clonus. Due to concern for serotonin syndrom she was started on benzodiazapines. She was admitted to the ICU for close monitoring. Currently on a precedex drip out of concern for opioid / xylazine withdrawal. She is somnolent this AM. She does open her eyes to verbal stimuli, but does not answer any questions. Nursing reports she had significant ostomy output overnight, with large amounts of formed stool. ROS: unable to obtain ROS due to medical condition [facility] All Active Problems (Updated 05/05/25 @ 08:13 by Dandre Steele) Serotonin syndrome (Acute) Peripheral edema (Acute) Acute constipation (Acute) Colostomy status (Acute) Malnutrition related to chronic disease (Acute) Tachycardia with hypertension (Acute) Elevated AST (SGOT) (Acute) Fentanyl dependence (Chronic) Peritonitis (Acute) Weight loss (Acute) Postcoital urinary tract infection (Acute) Contraception (Acute) 08/2020. Declined LARC. Smokes tobacco. Rx for norethindrone 0.35 mg daily. History of tobacco abuse (Acute) Hx of herpes genitalis (Chronic) c/s report makes mention of vulvar herpes outbreak as being the cause of pt's c/s. Arthralgia (Chronic ~08/1996) related to remicaid treatment and crohn's Depression (Chronic) Opiate dependence, continuous (Chronic) Medical History Elevated troponin Elevated brain natriuretic peptide (BNP) level Crohn disease Anemia Rheumatoid arthritis delivery delivered Surgical History Status post partial colectomy S/P section Family History Brother Crohn's colitis Social History Smoking/Tobacco Use Status: Former Tobacco Use Quit Date: 04/27/18 Smoking risk assessment performed?: Yes Alcohol Intake: never Drug use: Daily Substance use type: marijuana, heroin, tranquilizers, sedatives and painkillers Counseling given: Yes Counseling provided: provider counseling Adopted: No Foster care: No Household members: significant other Housing: house Number of Children: 3 Seatbelt use: always Helmet use: Yes Drive intox or ride w/intox courtesy bus driver: No Do you feel safe at home: Yes Do you feel safe in your relationship?: Yes Additional Social history: Shared custody of 6 yo girl. Mom and adult twin daughters age 28 supportive. History History 2 Para 1 Hx # Term Pregnancies 1 Multiple births 1 Hx # Pregnancies 0 Ectopic pregnancies 0 AB induced 0 Hx Number of Living Children 2 AB spontaneous 0 Past Pregnancies Del. Date GA/Weeks # Preg Succ Route Wgt Sex Labor Lgth Anesthesia Location [facility] 08/22/96 Yes 2863.302 g other 08/22/96 Yes 1956.117 g Female 11/09/18 39 No Female Tatiana Jarrell 11/09/18 No 3118.448 g Female [facility] Tatiana Jarrell Delivery Date: 11/09/18 Last Updated by: Tatiana Jarrell M.D. Elective repeat delivery named [place] Visit Medication and Allergies Active Medications Generic Name Dose Route Start Last Admin Trade Name Freq PRN Reason Stop Dose Admin Al Hydrox/Mg Hydrox/Simethicone 30 ml 05/04/25 23:51 Mylanta Suspension 30 Ml Cup PO Q2H PRN PRN Diazepam 5 mg 05/05/25 01:09 05/06/25 04:21 Diazepam 10 Mg/2 Ml Syr IVP 5 mg Q15M PRN Administration Docusate Sodium 100 mg 05/04/25 23:51 Docusate Sodium 100 Mg Cap PO TID PRN PRN Enoxaparin Sodium 40 mg 05/05/25 08:30 05/05/25 10:46 Enoxaparin 40 Mg/0.4 Ml Syr SC 40 mg DAILY DEVON Administration Dexmedetomidine/Sodium Chloride 400 mcg in 100 mls @ 3.221 mls/hr 05/05/25 01:15 05/06/25 06:29 Precedex IV 1.2 mcg/kg/hr INFUSION DEVON 19.323 mls/hr Protocol Administration 0.2 MCG/KG/HR Potassium Chloride/Dextrose/Sod Cl 1,000 mls @ 125 mls/hr 05/05/25 10:00 05/06/25 05:24 Kcl 20meq/D5-0.9% Nacl IV 125 mls/hr INFUSION DEVON Administration Potassium Chloride 20 meq in 100 mls @ 50 mls/hr 05/06/25 08:15 IV_INF 05/06/25 12:14 Q2H DEVON Lorazepam 1 mg 05/05/25 10:19 05/06/25 05:47 Lorazepam 20 Mg/10 Ml Vial IVP 1 mg Q2H PRN PRN Administration Magnesium Hydroxide 30 ml 05/04/25 23:51 Milk Of Magnesia 30 Ml Cup PO DAILY PRN PRN Pantoprazole Sodium 40 mg 05/05/25 10:00 05/05/25 10:46 Pantoprazole 40 Mg Vial IVP 40 mg Q24H DEVON Administration Polyethylene Glycol 17 gm 05/04/25 23:51 Polyethylene Glycol 3350 17 Gm Packet PO DAILY PRN PRN Constipation Potassium Chloride 20 meq 05/06/25 08:30 Potassium Chloride 20 Meq Tabcr PO TID DEVON Sodium Chloride 0 ml 05/04/25 15:02 05/06/25 03:30 Normal Saline Flush 10 Ml Syr IVP 40 ml PRN PRN Administration Sodium Chloride 0 ml 05/04/25 20:00 05/05/25 21:08 Normal Saline Flush 10 Ml Syr IVP 10 ml BID DEVON Administration Sodium Chloride 0 ml 05/04/25 15:02 Normal Saline 10 Ml Vial IJ DIRECTED PRN Sodium Chloride 50 ml 05/04/25 16:30 05/04/25 17:03 Normal Saline - Diluent 50 Ml Vial IJ 50 ml DIRECTED DEVON Administration Sodium Chloride 0 ml 05/04/25 16:29 05/04/25 17:03 Normal Saline Flush 10 Ml Syr IVP 10 ml PRN PRN Administration Allergies No Known Allergies Allergy (Verified 05/04/25 14:43) Exam Narrative Exam Narrative: General: alert, no acute distress Head: normocephalic ENT: no stridor, trachea midline CV: normal rate, regular rhythm Respiratory: no wheezing, no crackles, no rhonchi, no prolonged expiration GI: abd soft, non-tender, non-distended Skin: no rashes Extremities: no edema, no digital clubbing Neuro: somnolent, arouses to verbal stimuli Results Last Vital Signs Temp 36.7 C 05/06/25 03:01 Pulse 95 H 05/06/25 04:00 Resp 22 05/06/25 04:00 BP 112/72 05/06/25 03:01 Pulse Ox 98 05/06/25 04:00 Labs 05/06/25 05:30 05/06/25 05:30 Labs: Laboratory Results - last 24 hr 05/05/25 05/06/25 07:35 05:30 WBC 8.52 RBC 3.12 L Hgb 8.4 L Hct 25.8 L MCV 83 MCH 26.9 L MCHC 32.6 RDW 15.2 H Plt Count 295 MPV 9.4 Sodium 144 Potassium 2.6 L* Chloride 108 H Carbon Dioxide 27.9 Anion Gap 8.1 BUN 2 L Creatinine 0.6 Est GFR (CKD-EPI 2020) 110.65 Glucose 145 H Calcium 8.2 L Total Bilirubin 0.3 AST 11 L ALT 9 L Alkaline Phosphatase 87 Creatine Kinase 84 Total Protein 5.9 L Albumin 2.5 L Urine Color Yellow Urine Clarity Clear Urine pH 7.0 Ur Specific [place] 1.015 Urine Protein Negative Urine Ketones 40 H Urine Blood Moderate H Urine Nitrite Negative Urine Bilirubin Negative Urine Urobilinogen 0.2 Ur Leukocyte Esterase Trace H Urine RBC Negative Urine WBC 0-2 Ur Epithelial Cells Moderate Urine Crystals Negative Urine Bacteria Few Urine Casts 0-2 Hyaline Urine Mucus Negative Ur Culture Indicated? No Urine Glucose Negative Urine Opiates Screen Positive A Urine Methadone Screen Negative Ur Barbiturates Screen Negative Ur Tricyclics Screen Negative Ur Amphetamines Screen Negative U Benzodiazepines Scrn Positive A Urine Cocaine Screen Negative Ur THC Screen Positive A Imaging Abdomen CT scan report/results: report reviewed and image reviewed
[2025-05-06] MEDS: Potassium Chloride 20 MEQ TABCR PO (12:40)
[2025-05-06] MEDS: Pantoprazole 40 MG VIAL IVP (12:50)
[2025-05-06] MEDS: POTASSIUM CHLORIDE 20 MEQ/100 ML BAG 50 MEQ IV_INF ×2 (12:50→15:22)
--- NOTE | 2025-05-06 13:16 | NUR.NOTE ---
Nursing Note: At approximately 1225 this nurse went into patient's room as the patient had disconnected her cardiac lead set and was not being monitored. This nurse went into the room to reconnect the cardiac lead set and connect her SAO2 finger probe to her finger. This nurse noticed her left hand was closed. This nurse asked patient put her hand out so this nurse could attach the finger probe to a finger on her left hand. Then this nurse noticed she had something in her left hand. This nurse called for Shola Acosta RN to come in to observe situation. He also noticed she had something in her left hand. We then asked her to give us what she had in her left hand. Eventually she placed it on a paper towel in Andrea Acosta's hand. The small package with a purple colored substance was then given in the paper towel to Ninfa PERRY, who then gave it to the database security administrator,
--- NOTE | 2025-05-06 14:31 | PDOC.CMPRO ---
Date of service: 05/06/25 Time of Service: 14:32 Care Management Progress Note Progress Note Text Progress Note Text: Shania has been sleeping each of the 2 times CM went to meet with her today. She has been unarousable to name each time, the second attempt voice was raised, but no luck. Reportedly, Shania has been complaining about her care, etc and not been the most cooperative of patients. RN reportedly entered Shania's room because she was disconnected from her monitor and found Shania to have a small package with a purple colored substance in her hand, that she was hesitant to show. The package was given to security by nursing. CM would like to talk with Shania about the [facility]. Discharge Potential Discharge Needs: PCP F/U Appt and Surgical F/U Appt (new ostomy) Anticipated Barriers to Discharge: None Identified Patient/Family Education Needs: Review discharge instructions, discuss Ask Me Three Transportation: Private vehicle Plan: Anticipate Shania will discharge home via private vehicle with family once medically ready. Patient will follow up with community providers and continue per her discharge plan of care. CM will continue to follow and update the plan as needed. Social Determinants of Health Screening Will the Patient Participate in the Screening?: Unable to obtain Health Related Social Needs Health related social needs details: Due to patient's present condition, questions not pertinent to presentation would not be appropriate.
--- NOTE | 2025-05-06 16:54 | NUR.NOTE ---
Addendum entered by Bernadette Love 05/06/25 18:42: At discharge pt found her bathrobe. pants still missing Original Note: Nursing Note: Shania reports she came to ED in black bathroom and white pants that are not here in ICU. Pt states the ED RN told her they would be sent to laundry for her. ED rn found her tonight and reviewed hx of clothing. RN Selma remembers the robe and pants on the floor covered in stool and I told the next RN they needed to go to laundry Laundry was checked, zone B area for clothing was checked. Nothing found. Sent message to ED in EVS to ask him to review with laundry staff and see if the items can be found. This info was relayed to pt with the apologies of the staff.
--- NOTE | 2025-05-06 16:56 | DSE_ITS ---
Date of service: 05/06/25 Time of Service: 16:57 DS: Diagnosis Discharge Diagnosis (1) Serotonin syndrome: Status: Acute (2) Acute constipation: Status: Acute (3) Opiate dependence, continuous: Status: Chronic (4) Fentanyl dependence: Status: Chronic (5) Depression: Status: Chronic (6) Crohn disease: Discharge Plan Disposition Patient Disposition: Home Condition: Fair Discharge Details Reason For Visit: Acute Serotonin syndrome,Acute severe Constipation Admit Date/Time: 05/04/25 22:24 Admit Provider: Dandre Steele Attending Provider: Dandre Steele [facility] Course: 49 year old woman with active fentanyl and xylazine use disorder, not in treatment, and history of Crohn disease not on therapy s/p 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 She did move her bowels, but then exhibit ed signs of seratonin syndrome that seemed to have been triggered by the antiemetic droperidol. She was treated supportively in the ICU with precedex and diazepam along with fluids and cooling. Her vital signs normalized. She continued to have normal bowel function and was eating at the time of discharge. She again declined treatment with medication for opioid use disorder. She expressed a desire to quit using, but was found with presumed drugs in a baggy hidden in her jacket while she was in the ICU. Sge was sedated after handling the baggy, but recovered prior to discharge. She will discharge to follow up with her PCP at [facility]. Her colostomy was functioning during her admission. She has a known iron deficiency anemia. Her hgb dropped from 10.4 to 8.4 over 2 days, but she was also hydrated. She had no signs of bleeding. Her potassium was low, presumably related to vomiting. It was replaced IV and orally. She was sent home on 20mEq daily and should have follow up BMP. Recommendations for Follow Up Recommended tests to be ordered by follow up provider: CBC, BMP in 1 week Home Meds and New Rx's Prescriptions: New polyethylene glycol 3350 17 gram Powder In Packet 17 g PO DAILY PRN PRN (Reason: Constipation) Qty: 1 0RF potassium chloride 20 mEq Tablet,Er Particles/Crystals 20 meq PO DAILY Qty: 30 0RF Continued pantoprazole 40 mg tablet,delayed release (DR/EC) 40 mg PO DAILY Qty: 30 2RF ondansetron 4 mg tablet,disintegrating 4 mg PO Q8H PRN (Reason: nausea and vomiting) 30 Days Qty: 90 1RF furosemide [Lasix] 20 mg tablet 20 mg PO DAILY Qty: 8 0RF Discontinued ondansetron HCl 8 mg tablet 4 mg PO TID PRN Patient Comments: TAKE ONE TABLET BY MOUTH EVERY 8 HOURS NEEDED FOR NAUSEA AND VOMITING Discharge Instructions Additional Instructions: Continue to work on plan for sobriety. Consider inpatient rehabilitation and supportive living, and trying suboxone or methadone again. I would recommend taking miralax every day with plenty of fluids, at least if you don't have a bowel movement. Psyllium and senna can also help. Activity:: Activity as Tolerated Equipment/Supplies:: No Equipment Needed Diet:: As Tolerated Discharge Orders Discharge Orders: Discharge Order (Routine); Ordered 05/06/25 Ordered By: Joo Troncoso DS: Summary Time Spent with Patient providing and/or coordinating discharge services: Greater than 30 minutes Status at Discharge Functional status at discharge: independent ambulation Overall status at discharge: patient is back to baseline Mental Status: mental status grossly normal Speech and Movement: speech and movement normal Mood: congruent mood Affect: normal affect Quality:SDOH Health Related Social Needs: Health related social needs lonely/isolated Health related social needs details Due to patient's p resent condition, questions not pertinent to presentation would not be appropriate. Health related social needs details: Due to patient's present condition, questions not pertinent to presentation would not be appropriate. Exam Narrative Exam Narrative: General: alert and oriented x 4, appropriately interactive, no acute distress CV: normal rate, regular rhythm Respiratory: no wheezing, no crackles, no rhonchi, no prolonged expiration GI: abd soft, non-tender, non-distended, colostomy in place Skin: no rashes Extremities: no edema, no digital clubbing Psych Mental Status: mental status grossly normal Speech and Movement: speech and movement normal Mood: congruent mood Affect: normal affect DS: Data Vitals/I&O Vitals and I&O: Vital Signs Temperature 37.4 C 05/06/25 09:00 Temperature Source Temporal Artery Scan 05/06/25 09:00 Pulse 60 05/06/25 15:15 Pulse 52 L 05/06/25 13:45 Respiratory Rate 10 L 05/06/25 15:15 Respiratory Effort Incrsd Work of Breathing 05/04/25 23:15 Respiratory Depth Deep 05/04/25 23:15 Respiratory Pattern Tachypnea 05/04/25 23:15 Blood Pressure 93/80 L 05/06/25 15:15 Blood Pressure Mean 84 05/06/25 15:15 Pulse Oximetry 96 05/06/25 15:15 Respiratory End-tidal CO2 33 05/04/25 22:45 Oxygen Delivery Method Room Air 05/06/25 15:15 Oxygen Flow Rate 0 05/06/25 15:15 Pain Level 8 05/04/25 23:27 Comment Patient is reporting back pain. This nurse offered her the aqua K heating pad--patient declined. 05/06/25 09:00 Intake & Output 05/05/25 05/06/25 05/06/25 23:59 11:59 23:59 Intake Total 1075.401 / 2350.771 2438.722 / 2438.722 0 / 2438.722 Output Total 1300 / 1400 1650 / 1650 Balance -224.599 / 950.771 788.722 / 788.722 0 / 788.722 Weight 64.3 kg Intake: IV 1075.401 / 2350.771 1988.722 / 1988.722 0 / 1988.722 Oral 450 / 450 Output: Urine 1300 / 1400 1650 / 1650 Other: Urine Color Yellow Yellow Urine Appearance Clear Clear Comment Pt incontinent of large volume of urine in brief. Stool Size Moderate Large Stool Characteristics Formed Hard Brown Data Completed and Pending Labs on day of discharge: Labs from last 24 hours 05/06/25 05:30 WBC 8.52 RBC 3.12 L Hgb 8.4 L Hct 25.8 L MCV 83 MCH 26.9 L MCHC 32.6 RDW 15.2 H Plt Count 295 MPV 9.4 Sodium 144 Potassium 2.6 L* Chloride 108 H Carbon Dioxide 27.9 Anion Gap 8.1 BUN 2 L Creatinine 0.6 Est GFR (CKD-EPI 2020) 110.65 Glucose 145 H Calcium 8.2 L Total Bilirubin 0.3 AST 11 L ALT 9 L Alkaline Phosphatase 87 Creatine Kinase 84 Total Protein 5.9 L Albumin 2.5 L PFSH All Active Problems (Updated 05/05/25 @ 08:13 by Dandre Steele) Serotonin syndrome (Acute) Peripheral edema (Acute) Acute constipation (Acute) Colostomy status (Acute) Malnutrition related to chronic disease (Acute) Tachycardia with hypertension (Acute) Elevated AST (SGOT) (Acute) Fentanyl dependence (Chronic) Peritonitis (Acute) Weight loss (Acute) Postcoital urinary tract infection (Acute) Contraception (Acute) 08/2020. Declined LARC. Smokes tobacco. Rx for norethindrone 0.35 mg daily. Hx of herpes genitalis (Chronic) c/s report makes mention of vulvar herpes outbreak as being the cause of pt's c/s. History of tobacco abuse (Acute) Arthralgia (Chronic ~08/1996) related to remicaid treatment and crohn's Depression (Chronic) Opiate dependence, continuous (Chronic) Medical History Elevated troponin Elevated brain natriuretic peptide (BNP) level Crohn disease Anemia Rheumatoid arthritis delivery delivered Surgical History Status post partial colectomy S/P section Family History Brother Crohn's colitis Social History Smoking/Tobacco Use Status: Former Tobacco Use Quit Date: 04/27/18 Smoking risk assessment performed?: Yes Alcohol Intake: never Drug use: Daily Substance use type: marijuana, heroin, tranquilizers, sedatives and painkillers Counseling given: Yes Counseling provided: provider counseling Adopted: No Foster care: No Household members: significant other Housing: house Number of Children: 3 Seatbelt use: always Helmet use: Yes Drive intox or ride w/intox concrete mixer truck driver: No Do you feel safe at home: Yes Do you feel safe in your relationship?: Yes Additional Social history: Shared custody of 6 yo girl. Mom and adult twin daughters age 28 supportive. History History 2 Para 1 Hx # Term Pregnancies 1 Multiple births 1 Hx # Pregnancies 0 Ectopic pregnancies 0 AB induced 0 Hx Number of Living Children 2 AB spontaneous 0 Past Pregnancies Del. Date GA/Weeks # Preg Succ Route Wgt Sex Labor Lgth Anesth esia Location Prov Complic 08/22/96 Yes 2863.302 g other 08/22/96 Yes 1956.117 g Female 11/09/18 39 No Female Tatiana Carrera 11/09/18 No 3118.448 g Female [facility] Tatiana Jarrell Delivery Date: 11/09/18 Last Updated by: Tatiana Jarrell M.D. Elective repeat delivery named [place] Time Spent with Patient Time Spent with Patient: 45-69 minutes Time was spent: preparing to see the patient(eg.review tests), obtaining and/or reviewing separately otained hiistory, ordering medications,tests, procedures, referring, communicating with other health care transitions nurse, indepentently interpreting results, counseling the patient and care coordination
[2025-05-07 15:03] LABS: Fentanyl Scr w/Rfx Confirm Positive ng/mL (<1)
[2025-05-08 10:34] LABS: Xylazine, Confirmation Urine Negative ng/mL (<50)
[2025-05-08 16:16] LABS: Norfentanyl Confirmation >200 ng/mL (<10)
== END 2025-05-06 18:00 | disposition home or self-care (01) | DRG 74 ==
LOC: ER 16:05 → ICU 23:11
PROVIDERS: Internal Medicine Pulmonary Disease; Student in an Organized Health Care Education/Training Program; Admitting Provider Family Medicine; Emergency Provider General Practice; PCP Family Medicine; Responsible Provider Family Medicine; Visit Provider Family Medicine
DX: G90.81 Serotonin syndrome (principal); F11.20 Opioid dependence, uncomplicated; K50.918 Crohn's disease, unspecified, with other complication; E46 Unspecified protein-calorie malnutrition; T43.595A Adverse effect of other antipsychotics and neuroleptics, initial encounter; K59.00 Constipation, unspecified; F32.A Depression, unspecified; Z93.3 Colostomy status; I10 Essential (primary) hypertension; R00.0 Tachycardia, unspecified; Z87.891 Personal history of nicotine dependence; Z68.22 Body mass index [BMI] 22.0-22.9, adult; R45.89 Other symptoms and signs involving emotional state
CPT/HCPCS: 00123; 36415; 80053; 80307; 80348; 80354; 80375; 82550; 83690; 85027; 87637; 93005; 96365; 96366; 96375; 96376; 99291; J1650; 74177; 81003; 81015; 83735; 84443; 85025; 85610; 93010; 99223; 99239; J0131; J1171; J1200; J1790; J2060; J2405; J2470; J3010; J3360; J3480; J3490

== ENCOUNTER → 2025-07-19 01:56 | Outpatient (CLI) | payer MEDICAID, SELFPAY ==
--- NOTE | 2025-07-19 06:30 | DI.RAD_ITS ---
Exam(s) RF BARIUM ENEMA EXAM: RF BARIUM ENEMA CLINICAL HISTORY: r/o stricture, anticipate colostomy rev COMPARISON: CT CT ABDOMEN PELVIS W from 05/04/2025 TECHNIQUE: 2D and realtime digital imaging was performed. CONTRAST MATERIAL: Water soluble contrast was administered via rectal tube. FINDINGS: Fleet Service Manager view of the abdomen shows a left-sided colostomy bag. Water soluble contrast was refluxed to the level of the lower descending colon which is oversewn. The visualized colon demonstrates no structural abnormalities including structure,dilation, or mass. IMPRESSION: No evidence of stricture. RADIATION DOSE DELIVERED: carolyn Govea=16.2 mGy
[2025-07-19] MEDS: Omnipaque 350 MG/ML 100 ML BTL IJ (11:25)
== END ==
PROVIDERS: PCP Family Medicine; Visit Provider Surgery
DX: Z93.3 Colostomy status (principal)
CPT/HCPCS: 74270; J3490

== ENCOUNTER 2025-07-19 02:19 | Outpatient (CLI) | payer MEDICAID, SELFPAY ==
[2025-07-19 12:55] LABS: ALT 12 U/L (10-49); AST 10 U/L (<34); Albumin 4.4 g/dL (3.2-5.0); Alkaline Phosphatase 99 U/L (46-116); Anion Gap 10.2 mmol/L (3-11); BUN 15 mg/dL (9-23); Bilirubin, Total 0.20 mg/dL (0.2-1.2); CO2 28.8 mmol/L (20.0-31.0); Calcium 9.2 mg/dL (8.3-10.6); Chloride 101 mmol/L (98-107); Glucose 109 mg/dL (74-106); Potassium 3.3 mmol/L (3.5-5.1); Sodium 140 mmol/L (136-145); Total Protein 7.5 g/dL (5.7-8.2)
[2025-07-19 13:15] LABS: Iron 15 ug/dL (50-170); Total Iron Binding Capacity 386 ug/dL (250-425); Transferrin Sat 4 % (15-50)
== END 2025-07-19 02:20 | disposition home or self-care (01) ==
LOC: LBO 02:19
PROVIDERS: PCP Family Medicine; Visit Provider Surgery
DX: Z93.3 Colostomy status (principal)
CPT/HCPCS: 36415; 80053; 83540; 83550